=== PATIENT | female | born 1965 | race Caucasian/White ===

== ENCOUNTER → 2018-01-10 | Outpatient (CLI) | payer OTHER, MEDICAID ==
[~2018-01-10] MED LIST: IOPAMIDOL (ISOVUE-300) 100 ML BTL ONE
== END ==
LOC: CIMAGING 13:55
PROVIDERS: ATTEND Surgery
DX: K43.9 Ventral hernia without obstruction or gangrene (principal); N85.2 Hypertrophy of uterus; N20.0 Calculus of kidney; R93.8 Abnormal findings on diagnostic imaging of other specified body structures
CPT/HCPCS: 74177; Q9967; 82565-PO

== ENCOUNTER 2018-01-24 14:30 | Inpatient (IN) | payer OTHER, MEDICAID ==
--- NOTE | 2018-02-06 14:19 | GHP ---
[f rep st] PREOP HISTORY AND PHYSICAL DATE OF ADMISSION: 02/07/2018 HISTORY OF PRESENT ILLNESS: The patient is a 53-year-old female who presents with a recurrent incisi onal hernia. This hernia was repaired in September of 2017, following her 3rd open rectal prolapse re pair surgery, which was 4 years prior to the hernia repair. The incisional hernia recurred just over a week after its repair. She is found to have an intraabdominal abscess and require mesh removal. Her hernia was not repaired at that time. The patient complains of severe pain lateral to her previo us incision and over her hernia. She also complains of occasional nausea with dry heaving. When she first comes to us today she says she is on H. pylori medications. The patient had a CT scan of her abdomen and pelvis to further characterize the hernia and assure florentin arance of infection. This showed multiple fat and bowel containing ventral hernias without evidence of obstruction. Please see report from 01/10/2018, done at [facility] for further deta ils. She is now here for repair. She canceled her originally scheduled surgery, as she was sick wit h a cough. Risks and options have been fully discussed including but not limited to, bleeding, infec tion, nerve injury, bowel injury, damage to surrounding structures, healing problems, recurrent herni a, need for more surgery, and other problems, and she requests to proceed. PAST MEDICAL HISTORY: Includes chronic pain, depression, poorly-controlled type 2 diabetes, anxiety disorder, history of alcohol and narcotic dependence, history of pancreatitis, post-traumatic stress disorder, tobacco use. PAST SURGICAL HISTORY: As outlined above and includes several surgeries for rectal prolapse. Also v aginal prolapse and hernia repairs with subsequent mesh removal. MEDICATIONS: Include Adderall, amoxicillin, Bentyl, clarithromycin, gabapentin, ibuprofen, Lantus in sulin, lisinopril, Lopid, metformin, Howells, omeprazole, MiraLAX, promethazine, Prozac, Robaxin, Tylen ol, Zofran. ALLERGIES: Include contrast dye-induced nephropathy. Also with a reaction of hives. With Haldol be comes dystonic and Wellbutrin hives. FAMILY MEDICAL HISTORY: Involves alcoholism and depression. SOCIAL HISTORY: Patient is . She is a current everyday smoker of about 3 cigarettes a day. REVIEW OF SYSTEMS: Negative aside from that in the HPI. PHYSICAL EXAMINATION: GENERAL: Reveals a 53-year-old female, alert and oriented x3. Nontoxic appea ring. Increased BMI. Some paroxysmal dry heaving during the visit. HEENT: Normocephalic, atraumat ic. No scleral icterus. CHEST: Clear to auscultation bilaterally. CARDIAC: Regular rate and rhyt hm rate and rhythm. ABDOMEN: Soft nontender with old midline suprapubic scar and large reducible re current ventral hernia. Hernia is soft with no overlying skin changes. SKIN: Warm and dry. EXTREM ITIES: No peripheral edema. PSYCHIATRIC: Normal mood and affect. IMPRESSION: This is a 53-year-old female with multiple comorbidities with a recurrent incisional her shirley with a history of mesh infection requiring removal. PLAN: Plan is to proceed with open repair of her recurrent incisional hernia. We will likely use me sh. Again, the risks and options were discussed, and she requests to proceed. CT images personally reviewed by myself and Dr. Chamorro. /[id number]/MODL
[2018-02-07] MEDS ORDERED: ceFAZolin 2 GM/SWFI 2 GM/20 ML SYR IVP ONE (09:34)
[2018-02-07] MEDS ORDERED: LR 1,000 ML IV ONE (09:37)
[2018-02-07] MEDS ORDERED: LIDOCAINE 1% 2 ML INJ ID PRN (09:37)
--- NOTE | 2018-02-07 09:54 | PDHPUP ---
History & Physical Update H&P update statement: This history and physical update is based on an assessment of the patient which was completed after admission or registration (within 24 hours), but prior to the surgery/procedure. H&P update: H&P reviewed & patient examined, no change in patient's condition since H&P completed
[2018-02-07] MEDS ORDERED: BUPIVACAINE 0.5% 30 ML SDV ONE (10:05)
[2018-02-07] MEDS ORDERED: MIDAZOLAM 2 MG/2 ML VIAL IVP ONE (10:09)
--- NOTE | 2018-02-07 10:09 | PDANEPAE ---
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 No problems since then. - Pulmonary History Hx COPD: No Hx Asthma/Reactive Airway Disease: No Hx Recent Upper Respiratory Infection: No Hx Oxygen in Use at Home: No Hx Sleep Apnea: No Sleep Apnea Screening Result - Last Documented: Negative - Neurologic History Hx Cerebrovascular Accident: No Hx Seizures: No Hx Dementia: No Neurologic History Comment: Diabetic neuropathy hands and feet. - Endocrine History Hx Diabetes: Yes Endocrine History Comment: Type 2-insulin and metformin. - Renal History Hx Renal Disorders: Yes Renal History Comment: Septicemia due to ureter stent. Emergently removed in 2011. No further problems. - Liver History Hx Hepatic Disorders: No - Neurological & Psychiatric Hx Hx Neurological and Psychiatric Disorders: Yes Neurological / Psychiatric History Comment: PTSD, ADD-meds. - Cancer History Hx Cancer: No - Congenital Disorder History Hx Congenital Disorders: No - GI History Hx Gastrointestinal Disorders: Yes Gastrointestinal History Comment: 05/30-pancreatitis, treated and resolved. Chronic BM issues-meds.IBS. 4 abd. hernias. - Other Health History Other Health History: Bilateral mild hearing loss. Stress induced skin sores. Multiple missing teeth-meth abuse. - Chronic Pain History Chronic Pain: Yes (abd., colorectal) - Surgical History Prior Surgeries: 1994-colon resection, uterine sling, R oopherectomy.2004, 2009- colon resection & nicked L ureter with stent placement. Stent removed 2011. 2007 -L foot. 2012-oral surg. ANE Review of Systems Review of Systems: - Exercise capacity METS (RN): 4 METS ANE Patient History - Allergies Allergies/Adverse Reactions: bupropion HCl [From Wellbutrin] Allergy (Verified 06/19/13 13:44) haloperidol [From Haldol] Allergy (Verified 06/19/13 13:44) haloperidol lactate [From Haldol] Allergy (Verified 06/19/13 13:44) iopamidol [From Isovue-M] Allergy (Verified 06/27/13 08:27) Vomiting risperidone [From Risperdal] Allergy (Verified 06/19/13 13:44) CT CONTRAST Allergy (Uncoded 06/27/13 08:28) Vomiting - Home Medications Home medications: home medication list seen and reviewed Home Medications: Dextroamphetamine/Amphetamine [Adderall Xr 5 mg Capsule] 5 mg PO DAILY 01/20/18 [Last Taken 02/06/18] FLUoxetine [Prozac 20 MG (*)] 60 mg PO DAILY 01/20/18 [Last Taken 02/07/18] Gemfibrozil [Lopid 600 MG (*)] 600 mg PO BIDAC 01/20/18 [Last Taken 02/07/18] Insulin Glargine [Lantus 100 UNITS/ML (*)] 34 units SC DAILY 01/20/18 [Last Taken 02/06/18] Lisinopril [Zestril 5 mg (*)] 5 mg PO DAILY18 01/20/18 [Last Taken 02/05/18] Omeprazole 20 mg PO DAILY 01/20/18 [Last Taken 02/07/18] - NPO status NPO Status: no food or drink >8 hours NPO Since - Liquids (Date): 02/07/18 NPO Since - Liquids (Time): 07:00 NPO Since - Solids (Date): 02/06/18 NPO Since - Solids (Time): 23:00 - Smoking Hx Smoking Status: Current every day smoker - Family Anes Hx Family Hx Anesthesia Complications: none ANE Labs/Vital Signs - Labs Result Diagrams: 02/07/18 09:50 - Vital Signs Blood Pressure: 157/106 Heart Rate: 75 Respiratory Rate: 16 O2 Sat (%): 97 Height: 5 ft 1 in Weight: 77.111 kg ANE Physical Exam - Airway Neck exam: FROM Mallampati Score: Class 1 Mouth exam: poor dentition, dentures - Pulmonary Pulmonary: no respiratory distress - Cardiovascular Cardiovascular: regular rate and rhythym - ASA Status ASA Status: III ANE Anesthesia Plan Anesthesia Plan: general endotracheal anesthesia
[2018-02-07] MEDS ORDERED: fentaNYL 250 MCG/5 ML INJ ONE (10:13)
[2018-02-07] MEDS ORDERED: PROPOFOL/EMULSION 500 MG/50 ML BOTTLE IV ONE (10:14)
[2018-02-07] MEDS ORDERED: ROCURONIUM 100 MG/10 ML VIAL ONE (10:16)
[2018-02-07] MEDS ORDERED: HYDROmorphONE/DILAUDID 2 MG/ML INJ ONE ×3 (10:59→13:49)
[2018-02-07] MEDS ORDERED: PROPOFOL 200 MG/20 ML VIAL ONE (11:49)
[2018-02-07] MEDS ORDERED: ERTAPENEM 1 GM VIAL IV ONE (12:15)
[2018-02-07] MEDS ORDERED: KETOROLAC 30 MG/1 ML SDV ONE (12:17)
[2018-02-07] MEDS ORDERED: ALBUTEROL 3 ML DEYVIAL IH PRN (12:20)
[2018-02-07] MEDS ORDERED: ONDANSETRON 4 MG/2 ML VIAL IVP PRN ×2 (12:20→12:49)
[2018-02-07] MEDS ORDERED: NALOXONE HCL 0.4 MG/ML INJ IVP PRN ×2 (12:20→15:17)
[2018-02-07] MEDS ORDERED: HYDROmorphone HCL/NS 0.5 MG/ML SYR IVP PRN (12:53)
--- NOTE | 2018-02-07 12:55 | POSTOPPROG ---
Post Op Note Date of Operation: 02/07/18 Surgeon: Raad Chamorro Special Procedures Nurse: Chantal Peñaloza Anesthesiologist: Jasiel Benavidez Anesthesia: GET(General Endotracheal) Pre-op Diagnosis: large recurrent incisional ventral hernia Post-op Diagnosis: same, with 1 cm adjacent satellite ventral hernias x 2 Procedure: open repair of large VH with mesh and lysis of adhesions Findings: many adhesions, large defect Inf/Abcess present in the surg proc area at time of surgery?: No EBL: Minimal Complications: none Drains: David Naik Specimen(s): hernia sac to pathology
[2018-02-07] MEDS ORDERED: fentaNYL 100 MCG/2 ML INJ ONE (13:00)
[2018-02-07] MEDS: fentaNYL 100 MCG/2 ML INJ IVP PRN ×2 (13:01→13:08)
--- NOTE | 2018-02-07 13:02 | POSTANESTH ---
Post Anesthetic Evaluation Cardiovascular Status: Normal, Stable Respiratory Status: Normal, Stable Level of Consciousness/Mental Status: Can Participate in Eval Pain Control: Inadeq, Add Tx Required Nausea/Vomiting Control: Adequate, Prn Tx Ordered Complications Possibly Related to Anesthesia: None Noted
[2018-02-07] MEDS: HYDROmorphONE/DILAUDID 2 MG/ML INJ IVP PRN ×5 (13:17→14:00)
[2018-02-07] MEDS ORDERED: HYDROCODONE/APAP 5/325 TAB ONE (13:30)
[2018-02-07] MEDS ORDERED: OXYCODONE/APAP 5/325 TAB ONE (13:34)
[2018-02-07] MEDS: OXYCODONE/APAP 5/325 TAB PO PRN ×2 (13:35→21:43)
--- NOTE | 2018-02-07 13:54 | PDMN ---
Medical Necessity Medical necessity: est los>2mn s/p open repair of large ventral hernia w/mesh, for recurrent incisional hernia, and lysis of adhesions, r/t multiple comorbid conditions, including chronic pain, poorly controlled IDDM, anxiety, PTSD, hx etoh and narcotic dependence, and extensive surgical history; per order and H&P 02/07/18
[2018-02-07] MEDS ORDERED: DIAZEPAM 5 MG/ML 1 ML SYR ONE (13:59)
[2018-02-07] MEDS ORDERED: DIAZEPAM 5 MG/ML 1 ML SYR IVP ONE (14:30)
--- NOTE | 2018-02-07 15:06 | ASMTCASEMG ---
Living Arrangements What is your living Answers: Alone arrangement? Who do you live with? Type Of Residence What kind of residence do Answers: House you live in? Discharge Plan Comments Coordination Status Comments Notes: Pt is a 53 y/o female admitted for a recurrent incisional hernia. Pt is current w/ [facility]. CM spoke w/ Ej from [facility] and sent updates to them. No therapies ordered at this time. CM to follow. Plan: [facility] BERMUDEZ, RN Date Signed: 02/07/2018 03:05 PM Electronically Signed By:AIDAN Agudelo
--- NOTE | 2018-02-07 16:11 | SOAPPROG ---
SOAP Progress Note Assessment/Plan: Assessment/Plan: 53 Y F s/p repair of open VH c mesh, c extensive adhesiolysis. POD#0. Post op check. Wounds intact. Drain scant serosanguinous. C/o pain. 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 AFVSS. Continue routine post op care. 02/07/18 16:09 Objective: Vital Signs Temp Pulse Resp BP Pulse Ox 36.5 C 80 14 109/79 97 02/07/18 15:51 02/07/18 15:51 02/07/18 15:51 02/07/18 15:51 02/07/18 15:51 Laboratory Results 02/07/18 09:50 02/06/18 02/07/18 02/08/18 05:59 05:59 05:59 Intake Total 2030 Output Total 130 Balance 1900 ICD10 Worksheet Patient Problems: Problems Problem Status Onset Depression Acute
[2018-02-07] MEDS: HYDROmorphONE/DILAUDID 6 MG/30 ML PCA IV PRN (16:33)
[2018-02-07] MEDS: KETOROLAC 15 MG/1 ML SDV IVP SCH ×2 (16:53→23:32)
[2018-02-07] MEDS: GEMFIBROZIL 600 MG TAB PO SCH (18:32)
[2018-02-07] MEDS: LISINOPRIL 5 MG TAB PO SCH (18:32)
[2018-02-07] MEDS: LORazepam 2 MG/ML INJ IVP PRN (18:40)
[2018-02-07] MEDS: DOCUSATE SODIUM 100 MG CAP PO SCH (21:05)
[2018-02-07] MEDS: metFORMIN HCL 500 MG TAB PO SCH (21:05)
[2018-02-08] MEDS: KETOROLAC 15 MG/1 ML SDV IVP SCH ×3 (05:11→18:23)
[2018-02-08] MEDS: LORazepam 2 MG/ML INJ IVP PRN ×3 (05:16→21:06)
[2018-02-08] MEDS: HYDROmorphONE/DILAUDID 6 MG/30 ML PCA IV PRN ×2 (06:52→15:49)
[2018-02-08] MEDS: FLUoxetine 20 MG CAP PO SCH (08:42)
[2018-02-08] MEDS: GEMFIBROZIL 600 MG TAB PO SCH ×2 (08:42→18:22)
[2018-02-08] MEDS: metFORMIN HCL 500 MG TAB PO SCH ×2 (08:42→20:25)
[2018-02-08] MEDS: DOCUSATE SODIUM 100 MG CAP PO SCH ×2 (08:44→20:25)
[2018-02-08] MEDS: ERTAPENEM 1 GM VIAL IV SCH (08:45)
[2018-02-08] MEDS: PANTOPRAZOLE SODIUM 40 MG TAB PO SCH (08:45)
--- NOTE | 2018-02-08 11:25 | SOAPPROG ---
SOAP Progress Note Assessment/Plan: Assessment: 53 Y F s/p repair of open VH c mesh, c extensive adhesiolysis. POD#1 S: Experiencing pain. Denies passing flatus or BM yet. Tolerating clears. O: Alert Afebrile RRR No increased WOB Abdomen: soft, but distended. +BS. KARO drain with serosanguinous drainage. Abdominal binder in place. Plan: Seen with Dr. Chamorro. Pt will likely be here another day or two given postop pain. 02/08/18 11:23 Objective: Vital Signs Temp Pulse Resp BP Pulse Ox 36.4 C 69 16 115/77 85 L 02/08/18 09:50 02/08/18 09:50 02/08/18 09:50 02/08/18 09:50 02/08/18 10:00 Laboratory Results 02/08/18 05:00 02/08/18 05:00 02/07/18 02/08/18 02/09/18 05:59 05:59 05:59 Intake Total 2684 Output Total 405 350 Balance 2279 -350 ICD10 Worksheet Patient Problems: Problems Problem Status Onset Depression Acute
[2018-02-08] MEDS: LISINOPRIL 5 MG TAB PO SCH (18:23)
[2018-02-09] MEDS: KETOROLAC 15 MG/1 ML SDV IVP SCH ×4 (00:32→17:30)
[2018-02-09] MEDS: LORazepam 2 MG/ML INJ IVP PRN ×5 (02:58→22:00)
[2018-02-09] MEDS: HYDROmorphONE/DILAUDID 6 MG/30 ML PCA IV PRN ×2 (08:48→20:25)
--- NOTE | 2018-02-09 09:29 | SOAPPROG ---
SOAP Progress Note Assessment/Plan: Assessment: 53 Y F s/p repair of open VH c mesh, c extensive adhesiolysis. POD#1 S: Experiencing pain. Denies passing flatus or BM yet. Tolerating clears. O: Alert Afebrile RRR No increased WOB Abdomen: soft, but distended. +BS. KARO drain with serosanguinous drainage. Abdominal binder in place. Plan: Seen with Dr. Chamorro. Pt will likely be here another day or two given postop pain. 02/08/18 11:23 02/09/18 09:24 Alert Afebrile Abdomen: distended, hypoactive bowel sounds, tender to palpation. Dressing cdi. Pt upset that this was her 7th surgery for her ventral hernia and concerned that it may not take this time. Passing gas, no BM. Still having significant pain. Offered reassurance. 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 Discussed with RN. Objective: Vital Signs Temp Pulse Resp BP Pulse Ox 36.8 C 77 18 117/71 89 L 02/09/18 07:48 02/09/18 07:48 02/09/18 07:48 02/09/18 07:48 02/09/18 07:48 Laboratory Results 02/08/18 05:00 02/08/18 05:00 02/08/18 02/09/18 02/10/18 05:59 05:59 05:59 Intake Total 2684 480 Output Total 405 1140 60 Balance 2279 -660 -60 ICD10 Worksheet Patient Problems: Problems Problem Status Onset Depression Acute
[2018-02-09] MEDS: PANTOPRAZOLE SODIUM 40 MG TAB PO SCH (09:35)
[2018-02-09] MEDS: FLUoxetine 20 MG CAP PO SCH (09:35)
[2018-02-09] MEDS: ENOXAPARIN 40 MG/0.4 ML SYR SC SCH (09:35)
[2018-02-09] MEDS: metFORMIN HCL 500 MG TAB PO SCH ×2 (09:35→22:04)
[2018-02-09] MEDS: GEMFIBROZIL 600 MG TAB PO SCH ×2 (09:35→17:46)
[2018-02-09] MEDS: DOCUSATE SODIUM 100 MG CAP PO SCH ×2 (09:35→22:03)
[2018-02-09] MEDS: ERTAPENEM 1 GM VIAL IV SCH (09:36)
[2018-02-09] MEDS: LISINOPRIL 5 MG TAB PO SCH (17:46)
[2018-02-09] MEDS: OXYCODONE/APAP 5/325 TAB PO PRN ×2 (17:50→22:08)
[2018-02-10] MEDS: KETOROLAC 15 MG/1 ML SDV IVP SCH ×2 (00:34→05:49)
[2018-02-10] MEDS: OXYCODONE/APAP 5/325 TAB PO PRN (03:47)
[2018-02-10] MEDS: LORazepam 2 MG/ML INJ IVP PRN (03:47)
[2018-02-10 07:27] VITALS: BP 128/95
[2018-02-10] MEDS: ENOXAPARIN 40 MG/0.4 ML SYR SC SCH (09:25)
[2018-02-10] MEDS: ERTAPENEM 1 GM VIAL IV SCH (09:25)
[2018-02-10] MEDS: GEMFIBROZIL 600 MG TAB PO SCH (09:26)
[2018-02-10] MEDS: PANTOPRAZOLE SODIUM 40 MG TAB PO SCH (09:26)
[2018-02-10] MEDS: FLUoxetine 20 MG CAP PO SCH (09:26)
[2018-02-10] MEDS: metFORMIN HCL 500 MG TAB PO SCH (09:26)
[2018-02-10] MEDS: DOCUSATE SODIUM 100 MG CAP PO SCH (09:26)
[2018-02-10] MEDS ORDERED: oxyCODONE IR 5 MG TAB PO PRN (10:28)
[2018-02-10] MEDS ORDERED: LORazepam 0.5 MG TAB PO PRN (10:29)
[2018-02-10] MEDS ORDERED: IBUPROFEN 600 MG TAB PO PRN (10:29)
--- NOTE | 2018-02-10 10:53 | SOAPPROG ---
SOAP Progress Note Assessment/Plan: Assessment/Plan: 53 Y F s/p repair of open VH c mesh, c extensive adhesiolysis. POD#3. wounds intact. eating. isis still high drainage. seen with dr. Chamorro. D/c all IV pain meds. Start PO. D/c today after drain teaching. Discussed pain medicine regimen in detail. Patient has history of drug abuse in the past. S: scared to have pain. O: alert, nad, smiling, crying, laughing no wob rrr abd soft, inc cdi, drain serosagnuinous. 02/10/18 10:51 Objective: Vital Signs Temp Pulse Resp BP Pulse Ox 36.8 C 88 18 128/95 H 92 02/10/18 07:27 02/10/18 07:27 02/10/18 07:27 02/10/18 07:27 02/10/18 07:27 Laboratory Results 02/08/18 05:00 02/08/18 05:00 02/09/18 02/10/18 02/11/18 05:59 05:59 05:59 Intake Total 480 810 Output Total 1140 130 210 Balance -660 680 -210 ICD10 Worksheet Patient Problems: Problems Problem Status Onset Depression Acute
--- NOTE | 2018-02-10 11:21 | PDIAF ---
- Diagnosis Diagnosis: s/p repair of large recurrent incisional hernia Code Status: Full Code - Medication Management Discharge Medications: Medications to Continue on Transfer metFORMIN HCL [Glucophage 500 mg (*)] 500 mg PO BID #20 tab 06/28/14 [Last Taken 02/06/18] Dextroamphetamine/Amphetamine [Adderall Xr 5 mg Capsule] 5 mg PO DAILY 01/20/18 [Last Taken 02/06/18] FLUoxetine [Prozac 20 MG (*)] 60 mg PO DAILY 01/20/18 [Last Taken 02/07/18] Gemfibrozil [Lopid 600 MG (*)] 600 mg PO BIDAC 01/20/18 [Last Taken 02/07/18] Insulin Glargine [Lantus 100 UNITS/ML (*)] 34 units SC DAILY 01/20/18 [Last Taken 02/06/18] Lisinopril [Zestril 5 mg (*)] 5 mg PO DAILY18 01/20/18 [Last Taken 02/05/18] Omeprazole 20 mg PO DAILY 01/20/18 [Last Taken 02/07/18] Docusate Sodium [Colace 100 MG (*)] 100 mg PO BID cap 02/10/18 [Last Taken Unknown] Ibuprofen [Motrin (*)] 600 mg PO Q6HRS PRN #50 tab 02/10/18 [Last Taken Unknown] LORazepam [Ativan (*)] 1 mg PO Q6HRS PRN #14 tab 02/10/18 [Last Taken Unknown] oxyCODONE IR [Oxycodone Ir (*)] 5 - 10 mg PO Q4HRS PRN #40 tab 02/10/18 [Last Taken Unknown] Discharge Medications: Refer to the Discharge Home Medication list for PRN reason. PICC Care - Routine: N/A - Orders Services needed: Home Care, Registered Nurse, Master Retail And Promotions Coordinator Home Care Face to Face: I certify that this patient was under my care and that I had the required [id number] encounter meeting the encounter requirements on the discharge day. My findings support the fact that the patient is homebound as defined in Home Care Face to Face Continued: CMS Chapter 7 Medicare Benefits Manual 30.1.1 , The condition of the patient is such that there exists a normal inability to leave home and consequently, leaving home would require a considerable and taxing effort. Isolation Type: None Diet Recommendation: no restrictions on diet Diet Texture: Regular Texture Diet Wound Care Instructions: routine KARO drain care. strip, drain, record. replace dressing around drain daily or as needed for saturation. if drain site is dry ok to leave open to air. Ok to shower with drain and over incision. No baths/ pools. Sutures/[place] Site: drain and leonardo to be removed in office visit. Activity/Weight Bearing Restrictions: No lifting, pushing, or pulling greater than 15 lbs. No abdominal exercises. Additional Instructions: No lifting, pushing, or pulling greater than 15 lbs. No core abdominal exercises , ie. no sit ups, no plank poses, no golf or tennis. We encourage short walks. Ok to shower. You will need to empty and record the drainage from your drain. You may need to replace a dressing around the drain site after you shower. You may need a laxative like miralax or something else over the counter as the opioid prescription pain medicines are constipating. - Follow Up Care Current Providers and Referrals: Celia Barry MD [Primary Care Provider] - Raad Chamorro MD [Medical Doctor] - follow up in 1 week
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
== END 2018-02-10 13:31 | disposition home health service (06) | DRG 355 ==
LOC: F3E 02-07 09:29 → OBSVTOIN 02-07 12:49 → F3E 02-07 14:44
PROVIDERS: ADMIT Surgery; ATTEND Surgery
PROC: 0WUF0JZ Supplement Abdominal Wall with Synthetic Substitute, Open Approach (ICD-10-PCS; principal; 2018-02-07 10:15)
DX: K43.2 Incisional hernia without obstruction or gangrene (principal); E11.65 Type 2 diabetes mellitus with hyperglycemia; F41.9 Anxiety disorder, unspecified; F43.10 Post-traumatic stress disorder, unspecified; F32.9 Major depressive disorder, single episode, unspecified; F17.200 Nicotine dependence, unspecified, uncomplicated; Z79.4 Long term (current) use of insulin; G89.29 Other chronic pain; I10 Essential (primary) hypertension
CPT/HCPCS: C1781; J0690; J1170; J1335; J1650; J1885; J2060; J2250; J2704; J3010; J3360

== ENCOUNTER 2018-04-03 08:56 | Day surgery (SDC) | payer OTHER, MEDICAID ==
[2018-04-03] MEDS ORDERED: LIDOCAINE 1% 2 ML INJ ID PRN (09:16)
[2018-04-03] MEDS ORDERED: LR 1,000 ML IV ONE (09:16)
[2018-04-03] MEDS ORDERED: ceFAZolin 2 GM/SWFI 2 GM/20 ML SYR IVP ONE (09:16)
[2018-04-03] MEDS ORDERED: BUPIVACAINE 0.25% 30 ML SDV ONE (09:20)
[2018-04-03] MEDS ORDERED: ceFAZolin 2 GM/DEXTROSE 100 ML IV ONE (09:30)
--- NOTE | 2018-04-03 10:23 | PDANEPAE ---
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 No problems since then. - Pulmonary History Hx COPD: No Hx Asthma/Reactive Airway Disease: No Hx Recent Upper Respiratory Infection: No Hx Oxygen in Use at Home: No Hx Sleep Apnea: No - Neurologic History Hx Cerebrovascular Accident: No Hx Seizures: No Hx Dementia: No Neurologic History Comment: Diabetic neuropathy hands and feet. - Endocrine History Hx Diabetes: Yes Endocrine History Comment: Type 2-insulin and metformin. - Renal History Hx Renal Disorders: Yes Renal History Comment: Septicemia due to ureter stent. Emergently removed in 2011. No further problems. - Liver History Hx Hepatic Disorders: No - Neurological & Psychiatric Hx Hx Neurological and Psychiatric Disorders: Yes Neurological / Psychiatric History Comment: PTSD, ADD-meds. - Cancer History Hx Cancer: No - Congenital Disorder History Hx Congenital Disorders: No - GI History Hx Gastrointestinal Disorders: Yes Gastrointestinal History Comment: 05/30-pancreatitis, treated and resolved. Chronic BM issues-meds.IBS. 4 abd. hernias. - Other Health History Other Health History: Bilateral mild hearing loss. Stress induced skin sores. Multiple missing teeth-meth abuse. - Chronic Pain History Chronic Pain: Yes (abd., colorectal) - Surgical History Prior Surgeries: 1994-colon resection, uterine sling, R oopherectomy.2004, 2009- colon resection & nicked L ureter with stent placement. Stent removed 2011. 2007 -L foot. 2011-oral surg. ANE Review of Systems Review of Systems: ANE Patient History - Allergies Allergies/Adverse Reactions: bupropion HCl [From Wellbutrin] Allergy (Verified 06/19/13 13:44) haloperidol [From Haldol] Allergy (Verified 06/19/13 13:44) haloperidol lactate [From Haldol] Allergy (Verified 06/19/13 13:44) iopamidol [From Isovue-M] Allergy (Verified 06/27/13 08:27) Vomiting risperidone [From Risperdal] Allergy (Verified 06/19/13 13:44) CT CONTRAST Allergy (Uncoded 06/27/13 08:28) Vomiting - Home Medications Home Medications: Dextroamphetamine/Amphetamine [Adderall Xr 5 mg Capsule] 5 mg PO DAILY 01/20/18 [Last Taken 04/02/18] FLUoxetine [Prozac 20 MG (*)] 60 mg PO DAILY 01/20/18 [Last Taken 04/02/18] Gemfibrozil [Lopid 600 MG (*)] 600 mg PO BIDAC 01/20/18 [Last Taken 02/07/18] Insulin Glargine [Lantus 100 UNITS/ML (*)] 34 units SC DAILY 01/20/18 [Last Taken 04/02/18] Lisinopril [Zestril 5 mg (*)] 5 mg PO DAILY18 01/20/18 [Last Taken 04/02/18] Omeprazole 20 mg PO DAILY 01/20/18 [Last Taken 04/02/18] - NPO status NPO Since - Liquids (Date): 04/02/18 NPO Since - Liquids (Time): 00:00 NPO Since - Solids (Date): 04/02/18 NPO Since - Solids (Time): 00:00 - Smoking Hx Smoking Status: Current every day smoker - Family Anes Hx Family Hx Anesthesia Complications: none ANE Labs/Vital Signs - Vital Signs Blood Pressure: 134/95 Heart Rate: 82 Respiratory Rate: 14 O2 Sat (%): 93 Height: 154.94 cm Weight: 77.111 kg ANE Physical Exam - Airway Neck exam: decreased ROM Mallampati Score: Class 3 Mouth exam: poor dentition - Pulmonary Pulmonary: no respiratory distress - Cardiovascular Cardiovascular: regular rate and rhythym - ASA Status ASA Status: III (morbid obesity) ANE Anesthesia Plan Anesthesia Plan: GA w LMA
[2018-04-03] MEDS ORDERED: LIDOCAINE 2% 100 MG/5 ML SYR ONE (10:25)
[2018-04-03] MEDS ORDERED: PROPOFOL 200 MG/20 ML VIAL ONE (10:25)
[2018-04-03] MEDS ORDERED: fentaNYL 100 MCG/2 ML INJ ONE ×3 (10:25→11:59)
[2018-04-03 10:29] LABS: PLATELET COUNT 468 10^3/uL (150-400)
[2018-04-03] MEDS ORDERED: ROCURONIUM 50 MG/5 ML VIAL ONE (10:39)
[2018-04-03] MEDS ORDERED: SUGAMMADEX SODIUM 200 MG/2 ML VIAL IVP ONE (11:01)
[2018-04-03] MEDS ORDERED: NALOXONE HCL 0.4 MG/ML INJ IVP PRN (11:25)
[2018-04-03] MEDS ORDERED: ALBUTEROL 3 ML DEYVIAL IH PRN (11:25)
[2018-04-03] MEDS ORDERED: ONDANSETRON 4 MG/2 ML VIAL IVP PRN (11:25)
--- NOTE | 2018-04-03 11:27 | POSTANESTH ---
Post Anesthetic Evaluation Cardiovascular Status: Similar to Pre-Op Cond Respiratory Status: Similar to Pre-op Cond. Level of Consciousness/Mental Status: Mildly Sleepy, Arousable Pain Control: Adequate, Prn Tx Ordered Nausea/Vomiting Control: Adequate, Prn Tx Ordered Complications Possibly Related to Anesthesia: None Noted
[2018-04-03] MEDS: fentaNYL 100 MCG/2 ML INJ IVP PRN ×4 (11:30→12:03)
[2018-04-03] MEDS ORDERED: HYDROCODONE/APAP 5/325 TAB ONE ×2 (11:59→14:31)
[2018-04-03] MEDS: HYDROCODONE/APAP 5/325 TAB PO PRN ×2 (12:09→14:33)
[2018-04-03 12:32] VITALS: BP 91/52
[2018-04-03] MEDS ORDERED: CEPACOL LOZENGE PO ONE (14:34)
--- NOTE | 2018-04-09 04:17 | GOP ---
[f rep st] OPERATIVE REPORT DATE OF OPERATION: 04/03/2018 SURGEON: Raad Chamorro MD PREOPERATIVE DIAGNOSIS: Chronic abdominal wall seroma. POSTOPERATIVE DIAGNOSIS: Chronic abdominal wall seroma. PROCEDURE PERFORMED: Drainage of a giant abdominal wall seroma. FINDINGS: Large volume multilobulated seroma which was blood tinged but no active bleeding DESCRIPTION OF PROCEDURE: Patient was taken to the operating room where she received satisfactory general endotracheal anesthesia. She was placed in supine position, prepped and draped in usual sterile fashion. A transverse incision was made over the palpable mass. Dissection extended down through subcutaneous tissue and the seroma, itself, was encountered and entered. The contents were suctioned free and appeared to be primarily old hematoma type liquid. This was all suctioned free. The seroma extended quite laterally in the right lower quadrant. Any leftover debris was removed from the seroma cavities, and a large 19-Sinhala KARO drain was brought through a separate stab incision and placed in the cavity. It was secured to the skin with a silk suture. The wound was then closed with 3-0 Vicryl for the subcutaneous tissue and 4-0 Monocryl subcuticular stitch for the skin. Compression dressing was applied. She tolerated the procedure well. Blood loss for the procedure was negligible. There were no complications. She was taken to recovery room in good condition. /[id number]/MODL MTDD
== END 2018-04-03 14:54 | disposition home or self-care (01) ==
LOC: FSGY 08:56
PROVIDERS: ATTEND Surgery
PROC: 0H97X0Z Drainage of Abdomen Skin with Drainage Device, External Approach (ICD-10-PCS; principal; 2018-04-03 10:15)
DX: L76.34 Postprocedural seroma of skin and subcutaneous tissue following other procedure (principal); Z87.19 Personal history of other diseases of the digestive system; Z87.42 Personal history of other diseases of the female genital tract; F17.200 Nicotine dependence, unspecified, uncomplicated; E11.9 Type 2 diabetes mellitus without complications; Z79.4 Long term (current) use of insulin
CPT/HCPCS: J0690; J2001; J2704; J3010

== ENCOUNTER 2018-04-21 10:14 | Inpatient (IN) | payer OTHER, MEDICAID ==
[2018-04-21] MEDS ORDERED: ceFAZolin 2 GM/DEXTROSE 100 ML IV ONE (10:47)
[2018-04-21] MEDS ORDERED: LR 1,000 ML IV ONE (10:48)
[2018-04-21] MEDS ORDERED: LORazepam 1 MG TAB PO ONE ×2 (11:30→13:15)
[2018-04-21] MEDS ORDERED: BUPIVACAINE 0.25% 30 ML SDV ONE (12:37)
[2018-04-21] MEDS ORDERED: MIDAZOLAM 2 MG/2 ML VIAL IVP SCH (13:15)
[2018-04-21] MEDS ORDERED: PROPOFOL/EMULSION 500 MG/50 ML BOTTLE IV ONE (14:25)
[2018-04-21] MEDS ORDERED: fentaNYL 100 MCG/2 ML INJ ONE ×2 (14:25→15:54)
[2018-04-21] MEDS ORDERED: LIDOCAINE 2% 5 ML SDV ONE (14:55)
[2018-04-21] MEDS ORDERED: ROCURONIUM 50 MG/5 ML VIAL ONE (14:55)
[2018-04-21] MEDS ORDERED: ONDANSETRON 4 MG/2 ML VIAL ONE ×2 (14:55→15:54)
[2018-04-21] MEDS ORDERED: SUGAMMADEX SODIUM 200 MG/2 ML VIAL IVP ONE (14:55)
[2018-04-21] MEDS ORDERED: KETOROLAC 30 MG/1 ML SDV ONE (14:55)
[2018-04-21] MEDS ORDERED: LR 500 ML IV PRN (15:03)
[2018-04-21] MEDS ORDERED: ALBUTEROL 3 ML DEYVIAL IH PRN (15:03)
[2018-04-21] MEDS ORDERED: NALOXONE HCL 0.4 MG/ML INJ IVP PRN (15:03)
[2018-04-21] MEDS ORDERED: fentaNYL 100 MCG/2 ML INJ IVP PRN (15:03)
--- NOTE | 2018-04-21 15:03 | PDANEPAE ---
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 No problems since then. - Pulmonary History Hx COPD: No Hx Asthma/Reactive Airway Disease: No Hx Recent Upper Respiratory Infection: No Hx Oxygen in Use at Home: No Hx Sleep Apnea: No - Neurologic History Hx Cerebrovascular Accident: No Hx Seizures: No Hx Dementia: No Neurologic History Comment: Diabetic neuropathy hands and feet. - Endocrine History Hx Diabetes: Yes Endocrine History Comment: Type 2-insulin and metformin. - Renal History Hx Renal Disorders: Yes Renal History Comment: Septicemia due to ureter stent. Emergently removed in 2011. No further problems. - Liver History Hx Hepatic Disorders: No - Neurological & Psychiatric Hx Hx Neurological and Psychiatric Disorders: Yes Neurological / Psychiatric History Comment: PTSD, ADD-meds. - Cancer History Hx Cancer: No - Congenital Disorder History Hx Congenital Disorders: No - GI History Hx Gastrointestinal Disorders: Yes Gastrointestinal History Comment: 05/30-pancreatitis, treated and resolved. Chronic BM issues-meds.IBS. 4 abd. hernias. - Other Health History Other Health History: Bilateral mild hearing loss. Stress induced skin sores. Multiple missing teeth-meth abuse. - Chronic Pain History Chronic Pain: Yes (abd., colorectal) - Surgical History Prior Surgeries: 1994-colon resection, uterine sling, R oopherectomy.2004, 2009- colon resection & nicked L ureter with stent placement. Stent removed 2011. 2007 -L foot. 2011-oral surg. ANE Review of Systems Review of Systems: ANE Patient History - Allergies Allergies/Adverse Reactions: bupropion HCl [From Wellbutrin] Allergy (Verified 06/19/13 13:44) haloperidol [From Haldol] Allergy (Verified 06/19/13 13:44) haloperidol lactate [From Haldol] Allergy (Verified 06/19/13 13:44) iopamidol [From Isovue-M] Allergy (Verified 06/27/13 08:27) Vomiting risperidone [From Risperdal] Allergy (Verified 06/19/13 13:44) CT CONTRAST Allergy (Uncoded 06/27/13 08:28) Vomiting - Home Medications Home Medications: Dextroamphetamine/Amphetamine [Adderall Xr 5 mg Capsule] 5 mg PO DAILY 01/20/18 [Last Taken 04/20/18] FLUoxetine [Prozac 20 MG (*)] 60 mg PO DAILY 01/20/18 [Last Taken 04/20/18] Gemfibrozil [Lopid 600 MG (*)] 600 mg PO BIDAC 01/20/18 [Last Taken 04/20/18] Insulin Glargine [Lantus 100 UNITS/ML (*)] 34 units SC DAILY 01/20/18 [Last Taken 04/20/18 23:00] Lisinopril [Zestril 5 mg (*)] 5 mg PO DAILY18 01/20/18 [Last Taken 04/20/18 23: 00] Omeprazole 20 mg PO DAILY 01/20/18 [Last Taken 04/20/18] - NPO status NPO Since - Liquids (Date): 04/21/18 NPO Since - Liquids (Time): 12:30 NPO Since - Solids (Date): 04/20/18 NPO Since - Solids (Time): 23:00 - Smoking Hx Smoking Status: Current every day smoker - Family Anes Hx Family Hx Anesthesia Complications: none ANE Labs/Vital Signs - Vital Signs Blood Pressure: 116/80 Heart Rate: 90 Respiratory Rate: 15 O2 Sat (%): 96 Height: 152.4 cm Weight: 77.111 kg ANE Physical Exam - Airway Neck exam: FROM Mallampati Score: Class 1 Mouth exam: poor dentition - Pulmonary Pulmonary: no respiratory distress, no rales or rhonchi, clear to auscultation - Cardiovascular Cardiovascular: regular rate and rhythym, no murmur, rub, or gallop - ASA Status ASA Status: III ANE Anesthesia Plan Anesthesia Plan: general endotracheal anesthesia
[2018-04-21] MEDS: ONDANSETRON 4 MG/2 ML VIAL IVP PRN ×2 (15:57→16:15)
[2018-04-21] MEDS ORDERED: HYDROmorphONE/DILAUDID 1 MG/ML INJ IVP PRN (16:16)
[2018-04-21] MEDS: ONDANSETRON DISINTEGRATING 4 MG TAB PO PRN ×2 (16:56→21:16)
[2018-04-21] MEDS: OXYCODONE/APAP 5/325 TAB PO PRN ×2 (17:01→21:16)
--- NOTE | 2018-04-21 19:26 | POSTANESTH ---
Post Anesthetic Evaluation Cardiovascular Status: Normal, Stable, Similar to Pre-Op Cond, Tx Over/Under Hydration Respiratory Status: Normal, Stable Level of Consciousness/Mental Status: Mildly Sleepy, Arousable Pain Control: Adequate, Prn Tx Ordered Nausea/Vomiting Control: Adequate, Prn Tx Ordered Complications Possibly Related to Anesthesia: None Noted
[2018-04-21] MEDS ORDERED: ALBUTEROL 60 PUFFS/8 GM MDI IH PRN (20:08)
--- NOTE | 2018-04-21 20:16 | POSTOPPROG ---
Post Op Note Date of Operation: 04/21/18 Surgeon: Raad Chamorro Anesthesiologist: DAVIN Anesthesia: GET(General Endotracheal) Pre-op Diagnosis: INFECTED ABDOMINAL WALL SEROMA Post-op Diagnosis: SAME Indication: SAME Procedure: DRAINAGE OF AND DEBRIDEMENT OF ABDOMINAL WALL SEROMA WITH WOUND VAC PLACEME Findings: CLOUDY SEROMA FLUID WITH FIBRIN DISSECTION TODAY Inf/Abcess present in the surg proc area at time of surgery?: Yes Depth: Superfical (Skin SQ) EBL: Minimal Complications: NONE Drains: Wound Vac Specimen(s): CULTURES
[2018-04-21] MEDS: LORazepam 1 MG TAB PO PRN (21:16)
[2018-04-22] MEDS: KETOROLAC 15 MG/1 ML SDV IVP SCH ×3 (00:04→10:55)
[2018-04-22] MEDS: ONDANSETRON DISINTEGRATING 4 MG TAB PO PRN ×3 (05:16→15:01)
[2018-04-22] MEDS: OXYCODONE/APAP 5/325 TAB PO PRN ×2 (05:16→15:01)
[2018-04-22] MEDS ORDERED: GEMFIBROZIL 600 MG TAB PO SCH (07:30)
[2018-04-22] MEDS ORDERED: metFORMIN HCL 500 MG TAB PO SCH (08:00)
[2018-04-22] MEDS ORDERED: PANTOPRAZOLE SODIUM 40 MG TAB PO SCH (09:00)
[2018-04-22] MEDS ORDERED: Dextroamphetamine/Amphetamine [Adderall Xr 10 Mg Capsule] PO SCH (09:00)
[2018-04-22] MEDS ORDERED: INSULIN GLARGINE 100 UNITS/ML UNIT SC SCH (09:00)
[2018-04-22] MEDS ORDERED: FLUoxetine 20 MG CAP PO SCH (09:00)
--- NOTE | 2018-04-22 09:42 | SOAPPROG ---
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
[2018-04-22] MEDS ORDERED: NICOTINE 7 MG/24 HR PATCH TD SCH (09:45)
--- NOTE | 2018-04-22 09:46 | PDIAF ---
- Diagnosis Diagnosis: abdominal wound Code Status: Full Code - Medication Management Discharge Medications: Medications to Continue on Transfer FLUoxetine [Prozac 20 MG (*)] 60 mg PO DAILY 01/20/18 [Last Taken 04/20/18] Gemfibrozil [Lopid 600 MG (*)] 600 mg PO BIDAC 01/20/18 [Last Taken 04/20/18] Insulin Glargine [Lantus 100 UNITS/ML (*)] 34 units SC DAILY 01/20/18 [Last Taken 04/20/18 23:00] Lisinopril [Zestril 5 mg (*)] 5 mg PO DAILY18 01/20/18 [Last Taken 04/20/18 23: 00] Ibuprofen [Motrin (*)] 600 mg PO Q6HRS PRN #50 tab 02/10/18 [Last Taken 04/20/18 ] LORazepam [Ativan (*)] 1 mg PO Q6HRS PRN #14 tab 02/10/18 [Last Taken 2 Weeks Ago ~04/07/18] Albuterol [Proventil Inhaler HFA (*)] 1 - 2 puffs IH Q4H PRN 04/21/18 [Last Taken Unknown] Cephalexin [Keflex (*)] 500 mg PO QID 04/21/18 [Last Taken 04/20/18] Dextroamphetamine/Amphetamine [Adderall Xr 10 mg Capsule] 10 mg PO DAILY [Last Taken 04/20/18] Herbals/Supplements -Info Only 1 ea PO DAILY 04/21/18 [Last Taken Unknown] Omeprazole 20 mg PO DAILY 04/21/18 [Last Taken 04/20/18] metFORMIN HCL [Glucophage 1000 mg] 1,000 mg PO BIDMEAL 04/21/18 [Last Taken 03/03] Ondansetron Odt [Zofran Odt 4 mg (*)] 4 mg PO Q4HRS PRN #60 tab 04/22/18 [Last Taken Unknown] oxyCODONE/APAP 5/325 [Percocet 5/325 (*)] 1 - 2 tab PO Q4HRS PRN #30 tab [Last Taken Unknown] Usp Antibiotics: continue keflex as prescribed Discharge Medications: Refer to the Discharge Home Medication list for PRN reason. - Orders Services needed: Home Care, Registered Nurse Home Care Face to Face: I certify that this patient was under my care and that I had the required [id number] encounter meeting the encounter requirements on the discharge day. My findings support the fact that the patient is homebound as defined in Home Care Face to Face Continued: CMS Chapter 7 Medicare Benefits Manual 30.1.1 , The condition of the patient is such that there exists a normal inability to leave home and consequently, leaving home would require a considerable and taxing effort. Isolation Type: None Diet Recommendation: no restrictions on diet Wound Care Instructions: change wound vac 3x per week Additional Instructions: wound vac change 3 times per week No heavy lifting pushing or pulling more than 15 lbs for 2 weeks - Follow Up Care Current Providers and Referrals: Celia Barry MD [Primary Care Provider] - Meche Gallardo NP [Certified Nurse Practioner] - follow up in 1 week
[2018-04-22] MEDS: LORazepam 1 MG TAB PO PRN (10:39)
--- NOTE | 2018-04-22 11:07 | PDMN ---
Medical Necessity Medical necessity: Pt meets IP criteria per INVESTMENT SPECIALIST; los >2 mn s/p I&D of infected abdominal wall seroma w/wound vac placement; requiring further monitoring, wound vac management, IV abx & IV Toradol; hx poorly controlled diabetes & multiple surgeries for rectal prolapse, vaginal prolapse & hernia repairs; per order 04/21/18
[2018-04-22 12:10] VITALS: BP 100/65
--- NOTE | 2018-04-22 14:17 | ASMTDCNOTE ---
Case Management Discharge Discharge Order Complete? Answers: Yes Patient to Obtain Answers: Independently Medications Transportation Arranged Answers: Family/Friends Faxed Final Orders Answers: Yes Discharge Comments Notes: Patient discharged to home with [facility] wound vac and [facility] RN. Orders sent to [facility], and wound vac paperwork faxed to [facility] (hard copies in chart). Patient's [facility] will transport her home. Date Signed: 04/22/2018 02:16 PM Electronically Signed By:Cathy Luque RN
[2018-04-22] MEDS ORDERED: LISINOPRIL 5 MG TAB PO SCH (18:00)
--- NOTE | 2018-05-11 14:23 | GOP ---
[f rep st] OPERATIVE REPORT DATE OF OPERATION: 04/21/2018 SURGEON: Raad Chamorro MD MEDICATION NURSE: None. ANESTHESIOLOGIST: Dr. Gunn. PREOPERATIVE DIAGNOSIS: Infected abdominal wall seroma. POSTOPERATIVE DIAGNOSIS: Infected abdominal wall seroma. PROCEDURE PERFORMED: Incision and drainage of an abdominal wall seroma with wound VAC placement and debridement. FINDINGS: Patient was found with very cloudy seroma fluid with fibrinous exudate. ESTIMATED BLOOD LOSS: Less than 25 cc. DESCRIPTION OF PROCEDURE: The patient was taken to the operating room where she received satisfactor y general endotracheal anesthesia by Dr. Gunn, placed in a supine position, prepped and draped in t he usual sterile fashion. A transverse incision was made over the palpable seroma cavity. Dissectio n carried down through subcutaneous tissue, and the seroma was encountered. This was suctioned clear of fluid. The cavity contents were then sharply debrided as well, taking out a large portion of the wall of the seroma. After adequately cleaning the wound, wound VAC was placed and connected to suct ion and appeared to function well. She tolerated procedure well. COMPLICATIONS: None. DISPOSITION: She was taken to the recovery room in good condition. /[id number]/MODL
== END 2018-04-22 15:30 | disposition home health service (06) | DRG 921 ==
LOC: FSGY 10:14 → F3E 16:10
PROVIDERS: ADMIT Nurse Practitioner Family; ATTEND Surgery
PROC: 0H97X0Z Drainage of Abdomen Skin with Drainage Device, External Approach (ICD-10-PCS; principal; 2018-04-21 12:00)
DX: L76.34 Postprocedural seroma of skin and subcutaneous tissue following other procedure (principal); E11.40 Type 2 diabetes mellitus with diabetic neuropathy, unspecified; Z79.84 Long term (current) use of oral hypoglycemic drugs; Z72.0 Tobacco use
CPT/HCPCS: J0690; J1170; J1815; J1885; J2250; J2405; J2704; J3010

== ENCOUNTER 2018-07-21 06:07 | Inpatient (IN) | payer OTHER, MEDICAID ==
[2018-07-21] MEDS ORDERED: ceFAZolin 2 GM/DEXTROSE 100 ML IV ONE (06:13)
[2018-07-21] MEDS ORDERED: LR 1,000 ML IV ONE (06:56)
[2018-07-21] MEDS ORDERED: BUPIVACAINE 0.5% 30 ML SDV ONE ×2 (07:01→07:44)
[2018-07-21] MEDS ORDERED: MIDAZOLAM 2 MG/2 ML VIAL IVP ONE (07:01)
--- NOTE | 2018-07-21 07:09 | PDANEPAE ---
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 No problems since then. - Pulmonary History Hx COPD: No Hx Asthma/Reactive Airway Disease: No Hx Recent Upper Respiratory Infection: No Hx Oxygen in Use at Home: No Hx Sleep Apnea: No Sleep Apnea Screening Result - Last Documented: Negative Pulmonary History Comment: states has inhaler but does not use/need - Neurologic History Hx Cerebrovascular Accident: No Hx Seizures: No Hx Dementia: No Neurologic History Comment: Diabetic neuropathy hands and feet. - Endocrine History Hx Diabetes: Yes Endocrine History Comment: Type 2-insulin and metformin. - Renal History Hx Renal Disorders: Yes Renal History Comment: Septicemia due to ureter stent. Emergently removed in 2011. No further problems. - Liver History Hx Hepatic Disorders: No - Neurological & Psychiatric Hx Hx Neurological and Psychiatric Disorders: Yes Neurological / Psychiatric History Comment: Bipolar. anxiety. PTSD. ADD-meds - Cancer History Hx Cancer: No - Congenital Disorder History Hx Congenital Disorders: No - GI History Hx Gastrointestinal Disorders: Yes Gastrointestinal History Comment: easily nauseated. 05/30-pancreatitis, treated and resolved. Chronic BM issues-meds. IBS. 4 abd. hernias. - Other Health History Other Health History: Bilateral mild hearing loss. Stress induced skin sores. Multiple missing teeth-meth abuse. - Chronic Pain History Chronic Pain: Yes (abd., colorectal) - Surgical History Prior Surgeries: abdominal seroma surgery w/wound vac, 04/2018. 1994-colon resection. uterine sling, R opherectomy, 2004. 2009-colon resection & nicked L ureter with stent placement. Stent removed 2011. 2007-L foot. 2011-oral surg. Cholecystectomy ANE Review of Systems Review of Systems: - Exercise capacity METS (RN): 4 METS ANE Patient History - Allergies Allergies/Adverse Reactions: bupropion HCl [From Wellbutrin] Allergy (Verified 07/20/18 13:00) Hives haloperidol [From Haldol] Allergy (Verified 07/20/18 13:00) dystonic reaction haloperidol lactate [From Haldol] Allergy (Verified 07/20/18 13:00) dystonic reaction iopamidol [From Isovue-M] Allergy (Verified 06/27/13 08:27) Vomiting risperidone [From Risperdal] Allergy (Verified 07/20/18 13:00) Hives CT CONTRAST Allergy (Uncoded 06/27/13 08:28) Vomiting - Home Medications Home Medications: FLUoxetine [Prozac 20 MG (*)] 01/20/18 [Last Taken 07/21/18 05:30] Gemfibrozil [Lopid 600 MG (*)] 01/20/18 [Last Taken 07/20/18] Insulin Glargine [Lantus 100 UNITS/ML (*)] 01/20/18 [Last Taken 07/20/18] Lisinopril [Zestril 5 mg (*)] 01/20/18 [Last Taken 07/21/18 05:30] Albuterol [Proventil Inhaler HFA (*)] PRN 04/21/18 [Last Taken 3 Months Ago ~03/03] Dextroamphetamine/Amphetamine [Adderall Xr 10 mg Capsule] 04/21/18 [Last Taken 07/20/18] Herbals/Supplements -Info Only 04/21/18 [Last Taken Unknown] Omeprazole 04/21/18 [Last Taken 07/21/18 05:30] metFORMIN HCL [Glucophage 1000 mg] 04/21/18 [Last Taken 07/20/18] Abilify 07/20/18 [Last Taken 07/21/18 05:30] Bentyl 10 MG (*) PRN 07/20/18 [Last Taken 07/21/18 05:30] Zofran PRN 07/20/18 [Last Taken 07/21/18 05:30] - NPO status NPO Since - Liquids (Date): 07/20/18 NPO Since - Liquids (Time): 22:30 NPO Since - Solids (Date): 07/20/18 NPO Since - Solids (Time): 22:30 - Anes Hx Anes Hx: no prior problems - Smoking Hx Smoking Status: Current every day smoker - Alcohol Use Alcohol Use: Rarely - Family Anes Hx Family Anes Hx: none Family Hx Anesthesia Complications: none ANE Labs/Vital Signs - Labs Result Diagrams: 07/21/18 06:43 - Vital Signs Blood Pressure: 144/90 Heart Rate: 85 Respiratory Rate: 18 O2 Sat (%): 95 Height: 157.48 cm Weight: 76.204 kg ANE Physical Exam - Airway Neck exam: FROM Mallampati Score: Class 2 Mouth exam: normal dental/mouth exam - Pulmonary Pulmonary: no respiratory distress - Cardiovascular Cardiovascular: regular rate and rhythym - ASA Status ASA Status: III ANE Anesthesia Plan Anesthesia Plan: general endotracheal anesthesia
[2018-07-21] MEDS ORDERED: PROPOFOL/EMULSION 500 MG/50 ML BOTTLE IV ONE (07:27)
[2018-07-21] MEDS ORDERED: fentaNYL 100 MCG/2 ML INJ ONE ×4 (07:27→10:28)
[2018-07-21] MEDS ORDERED: ROCURONIUM 50 MG/5 ML VIAL ONE (07:29)
[2018-07-21] MEDS ORDERED: LIDOCAINE HCL 160 MG/4 ML LTA KIT TP ONE (07:30)
[2018-07-21] MEDS ORDERED: LIDOCAINE 2% 100 MG/5 ML SYR ONE (07:30)
[2018-07-21] MEDS ORDERED: ONDANSETRON 4 MG/2 ML VIAL ONE (07:39)
[2018-07-21] MEDS ORDERED: DEXAMETHASONE 4 MG/ML VIAL ONE ×2 (07:39)
[2018-07-21] MEDS ORDERED: BUPIVACAINE/EPI 0.5% 30 ML SDV ONE (07:42)
[2018-07-21] MEDS ORDERED: PHENYLEPHRINE HCL 100 MCG/ML SYR ONE (07:47)
[2018-07-21] MEDS ORDERED: LR 500 ML IV PRN (08:28)
[2018-07-21] MEDS ORDERED: PHENYLEPHRINE HCL 100 MCG/ML SYR IVP PRN (08:28)
[2018-07-21] MEDS ORDERED: MEPERIDINE 25 MG/0.5 ML AMP IVP PRN (08:28)
[2018-07-21] MEDS ORDERED: HYDROCODONE/APAP 5/325 TAB PO PRN (08:28)
[2018-07-21] MEDS ORDERED: oxyCODONE IR 5 MG TAB PO PRN (08:28)
[2018-07-21] MEDS ORDERED: NALOXONE HCL 0.4 MG/ML INJ IVP PRN (08:28)
[2018-07-21] MEDS ORDERED: ONDANSETRON 4 MG/2 ML VIAL IVP PRN ×2 (08:28→11:47)
[2018-07-21] MEDS ORDERED: ACETAMINOPHEN 500 MG TAB PO PRN (08:28)
[2018-07-21] MEDS ORDERED: DEXAMETHASONE 4 MG/ML VIAL IVP PRN (08:28)
[2018-07-21] MEDS ORDERED: METOCLOPRAMIDE 10 MG/2 ML VIAL IVP PRN (08:28)
[2018-07-21] MEDS ORDERED: LABETALOL HCL 5 MG/ML 20 ML MDV IVP PRN (08:28)
[2018-07-21] MEDS ORDERED: ALBUTEROL 3 ML DEYVIAL IH PRN (08:28)
[2018-07-21] MEDS ORDERED: PROMETHAZINE HCL 25 MG/ML INJ IVP PRN (08:28)
--- NOTE | 2018-07-21 09:04 | POSTOPPROG ---
Post Op Note Date of Operation: 07/21/18 Surgeon: Raad Chamorro Air Quality Technician: Paulina Anesthesiologist: Jose Anesthesia: GET(General Endotracheal) Pre-op Diagnosis: Ventral hernia Post-op Diagnosis: same Indication: same, pain Procedure: Laparoscopic ventral hernia repair, repair of small bowel with one stitch Findings: Small defect Inf/Abcess present in the surg proc area at time of surgery?: No Depth: Organ Space EBL: Minimal
[2018-07-21] MEDS: fentaNYL 100 MCG/2 ML INJ IVP PRN ×4 (09:20→10:46)
[2018-07-21] MEDS ORDERED: oxyCODONE IR 5 MG TAB ONE (10:29)
[2018-07-21] MEDS ORDERED: HYDROmorphONE/DILAUDID 1 MG/ML INJ IVP PRN (10:38)
--- NOTE | 2018-07-21 10:55 | POSTANESTH ---
Post Anesthetic Evaluation Cardiovascular Status: Normal, Stable Respiratory Status: Normal, Stable Level of Consciousness/Mental Status: Can Participate in Eval Pain Control: Adequate, Prn Tx Ordered Nausea/Vomiting Control: Adequate, Prn Tx Ordered Complications Possibly Related to Anesthesia: None Noted
[2018-07-21] MEDS ORDERED: HYDROmorphONE/DILAUDID 2 MG/ML INJ ONE (11:01)
[2018-07-21] MEDS ORDERED: HYDROmorphONE/DILAUDID 2 MG/ML INJ IVP PRN ×2 (11:30→15:16)
[2018-07-21] MEDS: oxyCODONE IR 5 MG TAB PO PRN ×2 (13:44→18:11)
[2018-07-21] MEDS: KETOROLAC 15 MG/1 ML SDV IVP SCH ×2 (13:44→17:29)
[2018-07-21] MEDS ORDERED: ALBUTEROL 60 PUFFS/8 GM MDI IH PRN (15:13)
[2018-07-21] MEDS: DEXTROAMPHETAMINE PO SCH (15:25)
[2018-07-21] MEDS: AMPHETAMINE PO SCH (15:25)
[2018-07-21] MEDS: PANTOPRAZOLE SODIUM 40 MG TAB PO SCH (15:26)
[2018-07-21] MEDS: LISINOPRIL 5 MG TAB PO SCH (15:26)
[2018-07-21] MEDS: GEMFIBROZIL 600 MG TAB PO SCH (15:27)
[2018-07-21] MEDS: HYDROmorphONE/DILAUDID 4 MG TAB PO PRN ×2 (15:47→19:58)
[2018-07-21] MEDS: HYDROmorphONE/DILAUDID 2 MG/ML INJ IVP PRN ×2 (15:47→20:50)
[2018-07-21] MEDS ORDERED: HYDROmorphONE/DILAUDID 1 MG/ML INJ IVP ONE (16:00)
[2018-07-21] MEDS: LORazepam 0.5 MG TAB PO PRN (16:12)
--- NOTE | 2018-07-21 17:31 | GOP ---
DATE OF OPERATION: 07/21/2018 SURGEON: Raad Chamorro MD NIGHT CUSTODIAN: Meche Gallardo NP ANESTHESIOLOGIST: Aurelio Garcia MD PREOPERATIVE DIAGNOSIS: Incisional ventral hernia. POSTOPERATIVE DIAGNOSIS: Incisional ventral hernia. PROCEDURE PERFORMED: Laparoscopic ventral hernia repair with mesh. FINDINGS: Patient was found to have extensive intraabdominal adhesions. She had a small 3 cm hernia defect in the upper abdominal midline, above a previous old incision. ESTIMATED BLOOD LOSS: Negligible. No complications. Taken to recovery room in good condition. DESCRIPTION OF PROCEDURE: Patient taken to the operating room where she received satisfactory genera l endotracheal anesthesia by Dr. Garcia. She was placed in the supine position, prepped and draped in usual sterile fashion. A left upper quadrant incision was made. A Veress needle inserted. Pneumoperitoneum was established. Trocar was introduced. Good visualization was obtained. Laparosc ope was introduced. A second trocar was placed under direct vision. Adhesions were taken down with the Harmonic scalpel. There was 1 loop of bowel fairly closely attached, and this was taken down. A 0 Ethibond suture was placed in the serosa. There was no evidence of any [id number] injury to the bowel, and no evidence of any leakage. The hernia area was completely skeletonized and freed up. A 9 cm dual-sided mesh patch was introduced. It was placed over the hernia defect and stapled in place with the ProTack in 2 layers in 2 circular layers of leonardo, and additional absorbable stap les were also used. Hemostasis was assured. The bowel area was reexamined with no evidence of any l eakage or injury. Trocars were removed under direct vision. Pneumoperitoneum was released. Trocar sites were closed with 0 Vicryl for the fascia, 4-0 Monocryl subcuticular stitch for the skin. All l varghese infiltrated with 0.5% Marcaine. /[id number]/MODL
[2018-07-21] MEDS: DICYCLOMINE 20 MG TAB PO PRN ×2 (18:11→18:12)
[2018-07-21] MEDS: ONDANSETRON DISINTEGRATING 4 MG TAB PO PRN (20:50)
[2018-07-21] MEDS: INSULIN GLARGINE 100 UNITS/ML UNIT SC SCH (20:52)
[2018-07-21] MEDS: metFORMIN HCL 500 MG TAB PO SCH (20:53)
[2018-07-22] MEDS: HYDROmorphONE/DILAUDID 4 MG TAB PO PRN ×5 (00:03→19:34)
[2018-07-22] MEDS: KETOROLAC 15 MG/1 ML SDV IVP SCH ×4 (00:03→17:16)
[2018-07-22] MEDS: HYDROmorphONE/DILAUDID 2 MG/ML INJ IVP PRN ×4 (05:37→21:31)
[2018-07-22] MEDS: GEMFIBROZIL 600 MG TAB PO SCH ×3 (07:36→19:10)
[2018-07-22] MEDS: ARIPiprazole 5 MG TAB PO SCH (08:26)
[2018-07-22] MEDS: LIDOCAINE 4%/MENTHOL 1% PATCH TD SCH (08:26)
[2018-07-22] MEDS: FLUoxetine 20 MG CAP PO SCH (08:26)
[2018-07-22] MEDS: metFORMIN HCL 500 MG TAB PO SCH ×2 (08:28→21:31)
[2018-07-22] MEDS: oxyCODONE IR 5 MG TAB PO PRN ×2 (08:28→14:04)
[2018-07-22] MEDS: PANTOPRAZOLE SODIUM 40 MG TAB PO SCH (08:28)
[2018-07-22] MEDS: ONDANSETRON DISINTEGRATING 4 MG TAB PO PRN ×2 (08:35→12:47)
--- NOTE | 2018-07-22 09:16 | SOAPPROG ---
SOAP Progress Note Assessment/Plan: Assessment/Plan: 53yo F POD#1 s/p laparoscopic ventral hernia repair with mesh Pain - increased frequency of PO dilaudid. Continue Toradol. Lidocaine patch. IV dilaudid breakthrough Check abd xray Regular diet Encouraged ambulation Dispo: cont inpt for pain control. DC home when PO pain meds, hopefully later today or tomorrow am. Seen with Dr. Haji. S: More pain from the surgery than any of her prior surgeries. She is very concerned. Not passing flatus, not hungry. Slept well overnight. O: Lying in bed, resting comfortably when we entered the room. Became more uncomfortable through the visit No increased work of breathing No peripheral edema Few bowel sounds, softly distended. Tender to light palpation epigastrium and right upper quadrant. Incision clean, dry and intact without evidence of infection. No rebound or guarding. Objective: Vital Signs Temp Pulse Resp BP Pulse Ox 37.0 C 91 16 98/61 L 93 07/22/18 07:59 07/22/18 07:59 07/22/18 07:59 07/22/18 07:59 07/22/18 07:59 Laboratory Results 07/21/18 06:43 07/21/18 07/22/18 07/23/18 05:59 05:59 05:59 Intake Total 1620 Output Total 25 Balance 1595 ICD10 Worksheet Patient Problems: Problems Problem Status Onset Depression Acute
[2018-07-22] MEDS: LISINOPRIL 5 MG TAB PO SCH (10:10)
[2018-07-22] MEDS: AMPHETAMINE PO SCH (10:10)
[2018-07-22] MEDS: DEXTROAMPHETAMINE PO SCH (10:10)
[2018-07-22] MEDS: DICYCLOMINE 20 MG TAB PO PRN (10:13)
--- NOTE | 2018-07-22 12:27 | ASMTCMCOM ---
CM Note CM Note Notes: Pt admitted for a scheduled hernia repair, she has a significant hx of depression and PTSD. MD working on pain control. Patient lives at home alone but seems to have a SO. Per RN she is independent exept for the pain making walking difficult. Anticipate she will dc independent when medically stable, CM available for any changes. DC Plan: Independent Date Signed: 07/22/2018 12:27 PM Electronically Signed By:Milagro Carpenter RN
[2018-07-22] MEDS ORDERED: NS 1,000 ML IV ONE (13:00)
[2018-07-22] MEDS ORDERED: ACETAMINOPHEN 325 MG TAB PO PRN (13:16)
[2018-07-22] MEDS ORDERED: MAGNESIUM HYDROXIDE 30 ML UDCUP PO PRN (15:02)
[2018-07-22] MEDS ORDERED: BISACODYL 10 MG SUPP PR PRN (15:02)
[2018-07-22] MEDS ORDERED: POLYETHYLENE GLYCOL 3350 17 GM PKT PO PRN (15:02)
[2018-07-22] MEDS ORDERED: LACTULOSE 20 GM/30 ML UDCUP PO PRN (15:02)
[2018-07-22] MEDS ORDERED: SIMETHICONE 80 MG TAB CHEW PO PRN (15:06)
[2018-07-22] MEDS: LORazepam 0.5 MG TAB PO PRN (15:54)
--- NOTE | 2018-07-22 16:34 | PDMN ---
Medical Necessity Medical necessity: [facility] [id number], non-hiatal and PGPM Pain Management : 53 yo status post hernia ventral repair lap w/ mesh, POD#1 w/ increased frequency of dilaudid, needs IV for breakthrough pain, cont sched IV toradol and lidocaine patch, check abd Xray, IP for pain control. Pt c/o more pain from this surgery than any prior surgery, no flatus, not hugry, few bowel sounds , abd distended and tender, tachy 103, NC needed for sat maintenance>90%. Change to IP status 07/22/18 @1517 per PA order for pain control, ongoing monitoring and treatment.
[2018-07-22] MEDS: INSULIN GLARGINE 100 UNITS/ML UNIT SC SCH (21:31)
[2018-07-22] MEDS: SENNOSIDES/DOCUSATE SODIUM TAB PO SCH (21:31)
[2018-07-22] MEDS: PATCH REMOVAL 1 EA PATCH TD SCH (21:35)
[2018-07-23] MEDS: KETOROLAC 15 MG/1 ML SDV IVP SCH ×2 (00:03→05:43)
[2018-07-23] MEDS: ONDANSETRON DISINTEGRATING 4 MG TAB PO PRN ×3 (00:08→20:42)
[2018-07-23] MEDS: HYDROmorphONE/DILAUDID 4 MG TAB PO PRN ×3 (00:52→07:16)
[2018-07-23] MEDS: GEMFIBROZIL 600 MG TAB PO SCH ×2 (07:16→17:16)
[2018-07-23] MEDS: metFORMIN HCL 500 MG TAB PO SCH ×2 (09:21→20:29)
[2018-07-23] MEDS: LISINOPRIL 5 MG TAB PO SCH (09:21)
[2018-07-23] MEDS: SENNOSIDES/DOCUSATE SODIUM TAB PO SCH ×2 (09:21→20:29)
[2018-07-23] MEDS: FLUoxetine 20 MG CAP PO SCH (09:21)
[2018-07-23] MEDS: ARIPiprazole 5 MG TAB PO SCH (09:22)
[2018-07-23] MEDS: PANTOPRAZOLE SODIUM 40 MG TAB PO SCH (09:22)
[2018-07-23] MEDS: LIDOCAINE 4%/MENTHOL 1% PATCH TD SCH (09:22)
[2018-07-23] MEDS: AMPHETAMINE PO SCH (09:39)
[2018-07-23] MEDS: DEXTROAMPHETAMINE PO SCH (09:39)
[2018-07-23 10:42] LABS: PLATELET COUNT 408 10^3/uL (150-400)
--- NOTE | 2018-07-23 11:57 | SOAPPROG ---
SOAP Progress Note Assessment/Plan: Assessment/Plan: 53yo F POD#2 s/p laparoscopic ventral hernia repair with mesh Pain - transition to PO meds. IV toradol d/c'd dt Cr, PO dilaudid, lidocaine patch, IV dilaudid breakthrough Resp - supplemental O2 CV - hypotension during this stay - responded to fluid bolus, start IVF Abd x-ray yesterday no free air, constipation. Pt still with pain out of proportion - will order abd CT PO contrast (wo IV contrast dt Cr 2) FEN - back off to clear liquids. Start IVF. Hyperkalemia - dc toradol and add ivf, recheck am Heme/ID - no abx. afebrile. no leukocytosis. H/H wnl Encouraged ambulation, PT, IS Ppx - SCDs, ambulation, IS. Lovenox if CT normal Dispo: cont inpt for pain control. S: Pt saying "something is wrong". She reports pain is not controlled, having nausea. Unable to eat due to pain and nausea. Unable to get up and walk due to pain. Not passing flatus. (Report from nurse was no nausea, pain controlled with PO pain meds and pt wanted to be discharged home) O: Lying in bed, speaking in quiet voice with eyes closed. No increased work of breathing, CTAB RRR no peripheral edema Few bowel sounds, soft, distension stable compared to yesterday. Tender to light palpation epigastrium and right upper quadrant with anticipation. Incision clean, dry and intact without evidence of infection. Objective: Vital Signs Temp Pulse Resp BP Pulse Ox 36.9 C 97 16 88/58 L 93 07/23/18 11:14 07/23/18 11:14 07/23/18 11:14 07/23/18 11:14 07/23/18 11:14 Laboratory Results 07/23/18 10:35 07/23/18 10:35 07/22/18 07/23/18 07/24/18 05:59 05:59 05:59 Intake Total 1620 300 Output Total 25 Balance 1595 300 ICD10 Worksheet Patient Problems: Problems Problem Status Onset Depression Acute
--- NOTE | 2018-07-23 12:48 | ASMTCMCOM ---
CM Note CM Note Notes: CM spoke with floor RN, plan was for patient to discharge home independently today but will stay for continued monitoring. Discharge likely tomorrow 07/24, CM to follow. Date Signed: 07/23/2018 12:48 PM Electronically Signed By:Meggan Akbar
[2018-07-23] MEDS: NS 1,000 ML IV SCH (13:25)
[2018-07-23] MEDS: HYDROmorphONE/DILAUDID 2 MG/ML INJ IVP PRN (14:28)
[2018-07-23] MEDS: LORazepam 0.5 MG TAB PO PRN (15:08)
[2018-07-23] MEDS ORDERED: HYDROmorphONE/DILAUDID 2 MG/ML INJ IVP PRN (15:52)
[2018-07-23] MEDS ORDERED: HYDROmorphONE/DILAUDID 6 MG/30 ML PCA IV PRN (15:54)
[2018-07-23] MEDS ORDERED: NALOXONE HCL 0.4 MG/ML INJ IVP PRN (15:54)
--- NOTE | 2018-07-23 15:57 | SOAPPROG ---
SOELOSIE Progress Note Assessment/Plan: Assessment: PM rounds - patient having a lot of pain, a lot of which seems exacerbated by anxiety - BP has been ok, she has been intermittently tachycardic - CT reviewed with radiologist and is overall reassuring - evita start [employer] MARGARINE, maybe having her have more control will help - ativan hs been ordered, unclear whether or not this is helping - discussed with the patient that if the pain persists, she will likely need trip to OR for exploration in absence of any objective findings. Plan: 07/23/18 15:55 Objective: Vital Signs Temp Pulse Resp BP Pulse Ox 36.6 C 136 H 20 123/85 H 94 07/23/18 15:20 07/23/18 15:20 07/23/18 15:20 07/23/18 15:20 07/23/18 15:20 Laboratory Results 07/23/18 10:35 07/23/18 10:35 07/22/18 07/23/18 07/24/18 05:59 05:59 05:59 Intake Total 1620 300 Output Total 25 Balance 1595 300 ICD10 Worksheet Patient Problems: Problems Problem Status Onset Depression Acute
[2018-07-23] MEDS ORDERED: D5W 1/2 NS W/ 20 KCl/L 1,000 ML IV SCH (20:00)
--- NOTE | 2018-07-23 20:04 | SOAPPROG ---
SOAP Progress Note Assessment/Plan: Assessment: CALLED INTO SEE PT COMPLAINING OF UNRELENTING ABD PAIN SINCE SURGERY CT SCAN UNREVEALING BUT NO IV CONTRAST WBC 7K BUT LEFT SHIFT VS STABLE AFEBRILE ABD SOFT WITH DISTENTION AND DECREASED BS BUT NO DEFINITE PERITONEAL SIGNS CHEST CLEAR COR RR HEENT NONICTERIC NO BM OR FLATUS FOR 3 DAYS IMP: DIFFICULT PT WHO ALWAYS CO PAIN BUT SEEMS WORSE/ MAY NEED SURGERY IF NOT IMPROVING TO RO BOWELL INJURY RISKS AND OPTIONS FULLY DISCUSSED WITH PT Plan:CHECK CBC, LACTATE, 2-WAY/ CONSIDER LAPAROSCOPY IF NOT IMPROVED WITH ENEMA 07/23/18 19:58 07/23/18 20:04 Objective: Vital Signs Temp Pulse Resp BP Pulse Ox 36.6 C 133 H 20 134/96 H 90 L 07/23/18 17:40 07/23/18 17:40 07/23/18 17:40 07/23/18 17:40 07/23/18 17:40 Laboratory Results 07/23/18 10:35 07/23/18 10:35 07/22/18 07/23/18 07/24/18 05:59 05:59 05:59 Intake Total 1620 300 724 Output Total 25 Balance 1595 300 724 ICD10 Worksheet Patient Problems: Problems Problem Status Onset Depression Acute
[2018-07-23 21:50] LABS: PLATELET COUNT 607 10^3/uL (150-400)
[2018-07-23] MEDS: INSULIN GLARGINE 100 UNITS/ML UNIT SC SCH (22:10)
[2018-07-23] MEDS ORDERED: SUCCINYLCHOLINE CHLORIDE 200 MG/10 ML SYR IVP ONE (22:35)
[2018-07-23] MEDS ORDERED: fentaNYL 100 MCG/2 ML INJ ONE (22:35)
[2018-07-23] MEDS ORDERED: PROPOFOL 200 MG/20 ML VIAL ONE (22:35)
[2018-07-23] MEDS ORDERED: LIDOCAINE 2% 2 ML INJ ONE ×2 (22:35)
[2018-07-23] MEDS ORDERED: ROCURONIUM 50 MG/5 ML VIAL ONE (22:36)
[2018-07-23] MEDS ORDERED: ONDANSETRON 4 MG/2 ML VIAL ONE (22:36)
[2018-07-23] MEDS ORDERED: MIDAZOLAM 2 MG/2 ML VIAL IVP ONE (23:00)
--- NOTE | 2018-07-23 23:00 | PDANEPAE ---
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 No problems since then. - Pulmonary History Hx COPD: No Hx Asthma/Reactive Airway Disease: No Hx Recent Upper Respiratory Infection: No Hx Oxygen in Use at Home: No Hx Sleep Apnea: No Sleep Apnea Screening Result - Last Documented: Negative Pulmonary History Comment: states has inhaler but does not use/need - Neurologic History Hx Cerebrovascular Accident: No Hx Seizures: No Hx Dementia: No Neurologic History Comment: Diabetic neuropathy hands and feet. - Endocrine History Hx Diabetes: Yes Endocrine History Comment: Type 2-insulin and metformin. - Renal History Hx Renal Disorders: Yes Renal History Comment: Septicemia due to ureter stent. Emergently removed in 2011. No further problems. - Liver History Hx Hepatic Disorders: No - Neurological & Psychiatric Hx Hx Neurological and Psychiatric Disorders: Yes Neurological / Psychiatric History Comment: Bipolar. anxiety. PTSD. ADD-meds - Cancer History Hx Cancer: No - Congenital Disorder History Hx Congenital Disorders: No - GI History Hx Gastrointestinal Disorders: Yes Gastrointestinal History Comment: easily nauseated. 05/30-pancreatitis, treated and resolved. Chronic BM issues-meds. IBS. 4 abd. hernias. - Other Health History Other Health History: Bilateral mild hearing loss. Stress induced skin sores. Multiple missing teeth-meth abuse. - Chronic Pain History Chronic Pain: Yes (abd., colorectal) - Surgical History Prior Surgeries: abdominal seroma surgery w/wound vac, 04/2018. 1994-colon resection. uterine sling, R opherectomy, 2004. 2009-colon resection & nicked L ureter with stent placement. Stent removed 2011. 2007-L foot. 2011-oral surg. Cholecystectomy ANE Review of Systems Review of Systems: - Exercise capacity METS (RN): 4 METS ANE Patient History - Allergies Allergies/Adverse Reactions: bupropion HCl [From Wellbutrin] Allergy (Verified 07/20/18 13:00) Hives haloperidol [From Haldol] Allergy (Verified 07/20/18 13:00) dystonic reaction haloperidol lactate [From Haldol] Allergy (Verified 07/20/18 13:00) dystonic reaction iopamidol [From Isovue-M] Allergy (Verified 06/27/13 08:27) Vomiting risperidone [From Risperdal] Allergy (Verified 07/20/18 13:00) Hives CT CONTRAST Allergy (Uncoded 06/27/13 08:28) Vomiting - Home Medications Home Medications: FLUoxetine [Prozac 20 MG (*)] 60 mg PO DAILY 01/20/18 [Last Taken 07/21/18 05:30 ] Gemfibrozil [Lopid 600 MG (*)] 600 mg PO BIDAC 01/20/18 [Last Taken 07/20/18] Insulin Glargine [Lantus 100 UNITS/ML (*)] 34 units SC HS 01/20/18 [Last Taken 07/20/18] Lisinopril [Zestril 5 mg (*)] 5 mg PO DAILY 01/20/18 [Last Taken 07/21/18 05:30] Albuterol [Proventil Inhaler HFA (*)] 1 puffs IH DAILY PRN 04/21/18 [Last Taken 3 Months Ago ~04/20/18] Dextroamphetamine/Amphetamine [Adderall Xr 10 mg Capsule] 10 mg PO DAILY [Last Taken 07/20/18] Herbals/Supplements -Info Only 1 each PO DAILY 04/21/18 [Last Taken Unknown] Omeprazole 20 mg PO DAILY 04/21/18 [Last Taken 07/21/18 05:30] metFORMIN HCL [Glucophage 1000 mg] 1,000 mg PO BID 04/21/18 [Last Taken 07/20/18 ] ARIPiprazole [Abilify 10 mg (*)] 5 mg PO DAILY #0 07/20/18 [Last Taken 07/21/18 05:30] Dicyclomine [Bentyl 20 MG (*)] 20 mg PO QID PRN #0 07/20/18 [Last Taken 05:30] Ondansetron Odt [Zofran Odt 4 mg (*)] 8 mg PO TID PRN #0 07/20/18 [Last Taken 05:30] - NPO status NPO Since - Liquids (Date): 07/23/18 NPO Since - Liquids (Time): 14:00 NPO Since - Solids (Date): 07/23/18 NPO Since - Solids (Time): 14:00 - Smoking Hx Smoking Status: Current every day smoker - Alcohol Use Alcohol Use: Rarely - Family Anes Hx Family Hx Anesthesia Complications: none ANE Labs/Vital Signs - Labs Result Diagrams: 07/23/18 21:08 07/23/18 20:00 - Vital Signs Blood Pressure: 98/58 Heart Rate: 140 Respiratory Rate: 20 O2 Sat (%): 93 Height: 157.48 cm Weight: 76.204 kg ANE Physical Exam - Airway Mallampati Score: Class 2 Mouth exam: poor dentition - Pulmonary Pulmonary: no respiratory distress - Cardiovascular Cardiovascular: regular rate and rhythym - ASA Status ASA Status: III, E ANE Anesthesia Plan Anesthesia Plan: general endotracheal anesthesia
[2018-07-23] MEDS ORDERED: LR 1,000 ML IV ONE (23:03)
[2018-07-23] MEDS ORDERED: BUPIVACAINE 0.5% 30 ML SDV ONE (23:06)
[2018-07-23] MEDS: PATCH REMOVAL 1 EA PATCH TD SCH (23:09)
[2018-07-23] MEDS ORDERED: ERTAPENEM 1 GM in NS 100 ML IV ONE (23:30)
[2018-07-23] MEDS ORDERED: PHENYLEPHRINE 10 MG/ML SDV ONE ×2 (23:39)
[2018-07-24] MEDS ORDERED: ALBUMIN 5% 250 ML BOTTLE IV ONE ×2 (00:50)
[2018-07-24] MEDS ORDERED: PHENYLEPHRINE 10 MG/ML SDV ONE (01:37)
--- NOTE | 2018-07-24 01:57 | SOAPPROG ---
KRYSTYNA Progress Note Assessment/Plan: Assessment: CALLED INTO SEE PT COMPLAINING OF UNRELENTING ABD PAIN SINCE SURGERY CT SCAN UNREVEALING BUT NO IV CONTRAST WBC 7K BUT LEFT SHIFT VS STABLE AFEBRILE ABD SOFT WITH DISTENTION AND DECREASED BS BUT NO DEFINITE PERITONEAL SIGNS CHEST CLEAR COR RR HEENT NONICTERIC NO BM OR FLATUS FOR 3 DAYS IMP: DIFFICULT PT WHO ALWAYS CO PAIN BUT SEEMS WORSE/ MAY NEED SURGERY IF NOT IMPROVING TO RO BOWELL INJURY RISKS AND OPTIONS FULLY DISCUSSED WITH PT Plan:CHECK CBC, LACTATE, 2-WAY/ CONSIDER LAPAROSCOPY IF NOT IMPROVED WITH ENEMA 07/23/18 19:58 07/23/18 20:04 07/24/18 01:55 lactate elevated/ wbc 2.1k/ still in pain/ 2-way constipation will proceed with laparoscopy, probable laparotomy risks and options fully discussed Objective: Vital Signs Temp Pulse Resp BP Pulse Ox 36.0 C 140 H 20 98/58 L 93 07/23/18 22:58 07/23/18 23:00 07/23/18 23:00 07/23/18 23:00 07/23/18 23:00 Laboratory Results 07/23/18 21:08 07/23/18 20:00 07/22/18 07/23/18 07/24/18 05:59 05:59 05:59 Intake Total 1620 300 724 Output Total 25 Balance 1595 300 724 ICD10 Worksheet Patient Problems: Problems Problem Status Onset Depression Acute
--- NOTE | 2018-07-24 02:00 | POSTOPPROG ---
Post Op Note Date of Operation: 07/24/18 Surgeon: Raad Chamorro Anesthesiologist: kristan Anesthesia: GET(General Endotracheal) Pre-op Diagnosis: peritonitis Post-op Diagnosis: small bowell perforation Indication: peritonitis Procedure: laparoscopy, laparotomy with adhesiolysis and repair sb perforation, remova Findings: small bowell perfor with localized peritonitis Inf/Abcess present in the surg proc area at time of surgery?: Yes Depth: Organ Space EBL: Minimal Complications: 0 Drains: Wound Vac Specimen(s): small bowell wedge
[2018-07-24] MEDS ORDERED: ONDANSETRON 4 MG/2 ML VIAL IVP PRN (02:02)
[2018-07-24] MEDS ORDERED: D5W 1/2 NS W/ 20 KCl/L 1,000 ML IV SCH (02:15)
[2018-07-24] MEDS: PROPOFOL/EMULSION 100 ML IV SCH ×3 (02:30→19:41)
[2018-07-24] MEDS: NOREPINEPHRINE BITARTRATE 4 MG in NS 500 ML IV SCH ×2 (02:30→05:27)
[2018-07-24] MEDS ORDERED: NALOXONE HCL 0.4 MG/ML INJ IVP PRN (02:37)
--- NOTE | 2018-07-24 02:38 | POSTANESTH ---
Post Anesthetic Evaluation Cardiovascular Status: Tx Hyper/Hypo-tension Respiratory Status: Other, See Comment (stable on vent) Level of Consciousness/Mental Status: Unconscious Pain Control: Adequate, Prn Tx Ordered Nausea/Vomiting Control: Adequate, Prn Tx Ordered Complications Possibly Related to Anesthesia: None Noted
[2018-07-24] MEDS ORDERED: PROPOFOL/EMULSION 1,000 MG/100 ML BOTTLE IV ONE (02:42)
[2018-07-24] MEDS ORDERED: ALBUMIN 5% 500 ML BOTTLE IV ONE (02:42)
[2018-07-24] MEDS ORDERED: FUROSEMIDE 20 MG/2 ML VIAL IVP ONE (02:45)
[2018-07-24] MEDS ORDERED: ALBUMIN 5% 500 ML IV ONE (03:00)
[2018-07-24 03:02] LABS: PLATELET COUNT 549 10^3/uL (150-400)
[2018-07-24 03:04] LABS: INR 1.84 (0.83-1.16); PROTIME(PATIENT) 21.3 SEC (12.0-15.0)
[2018-07-24] MEDS: fentaNYL/NACL 100 ML IV SCH ×3 (03:12→18:22)
[2018-07-24] MEDS ORDERED: D50W 25 GM/50 ML SYR IVP PRN (03:42)
[2018-07-24] MEDS: NS 1,000 ML IV SCH (03:42)
[2018-07-24] MEDS ORDERED: SODIUM BICARBONATE 50 MEQ/50 ML SYR IVP ONE ×2 (04:08→04:09)
[2018-07-24] MEDS: INSULIN REGULAR HUMAN 100 UNIT/ML UNIT SC SCH ×5 (04:10→19:54)
[2018-07-24] MEDS ORDERED: NA BICARBONATE 50 MEQ/50 ML VIAL ONE (04:12)
[2018-07-24] MEDS: PHENYLEPHRINE HCL 50 MG in NS 250 ML IV SCH ×4 (04:14→22:04)
[2018-07-24] MEDS: SODIUM BICARBONATE 150 MEQ in D5W 1,000 ML IV SCH ×2 (04:29→04:31)
[2018-07-24] MEDS ORDERED: NOREPINEPHRINE BITARTRATE 4 MG in NS 500 ML IV SCH (04:30)
[2018-07-24] MEDS ORDERED: DOBUTamine/DEXTROSE 250 ML IV SCH (04:30)
[2018-07-24] MEDS: HYDROCORTISONE 100 MG/2 ML VIAL IVP SCH ×2 (04:48→16:00)
[2018-07-24 06:20] LABS: PLATELET COUNT 515 10^3/uL (150-400)
[2018-07-24 06:28] LABS: INR 1.82 (0.83-1.16); PROTIME(PATIENT) 21.2 SEC (12.0-15.0)
[2018-07-24] MEDS ORDERED: SODIUM BICARBONATE 50 MEQ/50 ML SYR ONE (06:46)
[2018-07-24] MEDS ORDERED: FUROSEMIDE 100 MG/10 ML VIAL ONE (06:46)
[2018-07-24] MEDS ORDERED: NA BICARBONATE 50 MEQ/50 ML VIAL IV ONE (07:00)
[2018-07-24] MEDS ORDERED: VASOPRESSIN/DEXTROSE 250 ML IV SCH (07:00)
[2018-07-24] MEDS: VASOPRESSIN 25 UNIT in NS 250 ML IV SCH ×2 (07:09→16:15)
[2018-07-24] MEDS: FUROSEMIDE 100 MG/10 ML VIAL IVP ONE ×2 (07:31→08:19)
[2018-07-24] MEDS: NOREPINEPHRINE BITARTRATE 16 MG in NS 250 ML IV SCH ×2 (07:32→15:46)
[2018-07-24] MEDS: LIDOCAINE 4%/MENTHOL 1% PATCH TD SCH ×2 (08:43→11:50)
--- NOTE | 2018-07-24 08:44 | SOAPPROG ---
SOAP Progress Note Assessment/Plan: Assessment: 53 y/o F s/p lap ventral hernia repair last Tuesday Taken back to OR last night for increased abdominal pain. Now s/p ex lap and small bowel repair. Localized peritonitis found. Cultures pending. S: Sedated and intubated, but opens eyes when propofol is turned down. Responds to painful stimuli O: Sedated on fentanyl and propofol Hypotensive all night. BP up to 100/60 this am. On four pressors. Tachycardiac in the 130s Afebrile WBC 2.9 Cr 3.1 ABG pH 7.26 RRR Abdomen: firm, distended, absent bowel sounds, wound vac over wound to suction, abdominal pressure 19-20. : very low uop overnight. 25ml out in last hour. Plan: Critical situation. Pt seen with Dr. Chamorro. Decrease propofol and fentanyl to increase BP and hopefully get off pressors. Pt will need an arterial line. Possibility we will take pt to OR later today to open abdomen and place abthera wound vac if she does not improve. 07/24/18 08:34 Objective: Vital Signs Temp Pulse Resp BP Pulse Ox 36.4 C 128 H 20 103/71 92 07/24/18 04:00 07/24/18 07:58 07/24/18 07:58 07/24/18 07:58 07/24/18 07:58 Laboratory Results 07/24/18 06:00 07/24/18 06:00 07/23/18 07/24/18 07/25/18 05:59 05:59 05:59 Intake Total 300 2371 366 Output Total 70 55 Balance 300 2301 311 PT 21.2 SEC (12.0-15.0) H 07/24/18 06:00 INR 1.82 (0.83-1.16) H 07/24/18 06:00 ICD10 Worksheet Patient Problems: Problems Problem Status Onset Depression Acute
--- NOTE | 2018-07-24 08:45 | CPEKG ---
Test Reason : OPEN Blood Pressure : / mmHG Vent. Rate : 126 BPM Atrial Rate : 126 BPM P-R Int : 131 ms QRS Dur : 077 ms QT Int : 294 ms P-R-T Axes : 060 063 040 degrees QTc Int : 426 ms Sinus tachycardia Confirmed by Chris Verma ([id number]) on 07/24/2018 8:44:49 AM Referred By: Confirmed By:Chris Verma
[2018-07-24] MEDS: ALBUTEROL 60 PUFFS/8 GM MDI IH PRN ×2 (08:46→16:30)
--- NOTE | 2018-07-24 08:49 | SOAPPROG ---
SOAP Progress Note Assessment/Plan: Assessment: Renal consult-- see dictation# [id number] I was not able to reach mother by phone but did speak to her significant other Zoltan and consented him for CRRT and updated her on critical condition. I discussed recs with ICU team and pharmacy Tejal Longoria MD [facility] pager [phone] 07/24/18 09:32 Objective: Vital Signs Temp Pulse Resp BP Pulse Ox 36.4 C 128 H 20 103/71 92 07/24/18 04:00 07/24/18 07:58 07/24/18 07:58 07/24/18 07:58 07/24/18 07:58 Laboratory Results 07/24/18 06:00 07/24/18 06:00 07/23/18 07/24/18 07/25/18 05:59 05:59 05:59 Intake Total 300 2371 366 Output Total 70 55 Balance 300 2301 311 PT 21.2 SEC (12.0-15.0) H 07/24/18 06:00 INR 1.82 (0.83-1.16) H 07/24/18 06:00 ICD10 Worksheet Patient Problems: Problems Problem Status Onset Depression Acute
[2018-07-24] MEDS ORDERED: ERTAPENEM 1 GM in NS 100 ML IV SCH (09:00)
[2018-07-24] MEDS ORDERED: ERTAPENEM 0.5 GM in NS 100 ML IV SCH (09:00)
[2018-07-24] MEDS ORDERED: ENOXAPARIN 40 MG/0.4 ML SYR SC SCH (09:00)
[2018-07-24] MEDS: FLUCONAZOLE/NaCl 100 MG in BAG 0 ML IV SCH (09:16)
[2018-07-24] MEDS: SENNOSIDES/DOCUSATE SODIUM TAB PO SCH (09:34)
--- NOTE | 2018-07-24 09:45 | GCON ---
PULMONARY/CRITICAL CARE CONSULTATION DATE OF CONSULTATION: 07/24/2018 REASON FOR CONSULTATION: Postoperative septic shock. HISTORY OF PRESENT ILLNESS: The patient is a 53-year-old with multiple medical problems. She underwent a ventral hernia repair on 07/21. This was done with laparoscopic techniques. A mesh was placed. Extensive intraabdominal adhesions were lysed. She had increasing abdominal pain today and tonight, was taken back to the operating room. Laparotomy was performed. A small bowel perforation was found. There was associated peritonitis. The small bowel perforation was repaired. A wound VAC was applied to her large ventral wound. She was hypotensive during the procedure and required phenylephrine. A central line was placed with CVPs of 14. A liter of Plasmanate was given along with intravenous fluids. She has been started on antibiotics including ertapenem and Diflucan. She was not extubated postoperatively, and was returned to the intensive care unit on the ventilator. She remains hypotensive and now, is on Levophed. CVP remains at 14. FiO2 is currently at 80%. She has made little urine today and during surgery. BUN and creatinine were normal on admission on 07/21. BUN is currently 58 with a creatinine of 3.1. PAST MEDICAL HISTORY: Remarkable for recent ventral hernia repair on 2017. She had problems with an infected seroma requiring incision and drainage , an open wound, and wound VAC. She has had chronic abdominal pain associated with this. There is a history of type 2 diabetes, anxiety and depression, chronic narcotic use secondary to chronic pain, rectal prolapse in the past repaired surgically, a history of alcohol abuse, possible drug abuse, and pancreatitis. There is also a history of PTSD. HOME MEDICATIONS: On admission included: Bentyl, Adderall, albuterol, Abilify , p.r.n. Zofran, Lopid, Prozac, metformin, omeprazole, lisinopril, and Lantus insulin. SOCIAL HISTORY: , smokes a quarter-pack of cigarettes per day. Current alcohol use unknown. FAMILY HISTORY: Unobtainable. REVIEW OF SYSTEMS: Unobtainable. PHYSICAL EXAMINATION: GENERAL: Reveals an acutely ill woman on the ventilator , who is sedated postoperatively. She is getting normal saline and Plasmanate, is on fentanyl, propofol, and Levophed drips. Blood pressure is variable, currently 80/25. Pulse is 125 with sinus tachycardia on the monitor. Respiratory rate is 14, set on the ventilator. Saturations are 95% on 70% FiO2. HEENT: Remarkable for equal small pupils. An oral endotracheal tube and NG tube to suction are in place. NECK: There is no lymphadenopathy or thyromegaly, no obvious jugular venous distention. RESPIRATORY: Breath sounds are distant, but equal bilaterally. No rales or rhonchi can be appreciated. CARDIOVASCULAR: Heart tones are distant. The rhythm is regular, tachycardic. Gallops and murmurs are difficult to hear. ABDOMEN: Quiet postoperatively and distended. A wound VAC is in place. A Mathur catheter is in place with little urine output. EXTREMITIES: Unremarkable for edema, cords, or tenderness. NEUROLOGIC: Examination is difficult to assess secondary to her sedation. She is starting to wake up, opens eyes, and moves extremities weakly. DATA REVIEWED: Chest x-ray postoperatively shows the endotracheal tube to be deep and directed somewhat into the right mainstem. This was pulled back. There are hypoventilatory changes bilaterally with patchy infiltrates on the right greater than the left. Cardiac silhouette is large. Laboratory: Arterial blood gas shows a pH of 7.18, pCO2 39, PO2 91 on 80% FiO2 , tidal volume of 550, and a respiratory rate of 14. PEEP is 5. Bicarbonate is 15 with a base excess of -13. White blood cell count is 2700, hematocrit 30.9, down from 38 preoperatively. Platelets are 549,000. PT is 21, PTT 45 postoperatively. Sodium is 138, potassium 4.1, CO2 18, anion gap 19, BUN 58, with a creatinine of 3.1. Glucose is 97, calcium 8.4. Liver function tests are normal. Albumin is 3.7. Lactate is 6. ASSESSMENT: 1. Septic shock. She is hypotensive despite requiring 3 pressors, has a lactate of 6, and has been adequately fluid resuscitated. the sepsis protocol for septic shock will be initiated. 2. Acute respiratory failure. She is on the ventilator postoperatively. Appropriate ventilatory support will be maintained. Sedation will be maintained per protocols with propofol and fentanyl. 3. Small bowel perforation, status post repair. This comes in the setting of a recent ventral hernia repair and chronic abdominal issues as outlined in the HPI. She is on appropriate antibiotics. 4. Acute renal failure. BUN and creatinine have progressively elevated over the last few days, now 58 and 3.1 respectively. BUN and creatinine were normal on admission at 18 and 0.8. She has no history of renal failure. She has not received contrast. She has not been on non-steroidals during this hospitalization. She has been on lisinopril. This will be stopped. Renal consultation will be obtained. CVVHD will likely be needed. 5. Type 2 diabetes. Glucose is currently normal. She will be placed on sliding scale. Metformin and Lantus will be stopped. An insulin drip can be started if needed secondary to persistently elevated glucoses, not well controlled by sliding scale. 5. Leukopenia: Secondary to sepsis. 6. Acute blood-loss anemia. Hematocrit will be followed. 7. History of other medical problems as outlined in the history of present illness. Oral medications, including medications for depression will be kept on hold for now as she is NPO, and has an ileus. PLANS AND RECOMMENDATIONS Patient will be supported in the intensive care unit. The sepsis protocol for septic shock will be activated. Antibiotics will be continued. Bicarbonate will be given IV push and a bicarb drip will be started. CVP will be maintained in the 12-14 range. Levophed and phenylephrine will be continued. Dobutamine may be added. Steroids will be given per the sepsis protocol. A cardiac echo will be obtained. Renal consultation will be requested. Appropriate ventilatory adjustments will be made. Sedation with propofol and fentanyl will be continued. Repeat ABG and laboratory, troponin and EKG will be done in about 1 hr. See multiple orders. Prognosis is somewhat guarded at this point secondary to the severity of her sepsis and hypotension, and associated multi organ failure. She is full cor and aggressive supportive care will be maintained. Further plans and recommendations will be made based on her progress over the next 6-12 hours. /[id number]/MODL and [id number]/[facility]
--- NOTE | 2018-07-24 10:10 | GCON ---
NEPHROLOGY CONSULTATION. DATE OF CONSULTATION: 07/24/2018 REFERRING PHYSICIAN: Saul Solares MD REASON FOR CONSULTATION: Acute kidney injury. HPI: The patient is a 53-year-old woman with a history of multiple abdominal surgeries, including a recent laparoscopic ventral hernia repair, who now is in septic shock requiring multiple pressors. I have been asked to see her for worsening renal function. Reviewing labs in the [place] system, it appears that her creatinine on admit on July 21 was normal at 0.8, and it has increased up to a most recent value of 3.1, and she has become oliguric. She is also becoming progressively more acidotic with most recent bicarbonate of 15 and a potassium of 3.9. She underwent a laparoscopic ventral hernia repair with mesh on July 21 and had significant postoperative pain. She was taken to the operating room emergently last night by Dr. Chamorro and found to have a small bowel perforation. She now has a wound VAC in place and is on 4 pressors and is intubated. She had localized peritonitis found. Cultures are pending, and she is on broad-spectrum antibiotics. She is currently agitated, and nursing is going up on her pain medication to help management. She was tachycardic in the 130s when I saw her. I did try to reach family by phone and was unable to reach her mother. I did speak to her significant other and updated him on her serious condition. Discussed the need for CRRT, and he agrees. She has a total of 70 cc of urine recorded overnight. She is on a sodium bicarbonate drip. REVIEW OF SYSTEMS: Unable to obtain as the patient is currently intubated and sedated. She was complaining of significant abdominal pain, and she has had hypotension requiring pressors over the past 24 hours. Decreased UOP. PAST MEDICAL HISTORY: Includes: 1. Type 2 diabetes. 2. Chronic abdominal pain with multiple prior surgeries. 3. Depression. 4. Alcohol abuse. 5. Prior suicide attempt. 6. Hyperlipidemia. 7. Prior vaginal prolapse repair using mesh graft. 8. Prior rectal prolapse repair. SOCIAL HISTORY: She lives with her significant other. She does have a history of significant substance abuse in the past, both tobacco and is a current smoker , as well as chronic narcotics. FAMILY HISTORY: Unable to obtain as patient is currently intubated and sedated. OUTPATIENT MEDICATIONS: Included Adderall, ibuprofen, Lantus, lisinopril, metformin, omeprazole, Zofran, probiotics, dicyclomine, fluoxetine, and Lopid. ALLERGIES: Include IV contrast dye which causes hives, Haldol, and Wellbutrin. CURRENT MEDICATIONS: Include Tylenol p.r.n., albuterol p.r.n., Abilify 5 mg p.o. daily, dicyclomine 20 mg p.o. q.i.d., dobutamine drip, fentanyl drip, fluoxetine 60 mg p.o. daily, gemfibrozil 600 mg p.o. b.i.d., hydrocortisone, hydromorphone drip, insulin, glargine 34 units subcutaneously q.h.s., insulin regular sliding scale, lactulose 20 mg p.o. t.i.d. p.r.n. lisinopril 5 mg p.o. daily, Lorazepam 1 mg p.o. q.h.s., metformin 1000 mg p.o. b.i.d., norepinephrine drip, Zofran p.r.n., phenylephrine drip, MiraLAX 17 g p.o. daily p.r.n., propofol drip, senna p.r.n., sodium bicarbonate drip at 100 cc an hour, ertapenem, and fluconazole. PHYSICAL EXAM: VITAL SIGNS: Her temperature is 36.0, blood pressure 84/68, her pulse is 131. She is satting 100% on 50% FiO2. GENERAL: She is anxious and tachycardic, on multiple pressors, on fentanyl gtt and propofol. HEENT: No scleral icterus. Mucous membranes are moist. ET is in place. LUNGS: Clear to auscultation bilaterally but poor effort. CARDIAC: Tachycardic but regular rate. No rub. ABDOMEN: Has a wound VAC in place. Diffusely tender. : Has Mathur with minimal yellow urine in the bag. EXTREMITIES: No edema, warm. NEUROLOGIC: Anxious and awake. LABS: As stated from 6 o'clock this morning: Sodium 140, potassium 3.9, chloride 102, bicarbonate 15, BUN 58, creatinine 3.1, glucose 107, calcium 8.0. Total bilirubin 1.0, conjugated bilirubin 0.9. AST 58, ALT 26, alkaline phosphatase 56. Troponin 0.041, BNP 3440. Total protein 5.6, albumin 3.6, amylase 202. White blood cell count 2.9, hemoglobin 9.0, hematocrit 29.4, platelets 515. INR 1.8. PTT 48.2. Blood gas showed a pH of 7.26. PCO2 of 31 , PO2 of 101. Urinalysis showed 1+ protein, negative blood, negative nitrates, negative leukocyte esterase. ASSESSMENT/PLAN: The patient is a 53-year-old woman with a history of diabetes and multiple abdominal surgeries who now presents with small bowel perforation and peritonitis and subsequent multiorgan failure. 1. Acute kidney injury. Her creatinine on presentation was 0.8. It significantly increased up to 3.1, and she is now oliguric and acidotic. I suspect this is likely acute tubular necrosis in the setting of septic shock. She is requiring 4 pressors currently and is making minimal urine. We are also checking an abdominal pressure given her recent surgery. At this point, I think we will need to proceed with CRRT. I did try to reach family. I was able to reach her significant other and consented him on the phone. We will ask Surgery to place a dialysis catheter and begin dialysis afterwards. I will discontinue her lisinopril and metformin. 2. Metabolic acidosis. We will continue her on her bicarbonate drip for now until we initiate CRRT. At that point, we will likely discontinue it but will follow labs closely. We are following lactates as these are elevated in the setting of multiorgan shock requiring pressor support. 3. Sepsis cultures are pending as well as peritoneal fluid from the surgery. I will defer to Critical Care for antibiotics. I have discussed with Pharmacy the need to dose for CRRT dosing. 4. Diabetes. She is on insulin management. We will stop her lisinopril and metformin. 5. Chronic pain. We are having some difficulty managing this and anticipate the need for a high dose, which will likely affect her blood pressure further. I Discussed my recommendations with the ICU team. I called and spoke to her signficant other by phone. We will continue to follow closely with you. Please do not hesitate to call with any questions. /[id number]/MODL MTDD
[2018-07-24] MEDS: ASCORBIC ACID 1,500 MG in D5W 100 ML IV SCH ×3 (10:20→21:47)
[2018-07-24] MEDS: THIAMINE HCL 200 MG in NS 100 ML IV SCH ×2 (10:20→21:03)
--- NOTE | 2018-07-24 13:04 | ECHO ---
[email or web address] [address] [address] Main: [phone] Fax: Transthoracic Echocardiogram Name: TRELL AGUILERA MR#: [id number] Study Date: 07/24/2018 Study Time: 07:51 AM Date of : 1965 Age: 53 year(s) Height: 157.5 cm (62 in.) Weight: 76.2 kg (168 lb.) BSA: 1.77 m2 Gender: Female Examination: Echo Indication: hypotension, sepsis, ? lv function Image Quality: Adequate Contrast: Requested by: Saul Solares BP: 91 mmHg/53 mmHg Heart Rate: Rhythm: Indication: hypotension, sepsis, ? lv function Procedure Staff Viticulturist: Sujatha Garrido RDCS Reading Physician: Santana Ely MD Requesting Provider: Conclusions: Normal size left ventricle. Mild concentric LV hypertrophy. Moderately reduced systolic LV function. EF is 40 %. No regional wall motion abnormality. Grade 1 diastolic dysfunction (abnormal relaxation). Left Atrium: The left atrium is normal in size. The right atrium is normal in size. No pericardial effusion. Measurements: Chambers Valvular Assessment AV/MV Valvular Assessment TV/PV Normal Normal Normal Name Value Range Name Value Range Name Value Range Ao Mago (2D): 2.3 cm (1.4 cm-2.6 AV Vmax: 1.53 m/s (1 m/s-1.7 PV Vmax: 0.80 m/s (0.6 m/s-0.9 cm) m/s) m/s) IVSd (2D): 1.1 cm (0.6 cm-1.1 AV maxP mmHg ( - ) PV PGmax: 3 mmHg ( - ) cm) AV meanP mmHg ( - ) LVDd (2D): 4.2 cm (3.9 cm-5.3 NAN (VTI): 2.3 cm ( - ) cm) MV E Vmax: 0.78 m/s ( - ) LVDs (2D): 3.3 cm (2.1 cm-4 MV A Vmax: 1.00 m/s ( - ) cm) MV E/A: 0.78 ( - ) LVPWd (2D): 1.1 cm ( - ) MV PHT: 0.040 s ( - ) LVOTd 2.0 cm 2.0 cm mm MVA (PHT): 5.5 s ( - ) LVEF (MOD4): 40 % (>=55 %) RVDd(2D): 2.8 cm (1.9 cm-3.8 cmmm) Continued Measurements: Patient: TRELL AGUILERA Study Date: 07/24/2018 Page 1 of 2 07:51 AM Chambers Valvular Assessment AV/MV Name Value Name Value LADs: 2.9 cm MV DecTime: 134 m/s LADs Lon.8 cm MV E' Septal: 0.07 m/s LA Area: 16.1 cm2 MV E/E' Septal: 10.60 LA Volume: 36 ml MV E/E' Lateral: 9.10 LA Volume Index: 20.3 ml/m2 RA Area: 13.4 cm2 Additional Vessels Name Value Ao Ascendin.3 cm Inferior Vena Cava: 2.0 cm Findings: Left Ventricle: Normal size left ventricle. Mild concentric LV hypertrophy. Moderately reduced systolic LV function. EF is 40 %. No regional wall motion abnormality. Grade 1 diastolic dysfunction (abnormal relaxation). Right Ventricle: Normal size right ventricle. Normal RV function. Left Atrium: The left atrium is normal in size. Right Atrium: The right atrium is normal in size. Mitral Valve: The mitral valve is normal in appearance and function. Mild mitral valve regurgitation is present. No mitral stenosis is present. Aortic Valve: The aortic valve is tri-leaflet. There is no significant aortic valve regurgitation. No aortic valve stenosis is present. Tricuspid Valve: The tricuspid valve is normal in appearance and function. Trivial tricuspid valve regurgitation. Pulmonic Valve: The pulmonic valve is normal in appearance and function. Trivial pulmonic valve regurgitation. Aorta: The aorta is normal. Normal size aortic root measuring 2.3 cm. Normal size ascending aorta measuring 2.3 cm. IVC: The IVC is normal sized. Pericardium: No pericardial effusion. No pleural effusion. Exam Comments: Tachycardia, supine, vent. (No Signature Object) Patient: TRELL AGUILERA Study Date: 07/24/2018 Page 2 of 2 07:51 AM [id number]
[2018-07-24] MEDS ORDERED: HEPARIN MISC ONE (14:00)
[2018-07-24] MEDS ORDERED: [UNRECOGNIZED DRUG - OTHER] MISC ONE (14:00)
[2018-07-24] MEDS ORDERED: NS 1,000 ML MISC SCH (14:00)
[2018-07-24] MEDS ORDERED: SODIUM PHOS 20 MM in D5W 250 ML IV PRN (14:00)
[2018-07-24] MEDS ORDERED: POTASSIUM Cl (KCl) 50 ML IV PRN (14:00)
[2018-07-24] MEDS ORDERED: PRE-DILUTION FILTER SET 100 MISC PRN (14:00)
[2018-07-24] MEDS ORDERED: ACCESSORY DRAIN 1 EA BAG MISC PRN (14:00)
[2018-07-24] MEDS ORDERED: [UNRECOGNIZED DRUG - OTHER] DIAL SCH (14:00)
[2018-07-24] MEDS ORDERED: BGK 4/2.5 PRISMASATE 5,000 ML DIAL SCH (14:00)
[2018-07-24] MEDS ORDERED: MAGNESIUM SULF 2 GM/WATER 50 ML IV PRN (14:00)
--- NOTE | 2018-07-24 15:37 | PDINTPN ---
Curriculum Counselor Progress Note Assessment/Plan: Assessment: Sepsis: Due to peritonitis. On Ertapenem. Blood Cx negative. Hypotension: On 4 pressors, including high-dose NE. EF globally reduced, likely due to sepsis. Propofol/Fentanyl likely contribute as well. Acute respiratory Failure: On Vent. Oxygenation OK, CO2 low. ESHA: Oliguric, acidotic. Likely due to ATN from hypotension/pressors. Cardiomyopathy: Likely due to sepsis Anemia: Trending down. No signs of active blood loss. Likely due to acute illness, dilution. Plan: Dialysis catheter, start CVVHD. Try to wean down pressors. May try to reduce propofol, ? change to Ketamine to reduce negative inotropy. ? return to OR for wash-out. Continue mechanical vent at current settings. Start Vitamin C. 55 minutes CC time managing hypotension, respiratoyr failure. 07/24/18 15:48 Subjective: Intubated, sedated Objective: Vital Signs Temp Pulse Resp BP Pulse Ox 37 C 121 H 24 H 108/64 90 L 07/24/18 12:00 07/24/18 15:00 07/24/18 15:00 07/24/18 15:00 07/24/18 15:00 Laboratory Results 07/24/18 06:00 07/24/18 06:00 07/23/18 07/24/18 07/25/18 05:59 05:59 05:59 Intake Total 300 2371 366 Output Total 70 1495 Balance 300 2301 -1129 PT 21.2 SEC (12.0-15.0) H 07/24/18 06:00 INR 1.82 (0.83-1.16) H 07/24/18 06:00 Echo: EF 40%. CXR: Stable basilar infiltrates/atelectasis. ETT OK. Images reviewed by me. Laboratory Tests 07/24/18 10:15 pCO2 29 L pO2 99 H Total CO2 17 L ABG pH 7.38 ABG HCO3 17 L O2 Concentration % 50 Actual Respiration Rate 24 SIMV YES Tidal Volume 500 End Tidal CO2 26 PEEP 7 Physical Exam - Physical Exam General Appearance: no apparent distress, No alert EENT: normal ENT inspection Neck: normal inspection Respiratory: lungs clear Cardiac/Chest: regular rate, rhythm, No edema Abdomen: No normal bowel sounds Skin: normal color, warm/dry Extremities: normal inspection Neuro/Psych: No alert, No normal mood/affect, No oriented x 3 ICD10 Worksheet Patient Problems: Problems Problem Status Onset Depression Acute
[2018-07-24] MEDS ORDERED: CALCIUM GLUCONATE 1 GM in D5W 50 ML IV ONE (18:30)
[2018-07-24] MEDS: PATCH REMOVAL 1 EA PATCH TD SCH (20:01)
[2018-07-24] MEDS: FAMOTIDINE 20 MG/NACL 50 ML IV SCH (20:03)
[2018-07-24] MEDS: ACETAMINOPHEN 650 MG/20.3 ML UDCUP TUBE PRN (20:27)
[2018-07-25] MEDS: INSULIN REGULAR HUMAN 100 UNIT/ML UNIT SC SCH ×6 (00:10→19:34)
[2018-07-25] MEDS: fentaNYL/NACL 100 ML IV SCH ×3 (00:13→15:28)
[2018-07-25] MEDS: NOREPINEPHRINE BITARTRATE 16 MG in NS 250 ML IV SCH ×2 (00:33→12:25)
[2018-07-25] MEDS: NS 1,000 ML IV SCH ×2 (02:11→15:28)
[2018-07-25] MEDS: PROPOFOL/EMULSION 100 ML IV SCH ×3 (02:13→21:21)
[2018-07-25] MEDS: ACETAMINOPHEN 650 MG/20.3 ML UDCUP TUBE PRN ×2 (02:18→19:27)
[2018-07-25] MEDS: VASOPRESSIN 25 UNIT in NS 250 ML IV SCH ×2 (03:12→13:59)
[2018-07-25] MEDS: ASCORBIC ACID 1,500 MG in D5W 100 ML IV SCH ×4 (04:09→21:59)
[2018-07-25] MEDS: HYDROCORTISONE 100 MG/2 ML VIAL IVP SCH ×2 (04:09→16:16)
[2018-07-25 04:44] LABS: PLATELET COUNT 382 10^3/uL (150-400)
[2018-07-25] MEDS: ALBUTEROL 60 PUFFS/8 GM MDI IH PRN ×3 (08:29→15:43)
[2018-07-25] MEDS: ERTAPENEM 0.5 GM in NS 100 ML IV SCH (08:38)
[2018-07-25] MEDS ORDERED: ERTAPENEM 1 GM in NS 100 ML IV SCH (09:00)
[2018-07-25] MEDS: FLUCONAZOLE/NaCl 100 MG in BAG 0 ML IV SCH (09:27)
[2018-07-25] MEDS: THIAMINE HCL 200 MG in NS 100 ML IV SCH ×2 (09:27→21:24)
--- NOTE | 2018-07-25 11:03 | PDINTPN ---
Packerhead Machine Operator Progress Note Assessment/Plan: Assessment: Sepsis: Due to peritonitis. On Ertapenem. Blood Cx negative. Hypotension: Now own to 2 pressors, including high-dose NE. EF globally reduced , likely due to sepsis. Propofol/Fentanyl likely contribute as well. Acute respiratory Failure: On Vent. Oxygenation and CXR worsening. ESHA: Urine output has returned, Cr falling, acidosis resolved. Didn't get dialysis Cardiomyopathy: Likely due to sepsis Anemia: Trending down. No signs of active blood loss. Likely due to acute illness, dilution. Plan: Try to wean down pressors. May try to reduce propofol, ? change to Ketamine to reduce negative inotropy. Continue Vitamin C. Adjust vent to improve oxygenation, reduce airway pressures. Consider proning if oxygenation doesn't improve and OK with Dr. Chamorro. Follow CXR, ABG. 35 minutes CC time managing hypotension, respiratory failure. 07/25/18 11:11 07/25/18 11:16 Subjective: Intubated, sedated. Objective: Vital Signs Temp Pulse Resp BP Pulse Ox 39.5 C H 103 H 24 H 116/65 92 07/25/18 08:00 07/25/18 10:00 07/25/18 10:00 07/25/18 10:00 07/25/18 10:00 Laboratory Results 07/25/18 04:03 07/25/18 04:03 07/24/18 07/25/18 07/26/18 05:59 05:59 05:59 Intake Total 2371 6094 Output Total 70 4645 525 Balance 2301 1449 -525 PT 21.2 SEC (12.0-15.0) H 07/24/18 06:00 INR 1.82 (0.83-1.16) H 07/24/18 06:00 CXR: Poor inspiration. Increased markings with basilar bronchograms. Images reviewed by me. Physical Exam - Physical Exam General Appearance: No alert (sedated) EENT: normal ENT inspection Neck: normal inspection Respiratory: lungs clear, normal breath sounds Cardiac/Chest: regular rate, rhythm, No edema Abdomen: non-tender, soft, other (midlinw wound-vac), No normal bowel sounds ( diminished) Skin: normal color, warm/dry Extremities: normal inspection Neuro/Psych: No alert ICD10 Worksheet Patient Problems: Problems Problem Status Onset Depression Acute
[2018-07-25] MEDS: LIDOCAINE 4%/MENTHOL 1% PATCH TD SCH (12:21)
--- NOTE | 2018-07-25 13:30 | SOAPPROG ---
SOAP Progress Note Assessment/Plan: Assessment: ESHA due to shock, creat stable about 2.7, not oliguric, no urgent HD or CRRT indications Shock, septic: Ertapenem, Flucon, pressors and sedation bowel perforation Sepsis resp failure on the vent Plan: continue supportive care continue antibiotics follow lytes vol and renal function no need for CIRCULAR SAW OPERATOR access at this point 07/25/18 13:26 Objective: Vital Signs Temp Pulse Resp BP Pulse Ox 39.5 C H 96 24 H 117/71 97 07/25/18 11:00 07/25/18 12:58 07/25/18 12:58 07/25/18 12:58 07/25/18 12:58 Laboratory Results 07/25/18 04:03 07/25/18 04:03 07/24/18 07/25/18 07/26/18 05:59 05:59 05:59 Intake Total 2371 6094 Output Total 70 4645 525 Balance 2301 1449 -525 PT 21.2 SEC (12.0-15.0) H 07/24/18 06:00 INR 1.82 (0.83-1.16) H 07/24/18 06:00 Physical Exam - Physical Exam General Appearance: other (sedated on the vent) Respiratory: other (coarse bs bilaterally, + rhonchi) Cardiac/Chest: regular rate, rhythm, No edema, No friction rub Abdomen: other (quiet, nd) Skin: warm/dry (sedated on vent) Extremities: No pedal edema, No swelling ICD10 Worksheet Patient Problems: Problems Problem Status Onset Depression Acute
--- NOTE | 2018-07-25 14:10 | SOAPPROG ---
SOAP Progress Note Assessment/Plan: Assessment/Plan: 53 Y F s/p repair of recurrent ventral hernia, s/p repair of enterotomy. Peritonitis, sepsis, acute respiratory failure, acute renal injury. Seen and examined with Dr. Chamorro this am. Down from 4 to 2 pressors--still on very high dose levophed. O2 needs improved but remains on vent. Blood gas adequate on PEEP. Per renal, no need for CRRT as of now--Cr improved, making urine. +febrile. Viewed CXR images. Minimal wound vac drainage. Abdomen is soft--intraabdominal pressures down to 15 last night. Continue care. 07/25/18 14:06 Objective: Vital Signs Temp Pulse Resp BP Pulse Ox 39.0 C H 99 24 H 114/69 97 07/25/18 13:54 07/25/18 13:54 07/25/18 13:54 07/25/18 13:54 07/25/18 13:54 Laboratory Results 07/25/18 04:03 07/25/18 04:03 07/24/18 07/25/18 07/26/18 05:59 05:59 05:59 Intake Total 2371 6094 Output Total 70 4645 725 Balance 2301 1449 -725 PT 21.2 SEC (12.0-15.0) H 07/24/18 06:00 INR 1.82 (0.83-1.16) H 07/24/18 06:00 ICD10 Worksheet Patient Problems: Problems Problem Status Onset Depression Acute
[2018-07-25] MEDS ORDERED: PROTOCOL CALCIUM 1 DOSE IV PRN (17:15)
[2018-07-25] MEDS ORDERED: PROTOCOL POTASSIUM 1 DOSE MISC PRN (17:15)
[2018-07-25] MEDS ORDERED: PROTOCOL MAGNESIUM 1 DOSE IV PRN (17:15)
[2018-07-25] MEDS ORDERED: PROTOCOL K PHOSPHATE 1 DOSE IV PRN (17:15)
[2018-07-25] MEDS: POTASSIUM Cl (KCl) 50 ML IV SCH ×3 (18:26→19:54)
[2018-07-25] MEDS: PATCH REMOVAL 1 EA PATCH TD SCH (20:22)
[2018-07-25] MEDS: FAMOTIDINE 20 MG/NACL 50 ML IV SCH (21:13)
[2018-07-26] MEDS ORDERED: POTASSIUM Cl (KCl) 50 ML IV ONE ×2 (01:02→15:16)
[2018-07-26] MEDS: ASCORBIC ACID 1,500 MG in D5W 100 ML IV SCH ×4 (04:15→22:57)
[2018-07-26] MEDS: INSULIN REGULAR HUMAN 100 UNIT/ML UNIT SC SCH ×6 (04:19→21:33)
[2018-07-26] MEDS: HYDROCORTISONE 100 MG/2 ML VIAL IVP SCH ×2 (04:19→16:15)
[2018-07-26] MEDS ORDERED: CALCIUM GLUCONATE 2 GM in NS 50 ML IV ONE (04:23)
[2018-07-26] MEDS: ACETAMINOPHEN 650 MG/20.3 ML UDCUP TUBE PRN ×2 (04:30→15:08)
[2018-07-26] MEDS: VASOPRESSIN 25 UNIT in NS 250 ML IV SCH ×2 (04:50→16:17)
[2018-07-26] MEDS: NS 1,000 ML IV SCH (06:14)
--- NOTE | 2018-07-26 08:02 | SOAPPROG ---
SOAP Progress Note Assessment/Plan: Assessment: ESHA due to shock, creat improved today to 2.2 from 2.7 yesterday, not oliguric, no urgent HD or CRRT indications Shock, septic: Ertapenem, Flucon, pressors and sedation bowel perforation Sepsis resp failure sedated on the vent Plan: continue supportive care, appears to beginning of renal recovery, cautiously optimistic continue antibiotics follow lytes vol and renal function no need for LIGHT TECHNICIAN access at this point 07/25/18 13:26 07/26/18 07:59 Subjective: sedated on vent not communicative Objective: Vital Signs Temp Pulse Resp BP Pulse Ox 37.9 C 89 24 H 108/69 97 07/26/18 04:00 07/26/18 06:00 07/26/18 06:00 07/26/18 06:00 07/26/18 06:00 Laboratory Results 07/25/18 04:03 07/26/18 04:02 07/25/18 07/26/18 07/27/18 05:59 05:59 05:59 Intake Total 6013 3864 Output Total 4645 2650 Balance 1449 1214 PT 21.2 SEC (12.0-15.0) H 07/24/18 06:00 INR 1.82 (0.83-1.16) H 07/24/18 06:00 Physical Exam - Physical Exam General Appearance: other (sedated) Neck: other (intuated) Respiratory: other (coarse bs bilaterally) Cardiac/Chest: regular rate, rhythm, No friction rub Abdomen: other (quiet, distended) Skin: warm/dry Neuro/Psych: other (sedated) ICD10 Worksheet Patient Problems: Problems Problem Status Onset Depression Acute
[2018-07-26] MEDS: FLUCONAZOLE/NaCl 100 MG in BAG 0 ML IV SCH (08:06)
[2018-07-26] MEDS: ERTAPENEM 0.5 GM in NS 100 ML IV SCH (09:09)
[2018-07-26] MEDS: LIDOCAINE 4%/MENTHOL 1% PATCH TD SCH (09:11)
[2018-07-26] MEDS: THIAMINE HCL 200 MG in NS 100 ML IV SCH ×2 (09:12→22:57)
[2018-07-26] MEDS: PROPOFOL/EMULSION 100 ML IV SCH ×2 (11:02→19:44)
[2018-07-26] MEDS ORDERED: FUROSEMIDE 40 MG/4 ML VIAL IVP ONE (11:28)
--- NOTE | 2018-07-26 11:33 | PDINTPN ---
[employer] Progress Note Assessment/Plan: Assessment: Sepsis: Due to peritonitis. On Ertapenem, fluconazole. Blood Cx negative. Hypotension: Now down to 2 pressors, NE titrated down to 10. EF globally reduced, likely due to sepsis. Propofol/Fentanyl likely contribute as well. Acute respiratory Failure: On Vent. Oxygenation OK on 50% FiO2. pH OK. ESHA: Urine output has returned, Cr falling, acidosis resolved. Didn't get dialysis Cardiomyopathy: Likely due to sepsis Anemia: Trending down. No signs of active blood loss. Likely due to acute illness, dilution. Plan: Continue to try to wean down pressors. May try to reduce propofol. Continue Vitamin C, antibiotics. Consult ID. Continue mechanical vent. Trial of Lasix. Follow CXR, ABG. 40 minutes CC time managing hypotension, respiratory failure. 07/26/18 11:35 Subjective: Intubated, sedated Objective: Vital Signs Temp Pulse Resp BP Pulse Ox 37.5 C 93 24 H 93/59 L 95 07/26/18 10:00 07/26/18 11:15 07/26/18 11:15 07/26/18 10:00 07/26/18 11:15 Laboratory Results 07/25/18 04:03 07/26/18 04:02 07/25/18 07/26/18 07/27/18 05:59 05:59 05:59 Intake Total 6094 3864 Output Total 4645 2650 225 Balance 1449 1214 -225 PT 21.2 SEC (12.0-15.0) H 07/24/18 06:00 INR 1.82 (0.83-1.16) H 07/24/18 06:00 CXR: Persistent hypoventilation and basilraaaa-predominant infiltrates. Images reviewed by me. Physical Exam - Physical Exam General Appearance: alert, no apparent distress EENT: normal ENT inspection Neck: normal inspection Respiratory: lungs clear Cardiac/Chest: edema (1+), tachycardia Abdomen: soft, No normal bowel sounds (absent) Skin: normal color, warm/dry Extremities: normal inspection Neuro/Psych: No alert ICD10 Worksheet Patient Problems: Problems Problem Status Onset Depression Acute
[2018-07-26] MEDS: fentaNYL/NACL 100 ML IV SCH ×2 (13:12→19:44)
--- NOTE | 2018-07-26 13:21 | WOCRNPDOC ---
WOCRN Advanced Assessment Note - Skin Integrity Problem, Advanced Assess Medial Abdomen Surgical Wound/Incision Dressing Type: Black Vac Foam (x1), Wound Vac Dressing Description: Clean/Dry, Intact Closure Description: Sutures (fascial) Exudate Amount: Moderate Exudate Color: Reddish/Yellow Exudate Characteristic(s): Serosanguinous Integumentary Issue Intervention: Dressing Changed Jocelyn Wound Swelling: Moderate (abdominal) Wound Bed Constitution: Granulation Tissue (30%), Subcutaneous Fat (60%), Loose Slough (10%) Site Measurement - Head-to-Toe Length X Width X Depth (cm): 21x5.6x4.8 Skin Integrity Problem Comment: Meche Gallardo SUPERVISOR CUSTOMER COMPLAINT SERVICE asked halal meat packer to change vac. Flushed wound with ns and patted dry with gauze. Fascia intact. Placed one piece of medium simplace foam into wound bed and a second small piece to fill the top of the wound. Vac restarted at -125 mm Hg continuous without leaks. Jack ROWLEY assisted with care. Patient's significant other in room and all questions answered. Vac changes MWF.
[2018-07-26 14:06] LABS: PLATELET COUNT 255 10^3/uL (150-400)
--- NOTE | 2018-07-26 14:14 | ASMTCMCOM ---
CM Note CM Note Notes: Slitter Cut Off Operator has made contact with patient's numerous friends and family to determine Med Proxy. Hattie Main, patient's mother, ; Deann Merrill, friend, ; and Zoltan Stevenson, patient's boy friend, all agree that Deann knows the patient the best and would be the easiest for the hospital to contact. Patient's mother, Hattie would like to attend "Family Meetings" when they are arranged. Patient is still on the vent. Date Signed: 07/26/2018 02:13 PM Electronically Signed By:Jovita Hall LCSW
[2018-07-26] MEDS ORDERED: FLUCONAZOLE/NaCl 100 MG in BAG 0 ML IV ONE (14:15)
--- NOTE | 2018-07-26 14:19 | SOAPPROG ---
[facility] Progress Note Assessment/Plan: Assessment: 53 y/o F s/p lap ventral hernia repair last Tuesday Taken back to OR for increased abdominal pain. Now s/p ex lap and small bowel repair. Localized peritonitis found. ID following. On iv abx. Sepsis: down to 2 pressors, aubrie down to 8 per RN. Continue to try to wean off propofol and fentanyl Acute respiratory Failure: still intubated. Acute renal failure: improving. Cr down to 2.2. uop increasing. Cardiomyopathy: EF reduced S: Sedated and intubated, but opens eyes when propofol is turned down. Responds to painful stimuli. SO at bedside asking to be included in all decision making. O: Sedated on fentanyl and propofol BP improved and stable Afebrile WBC WNL Cr 2.2 Abdomen: much softer, moderately distended, absent bowel sounds, wound vac to suction. Changed today by wound care. : uop much improved. Mathur in place. 07/26/18 14:07 Objective: Vital Signs Temp Pulse Resp BP Pulse Ox 38.0 C 96 24 H 89/54 L 93 07/26/18 12:00 07/26/18 13:14 07/26/18 13:14 07/26/18 13:14 07/26/18 13:14 Laboratory Results 07/26/18 11:43 07/26/18 04:02 07/25/18 07/26/18 07/27/18 05:59 05:59 05:59 Intake Total 6094 3864 Output Total 4645 2650 435 Balance 1449 1214 -435 PT 21.2 SEC (12.0-15.0) H 07/24/18 06:00 INR 1.82 (0.83-1.16) H 07/24/18 06:00 ICD10 Worksheet Patient Problems: Problems Problem Status Onset Depression Acute
[2018-07-26] MEDS: NOREPINEPHRINE BITARTRATE 16 MG in NS 250 ML IV SCH (14:51)
--- NOTE | 2018-07-26 16:10 | GCON ---
INFECTIOUS DISEASES CONSULTATION DATE OF CONSULTATION: 07/26/2018 REFERRING PHYSICIAN: Hamilton Soto MD REASON FOR CONSULTATION: Peritonitis with septic shock. HISTORY OF PRESENT ILLNESS: The patient is a 53-year-old female who underwent ventral hernia repair on 04/21/2018, which was complicated by infected seroma, and who developed a new ventral hernia super ior to prior incision, for which she was admitted on 07/21/2018 for repair. This was repaired with m esh via a laparoscopic approach on 07/21/2018. Extensive intraabdominal adhesions were noted. The p atient developed significant abdominal pain postoperatively and returned to the operating room on 05/2018 for concerns about peritonitis. She underwent laparotomy with adhesiolysis and repair of a s mall-bowel perforation with drainage of a localized area of peritonitis. Subsequently, a wound VAC w as placed. The patient had hypotension intraoperatively, requiring pressor support. Empiric ertapen em and fluconazole were given. Postoperatively, she developed oliguria and fever, with findings comp atible with septic shock. She experienced significant lactic acidosis and progressive acute renal fa ilure. This subsequently improved, and her creatinine has decreased from a peak of 3.1 to 2.2 today. She had significant elevation in temperatures, peaking at 39.4 on 07/25/2018. Over the last 12 bharathi rs, her temperatures have been improved. She remains intubated and sedated. Blood cultures obtained on 07/24/2018 have shown no growth. Intraoperative cultures at the time of small bowel perforation were not obtained. Cultures from her prior seroma showed no growth. She has continued to receive em piric ertapenem and fluconazole. Given the above findings, I am now asked to assist in her ongoing m anagement. PAST MEDICAL HISTORY: Type 2 diabetes, anxiety, depression, chronic pain, rectal prolapse, PTSD. PAST SURGICAL HISTORY: Ventral hernia repairs, as above; rectal prolapse repair. CURRENT MEDICATIONS: Ertapenem 500 mg IV daily, fluconazole 100 mg IV daily, Abilify 5 mg p.o. daily , vitamin C 1500 mg IV q.6 hours, Prozac 60 mg p.o. daily, Lopid 600 mg p.o. b.i.d., hydrocortisone q .12 hours, Lantus 34 units subcu q.h.s., regular insulin sliding scale, propofol drip, thiamine 200 m g IV q.12 hours. ALLERGIES: Wellbutrin associated with hives, Haldol associated with dystonic reaction, risperidone a ssociated with hives, Isovue associated with vomiting. SOCIAL HISTORY: Patient was smoking until time of admission. Significant other notes 1 alcoholic be verage infrequently. No noted drug use history. FAMILY HISTORY: Cannot be obtained. REVIEW OF SYSTEMS: Outside that noted in the HPI, remainder of 10-system review could not be obtaine d. PHYSICAL EXAMINATION: VITAL SIGNS: Temperature 37.5, blood pressure 93/59, heart rate 92, respirato ry rate 24, oxygen saturation 96% on 50% FiO2. GENERAL: The patient is an obese female who is intub ated and sedated. HEENT: There is no scleral icterus, conjunctival injection, or conjunctival petec hiae. Endotracheal tube is in the oropharynx. NECK: Supple, without lymphadenopathy or thyromegaly . CHEST: Clear to auscultation bilaterally, without adventitious sounds. The patient is mechanical ly ventilated. CARDIOVASCULAR: Regular rate and rhythm, without murmurs, gallops, or rubs. ABDOMEN : Soft, distended, wound VAC in place in the midline, without surrounding erythema; bowel sounds are absent. MUSCULOSKELETAL: No cyanosis, clubbing, or edema. SKIN: No rashes noted. No stigmata of endocarditis. Skin is warm and dry to touch. NEUROLOGIC: Patient is intubated and sedated. LYMPH ATICS: No cervical or supraclavicular nodes. LABORATORY DATA: White blood cell count 8.6, hematocrit 24.4, platelets 255, neutrophils 81%. Serum creatinine is 2.2. ABG shows pH 7.3, pCO2 48, PO2 84. Blood cultures x2 sets from 07/24/2018 are n o growth. Chest x-ray shows patchy bilateral basilar infiltrates. IMPRESSION: Septic shock associated with peritonitis due to small bowel perforation, status post inc ision and drainage with small bowel repair. Most likely, pathogens will be typical enteric harriet, in cluding potential for anaerobes. Michell also of consideration given small bowel involvement. Given clinical improvement, will continue both ertapenem and fluconazole, but will increase fluconazole do se to 200 mg IV daily. If patient shows ongoing fevers, then would need to consider repeat imaging v ersus operative assessment to ensure peritonitis fully resolved. RECOMMENDATIONS: 1. Agree with ertapenem 500 mg IV daily. 2. Agree with fluconazole with increase in dose to 200 mg IV daily. 3. Follow up blood cultures as available. 4. Follow clinical response to above measures over time. Thank you for this consultation. We will continue to follow the patient with you. /[id number]/MODL
[2018-07-26] MEDS ORDERED: D10W 1,000 ML IV PRN (17:17)
[2018-07-26] MEDS: PATCH REMOVAL 1 EA PATCH TD SCH (21:50)
[2018-07-26] MEDS: TPN W/ FAMOTIDINE 1 EA BAG IV SCH (21:52)
[2018-07-27] MEDS: INSULIN REGULAR HUMAN 100 UNIT/ML UNIT SC SCH ×7 (00:59→23:57)
[2018-07-27] MEDS: VASOPRESSIN 25 UNIT in NS 250 ML IV SCH (02:54)
[2018-07-27] MEDS: fentaNYL/NACL 100 ML IV SCH ×3 (02:56→19:19)
[2018-07-27] MEDS: HYDROCORTISONE 100 MG/2 ML VIAL IVP SCH ×2 (04:33→16:50)
[2018-07-27] MEDS: PROPOFOL/EMULSION 100 ML IV SCH (04:49)
[2018-07-27 04:52] LABS: INR 1.58 (0.83-1.16)
[2018-07-27 04:57] LABS: PLATELET COUNT 257 10^3/uL (150-400)
[2018-07-27] MEDS: ASCORBIC ACID 1,500 MG in D5W 100 ML IV SCH ×4 (05:05→22:33)
[2018-07-27] MEDS: ACETAMINOPHEN 650 MG/20.3 ML UDCUP TUBE PRN (08:09)
[2018-07-27] MEDS: ERTAPENEM 0.5 GM in NS 100 ML IV SCH (08:09)
[2018-07-27] MEDS: FLUCONAZOLE/NaCl 100 ML IV SCH (08:10)
[2018-07-27] MEDS: LIDOCAINE 4%/MENTHOL 1% PATCH TD SCH (08:10)
--- NOTE | 2018-07-27 08:47 | SOAPPROG ---
SOELOISE Progress Note Assessment/Plan: Assessment: 53 y/o F s/p lap ventral hernia repair last Tuesday Taken back to OR for increased abdominal pain. Now s/p ex lap and small bowel repair. Localized peritonitis found. ID following. On iv abx. Sepsis: down to 2 pressors, aubrie down to 10 per RN. Continue to try to wean off propofol and fentanyl Acute respiratory Failure: still intubated. Acute renal failure: improved yesterday, but Cr back up today. uop increasing. Cardiomyopathy: EF reduced S: Sedated and intubated, but opens eyes when propofol is turned down. Responds to painful stimuli. SO at bedside asking to be included in all decision making. O: Sedated on fentanyl and propofol BP improved and stable Febrile at 38 WBC high today Abdomen: much softer, moderately distended, absent bowel sounds, wound vac to suction. : uop much improved. Mathur in place 07/27/18 08:46 Objective: Vital Signs Temp Pulse Resp BP Pulse Ox 38.0 C 97 24 H 106/60 92 07/26/18 18:00 07/27/18 07:00 07/27/18 07:00 07/27/18 07:00 07/27/18 07:00 Laboratory Results 07/27/18 04:00 07/27/18 04:00 07/26/18 07/27/18 07/28/18 05:59 05:59 05:59 Intake Total 3864 3246 Output Total 2650 2410 150 Balance 1214 836 -150 PT 19.0 SEC (12.0-15.0) H 07/27/18 04:00 INR 1.58 (0.83-1.16) H 07/27/18 04:00 ICD10 Worksheet Patient Problems: Problems Problem Status Onset Depression Acute
--- NOTE | 2018-07-27 09:02 | PCMIDPN ---
Assessment/Plan: #Sepsis secondary to SB perf and localized peritonitis s/p repair 07/24/18. Remains febrile, WBC slightly elevated. Plan to continue to cover for typical GI harriet with broad-spectrum coverage. #ARF: CrCl mid-30s #Elevated LFTs : Suspect due to underlying sepsis, could consider fluconazole. Will better delineate on CT scan today Recommendation 1) broaden antibiotics, DC ertapenem. Start renal dosing Zosyn 2.25 g IV Q 6. Patient's creatinine clearance is on the borderline elected to dose for creatinine clearance in the 20 2) case discussed with Dr. Chamorro, will obtain a non contrasted CT scan to evaluate for ongoing intra-abdominal process, patient may still need exploratory laparotomy 3) repeat blood cultures meds Ertapenem 500mg IV daily , # 3 Fluconazole 200mg IV daily, # 2 Microbiology 07/24 blood cultures (2) NGTD Subjective: Patient's O2 requirements are stable, stable amount of pressors overnight. Patient remains febrile. No other events Objective: Vital Signs Temp Pulse Resp BP Pulse Ox 39.6 C H 99 24 H 103/56 L 91 L 07/27/18 08:00 07/27/18 08:23 07/27/18 08:23 07/27/18 08:00 07/27/18 08:23 Laboratory Results 07/27/18 04:00 07/27/18 04:00 07/26/18 07/27/18 07/28/18 05:59 05:59 05:59 Intake Total 3864 3246 Output Total 2650 2410 150 Balance 1214 836 -150 - Physical Exam General Appearance: other (Sedated) EENT: ET Tube, NG Tube Respiratory: other (Ventilated with coarse breath sounds) Cardiac/Chest: regular rate, rhythm, No systolic murmur Extremities: pedal edema, other (Anasarca) Abdomen: soft, other (Midline wound VAC, absent bowel sounds) Pelvic Exam: gutierrez Skin: pallor, No rash Neuro/Psych: other (Sedated) - Line/s other Lines: other (Right IJ triple-lumen catheter, right A-line in radial position), No drainage, No erythema - Time Spent With Patient Time Spent with Patient: greater than 35 minutes (Care coordinated with Dr. Chamorro and Dr. Soto, reviewed lab results with patient's medical power welfare investigator (who is a friend, researcher at [facility]) at bedside.) Time Spent with Patient: Greater than 35 minutes spent on this patients care, greater than 50% of time spent counseling, educating, and coordinating care regarding the above mentioned plan. 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
[2018-07-27] MEDS: THIAMINE HCL 200 MG in NS 100 ML IV SCH ×2 (09:33→22:33)
--- NOTE | 2018-07-27 09:36 | PDINTPN ---
Brokerage Coordinator Progress Note Assessment/Plan: Assessment: Sepsis: Due to peritonitis. Fever has returned. On Ertapenem, fluconazole. Blood Cx negative. Hypotension: Now down to 2 pressors, NE titrated down to 10. EF globally reduced, likely due to sepsis. Propofol/Fentanyl likely contribute as well. Got quite agitated with sedation vacation today. Acute respiratory Failure: On Vent. Oxygenation OK on 50% FiO2. pH OK. ESHA: Urine output has returned, Cr up today. Didn't get dialysis. Cardiomyopathy: Likely due to sepsis Anemia: Trending down. No signs of active blood loss. Likely due to acute illness, dilution. Acute Hepatitis: LFTs elevated, concerning for worsening abdominal process. Plan: CT Abdomen, likely return to OR for laparotomy. Continue to try to wean down pressors. Continue propofol at loser rate. Continue Vitamin C, antibiotics. Consult ID. Continue mechanical vent. Follow CXR, Recheck ABG. 45 minutes CC time managing hypotension, respiratory failure. 07/27/18 09:36 Subjective: Intubated, sedated Objective: Vital Signs Temp Pulse Resp BP Pulse Ox 39.6 C H 99 24 H 103/56 L 91 L 07/27/18 08:00 07/27/18 08:23 07/27/18 08:23 07/27/18 08:00 07/27/18 08:23 Laboratory Results 07/27/18 04:00 07/27/18 04:00 07/26/18 07/27/18 07/28/18 05:59 05:59 05:59 Intake Total 3864 3246 Output Total 2650 2410 150 Balance 1214 836 -150 PT 19.0 SEC (12.0-15.0) H 07/27/18 04:00 INR 1.58 (0.83-1.16) H 07/27/18 04:00 Laboratory Tests 07/25/18 07/26/18 07/26/18 14:20 04:02 04:02 pCO2 48 H pO2 84 H ABG pH 7.34 L ABG HCO3 25 ABG Lactic Acid 2.0 H POC Glucose Phosphorus Magnesium 2.2 Total Bilirubin Conjugated Bilirubin AST ALT Alkaline Phosphatase 07/26/18 07/27/18 08:12 04:00 pCO2 pO2 ABG pH ABG HCO3 ABG Lactic Acid POC Glucose 149 H Phosphorus 6.7 H Magnesium Total Bilirubin 1.6 H Conjugated Bilirubin 1.3 H AST 1390 H ALT 313 H Alkaline Phosphatase 168 H Physical Exam - Physical Exam General Appearance: alert, no apparent distress EENT: normal ENT inspection Neck: normal inspection Respiratory: lungs clear, No normal breath sounds Cardiac/Chest: tachycardia Abdomen: soft, No normal bowel sounds Skin: normal color, warm/dry Extremities: normal inspection Neuro/Psych: alert, normal mood/affect, oriented x 3 ICD10 Worksheet Patient Problems: Problems Problem Status Onset Depression Acute
--- NOTE | 2018-07-27 10:23 | SOAPPROG ---
SOAP Progress Note Assessment/Plan: Assessment/Plan: ESHA: likely ATN in setting of shock, initially oliguric but now good UOP and lytes ok. Cr down from 3.1 to 2.2 yesterday but today is 2.5 in setting of again having fever and also getting Lasix yesterday. - No emergent need for HD. - Will give some 1/2NS today. - Will continue to monitor daily for renal recovery and HD needs. - Will recheck renal function this afternoon. - Avoid hypotension and nephrotoxins. Hypernatremia: will give some 1/2NS today and continue to monitor. Shock: pt on pressors. Hyperphosphatemia: will continue to monitor for now. Subjective: Pt again febrile this am, remains on vent and pressors. Has good UOP with Lasix given yesterday. Objective: Vital Signs Temp Pulse Resp BP Pulse Ox 40.5 C H 102 H 24 H 124/63 H 90 L 07/27/18 09:45 07/27/18 09:45 07/27/18 09:45 07/27/18 09:45 07/27/18 09:45 Laboratory Results 07/27/18 04:00 07/27/18 04:00 07/26/18 07/27/18 07/28/18 05:59 05:59 05:59 Intake Total 3864 3246 Output Total 2650 2410 150 Balance 1214 836 -150 PT 19.0 SEC (12.0-15.0) H 07/27/18 04:00 INR 1.58 (0.83-1.16) H 07/27/18 04:00 General: sedated, no acute distress OP: intubated CV: RRR Resp: intubated and on vent Abd: Soft, NT Ext: trace edema all extremities ICD10 Worksheet Patient Problems: Problems Problem Status Onset Depression Acute
[2018-07-27] MEDS ORDERED: 1/2 NS 1,000 ML IV SCH (10:30)
[2018-07-27] MEDS: ACETAMINOPHEN 650 MG SUPP PR PRN (10:46)
[2018-07-27] MEDS: PIPERACILLIN/TAZO 2.25 GM/DEX 50 ML IV SCH ×2 (12:31→18:07)
[2018-07-27] MEDS ORDERED: CALCIUM GLUCONATE 2 GM in NS 50 ML IV ONE (12:51)
[2018-07-27] MEDS: NOREPINEPHRINE BITARTRATE 16 MG in NS 250 ML IV SCH (15:04)
[2018-07-27] MEDS ORDERED: POTASSIUM Cl (KCl) 50 ML IV SCH ×3 (15:15→15:30)
[2018-07-27] MEDS: TPN W/ FAMOTIDINE 1 EA BAG IV SCH (21:10)
[2018-07-27] MEDS: POTASSIUM Cl (KCl) 50 ML IV SCH (22:32)
[2018-07-27] MEDS: PATCH REMOVAL 1 EA PATCH TD SCH (22:44)
--- NOTE | 2018-07-27 23:38 | SOAPPROG ---
SOAP Progress Note Assessment/Plan: Assessment: CALLED INTO SEE PT COMPLAINING OF UNRELENTING ABD PAIN SINCE SURGERY CT SCAN UNREVEALING BUT NO IV CONTRAST WBC 7K BUT LEFT SHIFT VS STABLE AFEBRILE ABD SOFT WITH DISTENTION AND DECREASED BS BUT NO DEFINITE PERITONEAL SIGNS CHEST CLEAR COR RR HEENT NONICTERIC NO BM OR FLATUS FOR 3 DAYS IMP: DIFFICULT PT WHO ALWAYS CO PAIN BUT SEEMS WORSE/ MAY NEED SURGERY IF NOT IMPROVING TO RO BOWELL INJURY RISKS AND OPTIONS FULLY DISCUSSED WITH PT Plan:CHECK CBC, LACTATE, 2-WAY/ CONSIDER LAPAROSCOPY IF NOT IMPROVED WITH ENEMA 07/23/18 19:58 07/23/18 20:04 07/24/18 01:55 lactate elevated/ wbc 2.1k/ still in pain/ 2-way constipation will proceed with laparoscopy, probable laparotomy risks and options fully discussed 07/27/18 23:35 Patient remains febrile up to 103 steadily/CT scan today revealed no intra- abdominal problems with some atelectasis and/or pneumonia in the lower lobe/ She remains sedated on the ventilator Urine output improving, creatinine 2.5 WBC 9000 but persistent 3 TMs Abdomen soft but silent/abdominal pressure is less than 15 Does move all extremities and follows some commands with sedation vacation Wound VAC change in wound appears to be clean with no CP each but no real granulation tissue yet/fascial edges probed but no evidence of purulence Because of persistent temp have chosen to do exploratory lap to rule out any missed abdominal abscess Objective: Vital Signs Temp Pulse Resp BP Pulse Ox 39.8 C H 94 30 H 102/54 L 93 07/27/18 22:00 07/27/18 22:00 07/27/18 22:00 07/27/18 22:00 07/27/18 22:00 Laboratory Results 07/27/18 04:00 07/27/18 20:10 07/26/18 07/27/18 07/28/18 05:59 05:59 05:59 Intake Total 3864 3246 1825.2 Output Total 2650 2410 1125 Balance 1214 836 700.2 PT 19.0 SEC (12.0-15.0) H 07/27/18 04:00 INR 1.58 (0.83-1.16) H 07/27/18 04:00 ICD10 Worksheet Patient Problems: Problems Problem Status Onset Depression Acute
--- NOTE | 2018-07-27 23:40 | PDANEPAE ---
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 No problems since then. - Pulmonary History Hx COPD: No Hx Asthma/Reactive Airway Disease: No Hx Recent Upper Respiratory Infection: No Hx Oxygen in Use at Home: No Hx Sleep Apnea: No Sleep Apnea Screening Result - Last Documented: Negative Pulmonary History Comment: states has inhaler but does not use/need - Neurologic History Hx Cerebrovascular Accident: No Hx Seizures: No Hx Dementia: No Neurologic History Comment: Diabetic neuropathy hands and feet. - Endocrine History Hx Diabetes: Yes Endocrine History Comment: Type 2-insulin and metformin. - Renal History Hx Renal Disorders: Yes Renal History Comment: Septicemia due to ureter stent. Emergently removed in 2011. No further problems. - Liver History Hx Hepatic Disorders: No - Neurological & Psychiatric Hx Hx Neurological and Psychiatric Disorders: Yes Neurological / Psychiatric History Comment: Bipolar. anxiety. PTSD. ADD-meds - Cancer History Hx Cancer: No - Congenital Disorder History Hx Congenital Disorders: No - GI History Hx Gastrointestinal Disorders: Yes Gastrointestinal History Comment: easily nauseated. 05/30-pancreatitis, treated and resolved. Chronic BM issues-meds. IBS. 4 abd. hernias. - Other Health History Other Health History: Bilateral mild hearing loss. Stress induced skin sores. Multiple missing teeth-meth abuse. - Chronic Pain History Chronic Pain: Yes (abd., colorectal) - Surgical History Prior Surgeries: abdominal seroma surgery w/wound vac, 04/2018. 1994-colon resection. uterine sling, R opherectomy, 2004. 2009-colon resection & nicked L ureter with stent placement. Stent removed 2011. 2007-L foot. 2011-oral surg. Cholecystectomy ANE Review of Systems Review of Systems: - Exercise capacity METS (RN): 4 METS ANE Patient History - Allergies Allergies/Adverse Reactions: bupropion HCl [From Wellbutrin] Allergy (Verified 07/20/18 13:00) Hives haloperidol [From Haldol] Allergy (Verified 07/20/18 13:00) dystonic reaction haloperidol lactate [From Haldol] Allergy (Verified 07/20/18 13:00) dystonic reaction iopamidol [From Isovue-M] Allergy (Verified 06/27/13 08:27) Vomiting risperidone [From Risperdal] Allergy (Verified 07/20/18 13:00) Hives CT CONTRAST Allergy (Uncoded 06/27/13 08:28) Vomiting - Home Medications Home Medications: FLUoxetine [Prozac 20 MG (*)] 60 mg PO DAILY 01/20/18 [Last Taken 07/21/18 05:30 ] Gemfibrozil [Lopid 600 MG (*)] 600 mg PO BIDAC 01/20/18 [Last Taken 07/20/18] Insulin Glargine [Lantus 100 UNITS/ML (*)] 34 units SC HS 01/20/18 [Last Taken 07/20/18] Lisinopril [Zestril 5 mg (*)] 5 mg PO DAILY 01/20/18 [Last Taken 07/21/18 05:30] Albuterol [Proventil Inhaler HFA (*)] 1 puffs IH DAILY PRN 04/21/18 [Last Taken 3 Months Ago ~04/20/18] Dextroamphetamine/Amphetamine [Adderall Xr 10 mg Capsule] 10 mg PO DAILY [Last Taken 07/20/18] Herbals/Supplements -Info Only 1 each PO DAILY 04/21/18 [Last Taken Unknown] Omeprazole 20 mg PO DAILY 04/21/18 [Last Taken 07/21/18 05:30] metFORMIN HCL [Glucophage 1000 mg] 1,000 mg PO BID 04/21/18 [Last Taken 07/20/18 ] ARIPiprazole [Abilify 10 mg (*)] 5 mg PO DAILY #0 07/20/18 [Last Taken 07/21/18 05:30] Dicyclomine [Bentyl 20 MG (*)] 20 mg PO QID PRN #0 07/20/18 [Last Taken 05:30] Ondansetron Odt [Zofran Odt 4 mg (*)] 8 mg PO TID PRN #0 07/20/18 [Last Taken 05:30] - NPO status NPO Since - Liquids (Date): 07/27/18 NPO Since - Liquids (Time): 12:00 NPO Since - Solids (Date): 07/27/18 NPO Since - Solids (Time): 12:00 - Smoking Hx Smoking Status: Current every day smoker - Alcohol Use Alcohol Use: Rarely - Family Anes Hx Family Hx Anesthesia Complications: none ANE Labs/Vital Signs - Labs Result Diagrams: 07/27/18 04:00 07/27/18 20:10 - Vital Signs Blood Pressure: 102/54 Heart Rate: 94 Respiratory Rate: 30 O2 Sat (%): 93 Height: 157.48 cm Weight: 86.6 kg ANE Physical Exam - Airway Mouth exam: ETT in situ - Pulmonary Pulmonary: clear to auscultation - Cardiovascular Cardiovascular: regular rate and rhythym - ASA Status ASA Status: IV ANE Anesthesia Plan Anesthesia Plan: general endotracheal anesthesia
[2018-07-28] MEDS ORDERED: ROCURONIUM 100 MG/10 ML VIAL ONE (00:01)
--- NOTE | 2018-07-28 00:59 | POSTANESTH ---
Post Anesthetic Evaluation Cardiovascular Status: Normal, Stable, Similar to Pre-Op Cond Respiratory Status: Tx Decrease in SpO2, Requires Airway Assist, Other, See Comment (intubated, stable) Level of Consciousness/Mental Status: Unconscious Pain Control: Adequate, Prn Tx Ordered Nausea/Vomiting Control: Adequate, Prn Tx Ordered Complications Possibly Related to Anesthesia: None Noted
--- NOTE | 2018-07-28 01:17 | POSTOPPROG ---
Post Op Note Date of Operation: 07/28/18 Surgeon: Raad Chamorro Anesthesiologist: KELLY Anesthesia: GET(General Endotracheal) Pre-op Diagnosis: FUO Post-op Diagnosis: SAME Indication: FUO Procedure: LAPAROTOMY, PERITONEAL LAVAGE AND ABTHERA PLACEMENT Findings: CLOUDY PERITONEAL FLUID, NO ABSCESS, SUCCUS OR BOWELL LEAK Inf/Abcess present in the surg proc area at time of surgery?: Yes Depth: Organ Space EBL: Minimal Complications: NONE Drains: Wound Vac Specimen(s): CULTURES
[2018-07-28] MEDS: POTASSIUM Cl (KCl) 50 ML IV SCH ×4 (01:33→08:34)
[2018-07-28] MEDS: PIPERACILLIN/TAZO 2.25 GM/DEX 50 ML IV SCH ×5 (02:04→23:34)
[2018-07-28 04:54] LABS: INR 1.61 (0.83-1.16); PROTIME(PATIENT) 19.3 SEC (12.0-15.0)
[2018-07-28 04:55] LABS: PLATELET COUNT 152 10^3/uL (150-400)
[2018-07-28] MEDS: INSULIN REGULAR HUMAN 100 UNIT/ML UNIT SC SCH ×6 (05:01→23:37)
[2018-07-28] MEDS: ASCORBIC ACID 1,500 MG in D5W 100 ML IV SCH (05:08)
[2018-07-28] MEDS: HYDROCORTISONE 100 MG/2 ML VIAL IVP SCH (05:08)
--- NOTE | 2018-07-28 07:18 | SOAPPROG ---
SOAP Progress Note Assessment/Plan: Assessment: CALLED INTO SEE PT COMPLAINING OF UNRELENTING ABD PAIN SINCE SURGERY CT SCAN UNREVEALING BUT NO IV CONTRAST WBC 7K BUT LEFT SHIFT VS STABLE AFEBRILE ABD SOFT WITH DISTENTION AND DECREASED BS BUT NO DEFINITE PERITONEAL SIGNS CHEST CLEAR COR RR HEENT NONICTERIC NO BM OR FLATUS FOR 3 DAYS IMP: DIFFICULT PT WHO ALWAYS CO PAIN BUT SEEMS WORSE/ MAY NEED SURGERY IF NOT IMPROVING TO RO BOWELL INJURY RISKS AND OPTIONS FULLY DISCUSSED WITH PT Plan:CHECK CBC, LACTATE, 2-WAY/ CONSIDER LAPAROSCOPY IF NOT IMPROVED WITH ENEMA 07/23/18 19:58 07/23/18 20:04 07/24/18 01:55 lactate elevated/ wbc 2.1k/ still in pain/ 2-way constipation will proceed with laparoscopy, probable laparotomy risks and options fully discussed 07/27/18 23:35 Patient remains febrile up to 103 steadily/CT scan today revealed no intra- abdominal problems with some atelectasis and/or pneumonia in the lower lobe/ She remains sedated on the ventilator Urine output improving, creatinine 2.5 WBC 9000 but persistent 3 TMs Abdomen soft but silent/abdominal pressure is less than 15 Does move all extremities and follows some commands with sedation vacation Wound VAC change in wound appears to be clean with no CP each but no real granulation tissue yet/fascial edges probed but no evidence of purulence Because of persistent temp have chosen to do exploratory lap to rule out any missed abdominal abscess 07/28/18 07:17 Seems more comfortable/temperature coming down/minimal wound VAC drainage/urine output good/WBC 9 K/tolerating ventilator better with lower pressure Seems improved after abdominal washout and open ABThera ABThera change on Tuesday Objective: Vital Signs Temp Pulse Resp BP Pulse Ox 38.8 C H 85 28 H 118/62 95 07/28/18 06:00 07/28/18 07:00 07/28/18 07:00 07/28/18 07:00 07/28/18 07:00 Laboratory Results 07/28/18 04:25 07/28/18 04:25 07/27/18 07/28/18 07/29/18 05:59 05:59 05:59 Intake Total 3246 3013.2 Output Total 2410 1800 Balance 836 1213.2 PT 19.3 SEC (12.0-15.0) H 07/28/18 04:25 INR 1.61 (0.83-1.16) H 07/28/18 04:25 ICD10 Worksheet Patient Problems: Problems Problem Status Onset Depression Acute
[2018-07-28] MEDS ORDERED: CALCIUM GLUCONATE 50 ML IV ONE (07:35)
[2018-07-28] MEDS: GEMFIBROZIL 600 MG TAB PO SCH ×2 (07:47→17:48)
[2018-07-28] MEDS: FLUoxetine 20 MG CAP PO SCH (08:05)
[2018-07-28] MEDS: ARIPiprazole 5 MG TAB PO SCH (08:05)
[2018-07-28] MEDS: FLUCONAZOLE/NaCl 100 ML IV SCH (08:09)
[2018-07-28] MEDS ORDERED: POTASSIUM Cl (KCl) 50 ML IV ONE ×3 (08:30→15:45)
[2018-07-28] MEDS ORDERED: CALCIUM GLUCONATE 1 GM in D5W 50 ML IV ONE (08:30)
[2018-07-28] MEDS: LIDOCAINE 4%/MENTHOL 1% PATCH TD SCH (08:34)
[2018-07-28] MEDS ORDERED: PROTOCOL CALCIUM 1 DOSE IV PRN (08:58)
--- NOTE | 2018-07-28 09:42 | PDINTPN ---
Community Relations Coordinator Progress Note Assessment/Plan: Assessment: Sepsis: Due to peritonitis. Fever persists despite wash-out last night. On Ertapenem, fluconazole. Blood Cx negative. 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 EF globally reduced, likely due to sepsis. Propofol/Fentanyl likely contributed as well, now off. Acute respiratory Failure: On Vent. Oxygenation OK on 50% FiO2. pH OK. ESHA: Urine output good, Cr trending down. Didn't get dialysis. Cardiomyopathy: Likely due to sepsis Anemia: Low but stable. No signs of active blood loss. Likely due to acute illness. Acute Hepatitis: LFTs continue to climb, synthetic function reduced a bit but INR stable. Sedation: Off this morning. Patient not yet waking up, likely due to delayed metabolism due to hepatic and renal insufficiency. Plan: Continue to try to wean off pressors. Continue propofol at lower rate. Continue antibiotics. Continue mechanical vent. Follow CXR, Recheck ABG. Sedation vacation. 35 minutes CC time managing hypotension, respiratory failure, hepatitis, sedation. 07/28/18 09:49 Subjective: Intubated, sedated Objective: Vital Signs Temp Pulse Resp BP Pulse Ox 39.3 C H 84 28 H 118/66 95 07/28/18 09:00 07/28/18 09:00 07/28/18 09:00 07/28/18 09:00 07/28/18 09:00 Laboratory Results 07/28/18 04:25 07/28/18 04:25 07/27/18 07/28/18 07/29/18 05:59 05:59 05:59 Intake Total 3246 3013.2 Output Total 2410 1800 Balance 836 1213.2 PT 19.3 SEC (12.0-15.0) H 07/28/18 04:25 INR 1.61 (0.83-1.16) H 07/28/18 04:25 Laboratory Tests 07/28/18 07/28/18 07/28/18 04:24 04:25 04:25 INR 1.61 H pCO2 34 pO2 119 H ABG pH 7.44 ABG HCO3 23 O2 Concentration % 100 Set Respiration Rate 30 AST 5298 H ALT 1238 H Physical Exam - Physical Exam General Appearance: alert, no apparent distress EENT: normal ENT inspection Neck: normal inspection Respiratory: normal breath sounds Cardiac/Chest: regular rate, rhythm, edema Abdomen: soft, other (open with wound-vac.), No normal bowel sounds Skin: normal color, warm/dry Extremities: normal inspection Neuro/Psych: No alert ICD10 Worksheet Patient Problems: Problems Problem Status Onset Depression Acute
--- NOTE | 2018-07-28 09:46 | SOAPPROG ---
SOAP Progress Note Assessment/Plan: Assessment/Plan: ESHA: likely ATN in setting of shock, initially oliguric but now good UOP and lytes ok. Cr down from 3.1 to 2.1 today. - No emergent need for HD. - Will change IVFs to D5W. - Will continue to monitor daily for renal recovery. - Avoid hypotension and nephrotoxins. Hypernatremia: will change IVFs to D5W and continue to monitor. Shock: pt on pressors. Hyperphosphatemia: will continue to monitor for now. Hypokalemia: being monitored and replaced. Subjective: Pt taken to OR last night for washout, no abscess found, now with wound vac in place over abdomen. She is still febrile this am. She is on less pressors today. Objective: Vital Signs Temp Pulse Resp BP Pulse Ox 39.3 C H 84 28 H 118/66 95 07/28/18 09:00 07/28/18 09:00 07/28/18 09:00 07/28/18 09:00 07/28/18 09:00 Laboratory Results 07/28/18 04:25 07/28/18 04:25 07/27/18 07/28/18 07/29/18 05:59 05:59 05:59 Intake Total 3246 3013.2 Output Total 2410 1800 Balance 836 1213.2 PT 19.3 SEC (12.0-15.0) H 07/28/18 04:25 INR 1.61 (0.83-1.16) H 07/28/18 04:25 General: sedated, no acute distress OP: intubated CV: RRR Resp: intubated an don vent Abd: wound vac in place Ext: trace edema BLE ICD10 Worksheet Patient Problems: Problems Problem Status Onset Depression Acute
[2018-07-28] MEDS: D5W 1,000 ML IV SCH (10:36)
[2018-07-28] MEDS: PANTOPRAZOLE SODIUM 40 MG VIAL IVP SCH (10:58)
--- NOTE | 2018-07-28 12:28 | ASMTCMCOM ---
CM Note CM Note Notes: Spoke with Deann, patient's friend and Deann Hernandez's mother regarding a family meeting. They do not feel they need one today but possibly on Tuesday. CM to check in with them to see if a meeting needs to be scheduled on Tuesday. Patient's mother Hattie would like to be included if one is scheduled.Therapies are to monitor over the weekend and work with the patient if she is able. Patient remains vented. CM will follow. Date Signed: 07/28/2018 12:27 PM Electronically Signed By:Cara Robles LCSW
--- NOTE | 2018-07-28 12:31 | WOCRNPDOC ---
WOCRN Advanced Assessment Note - Skin Integrity Problem, Advanced Assess Right Ischial Tuberosity Pressure Injury Dressing Type: Allevyn Life Dressing Description: Clean/Dry, Intact Exudate Amount: None Integumentary Issue Intervention: Visualized Under Dressing Wound Bed Constitution: Draining Serous Blister Site Measurement - Head-to-Toe Length X Width X Depth (cm): 1.5x2x0.1 Pressure Injury Stage: Stage 2 Pressure Injury Present on Admit: No Skin Integrity Problem Comment: Wound is a stage 2 hospital acquired pressure injury that is a blister with the roof still attached, but no longer fluid filled. No drainage noted on the dressing. Gage RN and Xochilt RN in room to assist with care. Wound care will round again next week. Left Lateral Coccyx Pressure Injury Dressing Type: Allevyn Life Dressing Description: Clean/Dry, Intact Exudate Amount: None Integumentary Issue Intervention: Visualized Under Dressing Wound Bed Constitution: Draining Serous Blister Site Measurement - Head-to-Toe Length X Width X Depth (cm): 1.5x1.5x0.1 Pressure Injury Stage: Stage 2 Pressure Injury Present on Admit: No Skin Integrity Problem Comment: Wound is a stage 2 hospital acquired pressure injury that is a blister with the roof still attached, but no longer fluid filled. No drainage noted on the dressing. Gage RN and Xochilt RN in room to assist with care. Wound care will round again next week.
--- NOTE | 2018-07-28 12:56 | SOAPPROG ---
SOAP Progress Note Assessment/Plan: Assessment: PM rounds - sedation has been held and from respiratory standpoint she is holding her own - cont sedation as tolerated, anticipate prolonged clearance with liver/renal failure - LFT spike today, likely shock liver, con to trend - abdomen is otherwise soft, VAC changed and min output - is making urine, Cr down to 2.1 today - weaning pressors but still has small requirement. Wean as tolerates. Plan: 07/23/18 15:55 07/28/18 12:54 07/28/18 12:55 Subjective: sedation held, still not following commands Objective: Vital Signs Temp Pulse Resp BP Pulse Ox 39.4 C H 88 28 H 105/55 L 93 07/28/18 11:00 07/28/18 11:15 07/28/18 11:15 07/28/18 11:00 07/28/18 11:15 Laboratory Results 07/28/18 04:25 07/28/18 04:25 07/27/18 07/28/18 07/29/18 05:59 05:59 05:59 Intake Total 3246 3013.2 Output Total 2410 1800 Balance 836 1213.2 PT 19.3 SEC (12.0-15.0) H 07/28/18 04:25 INR 1.61 (0.83-1.16) H 07/28/18 04:25 ICD10 Worksheet Patient Problems: Problems Problem Status Onset Depression Acute
[2018-07-28] MEDS ORDERED: POTASSIUM Cl (KCl) 50 ML IV SCH (15:30)
--- NOTE | 2018-07-28 18:23 | PCMIDPN ---
Assessment/Plan: Assessment/Plan: * Septic shock due to peritonitis associated with small bowel perforation status post repeat washout 07/27/2018: Weaned off pressors today. Operative findings noted including cloudy peritoneal fluid without evidence of bowel leak or abscess. Continue Zosyn and fluconazole empirically. * Elevated LFTs: Consistent with shock liver from hypotension. 07/28/18 18:20 07/28/18 18:21 07/28/18 18:23 Objective: Vital Signs Temp Pulse Resp BP Pulse Ox 38.4 C H 94 24 H 105/53 L 95 07/28/18 18:00 07/28/18 18:00 07/28/18 18:00 07/28/18 18:00 07/28/18 18:00 Laboratory Results 07/28/18 04:25 07/27/18 07/28/18 07/29/18 05:59 05:59 05:59 Intake Total 3246 3013.2 2760 Output Total 2410 1800 1150 Balance 836 1213.2 1610 Zosyn # 2 Fluconazole # 3 Blood cultures 07/24/2018 no growth Blood cultures x1 07/27/2018 pending T-max 39.4 degrees Laboratory Tests 07/28/18 04:25 Total Bilirubin 1.6 H AST 5298 H ALT 1238 H Alkaline Phosphatase 168 H Albumin 2.7 L - Physical Exam General Appearance: non-toxic, other (Intubated, sedated) EENT: ET Tube, No scleral icterus, No conjunctival petechiae Respiratory: lungs clear, other (Mechanically ventilated) Cardiac/Chest: regular rate, rhythm Abdomen: distended, other (Wound VAC in place without surrounding erythema) ICD10 Worksheet Patient Problems: Problems Problem Status Onset Depression Acute
[2018-07-28] MEDS: TPN W/ FAMOTIDINE 1 EA BAG IV SCH (21:11)
[2018-07-28] MEDS: PATCH REMOVAL 1 EA PATCH TD SCH (21:12)
[2018-07-28] MEDS: ACETAMINOPHEN 650 MG SUPP PR PRN (21:13)
[2018-07-29] MEDS ORDERED: POTASSIUM Cl (KCl) 50 ML IV ONE ×4 (01:28→14:15)
[2018-07-29] MEDS: INSULIN REGULAR HUMAN 100 UNIT/ML UNIT SC SCH ×5 (05:26→21:03)
[2018-07-29] MEDS: PIPERACILLIN/TAZO 2.25 GM/DEX 50 ML IV SCH ×3 (05:26→18:34)
[2018-07-29 05:48] LABS: PLATELET COUNT 157 10^3/uL (150-400)
[2018-07-29 06:10] LABS: INR 1.53 (0.83-1.16); PROTIME(PATIENT) 18.5 SEC (12.0-15.0)
[2018-07-29] MEDS: LIDOCAINE 4%/MENTHOL 1% PATCH TD SCH (07:44)
[2018-07-29] MEDS: FLUoxetine 20 MG CAP PO SCH (07:44)
[2018-07-29] MEDS: ARIPiprazole 5 MG TAB PO SCH (07:44)
[2018-07-29] MEDS: GEMFIBROZIL 600 MG TAB PO SCH ×3 (07:45→18:34)
[2018-07-29] MEDS: ALBUTEROL 60 PUFFS/8 GM MDI IH PRN ×2 (08:07→15:32)
[2018-07-29] MEDS: PANTOPRAZOLE SODIUM 40 MG VIAL IVP SCH (08:50)
[2018-07-29] MEDS ORDERED: CALCIUM GLUCONATE 50 ML IV ONE (09:01)
[2018-07-29] MEDS: FLUCONAZOLE/NaCl 100 ML IV SCH (09:25)
[2018-07-29] MEDS ORDERED: CALCIUM GLUCONATE 1 GM in D5W 50 ML IV ONE (09:30)
--- NOTE | 2018-07-29 09:50 | PDINTPN ---
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 Fever persists despite repeat wash-out 07/27. On Zosyn, fluconazole. Blood Cx negative. Hypotension: Now off pressors. EF globally reduced, likely due to sepsis. Propofol/Fentanyl likely contributed as well, now offx24 hours. Acute respiratory Failure: On Vent. Oxygenation OK on 40% FiO2. Able to reduce set rate. ESHA: Urine output good, Cr trending down. Didn't get dialysis. Cardiomyopathy: Likely due to sepsis Anemia: Low but stable. No signs of active blood loss. Likely due to acute illness. Acute Hepatitis: LFTs peaked 07/28, now falling, synthetic function reduced a bit but INR stable. Sedation: Off x24 hours. Patient not yet waking up, likely due to delayed metabolism due to hepatic and renal insufficiency. Plan: Continue antibiotics. Continue mechanical vent, wean as tolerated. Follow CXR, Recheck ABG. 35 minutes CC time managing hypotension, respiratory failure, hepatitis, sedation. 07/29/18 09:51 07/29/18 11:13 Subjective: Intubated, sedated. Objective: Vital Signs Temp Pulse Resp BP Pulse Ox 39.4 C H 104 H 35 H 118/59 L 94 07/29/18 07:00 07/29/18 08:00 07/29/18 08:00 07/29/18 08:00 07/29/18 08:00 Microbiology 07/24/18 02:50 Blood Culture - Final Blood 07/24/18 02:40 Blood Culture - Final Blood Laboratory Results 07/29/18 05:30 07/29/18 05:30 07/28/18 07/29/18 07/30/18 05:59 05:59 05:59 Intake Total 3013.2 4229 Output Total 1800 2150 Balance 1213.2 2079 PT 18.5 SEC (12.0-15.0) H 07/29/18 05:30 INR 1.53 (0.83-1.16) H 07/29/18 05:30 CXR: Persistent bilateral infiltrates/edema. Images reviewed by me. Laboratory Tests 07/28/18 07/29/18 07/29/18 04:25 05:30 10:50 INR 1.61 H pCO2 42 H pO2 77 H ABG pH 7.35 O2 Concentration % 0.4 Set Respiration Rate 24 SIMV YES Tidal Volume 400 AST 1801 H ALT 998 H Alkaline Phosphatase 144 H Physical Exam - Physical Exam General Appearance: unresponsive EENT: normal ENT inspection Neck: normal inspection Respiratory: lungs clear, normal breath sounds Cardiac/Chest: regular rate, rhythm, No edema Abdomen: soft, No normal bowel sounds (hypoactive) Skin: normal color, warm/dry Extremities: normal inspection Neuro/Psych: No alert ICD10 Worksheet Patient Problems: Problems Problem Status Onset Depression Acute
[2018-07-29] MEDS ORDERED: FUROSEMIDE 40 MG/4 ML VIAL IVP ONE (10:29)
--- NOTE | 2018-07-29 12:58 | SOAPPROG ---
SOAP Progress Note Assessment/Plan: Assessment: 53 year old with recurrent ventral hernia most recently with iatrogenic bowel perforation Overall better but temp still up Continue ABX Plan to return to OR on Tuesday. Spent time S: Lying in bed O: Intubated and sedated Abthera to suction Plan: 07/29/18 12:51 Objective: Vital Signs Temp Pulse Resp BP Pulse Ox 39.4 C H 97 32 H 98/46 L 92 07/29/18 07:00 07/29/18 10:00 07/29/18 10:00 07/29/18 10:00 07/29/18 10:00 Microbiology 07/24/18 02:50 Blood Culture - Final Blood 07/24/18 02:40 Blood Culture - Final Blood Laboratory Results 07/29/18 05:30 07/29/18 05:30 07/28/18 07/29/18 07/30/18 05:59 05:59 05:59 Intake Total 3013.2 4229 Output Total 1800 2150 350 Balance 1213.2 2079 -350 PT 18.5 SEC (12.0-15.0) H 07/29/18 05:30 INR 1.53 (0.83-1.16) H 07/29/18 05:30 ICD10 Worksheet Patient Problems: Problems Problem Status Onset Depression Acute
--- NOTE | 2018-07-29 13:31 | SOAPPROG ---
SOAP Progress Note Assessment/Plan: Assessment: ESHA due to shock, creat improved today to 1.7 from 2.2 from 2.7, not oliguric, no urgent HD or CRRT indications Shock, septic: Ertapenem, Flucon, pressors and sedation bowel perforation Sepsis resp failure sedated on the vent Plan: continue supportive care, appears to slowly trend toward renal recovery, cautiously optimistic continue antibiotics/support follow lytes vol and renal function no need for CALENDAR CONTROL CLERK BLOOD BANK access at this point 07/25/18 13:26 07/26/18 07:59 07/29/18 13:28 Subjective: family at bedside all questions answered to their satisfaction remains sedated on the vent Objective: Vital Signs Temp Pulse Resp BP Pulse Ox 39.4 C H 97 32 H 115/63 93 07/29/18 07:00 07/29/18 12:00 07/29/18 12:00 07/29/18 12:00 07/29/18 12:00 Microbiology 07/24/18 02:50 Blood Culture - Final Blood 07/24/18 02:40 Blood Culture - Final Blood Laboratory Results 07/29/18 05:30 07/28/18 07/29/18 07/30/18 05:59 05:59 05:59 Intake Total 3013.2 4229 Output Total 1800 2150 350 Balance 1213.2 2079 -350 PT 18.5 SEC (12.0-15.0) H 07/29/18 05:30 INR 1.53 (0.83-1.16) H 07/29/18 05:30 Physical Exam - Physical Exam General Appearance: other (sedated) Respiratory: other (coarse bs bilat with rh) Cardiac/Chest: regular rate, rhythm, No edema Abdomen: other (quiet, mod distension) Skin: warm/dry Extremities: No swelling Neuro/Psych: other (sedated, not communicative) ICD10 Worksheet Patient Problems: Problems Problem Status Onset Depression Acute
[2018-07-29] MEDS ORDERED: POTASSIUM Cl (KCl) 50 ML IV SCH (14:00)
[2018-07-29] MEDS: ACETAMINOPHEN 650 MG SUPP PR PRN (14:07)
--- NOTE | 2018-07-29 14:13 | PCMIDPN ---
Assessment/Plan: Assessment/Plan: * Septic shock due to peritonitis associated with small bowel perforation status post repeat washout 07/27/2018: Remains off pressors with repeat blood culture being negative. Continues to have persistent high-grade fever. Continue Zosyn and fluconazole empirically. If has repeat washout/wound VAC change, cultures would be of utility to further guide antibiotic management. * Elevated LFTs: Consistent with shock liver from hypotension with significant decrease today. * Fever: Most likely due to ongoing infection associated with peritonitis. Also is on Abilify which can be associated with NMS - no muscular rigidity noted on exam as is typical for this condition however. 07/29/18 14:10 Subjective: Intubated, sedated. Remains off pressors. Objective: Vital Signs Temp Pulse Resp BP Pulse Ox 39.4 C H 101 H 32 H 115/63 93 07/29/18 07:00 07/29/18 12:00 07/29/18 12:00 07/29/18 12:00 07/29/18 12:00 Microbiology 07/24/18 02:50 Blood Culture - Final Blood 07/24/18 02:40 Blood Culture - Final Blood Laboratory Results 07/29/18 05:30 07/29/18 13:00 07/28/18 07/29/18 07/30/18 05:59 05:59 05:59 Intake Total 3013.2 4229 Output Total 1800 2150 350 Balance 1213.2 2079 -350 Zosyn # 3 Fluconazole # 4 T-max 39.4 degrees - Physical Exam General Appearance: non-toxic, other (Intubated, sedated) EENT: ET Tube, No scleral icterus Respiratory: lungs clear, No respiratory distress Cardiac/Chest: tachycardia Extremities: No inflammation Abdomen: distended, other (Wound VAC in place without surrounding erythema) Skin: No rash - Line/s other Lines: other (Right IJ triple-lumen catheter), No drainage, No erythema ICD10 Worksheet Patient Problems: Problems Problem Status Onset Depression Acute
[2018-07-29] MEDS: INSULIN GLARGINE 100 UNITS/ML UNIT SC SCH (14:42)
[2018-07-29] MEDS: D5W 1,000 ML IV SCH ×2 (14:46→16:32)
[2018-07-29] MEDS: PATCH REMOVAL 1 EA PATCH TD SCH (21:03)
[2018-07-29] MEDS: TPN W/ FAMOTIDINE 1 EA BAG IV SCH (21:04)
[2018-07-30] MEDS: INSULIN REGULAR HUMAN 100 UNIT/ML UNIT SC SCH ×6 (00:23→21:54)
[2018-07-30] MEDS: PIPERACILLIN/TAZO 2.25 GM/DEX 50 ML IV SCH ×4 (00:23→18:30)
[2018-07-30] MEDS: D5W 1,000 ML IV SCH ×3 (00:24→22:03)
[2018-07-30] MEDS ORDERED: POTASSIUM Cl (KCl) 50 ML IV ONE ×4 (02:44→13:30)
[2018-07-30 05:51] LABS: PLATELET COUNT 212 10^3/uL (150-400)
[2018-07-30] MEDS ORDERED: CALCIUM GLUCONATE 50 ML IV ONE (07:36)
[2018-07-30] MEDS ORDERED: CALCIUM GLUCONATE 1 GM in D5W 50 ML IV ONE (08:00)
[2018-07-30] MEDS: GEMFIBROZIL 600 MG TAB PO SCH ×2 (08:29→17:11)
[2018-07-30] MEDS: PANTOPRAZOLE SODIUM 40 MG VIAL IVP SCH (08:29)
[2018-07-30] MEDS: LIDOCAINE 4%/MENTHOL 1% PATCH TD SCH (08:56)
[2018-07-30] MEDS: FLUoxetine 20 MG CAP PO SCH (08:56)
[2018-07-30] MEDS: POTASSIUM Cl (KCl) 50 ML IV SCH ×2 (08:57→21:53)
[2018-07-30] MEDS: FLUCONAZOLE/NaCl 100 ML IV SCH (09:01)
[2018-07-30] MEDS: INSULIN GLARGINE 100 UNITS/ML UNIT SC SCH (09:01)
[2018-07-30] MEDS: ARIPiprazole 5 MG TAB PO SCH (09:08)
--- NOTE | 2018-07-30 10:44 | SOAPPROG ---
SOAP Progress Note Assessment/Plan: Assessment: 53 year old with recurrent ventral hernia most recently with iatrogenic bowel perforation Overall better Still spiking temp, on broad spectrum abx and only cloudy fluid found at surgery Hypernatriemia improved Continue ABX Plan to return to OR on Tuesday. S: Lying in bed O: Intubated eyes open appears comfortable Abdomen soft Abthera to suction Plan: 07/29/18 12:51 07/30/18 10:43 07/30/18 10:45 Objective: Vital Signs Temp Pulse Resp BP Pulse Ox 39.4 C H 94 38 H 110/57 L 97 07/30/18 08:00 07/30/18 10:00 07/30/18 10:00 07/30/18 10:00 07/30/18 10:00 Microbiology 07/24/18 02:50 Blood Culture - Final Blood 07/24/18 02:40 Blood Culture - Final Blood Laboratory Results 07/30/18 05:20 07/30/18 05:20 07/29/18 07/30/18 07/31/18 05:59 05:59 05:59 Intake Total 4229 4010 Output Total 2150 4400 Balance 2079 -390 PT 18.5 SEC (12.0-15.0) H 07/29/18 05:30 INR 1.53 (0.83-1.16) H 07/29/18 05:30 ICD10 Worksheet Patient Problems: Problems Problem Status Onset Depression Acute
[2018-07-30] MEDS ORDERED: FUROSEMIDE 40 MG/4 ML VIAL IVP ONE (10:45)
--- NOTE | 2018-07-30 10:45 | PDINTPN ---
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 Fever persists despite repeat wash-out 07/27. On Zosyn, fluconazole. Blood Cx negative. Hypotension: Now off pressors. EF globally reduced, likely due to sepsis. Propofol/Fentanyl likely contributed as well, now off Acute respiratory Failure: On Vent. Oxygenation OK on 40% FiO2. Still with high RR and minute ventilation. Could be due to pulmonary edema. ESHA: Urine output good, Cr trending down. Didn't get dialysis. Hypernatremia: Improving, not resolved with D5. Diabetes: BSs 200s despite Insulin in TPN, Lantus, and SSI. D5 likely contributes. Cardiomyopathy: Likely due to sepsis Anemia: Lower today. No signs of active blood loss. Likely due to acute illness , dilution, surgical losses. Acute Hepatitis: LFTs peaked 07/28, now falling, synthetic function reduced a bit but INR stable. Sedation: Off x 2 days hours. Patient just starting to wake up. Plan: Continue antibiotics. Continue mechanical vent, wean as tolerated. Follow CXR, Recheck ABG. 40 minutes CC time managing respiratory failure, anemia, sedation, hyperglycemia. 07/30/18 10:50 Subjective: Eyes open, not following commands. Objective: Vital Signs Temp Pulse Resp BP Pulse Ox 39.4 C H 94 38 H 110/57 L 97 07/30/18 08:00 07/30/18 10:00 07/30/18 10:00 07/30/18 10:00 07/30/18 10:00 Microbiology 07/24/18 02:50 Blood Culture - Final Blood 07/24/18 02:40 Blood Culture - Final Blood Laboratory Results 07/30/18 05:20 07/30/18 05:20 07/29/18 07/30/18 07/31/18 05:59 05:59 05:59 Intake Total 4229 4010 Output Total 2150 4400 Balance 2079 -390 PT 18.5 SEC (12.0-15.0) H 07/29/18 05:30 INR 1.53 (0.83-1.16) H 07/29/18 05:30 Physical Exam - Physical Exam General Appearance: obese, other EENT: normal ENT inspection Neck: normal inspection Respiratory: rhonchi Cardiac/Chest: regular rate, rhythm, edema (1+) Abdomen: normal bowel sounds, non-tender Skin: normal color, warm/dry Extremities: normal inspection Neuro/Psych: No alert ICD10 Worksheet Patient Problems: Problems Problem Status Onset Depression Acute
--- NOTE | 2018-07-30 11:15 | PCMIDPN ---
Assessment/Plan: Assessment: Peritonitis following a small bowel leak. Currently on empiric Zosyn and fluconazole. We do not have any cultures guiding at present. Patient continues to have persistent elevated temperatures. This may be due to the primary process or alternatively may be due to medication interactions. Patient was on Abilify and Prozac. These have been held as of yesterday. She is getting a transfusion of packed red blood cells currently. We will continue to follow the fever curve an attempt to interpret based on the preceding information. Liver enzymes were increased significantly 2 days ago. They fell yesterday. No liver enzymes drawn today. Will recheck tomorrow. Plan: 1. Continue both Zosyn and fluconazole at present dosing. 2. Recheck liver enzymes tomorrow. 3. Follow fever curve. 07/30/18 11:10 07/30/18 11:11 Subjective: Patient is resting in her bed in the ICU. She is intubated and sedated. Family is present. Blood pressure is stable. Oxygenating well. Objective: Zosyn # 4 Fluconazole # 5 Vital Signs Temp Pulse Resp BP Pulse Ox 39.4 C H 94 38 H 110/57 L 97 07/30/18 08:00 07/30/18 10:00 07/30/18 10:00 07/30/18 10:00 07/30/18 10:00 Microbiology 07/24/18 02:50 Blood Culture - Final Blood 07/24/18 02:40 Blood Culture - Final Blood Laboratory Results 07/30/18 05:20 07/30/18 05:20 07/29/18 07/30/18 07/31/18 05:59 05:59 05:59 Intake Total 4229 4010 Output Total 2150 4400 550 Balance 2079 -390 -550 - Physical Exam General Appearance: WD/WN, no apparent distress, No alert Respiratory: lungs clear, normal breath sounds, No respiratory distress Cardiac/Chest: regular rate, rhythm, No tachycardia Extremities: non-tender, normal inspection Abdomen: soft, distended, No non-tender Skin: normal color, warm/dry, No rash ICD10 Worksheet Patient Problems: Problems Problem Status Onset Depression Acute
[2018-07-30] MEDS: HYDROmorphONE/DILAUDID 1 MG/ML INJ IVP PRN ×4 (12:08→21:52)
--- NOTE | 2018-07-30 14:09 | GOP ---
DATE OF OPERATION: 07/28/2018 SURGEON: Raad Chamorro MD PREOPERATIVE DIAGNOSIS: Fever of unknown origin and a history of peritonitis. POSTOPERATIVE DIAGNOSIS: Fever of unknown origin and a history of peritonitis. PROCEDURE PERFORMED: Laparotomy with peritoneal lavage and ABThera placement. FINDINGS: The patient was found to have cloudy peritoneal fluid but no loculated abscess. No bowel leak or drainage. DESCRIPTION OF PROCEDURE: The patient was taken to the operating room where she received a satisfact ory general endotracheal anesthesia by Dr. Zaldivar. She was placed in the supine position, prepped and draped in the usual sterile fashion. A midline incision was then opened. The previous sutures were cut. The abdomen was then carefully explored. Pockets of discolored fluid were irrigated clear and suctioned out, but there was no true loculated abscess or bowel abnormalities or perforations. It w as elected to leave the abdomen open with an ABThera which was placed subfascially and covered with a wound VAC. The wound was dressed. She tolerated the procedure well. There were no complications. Blood loss was negligible. Taken to recovery room in good condition. /[id number]/MODL
[2018-07-30] MEDS ORDERED: FUROSEMIDE 20 MG/2 ML VIAL IVP ONE (15:33)
--- NOTE | 2018-07-30 16:00 | SOAPPROG ---
SOAP Progress Note Assessment/Plan: Assessment: ESHA due to shock, creat improved today to 1.5 from 1.7 from 2.2 from 2.7, not oliguric, no urgent HD or CRRT indications Shock, septic: Ertapenem, Flucon, pressors and sedation bowel perforation, back to OR tomorrow Sepsis resp failure sedated on the vent Anemia, receiving 2 units prbc prior to OR tomorrow Plan: continue supportive care, appears to slowly trend toward renal recovery, cautiously optimistic continue antibiotics/support follow lytes vol and renal function no need for SOFTWARE INSTALLER access at this point To OR tomorrow 07/25/18 13:26 07/26/18 07:59 07/29/18 13:28 07/30/18 15:57 Subjective: sedated on vent will open her eyes to her name today not communicative Objective: Vital Signs Temp Pulse Resp BP Pulse Ox 38.9 C H 95 28 H 108/51 L 95 07/30/18 12:00 07/30/18 14:00 07/30/18 14:00 07/30/18 14:00 07/30/18 14:00 Laboratory Results 07/30/18 15:10 07/30/18 12:15 07/29/18 07/30/18 07/31/18 05:59 05:59 05:59 Intake Total 4229 4010 Output Total 2150 4400 2400 Balance 2079 -390 -2400 PT 18.5 SEC (12.0-15.0) H 07/29/18 05:30 INR 1.53 (0.83-1.16) H 07/29/18 05:30 Physical Exam - Physical Exam General Appearance: other (sedated on vent) Respiratory: other (coarse bs bilaterally) Cardiac/Chest: regular rate, rhythm, No edema, No friction rub Abdomen: other (quiet, distended) Skin: warm/dry Extremities: No swelling Neuro/Psych: other (sedated, opens her eyes today) ICD10 Worksheet Patient Problems: Problems Problem Status Onset Depression Acute
[2018-07-30] MEDS ORDERED: ALBUMIN 25% 100 ML IV ONE (16:26)
[2018-07-30] MEDS: TPN 1 EA BAG IV SCH (21:53)
[2018-07-30] MEDS: PATCH REMOVAL 1 EA PATCH TD SCH (21:53)
[2018-07-31] MEDS: INSULIN REGULAR HUMAN 100 UNIT/ML UNIT SC SCH ×6 (00:05→21:23)
[2018-07-31] MEDS: PIPERACILLIN/TAZO 2.25 GM/DEX 50 ML IV SCH ×4 (00:05→17:36)
[2018-07-31] MEDS ORDERED: POTASSIUM Cl (KCl) 50 ML IV ONE ×2 (02:30→07:31)
[2018-07-31] MEDS: HYDROmorphONE/DILAUDID 2 MG/ML INJ IVP PRN (02:40)
[2018-07-31 04:51] LABS: PLATELET COUNT 228 10^3/uL (150-400)
[2018-07-31 05:48] LABS: INR 1.34 (0.83-1.16); PROTIME(PATIENT) 16.8 SEC (12.0-15.0)
[2018-07-31] MEDS: GEMFIBROZIL 600 MG TAB PO SCH ×2 (07:29→17:36)
[2018-07-31] MEDS ORDERED: CALCIUM GLUCONATE 50 ML IV ONE (07:31)
[2018-07-31] MEDS ORDERED: CALCIUM GLUCONATE 1 GM in D5W 50 ML IV ONE (08:00)
[2018-07-31] MEDS ORDERED: MAGNESIUM SULF 2 GM/WATER 50 ML IV ONE (08:30)
--- NOTE | 2018-07-31 10:13 | PDANEPAE ---
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 No problems since then. - Pulmonary History Hx COPD: No Hx Asthma/Reactive Airway Disease: No Hx Recent Upper Respiratory Infection: No Hx Oxygen in Use at Home: No Hx Sleep Apnea: No Sleep Apnea Screening Result - Last Documented: Negative Pulmonary History Comment: states has inhaler but does not use/need - Neurologic History Hx Cerebrovascular Accident: No Hx Seizures: No Hx Dementia: No Neurologic History Comment: Diabetic neuropathy hands and feet. - Endocrine History Hx Diabetes: Yes Endocrine History Comment: Type 2-insulin and metformin. - Renal History Hx Renal Disorders: Yes Renal History Comment: Septicemia due to ureter stent. Emergently removed in 2011. No further problems. - Liver History Hx Hepatic Disorders: No - Neurological & Psychiatric Hx Hx Neurological and Psychiatric Disorders: Yes Neurological / Psychiatric History Comment: Bipolar. anxiety. PTSD. ADD-meds - Cancer History Hx Cancer: No - Congenital Disorder History Hx Congenital Disorders: No - GI History Hx Gastrointestinal Disorders: Yes Gastrointestinal History Comment: easily nauseated. 05/30-pancreatitis, treated and resolved. Chronic BM issues-meds. IBS. 4 abd. hernias. - Other Health History Other Health History: Bilateral mild hearing loss. Stress induced skin sores. Multiple missing teeth-meth abuse. - Chronic Pain History Chronic Pain: Yes (abd., colorectal) - Surgical History Prior Surgeries: abdominal seroma surgery w/wound vac, 04/2018. 1994-colon resection. uterine sling, R opherectomy, 2004. 2009-colon resection & nicked L ureter with stent placement. Stent removed 2011. 2007-L foot. 2011-oral surg. Cholecystectomy ANE Review of Systems Review of Systems: - Exercise capacity Exercise capacity: unable to assess METS (RN): 4 METS ANE Patient History - Allergies Allergies/Adverse Reactions: bupropion HCl [From Wellbutrin] Allergy (Verified 07/20/18 13:00) Hives haloperidol [From Haldol] Allergy (Verified 07/20/18 13:00) dystonic reaction haloperidol lactate [From Haldol] Allergy (Verified 07/20/18 13:00) dystonic reaction iopamidol [From Isovue-M] Allergy (Verified 06/27/13 08:27) Vomiting risperidone [From Risperdal] Allergy (Verified 07/20/18 13:00) Hives CT CONTRAST Allergy (Uncoded 06/27/13 08:28) Vomiting - Home Medications Home medications: home medication list seen and reviewed Home Medications: FLUoxetine [Prozac 20 MG (*)] 60 mg PO DAILY 01/20/18 [Last Taken 07/21/18 05:30 ] Gemfibrozil [Lopid 600 MG (*)] 600 mg PO BIDAC 01/20/18 [Last Taken 07/20/18] Insulin Glargine [Lantus 100 UNITS/ML (*)] 34 units SC HS 01/20/18 [Last Taken 07/20/18] Lisinopril [Zestril 5 mg (*)] 5 mg PO DAILY 01/20/18 [Last Taken 07/21/18 05:30] Albuterol [Proventil Inhaler HFA (*)] 1 puffs IH DAILY PRN 04/21/18 [Last Taken 3 Months Ago ~04/20/18] Dextroamphetamine/Amphetamine [Adderall Xr 10 mg Capsule] 10 mg PO DAILY [Last Taken 07/20/18] Herbals/Supplements -Info Only 1 each PO DAILY 04/21/18 [Last Taken Unknown] Omeprazole 20 mg PO DAILY 04/21/18 [Last Taken 07/21/18 05:30] metFORMIN HCL [Glucophage 1000 mg] 1,000 mg PO BID 04/21/18 [Last Taken 07/20/18 ] ARIPiprazole [Abilify 10 mg (*)] 5 mg PO DAILY #0 07/20/18 [Last Taken 07/21/18 05:30] Dicyclomine [Bentyl 20 MG (*)] 20 mg PO QID PRN #0 07/20/18 [Last Taken 05:30] Ondansetron Odt [Zofran Odt 4 mg (*)] 8 mg PO TID PRN #0 07/20/18 [Last Taken 05:30] - NPO status NPO Status: no food or drink >8 hours NPO Since - Liquids (Date): 07/24/18 NPO Since - Liquids (Time): 00:00 NPO Since - Solids (Date): 07/24/18 NPO Since - Solids (Time): 00:00 - Smoking Hx Smoking Status: Current every day smoker - Alcohol Use Alcohol Use: Rarely - Family Anes Hx Family Hx Anesthesia Complications: none ANE Labs/Vital Signs - Labs Result Diagrams: 07/31/18 04:30 07/31/18 04:30 - Vital Signs Vital Signs: reviewed preoperatively; see RN documention for details Blood Pressure: 109/56 Heart Rate: 87 Respiratory Rate: 37 O2 Sat (%): 96 Height: 157.48 cm Weight: 82.7 kg ANE Physical Exam - Airway Neck exam: short neck Mallampati Score: Unable to assesss Mouth exam: poor dentition - Pulmonary Pulmonary: reduced air movement - Cardiovascular Cardiovascular: regular rate and rhythym - ASA Status ASA Status: IV ANE Anesthesia Plan Anesthesia Plan: general endotracheal anesthesia (transfer from ICU on full monitors, return intubated, sedated)
[2018-07-31] MEDS ORDERED: MIDAZOLAM 2 MG/2 ML VIAL ONE ×2 (10:14→11:37)
[2018-07-31] MEDS ORDERED: BUPIVACAINE 0.5% 30 ML SDV ONE (10:15)
[2018-07-31] MEDS ORDERED: ROCURONIUM 100 MG/10 ML VIAL ONE (10:51)
--- NOTE | 2018-07-31 10:54 | SOAPPROG ---
SOAP Progress Note Assessment/Plan: Assessment/Plan: ESHA: likely ATN in setting of shock, initially oliguric but now good UOP and lytes ok. Cr down from 3.1 to 1.3 today. - No emergent need for HD. - Will change IVFs to 1/2NS. - Will continue to monitor daily. - Avoid hypotension and nephrotoxins. Hypernatremia: resolved, Na down to 139, will change IVFs to 1/2NS and continue to monitor. Hypokalemia: improved, being monitored and replaced as needed. Anemia: hgb 8.3 s/p transfusion yesterday, will continue to monitor. Subjective: No acute events overnight. Pt remains off pressors, opens eyes but still not following commands. Objective: Vital Signs Temp Pulse Resp BP Pulse Ox 38.5 C H 87 37 H 109/56 L 96 07/31/18 07:00 07/31/18 10:44 07/31/18 10:44 07/31/18 10:44 07/31/18 10:44 Laboratory Results 07/31/18 04:30 07/31/18 04:30 07/30/18 07/31/18 08/01/18 05:59 05:59 05:59 Intake Total 4010 4186 Output Total 4400 5440 250 Balance -390 -1254 -250 PT 16.8 SEC (12.0-15.0) H 07/31/18 04:30 INR 1.34 (0.83-1.16) H 07/31/18 04:30 General: no acute distress Eyes: EOMI, PERRL OP: intubated CV: RRR Resp: intubated and on vent Abd: wound vac in place Ext: no edema BLE Neuro: opens eyes to verbal stimulus ICD10 Worksheet Patient Problems: Problems Problem Status Onset Depression Acute
[2018-07-31] MEDS ORDERED: 1/2 NS 1,000 ML IV SCH (11:00)
--- NOTE | 2018-07-31 11:21 | PDINTPN ---
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 She has been vented since and had septic shock requiring pressors and multiple antibiotics and antifungals. ESHA was also a problem, but she never required HD and has good UOP. Significant transaminitis developed around the same time as shock, but has improved without specific intervention. She has also had persistent idiopathic fever despite wide spectrum antibiotics. * Peritonitis- related to recurrent ventral hernia and bowel perforation. Washout on 07/28 revealed cloudy fluid but no abscess formation, but abdomen left open for the weekend. Currently off pressors and stable. Planning to return to OR today for closure. WBC normal on Flucon 100/d, Zosyn, * Acute respiratory failure with hypoxia- more related to recurrent procedures than intrinsic lung disease or ARDS. CXR 07/29 shows elevated right diaphragm but minimal to no infiltrates. Once out of the OR, will attempt weaning and monitor progress. Extubated initially but returned to OR 07/24 and has remained on vent since, so vent day #8. Trach indicated for failure to wean with little prospect for extubation at about day 10-14. * ESHA- Creatinine improved and excellent UOP with diuresis * Transaminitis- assumed from shock liver, with substantial improvement. Continue to follow; no hep serologies sent or needed at the moment * Cardiomyopathy- EF 40% on 07/24 presumably from sepsis. Should normalize * Anemia- Hgb bottomed at 7.2 on 07/30 and was transfused a total of 3 units RBC since failed to rise appropriately (though no clear signs of bleeding and coag studies unremarkable). Now at 8.3. * Persistent fever- defer to ID, but would consider repeat cultures looking for fungus given TPN. Is dose of flucon adequate for fungemia coverage if present? * * Critical care time 45 minutes Subjective: awake, cooperative Objective: Vital Signs Temp Pulse Resp BP Pulse Ox 38.5 C H 87 37 H 109/56 L 96 07/31/18 07:00 07/31/18 10:13 07/31/18 10:13 07/31/18 10:13 07/31/18 10:13 Laboratory Results 07/31/18 04:30 07/31/18 04:30 07/30/18 07/31/18 08/01/18 05:59 05:59 05:59 Intake Total 4010 4186 Output Total 4407 1144 250 Balance -390 -1254 -250 PT 16.8 SEC (12.0-15.0) H 07/31/18 04:30 INR 1.34 (0.83-1.16) H 07/31/18 04:30 Physical Exam - Physical Exam General Appearance: alert, no apparent distress, obese EENT: PERRL/EOMI, ET tube Neck: supple Respiratory: lungs clear, normal breath sounds, decreased breath sounds, No respiratory distress, No accessory muscle use Cardiac/Chest: regular rate, rhythm, No edema Abdomen: soft, No distended, No rebound Skin: normal color, warm/dry, No cyanosis Lymphatic: no adenopathy Extremities: No pedal edema Neuro/Psych: alert, normal mood/affect ICD10 Worksheet Patient Problems: Problems Problem Status Onset Depression Acute
--- NOTE | 2018-07-31 12:16 | PCMIDPN ---
Assessment/Plan: Assessment: Peritonitis following a small bowel leak. Currently on empiric Zosyn and fluconazole. Back to OR today. Cultures taken. Patient continues to have persistent elevated temperatures but starting to get an intermittent pattern. The fevers may be multifactorial due to the primary process or alternatively may be due to medication interactions. Patient was on Abilify and Prozac. These have been held. Creatinine improving at 1.3. Liver enzymes were increased significantly 3 days ago. They continue to decline appropriately. Plan: 1. Continue both Zosyn and fluconazole at present dosing. 2. Follow fever curve. Subjective: Patient remains intubated and sedated. She just returned from another washout in the operating room. Cultures were taken during this visit. She continues to have fevers although interspersed with periods of normality. Objective: Zosyn # 5 Fluconazole # 6 Vital Signs Temp Pulse Resp BP Pulse Ox 38.9 C H 99 35 H 102/68 94 07/31/18 11:53 07/31/18 11:53 07/31/18 11:53 07/31/18 11:53 07/31/18 11:53 Laboratory Results 07/31/18 04:30 07/31/18 04:30 07/30/18 07/31/18 08/01/18 05:59 05:59 05:59 Intake Total 4010 4186 Output Total 4400 5440 250 Balance -390 -7198 -250 - Physical Exam General Appearance: WD/WN, no apparent distress, other (Intubated and sedated), No alert EENT: normal ENT inspection, ET Tube Respiratory: coarse breath sounds, No normal breath sounds, No crackles, No stridor Cardiac/Chest: regular rate, rhythm, No bradycardia, No tachycardia, No irregularly irregular Extremities: normal inspection Abdomen: distended, No mass Skin: normal color, warm/dry, No rash ICD10 Worksheet Patient Problems: Problems Problem Status Onset Depression Acute
[2018-07-31] MEDS: INSULIN GLARGINE 100 UNITS/ML UNIT SC SCH (12:18)
[2018-07-31] MEDS: FLUCONAZOLE/NaCl 100 ML IV SCH (12:22)
[2018-07-31] MEDS: PANTOPRAZOLE SODIUM 40 MG VIAL IVP SCH (12:44)
[2018-07-31] MEDS: LIDOCAINE 4%/MENTHOL 1% PATCH TD SCH (12:44)
--- NOTE | 2018-07-31 12:49 | POSTOPPROG ---
Post Op Note Date of Operation: 07/31/18 Surgeon: Raad Chamorro Anaesthetic Technician: Chantal Peñaloza Anesthesia: GET(General Endotracheal) Pre-op Diagnosis: open abdomen, peritonitis Post-op Diagnosis: same c gross purulence Procedure: laparotomy, peritoneal lavage, abthera wound vac replacement Findings: several pockets of gross purulence, >R abd but widely present Inf/Abcess present in the surg proc area at time of surgery?: Yes Depth: Organ Space EBL: Minimal Complications: none Specimen(s): culture sent
[2018-07-31] MEDS: TPN 1 EA BAG IV SCH (21:22)
[2018-07-31] MEDS: PATCH REMOVAL 1 EA PATCH TD SCH (21:24)
[2018-08-01] MEDS: PIPERACILLIN/TAZO 2.25 GM/DEX 50 ML IV SCH ×2 (02:03→07:14)
[2018-08-01] MEDS: INSULIN REGULAR HUMAN 100 UNIT/ML UNIT SC SCH ×6 (02:04→22:07)
[2018-08-01] MEDS: D50W 25 GM/50 ML SYR IVP PRN ×3 (07:18→16:35)
--- NOTE | 2018-08-01 07:44 | PCMIDPN ---
Assessment/Plan: #Sepsis secondary to SB perf and peritonitis s/p repair 07/24/18. s/p washout and 07/31. Remains constantly febrile. Likely due to primary infectious process (peritonitis) but cannot completely r/o drug fever but no rash, LFTs improving, no eosinophilia. chest x-ray with diffuse infiltrates but O2 requirements are improving, making VAP less likely, no diarrhea. #ARF: CrCl mid-60s by calculation but suspect lower than that #Elevated LFTs : Due to underlying sepsis, slowly improving Recommendation 1) Renal function has improved, increased dose of Zosyn to 4.5gm IV q6h and increase dose of fluconazole 400mg IV daily. Cx showing GNR NLF (giving concern for PsA) and Michell. 2) Repeat blood cultures 3) consider dc R IJ and place PICC line in light of fever meds zosyn 2.25gm IV q6h#6 Fluconazole 200mg IV daily, # 7 Microbiology 07/24 blood cultures (2) Neg 07/27 blood cx (1) NGTD 07/31 peritoneal swab: +PMNs no org; cx NLF GNR, michell albicans Subjective: Patient is off pressors, remains febrile O2 requirements on vent are less Objective: Vital Signs Temp Pulse Resp BP Pulse Ox 39.1 C H 88 30 H 170/83 H 98 08/01/18 06:00 08/01/18 06:00 08/01/18 06:00 08/01/18 06:00 08/01/18 06:00 Microbiology 07/31/18 11:25 Gram Stain - Final Peritoneal Fluid - Eswab Laboratory Results 07/31/18 04:30 08/01/18 04:10 07/31/18 08/01/18 08/02/18 05:59 05:59 05:59 Intake Total 4186 2954 Output Total 5440 2575 Balance -1254 379 - Physical Exam General Appearance: alert, other (ill appearing on vent) EENT: pale conjunctiva, ET Tube, NG Tube Respiratory: coarse breath sounds Neck: supple Cardiac/Chest: regular rate, rhythm Extremities: pedal edema Abdomen: other (firm, wound vac midline, no bowel sounds) Pelvic Exam: gutierrez Skin: diaphoresis, No rash, No embolic lesions - Line/s other Lines: other (R IJ c/d/i), No drainage, No erythema - Time Spent With Patient Time Spent with Patient: greater than 35 minutes Time Spent with Patient: Greater than 35 minutes spent on this patients care, greater than 50% of time spent counseling, educating, and coordinating care regarding the above mentioned plan. 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
[2018-08-01] MEDS ORDERED: CALCIUM GLUCONATE 50 ML IV ONE (07:50)
[2018-08-01] MEDS ORDERED: CALCIUM GLUCONATE 1 GM in D5W 50 ML IV ONE (08:00)
[2018-08-01] MEDS: LIDOCAINE 4%/MENTHOL 1% PATCH TD SCH (08:12)
[2018-08-01] MEDS: PANTOPRAZOLE SODIUM 40 MG VIAL IVP SCH (08:12)
[2018-08-01] MEDS: GEMFIBROZIL 600 MG TAB PO SCH ×2 (08:12→16:35)
[2018-08-01] MEDS: FLUCONAZOLE/NaCl 100 ML IV SCH (08:37)
[2018-08-01] MEDS: PIPERACILLIN/TAZO 4.5 GM/DEX 100 ML IV SCH ×2 (11:20→17:56)
[2018-08-01] MEDS ORDERED: D5W 1/2 NS 1,000 ML IV SCH (12:00)
[2018-08-01] MEDS ORDERED: PIPERACILLIN/TAZO 3.375 GM/DEX 50 ML IV SCH (12:00)
--- NOTE | 2018-08-01 13:25 | PDINTPN ---
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 She has been vented since and had septic shock requiring pressors and multiple antibiotics and antifungals. ESHA was also a problem, but she never required HD and has good UOP. Significant transaminitis developed around the same time as shock, but has improved without specific intervention. She has also had persistent idiopathic fever despite wide spectrum antibiotics. * Peritonitis- related to recurrent ventral hernia and bowel perforation. Washout on 07/28 revealed cloudy fluid but no abscess formation, but abdomen left open for the weekend. Repeat washout 07/31 revealed additional cloudy fluid so washed and left open. Repeat planned for tomorrow * Acute respiratory failure with hypoxia- more related to recurrent procedures than intrinsic lung disease or ARDS. CXR 07/29 shows elevated right diaphragm but minimal to no infiltrates. Extubated initially but returned to OR 07/24 and has remained on vent since, so vent day #9. Failed weaning trial today, so will get trach tomorrow- discussed with Dr. Chamorro. * ESHA- Creatinine improved and excellent UOP with diuresis * Transaminitis- assumed from shock liver, with substantial improvement. Continue to follow; no hep serologies sent or needed at the moment * Cardiomyopathy- EF 40% on 07/24 presumably from sepsis. Should normalize * Anemia- Hgb bottomed at 7.2 on 07/30 and was transfused a total of 3 units RBC since failed to rise appropriately (though no clear signs of bleeding and coag studies unremarkable). recheck in am * Persistent fever- defer to ID, but would consider repeat cultures looking for fungus given TPN. Flucon dose adjusted; tucker seen in peritoneal fluid. * Critical care time 35 minutes 08/01/18 13:21 Subjective: non-verbal Objective: Vital Signs Temp Pulse Resp BP Pulse Ox 38.5 C H 108 H 39 H 145/81 H 97 08/01/18 08:00 08/01/18 12:00 08/01/18 12:00 08/01/18 12:00 08/01/18 12:00 Microbiology 07/27/18 10:00 Blood Culture - Final Blood 07/31/18 11:25 Gram Stain - Final Peritoneal Fluid - Eswab Laboratory Results 08/01/18 11:15 08/01/18 04:10 07/31/18 08/01/18 08/02/18 05:59 05:59 05:59 Intake Total 4188 2954 Output Total 5478 4515 Balance -1254 379 PT 16.8 SEC (12.0-15.0) H 07/31/18 04:30 INR 1.34 (0.83-1.16) H 07/31/18 04:30 Physical Exam - Physical Exam General Appearance: alert, no apparent distress, obese EENT: PERRL/EOMI, ET tube Neck: supple Respiratory: lungs clear, normal breath sounds, decreased breath sounds, No respiratory distress, No accessory muscle use Cardiac/Chest: regular rate, rhythm, No edema Abdomen: distended, guarding, other (wound vac) Skin: normal color, warm/dry, No cyanosis Lymphatic: no adenopathy Extremities: No pedal edema Neuro/Psych: cognition abnormalities, 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
[2018-08-01] MEDS: HYDROmorphONE/DILAUDID 2 MG/ML INJ IVP PRN ×2 (13:32→20:22)
--- NOTE | 2018-08-01 14:23 | SOAPPROG ---
SOAP Progress Note Assessment/Plan: Assessment/Plan: 53 y/o F s/p ventral hernia repair complicated by peritonitis and ESHA now improving. ESHA: - likely ATN, Cr peak at 2.7 - Cr now stable at 1.3 with good UO - No emergent need for HD - Avoid hypotension and nephrotoxins Hypernatremia: Na back up to 149 while NPO. Will start d5 at 50cc/hr. FWD 3.1L Hypokalemia: improved, being monitored and replaced as needed. Anemia: Hb now 9.4. S/p transfusion on 07/30. Will sign off, please contact if further ?'s. 08/01/18 14:22 Subjective: Making good UO. Afebrile. Objective: Vital Signs Temp Pulse Resp BP Pulse Ox 38.5 C H 108 H 39 H 145/81 H 97 08/01/18 08:00 08/01/18 12:00 08/01/18 12:00 08/01/18 12:00 08/01/18 12:00 Microbiology 07/31/18 11:25 Gram Stain - Final Peritoneal Fluid - Eswab 07/27/18 10:00 Blood Culture - Final Blood Laboratory Results 08/01/18 11:15 08/01/18 04:10 07/31/18 08/01/18 08/02/18 05:59 05:59 05:59 Intake Total 4186 2954 Output Total 5440 2575 Balance -1254 379 PT 16.8 SEC (12.0-15.0) H 07/31/18 04:30 INR 1.34 (0.83-1.16) H 07/31/18 04:30 Physical Exam - Physical Exam General Appearance: WD/WN, no apparent distress EENT: PERRL/EOMI, pharynx normal Neck: non-tender, supple Respiratory: chest non-tender, lungs clear Cardiac/Chest: normal peripheral pulses, regular rate, rhythm Abdomen: soft, distended Skin: normal color, warm/dry Extremities: normal range of motion, non-tender Neuro/Psych: other (resting) ICD10 Worksheet Patient Problems: Problems Problem Status Onset Depression Acute
[2018-08-01] MEDS ORDERED: D5W 1,000 ML IV SCH (14:30)
--- NOTE | 2018-08-01 15:37 | SOAPPROG ---
SOAP Progress Note Assessment/Plan: Assessment/Plan: 53 Y F s/p repair of recurrent ventral hernia, s/p repair of enterotomy. Peritonitis, sepsis, acute respiratory failure, acute renal injury. s/p ex-laparotomy c washout. +febrile. Gross purulence found at surgery on Tuesday. Currently has an open abdomen with abthera vac. Plan for OR tomorrow, 08/02, for washout, possible fascial closure with superficial vac versus continued abthera based on findings. Also, plan for tracheostomy tomorrow. Risks and options discussed with POA. Questions answered. Seen with RN and discussed with Dr. Chamorro and outcomes manager. Off pressors. S: just received sedation but eyes open, somewhat interactive. Per family friend she was alert earlier but had some agitation. O: on vent abthera intact 08/01/18 15:33 Objective: Vital Signs Temp Pulse Resp BP Pulse Ox 38.5 C H 97 31 H 155/78 H 96 08/01/18 08:00 08/01/18 14:00 08/01/18 14:00 08/01/18 14:00 08/01/18 14:00 Microbiology 07/31/18 11:25 Gram Stain - Final Peritoneal Fluid - Eswab 07/27/18 10:00 Blood Culture - Final Blood Laboratory Results 08/01/18 11:15 08/01/18 04:10 07/31/18 08/01/18 08/02/18 05:59 05:59 05:59 Intake Total 4186 2954 Output Total 5440 7995 950 Balance -1254 379 -950 PT 16.8 SEC (12.0-15.0) H 07/31/18 04:30 INR 1.34 (0.83-1.16) H 07/31/18 04:30 ICD10 Worksheet Patient Problems: Problems Problem Status Onset Depression Acute
--- NOTE | 2018-08-01 16:27 | ASMTCMCOM ---
CM Note CM Note Notes: Had a "Family Meeting" with mother, Hattie and sister, Jo; See "Notes" for Family Meeting. They report that the patient has a hx of numerous surgeries, hernia repairs. She continues on the vent and is scheduled for another wash out Tuesday and trach placement. Date Signed: 08/01/2018 04:27 PM Electronically Signed By:Jovita Hall LCSW
[2018-08-01] MEDS: TPN 1 EA BAG IV SCH (20:26)
[2018-08-02] MEDS: INSULIN REGULAR HUMAN 100 UNIT/ML UNIT SC SCH ×6 (00:16→21:35)
[2018-08-02] MEDS: PATCH REMOVAL 1 EA PATCH TD SCH ×2 (00:17→22:32)
[2018-08-02] MEDS: PIPERACILLIN/TAZO 4.5 GM/DEX 100 ML IV SCH ×4 (00:19→17:50)
[2018-08-02] MEDS: HYDROmorphONE/DILAUDID 2 MG/ML INJ IVP PRN ×3 (02:14→19:15)
[2018-08-02] MEDS ORDERED: CALCIUM GLUCONATE 50 ML IV ONE (07:27)
[2018-08-02] MEDS ORDERED: CALCIUM GLUCONATE 1 GM in D5W 50 ML IV ONE (07:30)
[2018-08-02] MEDS: FLUCONAZOLE/NaCl 200 ML IV SCH (08:50)
[2018-08-02] MEDS: GEMFIBROZIL 600 MG TAB PO SCH ×2 (08:50→17:45)
[2018-08-02] MEDS: LIDOCAINE 4%/MENTHOL 1% PATCH TD SCH (08:51)
[2018-08-02] MEDS: PANTOPRAZOLE SODIUM 40 MG VIAL IVP SCH (08:51)
--- NOTE | 2018-08-02 09:48 | SOAPPROG ---
SOAP Progress Note Assessment/Plan: Assessment: CALLED INTO SEE PT COMPLAINING OF UNRELENTING ABD PAIN SINCE SURGERY CT SCAN UNREVEALING BUT NO IV CONTRAST WBC 7K BUT LEFT SHIFT VS STABLE AFEBRILE ABD SOFT WITH DISTENTION AND DECREASED BS BUT NO DEFINITE PERITONEAL SIGNS CHEST CLEAR COR RR HEENT NONICTERIC NO BM OR FLATUS FOR 3 DAYS IMP: DIFFICULT PT WHO ALWAYS CO PAIN BUT SEEMS WORSE/ MAY NEED SURGERY IF NOT IMPROVING TO RO BOWELL INJURY RISKS AND OPTIONS FULLY DISCUSSED WITH PT Plan:CHECK CBC, LACTATE, 2-WAY/ CONSIDER LAPAROSCOPY IF NOT IMPROVED WITH ENEMA 07/23/18 19:58 07/23/18 20:04 07/24/18 01:55 lactate elevated/ wbc 2.1k/ still in pain/ 2-way constipation will proceed with laparoscopy, probable laparotomy risks and options fully discussed 07/27/18 23:35 Patient remains febrile up to 103 steadily/CT scan today revealed no intra- abdominal problems with some atelectasis and/or pneumonia in the lower lobe/ She remains sedated on the ventilator Urine output improving, creatinine 2.5 WBC 9000 but persistent 3 TMs Abdomen soft but silent/abdominal pressure is less than 15 Does move all extremities and follows some commands with sedation vacation Wound VAC change in wound appears to be clean with no CP each but no real granulation tissue yet/fascial edges probed but no evidence of purulence Because of persistent temp have chosen to do exploratory lap to rule out any missed abdominal abscess 07/28/18 07:17 Seems more comfortable/temperature coming down/minimal wound VAC drainage/urine output good/WBC 9 K/tolerating ventilator better with lower pressure Seems improved after abdominal washout and open ABThera ABThera change on Tuesday08/02/18 09:46 will proceed with trach and abd washout today/ risks and options discussed with poa yesterday vs stable/ low grade temp/ wound ok/ mental status off but some response to verbal stimuli chest clear/ cxr pending/ cor rr/ abd soft Objective: Vital Signs Temp Pulse Resp BP Pulse Ox 39.3 C H 81 24 H 114/63 98 08/02/18 08:00 08/02/18 08:22 08/02/18 08:22 08/02/18 08:00 08/02/18 08:22 Microbiology 07/31/18 11:25 Gram Stain - Final Peritoneal Fluid - Eswab 07/27/18 10:00 Blood Culture - Final Blood Laboratory Results 08/01/18 11:15 08/02/18 04:15 08/01/18 08/02/18 08/03/18 05:59 05:59 05:59 Intake Total 2957 3561 Output Total 1485 5540 Balance 379 -909 PT 16.8 SEC (12.0-15.0) H 07/31/18 04:30 INR 1.34 (0.83-1.16) H 07/31/18 04:30 ICD10 Worksheet Patient Problems: Problems Problem Status Onset Depression Acute
[2018-08-02] MEDS ORDERED: BUPIVACAINE 0.5% 30 ML SDV ONE (09:56)
[2018-08-02] MEDS ORDERED: LIDOCAINE 1% 300 MG/30 ML SDV ONE (09:57)
[2018-08-02] MEDS ORDERED: LIDOCAINE 2% JELLY 20 ML (UROJECT) ONE (09:57)
[2018-08-02] MEDS ORDERED: BUPIVACAINE/EPI 0.5% 30 ML SDV ONE (09:58)
[2018-08-02] MEDS ORDERED: REMIFENTANIL HCL 1 MG VIAL ONE (10:28)
[2018-08-02] MEDS ORDERED: PROPOFOL/EMULSION 500 MG/50 ML BOTTLE IV ONE (10:28)
[2018-08-02] MEDS ORDERED: ROCURONIUM 100 MG/10 ML VIAL ONE (10:29)
[2018-08-02] MEDS ORDERED: PHENYLEPHRINE HCL 100 MCG/ML SYR ONE ×2 (10:30→11:55)
[2018-08-02] MEDS ORDERED: ePHEDrine SULFATE 25 MG/5 ML SYR ONE (10:30)
[2018-08-02] MEDS ORDERED: MIDAZOLAM 2 MG/2 ML VIAL ONE (10:32)
--- NOTE | 2018-08-02 10:41 | PCMIDPN ---
Assessment/Plan: #Sepsis secondary to SB perf and peritonitis s/p repair 07/24/18. s/p washout and 07/31. Continues to be febrile. Likely due to primary infectious process (peritonitis) but cannot completely r/o drug fever but no rash, LFTs improving, no eosinophilia. chest x-ray with diffuse infiltrates but O2 requirements are improving, making VAP less likely, no diarrhea. --going back to washout today --continue high dose zosyn and fluconazole. If minimal findings in OR today may consider drug reaction more strongly --TLC removed yesterday, PICC place, repeated blood cx 08/01 --check immunoglobulin, severity of infection a bit greater than expected #ARF: CrCl mid-60s by calculation but suspect lower than that; Cr stable today #Elevated LFTs : Due to underlying sepsis, slowly improving --follow up on LFTs today meds zosyn 4.5 gm IV q6h#7, higher dose, #1 Fluconazole 400mg IV daily, # 8, higher dose # 2 Microbiology 07/24 blood cultures (2) Neg 07/27 blood cx (1) NGTD 07/31 peritoneal swab: +PMNs no org; cx Serratia susceptible to Zosyn, carbapenems, fluoroquinolones; tucker albicans 08/01 blood cx (2) : pending Subjective: patient remains on vent, awake not following commands Right IJ was removed yesterday Objective: Vital Signs Temp Pulse Resp BP Pulse Ox 39.3 C H 83 36 H 127/65 H 98 08/02/18 08:00 08/02/18 10:00 08/02/18 10:00 08/02/18 10:00 08/02/18 10:00 Microbiology 07/31/18 11:25 Gram Stain - Final Peritoneal Fluid - Eswab 07/27/18 10:00 Blood Culture - Final Blood Laboratory Results 08/01/18 11:15 08/02/18 04:15 08/01/18 08/02/18 08/03/18 05:59 05:59 05:59 Intake Total 2954 2491 Output Total 0979 2400 Balance 379 -909 - Physical Exam General Appearance: alert EENT: ET Tube, NG Tube Respiratory: coarse breath sounds (B) Neck: supple Cardiac/Chest: regular rate, rhythm Extremities: pedal edema (mild) Abdomen: distended, other (midline wound vac; absent bowel sounds) Skin: diaphoresis, pallor, No rash Neuro/Psych: alert - Line/s RUE PICC Lines: No drainage, No erythema - Time Spent With Patient Time Spent with Patient: greater than 35 minutes Time Spent with Patient: Greater than 35 minutes spent on this patients care, greater than 50% of time spent counseling, educating, and coordinating care regarding the above mentioned plan. 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
--- NOTE | 2018-08-02 11:05 | PDANEPAE ---
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 No problems since then. - Pulmonary History Hx COPD: No Hx Asthma/Reactive Airway Disease: No Hx Recent Upper Respiratory Infection: No Hx Oxygen in Use at Home: No Hx Sleep Apnea: No Sleep Apnea Screening Result - Last Documented: Negative Pulmonary History Comment: states has inhaler but does not use/need - Neurologic History Hx Cerebrovascular Accident: No Hx Seizures: No Hx Dementia: No Neurologic History Comment: Diabetic neuropathy hands and feet. - Endocrine History Hx Diabetes: Yes Endocrine History Comment: Type 2-insulin and metformin. - Renal History Hx Renal Disorders: Yes Renal History Comment: Septicemia due to ureter stent. Emergently removed in 2011. No further problems. - Liver History Hx Hepatic Disorders: No - Neurological & Psychiatric Hx Hx Neurological and Psychiatric Disorders: Yes Neurological / Psychiatric History Comment: Bipolar. anxiety. PTSD. ADD-meds - Cancer History Hx Cancer: No - Congenital Disorder History Hx Congenital Disorders: No - GI History Hx Gastrointestinal Disorders: Yes Gastrointestinal History Comment: easily nauseated. 05/30-pancreatitis, treated and resolved. Chronic BM issues-meds. IBS. 4 abd. hernias. - Other Health History Other Health History: Bilateral mild hearing loss. Stress induced skin sores. Multiple missing teeth-meth abuse. - Chronic Pain History Chronic Pain: Yes (abd., colorectal) - Surgical History Prior Surgeries: abdominal seroma surgery w/wound vac, 04/2018. 1994-colon resection. uterine sling, R opherectomy, 2004. 2009-colon resection & nicked L ureter with stent placement. Stent removed 2011. 2007-L foot. 2011-oral surg. Cholecystectomy ANE Review of Systems Review of Systems: - Exercise capacity METS (RN): 1 METS (4 mets prior to admission) ANE Patient History - Allergies Allergies/Adverse Reactions: bupropion HCl [From Wellbutrin] Allergy (Verified 07/20/18 13:00) Hives haloperidol [From Haldol] Allergy (Verified 07/20/18 13:00) dystonic reaction haloperidol lactate [From Haldol] Allergy (Verified 07/20/18 13:00) dystonic reaction iopamidol [From Isovue-M] Allergy (Verified 06/27/13 08:27) Vomiting risperidone [From Risperdal] Allergy (Verified 07/20/18 13:00) Hives CT CONTRAST Allergy (Uncoded 06/27/13 08:28) Vomiting - Home Medications Home medications: home medication list seen and reviewed Home Medications: FLUoxetine [Prozac 20 MG (*)] 60 mg PO DAILY 01/20/18 [Last Taken 07/21/18 05:30 ] Gemfibrozil [Lopid 600 MG (*)] 600 mg PO BIDAC 01/20/18 [Last Taken 07/20/18] Insulin Glargine [Lantus 100 UNITS/ML (*)] 34 units SC HS 01/20/18 [Last Taken 07/20/18] Lisinopril [Zestril 5 mg (*)] 5 mg PO DAILY 01/20/18 [Last Taken 07/21/18 05:30] Albuterol [Proventil Inhaler HFA (*)] 1 puffs IH DAILY PRN 04/21/18 [Last Taken 3 Months Ago ~04/20/18] Dextroamphetamine/Amphetamine [Adderall Xr 10 mg Capsule] 10 mg PO DAILY [Last Taken 07/20/18] Herbals/Supplements -Info Only 1 each PO DAILY 04/21/18 [Last Taken Unknown] Omeprazole 20 mg PO DAILY 04/21/18 [Last Taken 07/21/18 05:30] metFORMIN HCL [Glucophage 1000 mg] 1,000 mg PO BID 04/21/18 [Last Taken 07/20/18 ] ARIPiprazole [Abilify 10 mg (*)] 5 mg PO DAILY #0 07/20/18 [Last Taken 07/21/18 05:30] Dicyclomine [Bentyl 20 MG (*)] 20 mg PO QID PRN #0 07/20/18 [Last Taken 05:30] Ondansetron Odt [Zofran Odt 4 mg (*)] 8 mg PO TID PRN #0 07/20/18 [Last Taken 05:30] - NPO status NPO Status: no food or drink >8 hours NPO Since - Liquids (Date): 07/24/18 NPO Since - Liquids (Time): 00:00 NPO Since - Solids (Date): 07/24/18 NPO Since - Solids (Time): 00:00 - Anes Hx Anes Hx: no prior problems - Smoking Hx Smoking Status: Current every day smoker (prior to admission) - Alcohol Use Alcohol Use: Rarely - Family Anes Hx Family Hx Anesthesia Complications: none ANE Labs/Vital Signs - Labs Result Diagrams: 08/01/18 11:15 08/02/18 04:15 - Vital Signs Blood Pressure: 127/65 Heart Rate: 83 Respiratory Rate: 36 O2 Sat (%): 98 Height: 157.48 cm Weight: 80.7 kg ANE Physical Exam - Airway Neck exam: short neck Mallampati Score: Unable to assesss Mouth exam: ETT in situ - Pulmonary Pulmonary: expiratory wheeze, inspiratory crackles (resp failure) - Cardiovascular Cardiovascular: regular rate and rhythym - ASA Status ASA Status: III ANE Anesthesia Plan Anesthesia Plan: general endotracheal anesthesia Urgent/Emergent Case: Malu powers completed preop but documented later for safe timely pt care
--- NOTE | 2018-08-02 11:10 | PDINTPN ---
Nail Puller Progress Note Assessment/Plan: 53 F admitted 07/22/18 for recurrent ventral hernia repair complicated by perforation and requiring return to the OR on 07/24/18. She has been vented since and had septic shock requiring pressors and multiple antibiotics and antifungals. ESHA was also a problem, but she never required HD and has good UOP. Significant transaminitis developed around the same time as shock, but has improved without specific intervention. She has also had persistent idiopathic fever despite wide spectrum antibiotics. * Peritonitis- related to recurrent ventral hernia and bowel perforation. Persistent fever concerning, but returns to OR today (5th procedure this admission). Could also be drug fever as discussed with ID. Continuing Zosyn/ flucon at adjusted doses for now. Peritoneal fluid growing GNR and Michell. * Acute respiratory failure with hypoxia- more related to recurrent procedures than intrinsic lung disease or ARDS. CXR 07/29 shows elevated right diaphragm but minimal to no infiltrates. Extubated initially but returned to OR 07/24 and has remained on vent since, so vent day #10. Trach planned in OR for today; will resume weaning trials on return. CXR 08/01 however looks like ongoing pulmonary edema. Will start scheduled lasix * ESHA- Creatinine improved and excellent UOP * Transaminitis- assumed from shock liver, with substantial improvement. recheck in AM * Cardiomyopathy- EF 40% on 07/24 presumably from sepsis. Should normalize * Anemia- Hgb bottomed at 7.2 on 07/30 and was transfused a total of 3 units RBC since failed to rise appropriately (though no clear signs of bleeding and coag studies unremarkable). Hct 29 today * Persistent fever- defer to ID, see above * Critical care time 40 minutes 08/01/18 13:21 08/02/18 11:06 08/02/18 11:11 Subjective: following commands for me today Objective: Vital Signs Temp Pulse Resp BP Pulse Ox 39.3 C H 83 36 H 127/65 H 98 08/02/18 08:00 08/02/18 11:05 08/02/18 11:05 08/02/18 11:05 08/02/18 11:05 Microbiology 07/31/18 11:25 Gram Stain - Final Peritoneal Fluid - Eswab 07/27/18 10:00 Blood Culture - Final Blood Laboratory Results 08/01/18 11:15 08/02/18 04:15 08/01/18 08/02/18 08/03/18 05:59 05:59 05:59 Intake Total 2950 4021 Output Total 3402 5660 Balance 379 -909 PT 16.8 SEC (12.0-15.0) H 07/31/18 04:30 INR 1.34 (0.83-1.16) H 07/31/18 04:30 Physical Exam - Physical Exam General Appearance: alert, no apparent distress, obese EENT: PERRL/EOMI, ET tube Neck: supple Respiratory: rhonchi (bilateral), No respiratory distress, No accessory muscle use, No wheezing Cardiac/Chest: regular rate, rhythm, No edema Abdomen: soft, other (wound vac), No distended Skin: normal color, warm/dry, No cyanosis Lymphatic: no adenopathy Extremities: No pedal edema Neuro/Psych: alert, cognition abnormalities, No abnormal county auditor II-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
[2018-08-02] MEDS ORDERED: LIDOCAINE 2% JELLY 5 ML TUBE ONE (11:59)
--- NOTE | 2018-08-02 12:19 | POSTOPPROG ---
Post Op Note Date of Operation: 08/02/18 Surgeon: Raad Chamorro Insurance Follow Up Representative: Chantal Peñaloza Anesthesiologist: Aurelio Garcia Anesthesia: GET(General Endotracheal) Pre-op Diagnosis: open abdomen, peritonitis Post-op Diagnosis: same Procedure: ex-laparotomy, peritoneal lavage, incisional debridement Findings: see below Inf/Abcess present in the surg proc area at time of surgery?: Yes Depth: Organ Space EBL: Minimal Complications: none Drains: Other (abthera wound vac)
--- NOTE | 2018-08-02 12:22 | POSTOPPROG ---
Post Op Note Date of Operation: 08/02/18 Surgeon: Raad Chamorro Clock Mechanic: Chantal Peñaloza Anesthesiologist: Aurelio Garcia Anesthesia: GET(General Endotracheal) Pre-op Diagnosis: respiratory failure Post-op Diagnosis: same Procedure: trachestomy Findings: good position and ventilation Inf/Abcess present in the surg proc area at time of surgery?: No EBL: Minimal Complications: none
[2018-08-02] MEDS: FUROSEMIDE 20 MG/2 ML VIAL IVP SCH ×2 (13:24→17:50)
--- NOTE | 2018-08-02 15:42 | POSTANESTH ---
Post Anesthetic Evaluation Cardiovascular Status: Similar to Pre-Op Cond Respiratory Status: Similar to Pre-op Cond. Level of Consciousness/Mental Status: Other, See Comment (awake but not responsive to commands similar to pre-op) Pain Control: Adequate, Prn Tx Ordered Nausea/Vomiting Control: Adequate, Prn Tx Ordered Complications Possibly Related to Anesthesia: None Noted
--- NOTE | 2018-08-02 21:02 | SOAPPROG ---
SOAP Progress Note Assessment/Plan: Assessment: CALLED INTO SEE PT COMPLAINING OF UNRELENTING ABD PAIN SINCE SURGERY CT SCAN UNREVEALING BUT NO IV CONTRAST WBC 7K BUT LEFT SHIFT VS STABLE AFEBRILE ABD SOFT WITH DISTENTION AND DECREASED BS BUT NO DEFINITE PERITONEAL SIGNS CHEST CLEAR COR RR HEENT NONICTERIC NO BM OR FLATUS FOR 3 DAYS IMP: DIFFICULT PT WHO ALWAYS CO PAIN BUT SEEMS WORSE/ MAY NEED SURGERY IF NOT IMPROVING TO RO BOWELL INJURY RISKS AND OPTIONS FULLY DISCUSSED WITH PT Plan:CHECK CBC, LACTATE, 2-WAY/ CONSIDER LAPAROSCOPY IF NOT IMPROVED WITH ENEMA 07/23/18 19:58 07/23/18 20:04 07/24/18 01:55 lactate elevated/ wbc 2.1k/ still in pain/ 2-way constipation will proceed with laparoscopy, probable laparotomy risks and options fully discussed 07/27/18 23:35 Patient remains febrile up to 103 steadily/CT scan today revealed no intra- abdominal problems with some atelectasis and/or pneumonia in the lower lobe/ She remains sedated on the ventilator Urine output improving, creatinine 2.5 WBC 9000 but persistent 3 TMs Abdomen soft but silent/abdominal pressure is less than 15 Does move all extremities and follows some commands with sedation vacation Wound VAC change in wound appears to be clean with no CP each but no real granulation tissue yet/fascial edges probed but no evidence of purulence Because of persistent temp have chosen to do exploratory lap to rule out any missed abdominal abscess 07/28/18 07:17 Seems more comfortable/temperature coming down/minimal wound VAC drainage/urine output good/WBC 9 K/tolerating ventilator better with lower pressure Seems improved after abdominal washout and open ABThera ABThera change on Tuesday08/02/18 09:46 will proceed with trach and abd washout today/ risks and options discussed with poa yesterday vs stable/ low grade temp/ wound ok/ mental status off but some response to verbal stimuli chest clear/ cxr pending/ cor rr/ abd soft 08/02/18 20:59 POSTOP STABLE/ WOUND VAC MINIMAL DRAINAGE/ TRACH SITE OK/ AFEBRILE Objective: Vital Signs Temp Pulse Resp BP Pulse Ox 36.9 C 95 26 H 110/68 99 08/02/18 16:00 08/02/18 19:59 08/02/18 19:59 08/02/18 18:00 08/02/18 19:59 Microbiology 07/31/18 11:25 Gram Stain - Final Peritoneal Fluid - Eswab Laboratory Results 08/01/18 11:15 08/02/18 17:40 08/01/18 08/02/18 08/03/18 05:59 05:59 05:59 Intake Total 2954 2491 769 Output Total 8716 3400 2310 Balance 379 -289 -5541 PT 16.8 SEC (12.0-15.0) H 07/31/18 04:30 INR 1.34 (0.83-1.16) H 07/31/18 04:30 ICD10 Worksheet Patient Problems: Problems Problem Status Onset Depression Acute
[2018-08-02] MEDS: TPN 1 EA BAG IV SCH (21:42)
[2018-08-03] MEDS: INSULIN REGULAR HUMAN 100 UNIT/ML UNIT SC SCH ×7 (00:54→23:39)
[2018-08-03] MEDS: PIPERACILLIN/TAZO 4.5 GM/DEX 100 ML IV SCH ×3 (00:55→12:14)
[2018-08-03] MEDS: FUROSEMIDE 20 MG/2 ML VIAL IVP SCH ×3 (00:58→12:13)
[2018-08-03] MEDS: HYDROmorphONE/DILAUDID 2 MG/ML INJ IVP PRN ×2 (01:37→19:44)
[2018-08-03] MEDS ORDERED: POTASSIUM Cl (KCl) 50 ML IV ONE (07:12)
[2018-08-03] MEDS ORDERED: CALCIUM GLUCONATE 50 ML IV ONE (07:12)
[2018-08-03] MEDS ORDERED: CALCIUM GLUCONATE 1 GM in D5W 50 ML IV ONE (07:30)
[2018-08-03] MEDS: GEMFIBROZIL 600 MG TAB PO SCH ×2 (08:03→18:19)
[2018-08-03] MEDS: PANTOPRAZOLE SODIUM 40 MG VIAL IVP SCH (08:03)
[2018-08-03 09:28] LABS: PLATELET COUNT 385 10^3/uL (150-400)
[2018-08-03] MEDS: LIDOCAINE 4%/MENTHOL 1% PATCH TD SCH (09:30)
[2018-08-03] MEDS: FLUCONAZOLE/NaCl 200 ML IV SCH (10:02)
[2018-08-03] MEDS: ENOXAPARIN 40 MG/0.4 ML SYR SC SCH (12:13)
[2018-08-03] MEDS: POTASSIUM Cl (KCl) 50 ML IV SCH ×6 (13:23→23:02)
--- NOTE | 2018-08-03 13:23 | PCMIDPN ---
Assessment/Plan: #Sepsis secondary to SB perf and peritonitis s/p repair 07/24/18. s/p washout and 07/31. Continues to be febrile constantly. Less purulence intra- abdominal yesterday but still present. Still some concern for drug fever due to constant nature of fever --ordered Michell sensi --adjust to different class to antibiotics and follow fever curve: Levofloxacin + metronidazole and micafungin --dc zosyn, fluconazole --patient to undergo bronch today, but doubt VAP, minimal vent settings #ARF: CrCl mid-60s by calculation but suspect lower than that; Cr slightly up today #Elevated LFTs : Due to underlying sepsis, slowly improving meds zosyn 4.5 gm IV q6h#8, higher dose, #2 Fluconazole 400mg IV daily, #9, higher dose # 3 Microbiology 07/24 blood cultures (2) Neg 07/27 blood cx (1) NGTD 07/31 peritoneal swab: +PMNs no org; cx Serratia susceptible to Zosyn, carbapenems, fluoroquinolones; michell albicans 08/01 blood cx (2) : NGTD Subjective: persistent fever patient to undergo bronchoscopy Objective: Vital Signs Temp Pulse Resp BP Pulse Ox 39.5 C H 95 37 H 148/73 H 98 08/03/18 12:00 08/03/18 12:00 08/03/18 12:00 08/03/18 12:00 08/03/18 12:00 Microbiology 07/31/18 11:25 Gram Stain - Final Peritoneal Fluid - Eswab Laboratory Results 08/03/18 09:05 08/03/18 12:40 08/02/18 08/03/18 08/04/18 05:59 05:59 05:59 Intake Total 2491 2061 Output Total 3405 2654 1065 [facility] [place] [phone] - Physical Exam General Appearance: alert EENT: pale conjunctiva, NG Tube, No scleral icterus Respiratory: coarse breath sounds (improved compared to yesterda) Neck: other (trach in place) Cardiac/Chest: regular rate, rhythm Extremities: No pedal edema Abdomen: tender, other (midline wound vac c/d/i; abscent bowel sounds) Pelvic Exam: gutierrez Skin: pallor, No rash Neuro/Psych: alert - Line/s RUE PICC Lines: No drainage, No erythema - Time Spent With Patient Time Spent with Patient: greater than 35 minutes Time Spent with Patient: Greater than 35 minutes spent on this patients care, greater than 50% of time spent counseling, educating, and coordinating care regarding the above mentioned plan. 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
[2018-08-03] MEDS ORDERED: MIDAZOLAM 2 MG/2 ML VIAL IVP ONE ×2 (13:30→14:15)
[2018-08-03] MEDS ORDERED: fentaNYL 100 MCG/2 ML INJ IVP ONE ×2 (13:30→14:15)
--- NOTE | 2018-08-03 13:36 | SOAPPROG ---
SOAP Progress Note Assessment/Plan: Assessment: 53 y/o F s/p lap ventral hernia repair Taken back to OR for increased abdominal pain. Now s/p ex lap and small bowel repair. Localized peritonitis found. ID following. On iv abx. Acute respiratory failure: Now extubated. S/p trach placement yesterday. Persistent fever. Likely due to VAP. Dr. Chamorro recommends bronchoscopy. Peritonitis: Additional gross purulence found yesterday at time of ex lap, but no leak or source found. Plan to take pt back to OR tomorrow for additional washout and possible fascial closure. ESHA: Cr stable. Good uop S: Awake, following commands. Appears frustrated she cannot talk. O: Awake, alert BP improved and stable, off pressors Febrile at 103.5, slightly improved from this morning. Abdomen: soft, ttp, abthera vac to suction : uop much improved. Mathur in place 08/03/18 13:31 Objective: Vital Signs Temp Pulse Resp BP Pulse Ox 39.5 C H 95 37 H 148/73 H 98 08/03/18 12:00 08/03/18 12:00 08/03/18 12:00 08/03/18 12:00 08/03/18 12:00 Microbiology 07/31/18 11:25 Gram Stain - Final Peritoneal Fluid - Eswab Laboratory Results 08/03/18 09:05 08/03/18 12:40 08/02/18 08/03/18 08/04/18 05:59 05:59 05:59 Intake Total 2491 2061 Output Total 8912 5209 5675 [phone] PT 16.8 SEC (12.0-15.0) H 07/31/18 04:30 INR 1.34 (0.83-1.16) H 07/31/18 04:30 ICD10 Worksheet Patient Problems: Problems Problem Status Onset Depression Acute
[2018-08-03] MEDS ORDERED: LIDOCAINE 1% 300 MG/30 ML SDV ONE (14:13)
[2018-08-03] MEDS ORDERED: LIDOCAINE 2% JELLY 5 ML TUBE TP ONE (14:14)
[2018-08-03] MEDS: MICAFUNGIN NA 100 MG in NS 100 ML IV SCH (14:21)
--- NOTE | 2018-08-03 14:32 | PDINTPN ---
Assembler Product Progress Note Assessment/Plan: 53 F admitted 07/22/18 for recurrent ventral hernia repair complicated by perforation and requiring return to the OR on 07/24/18. She has been vented since and had septic shock requiring pressors and multiple antibiotics and antifungals. ESHA was also a problem, but she never required HD and has good UOP. Significant transaminitis developed around the same time as shock, but has improved without specific intervention. She has also had persistent idiopathic fever despite wide spectrum antibiotics. * Peritonitis- related to recurrent ventral hernia and bowel perforation. She has returned tpo the OR multiple times, each time finding discolored fluid but no obvious leak or injury. Remains with open abdomen and wound vac in place. Cultures from peritoneal fluid growing Serratia and Michell. Abx changed from Zosyn/Flucon to Flagyl/Micafungin today per ID. * Acute respiratory failure with hypoxia- Extubated initially but returned to OR 07/24 and has remained on vent since, so vent day #11. CXR 08/01 however looks like ongoing pulmonary edema and cardiomegaly, so started lasix 20 tid. CXR 08/02 with some improvement and persistent LLL small infiltrate. Doubt VAP, but bronchoscopy not unreasonable. Echo 07/24 showed EF 40% and diastolic dysfunction but no PHTN. Of note, she weaned on PS 10 today for a brief period * ESHA- Creatinine improved and excellent UOP, but slight increase in creatinine today as well as sodium so will reduce lasix dose * Transaminitis- assumed from shock liver, with substantial improvement. Recheck rejected for unknown reason * Cardiomyopathy- EF 40% on 07/24 presumably from sepsis. Should normalize * Anemia- Hgb bottomed at 7.2 on 07/30 and was transfused a total of 3 units RBC since failed to rise appropriately (though no clear signs of bleeding and coag studies unremarkable). Hct down to 25 from 29 yesterday and net i/o negative 2800. No obvious blood loss. Coags normal 07/31 and normotensive. Observe * Persistent fever- defer to ID, see above * * Critical care time 40 minutes Subjective: remains primarily non-communicative, but wide awake s/p trach and washout 08/02 Objective: Vital Signs Temp Pulse Resp BP Pulse Ox 39.4 C H 96 35 H 130/77 H 97 08/03/18 13:31 08/03/18 14:00 08/03/18 14:00 08/03/18 14:00 08/03/18 14:00 Microbiology 07/31/18 11:25 Gram Stain - Final Peritoneal Fluid - Eswab Laboratory Results 08/03/18 09:05 08/03/18 12:40 08/02/18 08/03/18 08/04/18 05:59 05:59 05:59 Intake Total 2491 2061 Output Total 7580 6855 5888 [facility] [phone] PT 16.8 SEC (12.0-15.0) H 07/31/18 04:30 INR 1.34 (0.83-1.16) H 07/31/18 04:30 Physical Exam - Physical Exam General Appearance: alert, no apparent distress, obese EENT: PERRL/EOMI Neck: supple, other (limited view of trach site today), No lymphadenopathy (R), No lymphadenopathy (L) Respiratory: lungs clear, normal breath sounds, decreased breath sounds, No respiratory distress, No accessory muscle use Cardiac/Chest: regular rate, rhythm, No edema Abdomen: soft, distended, guarding, rebound, No non-tender Skin: normal color, warm/dry, No cyanosis Lymphatic: no adenopathy Extremities: No pedal edema Neuro/Psych: alert, cognition abnormalities, No normal mood/affect, No abnormal kier hand II-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
--- NOTE | 2018-08-03 15:38 | GPN ---
DATE OF PROCEDURE: 08/02/2018 PROCEDURE: Bronchoscopy, bronchial washings. INDICATION: Respiratory failure. CONSENT: Consent was obtained from the patient's [id number] prior to the administration of an esthesia. The risks and benefits were explained in detail and everybody agreed to proceed. SEDATION: Conscious sedationwas achieved using a total of 100 mcg of fentanyl, 2 mg of IV Versed. T he patient tolerated these well without complications. DESCRIPTION OF PROCEDURE: The bronchoscope was passed through the existing tracheostomy tube into no rmal-appearing trachea with no significant secretions or mucosal abnormalities. The eunice was sharp . Attention was drawn to the left lower lobe where there were minimal thin secretions that were easily removed. Bronchial washings were taken from this region without difficulty. There were no mucus plu gs. No extrinsic collapse and no significant mucosal abnormalities. A survey of the left upper divi kurt, as well as the right upper lobe, right middle lobe, and right lower lobes was also performed. These also appeared to be quite benign. There was no obvious source of fever in this area, but speci mens were sent for culture. COMPLICATIONS: None. ESTIMATED BLOOD LOSS: Zero. Overall, patient tolerated the procedure well. /[id number]/MODL
[2018-08-03] MEDS ORDERED: fentaNYL 100 MCG/2 ML INJ IV ONE (15:45)
[2018-08-03] MEDS: PATCH REMOVAL 1 EA PATCH TD SCH (19:52)
[2018-08-03] MEDS: TPN 1 EA BAG IV SCH (20:50)
[2018-08-04] MEDS: HYDROmorphONE/DILAUDID 2 MG/ML INJ IVP PRN ×4 (02:28→23:20)
[2018-08-04] MEDS: INSULIN REGULAR HUMAN 100 UNIT/ML UNIT SC SCH ×6 (04:08→23:23)
[2018-08-04] MEDS ORDERED: CALCIUM GLUCONATE 50 ML IV ONE (04:49)
[2018-08-04] MEDS ORDERED: CALCIUM GLUCONATE 1 GM in D5W 50 ML IV ONE (05:00)
[2018-08-04] MEDS: GEMFIBROZIL 600 MG TAB PO SCH ×2 (07:48→16:50)
[2018-08-04] MEDS: MICAFUNGIN NA 100 MG in NS 100 ML IV SCH (08:40)
[2018-08-04] MEDS ORDERED: FUROSEMIDE 20 MG/2 ML VIAL IVP SCH (09:00)
--- NOTE | 2018-08-04 09:57 | WOCRNPDOC ---
WOCRN Advanced Assessment Note - Skin Integrity Problem, Advanced Assess Right Ischial Tuberosity Pressure Injury Dressing Type: Allevyn Life Dressing Description: Clean/Dry, Intact Exudate Amount: None Integumentary Issue Intervention: Dressing Changed, Hydrogel Applied Wound Bed Color: [place] Wound Bed Constitution: Red/[place] - Non Granular Tissue (100%) Site Measurement - Head-to-Toe Length X Width X Depth (cm): 3x1.5x0.2 Pressure Injury Stage: Stage 2 Pressure Injury Present on Admit: No Skin Integrity Problem Comment: Wound cleansed with NS and gauze. This was a blister that was seen last week, the roof is now missing showing partial thickness tissue loss. Wound gel applied to wound base and new dressing applied. Wound care will round again next week. Left Ischial Tuberosity Pressure Injury Dressing Type: Allevyn Life Dressing Description: Clean/Dry, Intact Exudate Amount: None Integumentary Issue Intervention: Dressing Changed, Hydrogel Applied Wound Bed Color: [place] Wound Bed Constitution: Red/[place] - Non Granular Tissue (100%) Site Measurement - Head-to-Toe Length X Width X Depth (cm): 2x0.5x0.2 Pressure Injury Stage: Stage 2 Pressure Injury Present on Admit: No Skin Integrity Problem Comment: This wound was initially documented as left lateral coccyx, however due to positioning of the patient, the wound appears to be more on the left ishium. Wound was cleansed with NS and gauze. The blister is now a partial thickness tissue loss with no roof remaining. Wound gel applied to wound bed and covered with an Allevyn dressing. Wound care will round again next week. Right Nose Pressure Injury Dressing Type: Open to Air Exudate Amount: None Wound Bed Color: [place], Red Site Measurement - Head-to-Toe Length X Width X Depth (cm): Unable to determine exact size given location and NG tube still in place. 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 It is a stage 2 mucosal pressure injury. Given the location and the NG tube still in place, unable to determine exact size of the injury. Recommend moving the NG tube to the left nare to relieve the source of pressure. If the NG tube is moved, frequent repositioning of the tube will help to reduce the risk of a device related pressure injury on the left side. Since this is a mucosal injury, it should heal fairly quickly once the source of pressure is removed.
[2018-08-04] MEDS: PANTOPRAZOLE SODIUM 40 MG VIAL IVP SCH (10:10)
[2018-08-04] MEDS: LIDOCAINE 4%/MENTHOL 1% PATCH TD SCH (10:12)
--- NOTE | 2018-08-04 10:51 | SOAPPROG ---
SOAP Progress Note Assessment/Plan: Assessment: 53 y/o F s/p lap ventral hernia repair Taken back to OR for increased abdominal pain. Now s/p ex lap and small bowel repair. Localized peritonitis found. ID following. On iv abx. Acute respiratory failure: Now extubated. S/p trach placement yesterday. Persistent fever. Likely due to VAP. Dr. Chamorro recommends bronchoscopy. Peritonitis: Additional gross purulence found yesterday at time of ex lap, but no leak or source found. Plan to take pt back to OR tomorrow for additional washout and possible fascial closure. ESHA: Cr stable. Good uop S: Awake, following commands. Appears frustrated she cannot talk. O: Awake, alert BP improved and stable, off pressors Febrile at 103.5, slightly improved from this morning. Abdomen: soft, ttp, abthera vac to suction : uop much improved. Mathur in place 08/03/18 13:31 08/04/18 10:49 S/p bronch yesterday with no source found for persistent fever. Fever is slightly improved today. Plan to go to OR today again for additional washout, possible fascial closure. Objective: Vital Signs Temp Pulse Resp BP Pulse Ox 38.7 C H 93 34 H 125/75 H 98 08/04/18 08:00 08/04/18 10:00 08/04/18 10:00 08/04/18 10:00 08/04/18 08:30 Microbiology 07/31/18 11:25 Gram Stain - Final Peritoneal Fluid - Eswab 08/03/18 15:15 Gram Stain - Final Bronchial Washing - Bilateral Lobes Laboratory Results 08/04/18 10:00 08/04/18 10:00 08/03/18 08/04/18 08/05/18 05:59 05:59 05:59 Intake Total 2061 0732 Output Total 9070 8136 400 Balance -2809 -5870 -400 PT 16.8 SEC (12.0-15.0) H 07/31/18 04:30 INR 1.34 (0.83-1.16) H 07/31/18 04:30 ICD10 Worksheet Patient Problems: Problems Problem Status Onset Depression Acute
--- NOTE | 2018-08-04 10:56 | PCMIDPN ---
Assessment/Plan: #Sepsis secondary to SB perf and peritonitis s/p repair 07/24/18. s/p washout and 07/31. Continues to be febrile constantly. Abx changed yesterday for concern of drug fever. immunoglobulin levels normal. VAP seems unlikely as BAL unremarkable --Michell sensi pending --antibiotics adjusted yesterday for possible drug fever, probably too early to expect change in fever curve, continue: Levofloxacin + metronidazole and micafungin --back to repeat washout today #ARF: CrCl mid-60s ; Cr better today #Elevated LFTs : not rechecked today meds, Abx #9, Antifungal #10 levoflox 750mg IV daily #2 Metronidazole 500mg q8h #1 Micafungin 100mg IV daily #2 Microbiology 07/24 blood cultures (2) Neg 07/27 blood cx (1) NGTD 07/31 peritoneal swab: +PMNs no org; cx Serratia susceptible to Zosyn, carbapenems, fluoroquinolones; michell albicans 08/01 blood cx (2) : NGTD 08/03 BAL gram stain neg for organisms Subjective: no specific events overnight currently tolerating CPAP trials fairly well Objective: Vital Signs Temp Pulse Resp BP Pulse Ox 38.7 C H 93 34 H 125/75 H 98 08/04/18 08:00 08/04/18 10:00 08/04/18 10:00 08/04/18 10:00 08/04/18 08:30 Microbiology 07/31/18 11:25 Gram Stain - Final Peritoneal Fluid - Eswab 08/03/18 15:15 Gram Stain - Final Bronchial Washing - Bilateral Lobes Laboratory Results 08/04/18 10:00 08/04/18 10:00 08/03/18 08/04/18 08/05/18 05:59 05:59 05:59 Intake Total 2061 2245 Output Total 8400 3933 039 Balance -2336 -9297 -400 - Physical Exam General Appearance: alert, no apparent distress EENT: other (MMM, no teeth) Neck: supple, other (Trach site c/d/i) Cardiac/Chest: regular rate, rhythm, No systolic murmur Extremities: No pedal edema Abdomen: soft, other (possible occasional bowel sound, discomfort to palpation; wound vac midline) Pelvic Exam: gutierrez Skin: pallor, other (Ecchymosis left arm), No rash Neuro/Psych: alert, other (follow commands) - Line/s RUE PICC Lines: No drainage, No erythema - Time Spent With Patient Time Spent with Patient: greater than 35 minutes (reviewed findings with friends at bedside) Time Spent with Patient: Greater than 35 minutes spent on this patients care, greater than 50% of time spent counseling, educating, and coordinating care regarding the above mentioned plan. 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
--- NOTE | 2018-08-04 11:21 | ASMTCMCOM ---
CM Note CM Note Notes: Patient will go for another washout today. Her fevers remain persistant and ID remains involved. ABX changed from Zosyn/Flucon to Flagyl/Micafungin on the . Patient remains primarily non-communicative. CM will follow. Date Signed: 08/04/2018 11:21 AM Electronically Signed By:Cara Robles LCSW
[2018-08-04] MEDS ORDERED: MIDAZOLAM 2 MG/2 ML VIAL ONE (12:31)
[2018-08-04] MEDS ORDERED: BUPIVACAINE 0.5% 30 ML SDV ONE (12:56)
[2018-08-04] MEDS ORDERED: fentaNYL 100 MCG/2 ML INJ ONE ×2 (13:27→13:53)
--- NOTE | 2018-08-04 13:32 | PDANEPAE ---
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 No problems since then. - Pulmonary History Hx COPD: No Hx Asthma/Reactive Airway Disease: No Hx Recent Upper Respiratory Infection: No Hx Oxygen in Use at Home: No Hx Sleep Apnea: No Sleep Apnea Screening Result - Last Documented: Negative Pulmonary History Comment: states has inhaler but does not use/need - Neurologic History Hx Cerebrovascular Accident: No Hx Seizures: No Hx Dementia: No Neurologic History Comment: Diabetic neuropathy hands and feet. - Endocrine History Hx Diabetes: Yes Endocrine History Comment: Type 2-insulin and metformin. - Renal History Hx Renal Disorders: Yes Renal History Comment: Septicemia due to ureter stent. Emergently removed in 2011. No further problems. - Liver History Hx Hepatic Disorders: No - Neurological & Psychiatric Hx Hx Neurological and Psychiatric Disorders: Yes Neurological / Psychiatric History Comment: Bipolar. anxiety. PTSD. ADD-meds - Cancer History Hx Cancer: No - Congenital Disorder History Hx Congenital Disorders: No - GI History Hx Gastrointestinal Disorders: Yes Gastrointestinal History Comment: easily nauseated. 05/30-pancreatitis, treated and resolved. Chronic BM issues-meds. IBS. 4 abd. hernias. - Other Health History Other Health History: Bilateral mild hearing loss. Stress induced skin sores. Multiple missing teeth-meth abuse. - Chronic Pain History Chronic Pain: Yes (abd., colorectal) - Surgical History Prior Surgeries: abdominal seroma surgery w/wound vac, 04/2018. 1994-colon resection. uterine sling, R opherectomy, 2004. 2009-colon resection & nicked L ureter with stent placement. Stent removed 2011. 2007-L foot. 2011-oral surg. Cholecystectomy ANE Review of Systems Review of Systems: - Exercise capacity METS (RN): 1 METS (4 mets prior to admission) ANE Patient History - Allergies Allergies/Adverse Reactions: bupropion HCl [From Wellbutrin] Allergy (Verified 07/20/18 13:00) Hives haloperidol [From Haldol] Allergy (Verified 07/20/18 13:00) dystonic reaction haloperidol lactate [From Haldol] Allergy (Verified 07/20/18 13:00) dystonic reaction iopamidol [From Isovue-M] Allergy (Verified 06/27/13 08:27) Vomiting risperidone [From Risperdal] Allergy (Verified 07/20/18 13:00) Hives CT CONTRAST Allergy (Uncoded 06/27/13 08:28) Vomiting - Home Medications Home medications: home medication list seen and reviewed Home Medications: FLUoxetine [Prozac 20 MG (*)] 60 mg PO DAILY 01/20/18 [Last Taken 07/21/18 05:30 ] Gemfibrozil [Lopid 600 MG (*)] 600 mg PO BIDAC 01/20/18 [Last Taken 07/20/18] Insulin Glargine [Lantus 100 UNITS/ML (*)] 34 units SC HS 01/20/18 [Last Taken 07/20/18] Lisinopril [Zestril 5 mg (*)] 5 mg PO DAILY 01/20/18 [Last Taken 07/21/18 05:30] Albuterol [Proventil Inhaler HFA (*)] 1 puffs IH DAILY PRN 04/21/18 [Last Taken 3 Months Ago ~04/20/18] Dextroamphetamine/Amphetamine [Adderall Xr 10 mg Capsule] 10 mg PO DAILY [Last Taken 07/20/18] Herbals/Supplements -Info Only 1 each PO DAILY 04/21/18 [Last Taken Unknown] Omeprazole 20 mg PO DAILY 04/21/18 [Last Taken 07/21/18 05:30] metFORMIN HCL [Glucophage 1000 mg] 1,000 mg PO BID 04/21/18 [Last Taken 07/20/18 ] ARIPiprazole [Abilify 10 mg (*)] 5 mg PO DAILY #0 07/20/18 [Last Taken 07/21/18 05:30] Dicyclomine [Bentyl 20 MG (*)] 20 mg PO QID PRN #0 07/20/18 [Last Taken 05:30] Ondansetron Odt [Zofran Odt 4 mg (*)] 8 mg PO TID PRN #0 07/20/18 [Last Taken 05:30] - NPO status NPO Since - Liquids (Date): 07/24/18 NPO Since - Liquids (Time): 00:00 NPO Since - Solids (Date): 07/24/18 NPO Since - Solids (Time): 00:00 - Smoking Hx Smoking Status: Current every day smoker (prior to admission) - Alcohol Use Alcohol Use: Rarely - Family Anes Hx Family Hx Anesthesia Complications: none ANE Labs/Vital Signs - Labs Result Diagrams: 08/04/18 10:00 08/04/18 10:00 - Vital Signs Blood Pressure: 146/81 Heart Rate: 95 Respiratory Rate: 35 O2 Sat (%): 99 Height: 157.48 cm Weight: 73.1 kg ANE Physical Exam - Airway Mouth exam: ETT in situ (trached) - Pulmonary Pulmonary: no respiratory distress - Cardiovascular Cardiovascular: regular rate and rhythym - ASA Status ASA Status: III ANE Anesthesia Plan Anesthesia Plan: general endotracheal anesthesia
--- NOTE | 2018-08-04 13:41 | PDINTPN ---
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 She has been vented since and had septic shock requiring pressors and multiple antibiotics and antifungals. ESHA was also a problem, but she never required HD and has good UOP. Significant transaminitis developed around the same time as shock, but has improved without specific intervention. She has also had persistent idiopathic fever despite wide spectrum antibiotics. * Peritonitis- related to recurrent ventral hernia and bowel perforation. She has returned to the OR multiple times, each time finding discolored fluid but no obvious leak or injury. Remains with open abdomen and wound vac in place. Cultures from peritoneal fluid growing Serratia and Michell. Abx changed from Zosyn/Flucon to Flagyl/Micafungin 08/03 per ID. Fever persists of unknown origin. May take more time to establish "drug fever" * Acute respiratory failure with hypoxia- Extubated initially but returned to OR 07/24 and has remained on vent since, so vent day #12. CXR 08/01 however looked like ongoing pulmonary edema and cardiomegaly, so started lasix 20 tid; dc'd 08/03 with slight bump in creatinine. Echo 07/24 showed EF 40% and diastolic dysfunction but no PHTN. Unremarkable BAL, so no VAP. * ESHA- Creatinine stable with adequate UOP. * Transaminitis- assumed from shock liver, with substantial improvement. Recheck in AM (some confusion about daily lab orders- will resume for short period) * Cardiomyopathy- EF 40% on 07/24 presumably from sepsis. Should normalize * Anemia- Hgb bottomed at 7.2 on 07/30 and was transfused a total of 3 units RBC since failed to rise appropriately (though no clear signs of bleeding and coag studies unremarkable). Hct down to 25 from 29 and net i/o negative 2800. No obvious blood loss. Coags normal 07/31 and normotensive. Increased without transfusion, likely related to diuresis * Persistent fever- defer to ID, see above * * Critical care time 40 minutes 08/04/18 13:35 Subjective: no events. Weaned some on minimal settings Objective: Vital Signs Temp Pulse Resp BP Pulse Ox 39.1 C H 95 35 H 146/81 H 99 08/04/18 12:00 08/04/18 13:32 08/04/18 13:32 08/04/18 13:32 08/04/18 13:32 Microbiology 07/31/18 11:25 Gram Stain - Final Peritoneal Fluid - Eswab 08/03/18 15:15 Gram Stain - Final Bronchial Washing - Bilateral Lobes Laboratory Results 08/04/18 10:00 08/04/18 10:00 08/03/18 08/04/18 08/05/18 05:59 05:59 05:59 Intake Total 6899 2246 Output Total 4870 8115 550 Balance -2809 -5870 -550 PT 16.8 SEC (12.0-15.0) H 07/31/18 04:30 INR 1.34 (0.83-1.16) H 07/31/18 04:30 Physical Exam - Physical Exam General Appearance: alert, no apparent distress, obese EENT: PERRL/EOMI Neck: supple, other (large trach wound) Respiratory: lungs clear, normal breath sounds, decreased breath sounds, No respiratory distress, No accessory muscle use Cardiac/Chest: regular rate, rhythm, No edema Abdomen: guarding, other (wound vac), No distended, No rebound Skin: normal color, warm/dry, No cyanosis Lymphatic: no adenopathy Extremities: No pedal edema Neuro/Psych: alert, cognition abnormalities, No abnormal 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
--- NOTE | 2018-08-04 14:53 | POSTOPPROG ---
Post Op Note Date of Operation: 08/04/18 Surgeon: Raad Chamorro Supervisor [employer]: Paulina Anesthesiologist: Femi Anesthesia: GET(General Endotracheal) Pre-op Diagnosis: Peritonitis, persistent fever Post-op Diagnosis: Same Indication: same Procedure: Exploratory laparotomy, abdominal washout, incisional debridement Findings: See below Inf/Abcess present in the surg proc area at time of surgery?: Yes Depth: Organ Space EBL: Minimal Drains: David Naik (Findings: persistent purulence on R side of abdomen, but abdomen appears hat cleaner than last ex lap, no apparent leak, bowel repair appears intact, but there is remaining necrotic omentum overlying it. Continued green discoloration of omental fat pad at bowel repair site)
[2018-08-04] MEDS ORDERED: IOPAMIDOL (ISOVUE 370) 100 ML BTL IV ONE (19:04)
[2018-08-04] MEDS: PATCH REMOVAL 1 EA PATCH TD SCH (20:32)
[2018-08-04] MEDS: TPN 1 EA BAG IV SCH (20:36)
[2018-08-05] MEDS: ACETAMINOPHEN 650 MG SUPP PR PRN (04:17)
[2018-08-05 04:27] LABS: PLATELET COUNT 526 10^3/uL (150-400)
[2018-08-05] MEDS ORDERED: CALCIUM GLUCONATE 50 ML IV ONE (04:32)
[2018-08-05] MEDS ORDERED: CALCIUM GLUCONATE 1 GM in D5W 50 ML IV ONE (05:00)
[2018-08-05] MEDS: INSULIN REGULAR HUMAN 100 UNIT/ML UNIT SC SCH ×5 (05:16→20:06)
[2018-08-05] MEDS: GEMFIBROZIL 600 MG TAB PO SCH ×2 (09:10→17:54)
[2018-08-05] MEDS: PANTOPRAZOLE SODIUM 40 MG VIAL IVP SCH (09:10)
[2018-08-05] MEDS: LIDOCAINE 4%/MENTHOL 1% PATCH TD SCH (09:15)
--- NOTE | 2018-08-05 09:22 | PCMIDPN ---
Assessment/Plan: #Sepsis secondary to SB perf and peritonitis s/p repair 07/24/18. s/p washout again last night. Ongoing fever. WBC a bit up today, but patient HD stable, awake, following commands. Drug fever seems less likely. BAL negative so VAP less likely. Suspect origin of fever intraabdominal process (reviewed findings from OR: persistent purulence on R side of abdomen, but abdomen appears room cleaner than last ex lap, no apparent leak, bowel repair appears intact, but there is remaining necrotic omentum overlying it. Continued green discoloration of omental fat pad at bowel repair site) --Michell sensi pending --continue: Levofloxacin + metronidazole and micafungin --4 days since last blood cx; will repeat today. #ARF: CrCl 48, decrease levoflox to q48h #Elevated LFTs : improving, likely related to infection meds, Abx #10, Antifungal #11 levoflox 750mg IV daily #3 Metronidazole 500mg q8h #2 Micafungin 100mg IV daily #3 Microbiology 07/24 blood cultures (2) Neg 07/27 blood cx (1) NGTD 07/31 peritoneal swab: +PMNs no org; cx Serratia susceptible to Zosyn, carbapenems, fluoroquinolones; michell albicans (sensi pending) 08/01 blood cx (2) : NGTD 08/03 BAL gram stain neg for organisms; Cx NGTD Subjective: no sleeping overnight washout yesterday w less purulence Objective: Vital Signs Temp Pulse Resp BP Pulse Ox 38 C 100 24 H 107/82 H 98 08/05/18 06:00 08/05/18 07:53 08/05/18 07:53 08/05/18 07:53 08/05/18 07:53 Microbiology 07/31/18 11:25 Gram Stain - Final Peritoneal Fluid - Eswab 08/03/18 15:15 Gram Stain - Final Bronchial Washing - Bilateral Lobes Laboratory Results 08/05/18 04:10 08/05/18 04:10 08/04/18 08/05/18 08/06/18 05:59 05:59 05:59 Intake Total 2245 2117 Output Total 8115 1850 Balance -5870 267 - Physical Exam General Appearance: alert, no apparent distress EENT: other (trach c/d/i) Neck: supple Cardiac/Chest: regular rate, rhythm Extremities: other (bruising LUE), No pedal edema Abdomen: soft, other (a little pain to deep palpation but seems better; midline wound vac; R KARO drain; no bowel sounds) Skin: No rash Neuro/Psych: alert, other (following commands) ICD10 Worksheet Patient Problems: Problems Problem Status Onset Depression Acute
[2018-08-05] MEDS: 1/2 NS 1,000 ML IV SCH (09:49)
[2018-08-05] MEDS: MICAFUNGIN NA 100 MG in NS 100 ML IV SCH (10:32)
--- NOTE | 2018-08-05 11:20 | PDINTPN ---
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 She has been vented since and had septic shock requiring pressors and multiple antibiotics and antifungals. ESHA was also a problem, but she never required HD and has good UOP. Significant transaminitis developed around the same time as shock, but has improved without specific intervention. She has also had persistent idiopathic fever despite wide spectrum antibiotics. * Peritonitis- related to recurrent ventral hernia and bowel perforation. She has returned to the OR multiple times, each time finding discolored fluid including 08/04 where purulent fluid noted as well as omental necrosis. Remains with open abdomen and wound vac in place. Cultures from peritoneal fluid growing Serratia and Michell. Abx changed from Zosyn/Flucon to Flagyl/ Micafungin 08/03 per ID. Fever persists of unknown origin. * Acute respiratory failure with hypoxia- Extubated initially but returned to OR 07/24 and has remained on vent since, so vent day #13. Trach performed in OR on 08/02. CXR 08/01 however looked like ongoing pulmonary edema and cardiomegaly , so started lasix 20 tid; dc'd 08/03 with slight bump in creatinine. Echo 07/24 showed EF 40% and diastolic dysfunction but no PHTN. Unremarkable BAL, so no VAP. Brief tachycardia and desat postop 08/04, so checked CTA- no PE. Continue with weans today- trach collar trials. * ESHA- Creatinine stable with adequate UOP. Slight increase to 1.6 after CTA. Restarted gentle IVF 08/05 * Hypernatremia- rising to 154 08/05 so started 1/2 NS at 75/hr. * Transaminitis- assumed from shock liver, with substantial improvement. Continues to fall. No need for daily monitoring * Cardiomyopathy- EF 40% on 07/24 presumably from sepsis. Should normalize * Anemia- Hgb bottomed at 7.2 on 07/30 and was transfused a total of 3 units RBC since failed to rise appropriately (though no clear signs of bleeding and coag studies unremarkable). Hct down to 25 from 29 and net i/o negative 2800. No obvious blood loss. Coags normal 07/31 and normotensive. Increased without transfusion, likely related to diuresis * Persistent fever- defer to ID, see above * * Critical care time 45 minutes Subjective: some successful weans overnight. More interactive today Objective: Vital Signs Temp Pulse Resp BP Pulse Ox 39.1 C H 104 H 21 H 131/69 H 92 08/05/18 10:00 08/05/18 10:00 08/05/18 10:00 08/05/18 10:00 08/05/18 10:00 Microbiology 07/31/18 11:25 Gram Stain - Final Peritoneal Fluid - Eswab 08/03/18 15:15 Gram Stain - Final Bronchial Washing - Bilateral Lobes Laboratory Results 08/05/18 04:10 08/05/18 04:10 08/04/18 08/05/18 08/06/18 05:59 05:59 05:59 Intake Total 2245 2117 Output Total 8115 1850 350 Balance -5870 267 -350 PT 16.8 SEC (12.0-15.0) H 07/31/18 04:30 INR 1.34 (0.83-1.16) H 07/31/18 04:30 Physical Exam - Physical Exam General Appearance: alert, no apparent distress, obese EENT: PERRL/EOMI Neck: supple, other (large open trach incision) Respiratory: lungs clear, normal breath sounds, decreased breath sounds, No respiratory distress, No accessory muscle use Cardiac/Chest: regular rate, rhythm, No edema Abdomen: soft, guarding, rebound, other (wound vac), No non-tender, No distended Skin: normal color, warm/dry, No cyanosis Lymphatic: no adenopathy Extremities: No pedal edema Neuro/Psych: alert, normal mood/affect, cognition abnormalities ICD10 Worksheet Patient Problems: Problems Problem Status Onset Depression Acute
--- NOTE | 2018-08-05 16:59 | SOAPPROG ---
SOAP Progress Note Assessment/Plan: Assessment: CALLED INTO SEE PT COMPLAINING OF UNRELENTING ABD PAIN SINCE SURGERY CT SCAN UNREVEALING BUT NO IV CONTRAST WBC 7K BUT LEFT SHIFT VS STABLE AFEBRILE ABD SOFT WITH DISTENTION AND DECREASED BS BUT NO DEFINITE PERITONEAL SIGNS CHEST CLEAR COR RR HEENT NONICTERIC NO BM OR FLATUS FOR 3 DAYS IMP: DIFFICULT PT WHO ALWAYS CO PAIN BUT SEEMS WORSE/ MAY NEED SURGERY IF NOT IMPROVING TO RO BOWELL INJURY RISKS AND OPTIONS FULLY DISCUSSED WITH PT Plan:CHECK CBC, LACTATE, 2-WAY/ CONSIDER LAPAROSCOPY IF NOT IMPROVED WITH ENEMA 07/23/18 19:58 07/23/18 20:04 07/24/18 01:55 lactate elevated/ wbc 2.1k/ still in pain/ 2-way constipation will proceed with laparoscopy, probable laparotomy risks and options fully discussed 07/27/18 23:35 Patient remains febrile up to 103 steadily/CT scan today revealed no intra- abdominal problems with some atelectasis and/or pneumonia in the lower lobe/ She remains sedated on the ventilator Urine output improving, creatinine 2.5 WBC 9000 but persistent 3 TMs Abdomen soft but silent/abdominal pressure is less than 15 Does move all extremities and follows some commands with sedation vacation Wound VAC change in wound appears to be clean with no CP each but no real granulation tissue yet/fascial edges probed but no evidence of purulence Because of persistent temp have chosen to do exploratory lap to rule out any missed abdominal abscess 07/28/18 07:17 Seems more comfortable/temperature coming down/minimal wound VAC drainage/urine output good/WBC 9 K/tolerating ventilator better with lower pressure Seems improved after abdominal washout and open ABThera ABThera change on Tuesday08/02/18 09:46 will proceed with trach and abd washout today/ risks and options discussed with poa yesterday vs stable/ low grade temp/ wound ok/ mental status off but some response to verbal stimuli chest clear/ cxr pending/ cor rr/ abd soft 08/02/18 20:59 POSTOP STABLE/ WOUND VAC MINIMAL DRAINAGE/ TRACH SITE OK/ AFEBRILE 08/05/18 16:56 CONTINUES TO STEADILY SLOWLY IMPROVED/STILL WITH SIGNIFICANT FEVERS/LAB STABLE EXCEPT FOR SODIUM 154/URINE OUTPUT IS GOOD KARO DRAINAGE MINIMAL WOUND VAC DRAINAGE MINIMAL BUT GREEN TINGED TRACH SITE OKAY/RESPIRATORY STATUS IMPROVING/MENTAL STATUS MARKEDLY IMPROVED WITH GOOD COOPERATION/COMPLAIN OF BEING HUNGRY CHEST CLEAR/ABDOMEN SOFTER WITH PROPOSAL DIRECTOR/VITAL SIGNS STABLE WILL CONTINUE WOUND VAC PROBABLE ABTHERA CHANGE ON TUESDAY/CONTINUE ANTIBIOTICS/ START SMALL AMOUNT OF TRICKLE FEEDS Objective: Vital Signs Temp Pulse Resp BP Pulse Ox 39.1 C H 104 H 44 H 137/80 H 97 08/05/18 10:00 08/05/18 16:00 08/05/18 16:00 08/05/18 16:00 08/05/18 16:00 Microbiology 08/03/18 15:15 Gram Stain - Final Bronchial Washing - Bilateral Lobes 07/31/18 11:25 Gram Stain - Final Peritoneal Fluid - Eswab Laboratory Results 08/05/18 04:10 08/05/18 14:15 08/04/18 08/05/18 08/06/18 05:59 05:59 05:59 Intake Total 2245 2117 Output Total 8115 1850 650 Balance -5870 267 -650 PT 16.8 SEC (12.0-15.0) H 07/31/18 04:30 INR 1.34 (0.83-1.16) H 07/31/18 04:30 ICD10 Worksheet Patient Problems: Problems Problem Status Onset Depression Acute
[2018-08-05] MEDS: HYDROmorphONE/DILAUDID 2 MG/ML INJ IVP PRN ×2 (17:01→19:58)
[2018-08-05] MEDS: TPN 1 EA BAG IV SCH (19:53)
[2018-08-05] MEDS: ALBUTEROL 60 PUFFS/8 GM MDI IH PRN (19:55)
[2018-08-05] MEDS: MELATONIN 3 MG TAB PO SCH (20:01)
[2018-08-05] MEDS: PATCH REMOVAL 1 EA PATCH TD SCH (20:06)
[2018-08-06] MEDS: HYDROmorphONE/DILAUDID 2 MG/ML INJ IVP PRN ×3 (00:08→22:03)
[2018-08-06] MEDS: INSULIN REGULAR HUMAN 100 UNIT/ML UNIT SC SCH ×6 (00:10→20:29)
[2018-08-06] MEDS: ALBUTEROL 60 PUFFS/8 GM MDI IH PRN (00:10)
[2018-08-06] MEDS: 1/2 NS 1,000 ML IV SCH ×2 (02:06→05:58)
[2018-08-06] MEDS: ALTEPLASE 2 MG VIAL IVP PRN (04:23)
[2018-08-06 05:56] LABS: PLATELET COUNT 497 10^3/uL (150-400)
--- NOTE | 2018-08-06 08:36 | PCMIDPN ---
Assessment/Plan: #Sepsis secondary to SB perf and peritonitis s/p repair 07/24/18. s/p washout again last night. Ongoing fever. WBC a bit up today, but patient HD stable, awake, following commands. Suspect origin of fever intraabdominal process, seems to be trending down. Patient changed to current abx combination when there was concern for drug fever. Back to OR tomorrow --Michell sensi pending --continue: Levofloxacin + metronidazole and micafungin --if purulence persists intra-op tomorrow, please repeat cx # Fever, seems to be trending down. Look for other processes include: CT PE negative, VANDANA infiltrate, vent settings minimal. BAL cx showing C albican c/w colonization - but under Rx for yeast in peritoneal fluid. Blood cx repeated yesterday #ARF: CrCl 48, decrease levoflox to q48h #Elevated LFTs : improving, likely related to infection meds, Abx #11, Antifungal #12 levoflox 750mg IV daily #4 Metronidazole 500mg q8h #3 Micafungin 100mg IV daily #4 Microbiology 07/24 blood cultures (2) Neg 07/27 blood cx (1) NGTD 07/31 peritoneal swab: +PMNs no org; cx Serratia susceptible to Zosyn, carbapenems, fluoroquinolones; michell albicans (sensi pending) 08/01 blood cx (2) : NGTD 08/03 BAL gram stain neg for organisms; Cx NGTD 08/05 blood cx (2) pending Subjective: No specific if it events overnight Patient is about to start trach collar Endorsing bilateral foot pain and left arm pain Objective: Vital Signs Temp Pulse Resp BP Pulse Ox 37.9 C 92 29 H 96/53 L 100 08/06/18 04:00 08/06/18 06:00 08/06/18 06:00 08/06/18 06:00 08/06/18 06:00 Microbiology 08/03/18 15:15 Gram Stain - Final Bronchial Washing - Bilateral Lobes Laboratory Results 08/06/18 05:45 08/06/18 05:45 08/05/18 08/06/18 08/07/18 05:59 05:59 05:59 Intake Total 7919 3056 Output Total 2340 6930 Balance 267 766 General Appearance: alert, no apparent distress EENT: trach c/d/i Neck: supple Cardiac/Chest: regular rate, rhythm Extremities: bruising LUE - stable, No pedal edema, no abn of feet, circulation good Abdomen: soft, minimal pain to deep palpation but seems better; midline wound vac; R KARO drain; ?occasional bowel sounds Skin: No rash Neuro/Psych: alert, following commands RUE PICC c/d/i - Time Spent With Patient Time Spent with Patient: greater than 35 minutes Time Spent with Patient: Greater than 35 minutes spent on this patients care, greater than 50% of time spent counseling, educating, and coordinating care regarding the above mentioned plan. 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
[2018-08-06] MEDS: MICAFUNGIN NA 100 MG in NS 100 ML IV SCH (09:24)
[2018-08-06] MEDS: LIDOCAINE 4%/MENTHOL 1% PATCH TD SCH (09:24)
[2018-08-06] MEDS: ENOXAPARIN 40 MG/0.4 ML SYR SC SCH (09:25)
[2018-08-06] MEDS: GEMFIBROZIL 600 MG TAB PO SCH ×2 (09:25→16:57)
[2018-08-06] MEDS: PANTOPRAZOLE SODIUM 40 MG VIAL IVP SCH (09:25)
--- NOTE | 2018-08-06 09:41 | SOAPPROG ---
SOAP Progress Note Assessment/Plan: Assessment: CALLED INTO SEE PT COMPLAINING OF UNRELENTING ABD PAIN SINCE SURGERY CT SCAN UNREVEALING BUT NO IV CONTRAST WBC 7K BUT LEFT SHIFT VS STABLE AFEBRILE ABD SOFT WITH DISTENTION AND DECREASED BS BUT NO DEFINITE PERITONEAL SIGNS CHEST CLEAR COR RR HEENT NONICTERIC NO BM OR FLATUS FOR 3 DAYS IMP: DIFFICULT PT WHO ALWAYS CO PAIN BUT SEEMS WORSE/ MAY NEED SURGERY IF NOT IMPROVING TO RO BOWELL INJURY RISKS AND OPTIONS FULLY DISCUSSED WITH PT Plan:CHECK CBC, LACTATE, 2-WAY/ CONSIDER LAPAROSCOPY IF NOT IMPROVED WITH ENEMA 07/23/18 19:58 07/23/18 20:04 07/24/18 01:55 lactate elevated/ wbc 2.1k/ still in pain/ 2-way constipation will proceed with laparoscopy, probable laparotomy risks and options fully discussed 07/27/18 23:35 Patient remains febrile up to 103 steadily/CT scan today revealed no intra- abdominal problems with some atelectasis and/or pneumonia in the lower lobe/ She remains sedated on the ventilator Urine output improving, creatinine 2.5 WBC 9000 but persistent 3 TMs Abdomen soft but silent/abdominal pressure is less than 15 Does move all extremities and follows some commands with sedation vacation Wound VAC change in wound appears to be clean with no CP each but no real granulation tissue yet/fascial edges probed but no evidence of purulence Because of persistent temp have chosen to do exploratory lap to rule out any missed abdominal abscess 07/28/18 07:17 Seems more comfortable/temperature coming down/minimal wound VAC drainage/urine output good/WBC 9 K/tolerating ventilator better with lower pressure Seems improved after abdominal washout and open ABThera ABThera change on Tuesday08/02/18 09:46 will proceed with trach and abd washout today/ risks and options discussed with poa yesterday vs stable/ low grade temp/ wound ok/ mental status off but some response to verbal stimuli chest clear/ cxr pending/ cor rr/ abd soft 08/02/18 20:59 POSTOP STABLE/ WOUND VAC MINIMAL DRAINAGE/ TRACH SITE OK/ AFEBRILE 08/05/18 16:56 CONTINUES TO STEADILY SLOWLY IMPROVED/STILL WITH SIGNIFICANT FEVERS/LAB STABLE EXCEPT FOR SODIUM 154/URINE OUTPUT IS GOOD KARO DRAINAGE MINIMAL WOUND VAC DRAINAGE MINIMAL BUT GREEN TINGED TRACH SITE OKAY/RESPIRATORY STATUS IMPROVING/MENTAL STATUS MARKEDLY IMPROVED WITH GOOD COOPERATION/COMPLAIN OF BEING HUNGRY CHEST CLEAR/ABDOMEN SOFTER WITH BLOCKING MACHINE OPERATOR SECOND/VITAL SIGNS STABLE WILL CONTINUE WOUND VAC PROBABLE ABTHERA CHANGE ON TUESDAY/CONTINUE ANTIBIOTICS/ START SMALL AMOUNT OF TRICKLE FEEDS 08/06/18 09:38 CONTINUES TO DAILY IMPROVEMENT/MORE ALERT AND RESPONSIVE TO QUESTIONS/STILL ON THE VENTILATOR AND TRACH SITE OKAY ABDOMEN SOFT WITH POSITIVE BOWEL SOUNDS/ TOLERATING SMALL TRICKLE FEEDS MODERATE WOUND VAC OUTPUT WHICH IS GREEN TINGED/MINIMAL KARO OUTPUT MOST IMPORTANTLY HER TEMPERATURE HAS BEEN SIGNIFICANTLY LOWER OVER THE LAST 48 HR AND IS CURRENTLY 37.9/VITAL SIGNS STABLE WILL NEED A FURTHER WASHOUT POSSIBLY TUESDAY AND POSSIBLE COMPLETION OF HER WOUND CLOSURE Objective: Vital Signs Temp Pulse Resp BP Pulse Ox 37.9 C 92 29 H 96/53 L 100 08/06/18 04:00 08/06/18 06:00 08/06/18 06:00 08/06/18 06:00 08/06/18 06:00 Microbiology 08/01/18 08:05 Blood Culture - Final Blood 08/01/18 08:20 Blood Culture - Final Blood 08/03/18 15:15 Gram Stain - Final Bronchial Washing - Bilateral Lobes Laboratory Results 08/06/18 05:45 08/06/18 05:45 08/05/18 08/06/18 08/07/18 05:59 05:59 05:59 Intake Total 2116 2826 Output Total 1849 2059 Balance 267 766 PT 16.8 SEC (12.0-15.0) H 07/31/18 04:30 INR 1.34 (0.83-1.16) H 07/31/18 04:30 ICD10 Worksheet Patient Problems: Problems Problem Status Onset Depression Acute
[2018-08-06] MEDS ORDERED: D5W 1,000 ML IV SCH (15:30)
--- NOTE | 2018-08-06 15:59 | PDINTPN ---
Safety Equipment Testing Specialist Progress Note Assessment/Plan: 53 F admitted 07/22/18 for recurrent ventral hernia repair complicated by perforation and requiring return to the OR on 07/24/18. She has been vented since and had septic shock requiring pressors and multiple antibiotics and antifungals. ESHA was also a problem, but she never required HD and has good UOP. Significant transaminitis developed around the same time as shock, but has improved without specific intervention. She has also had persistent idiopathic fever despite wide spectrum antibiotics. * Peritonitis- related to recurrent ventral hernia and bowel perforation. She has returned to the OR multiple times, each time finding discolored fluid including 08/04 where purulent fluid noted as well as omental necrosis. Remains with open abdomen and wound vac in place. Cultures from peritoneal fluid growing Serratia and Michell. Abx changed from Zosyn/Flucon to Flagyl/ Micafungin 08/03 per ID. Fever has been nearly constant throught hospital stay until last 24 hours * Acute respiratory failure with hypoxia- Extubated initially but returned to OR 07/24 and has remained on vent since, so vent day #14. Trach performed in OR on 08/02. CXR 08/01 however looked like ongoing pulmonary edema and cardiomegaly , so started lasix 20 tid; dc'd 08/03 with slight bump in creatinine. Echo 07/24 showed EF 40% and diastolic dysfunction but no PHTN. Unremarkable BAL, so no VAP. Brief tachycardia and desat postop 08/04, so checked CTA- no PE. Tolerated TC trials 08/05 and 08/06. Plan trial of capping today. Will still need eventual swallow study. * ESHA- Creatinine stable with adequate UOP. Slight increase to 1.6 after CTA. Restarted gentle IVF 08/05 with no change in sodium or creatiine. Pharmacy will adjust TPN and increase rate. Keep IVF until new TPN ready. * Hypernatremia- rising to 154 08/05 so started 1/2 NS at 75/hr. As above for plan * Transaminitis- assumed from shock liver, with substantial improvement. Continues to fall. No need for daily monitoring * Cardiomyopathy- EF 40% on 07/24 presumably from sepsis. Should normalize * Anemia- Hgb bottomed at 7.2 on 07/30 and was transfused a total of 3 units RBC since failed to rise appropriately (though no clear signs of bleeding and coag studies unremarkable). Hct down to 25 from 29 and net i/o negative 2800. No obvious blood loss. Coags normal 07/31 and normotensive. Increased without transfusion, likely related to diuresis * Persistent fever- defer to ID, see above * * Critical care time 35 minutes 08/06/18 15:56 Subjective: weaned well 08/05. No events Objective: Vital Signs Temp Pulse Resp BP Pulse Ox 37.3 C 92 32 H 120/78 95 08/06/18 12:00 08/06/18 14:00 08/06/18 14:00 08/06/18 14:00 08/06/18 14:00 Microbiology 08/03/18 15:15 Gram Stain - Final Bronchial Washing - Bilateral Lobes 08/01/18 08:05 Blood Culture - Final Blood 08/01/18 08:20 Blood Culture - Final Blood Laboratory Results 08/06/18 05:45 08/06/18 05:45 08/05/18 08/06/18 08/07/18 05:59 05:59 05:59 Intake Total 2117 2826 Output Total 1850 2060 Balance 267 766 PT 16.8 SEC (12.0-15.0) H 07/31/18 04:30 INR 1.34 (0.83-1.16) H 07/31/18 04:30 Physical Exam - Physical Exam General Appearance: alert, no apparent distress, obese EENT: other (trach) Neck: other (large superficial trach incision but so far without evidence of infection. 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
[2018-08-06] MEDS: MELATONIN 3 MG TAB PO SCH (19:22)
[2018-08-06] MEDS: TPN 1 EA BAG IV SCH (19:43)
[2018-08-06] MEDS: PATCH REMOVAL 1 EA PATCH TD SCH (22:36)
[2018-08-07] MEDS: INSULIN REGULAR HUMAN 100 UNIT/ML UNIT SC SCH ×6 (00:48→22:27)
[2018-08-07] MEDS: ALTEPLASE 2 MG VIAL IVP PRN ×3 (04:32→17:11)
[2018-08-07 07:48] LABS: PLATELET COUNT 504 10^3/uL (150-400)
[2018-08-07 08:11] LABS: INR 1.36 (0.83-1.16); PROTIME(PATIENT) 16.9 SEC (12.0-15.0)
[2018-08-07] MEDS: PANTOPRAZOLE SODIUM 40 MG VIAL IVP SCH (08:28)
[2018-08-07] MEDS: MICAFUNGIN NA 100 MG in NS 100 ML IV SCH (08:29)
[2018-08-07] MEDS: LIDOCAINE 4%/MENTHOL 1% PATCH TD SCH (08:34)
[2018-08-07] MEDS: GEMFIBROZIL 600 MG TAB PO SCH ×2 (08:59→17:16)
--- NOTE | 2018-08-07 09:14 | PDINTPN ---
Automatic Serging Machine Operator Progress Note Assessment/Plan: Assessment/Plan: * Peritonitis- related to recurrent ventral hernia and bowel perforation. She has returned to the OR multiple times, each time finding discolored fluid including 08/04 where purulent fluid noted as well as omental necrosis. Remains with open abdomen and wound vac in place. Cultures from peritoneal fluid growing Serratia and Michell. Abx changed from Zosyn/Flucon to Flagyl/ Micafungin 08/03 per ID. Fever has been nearly constant throught hospital stay until last 24 hours -to OR today for washout * Acute respiratory failure with hypoxia- Extubated initially but returned to OR 07/24 and has remained on vent since, so vent day #14. Trach performed in OR on 08/02. CXR 08/01 however looked like ongoing pulmonary edema and cardiomegaly , so started lasix 20 tid; dc'd 08/03 with slight bump in creatinine. Echo 07/24 showed EF 40% and diastolic dysfunction but no PHTN. Unremarkable BAL, so no VAP. Brief tachycardia and desat postop 08/04, so checked CTA- no PE. Tolerated TC trials 08/05 and 08/06. Plan trial of capping today. -Will still need eventual swallow study. * ESHA- Creatinine stable with adequate UOP. Slight increase to 1.6 after CTA. Restarted gentle IVF 08/05 with no change in sodium or creatiine. Pharmacy will adjust TPN and increase rate. Keep IVF until new TPN ready. * Hypernatremia- rising to 154 08/05 so started 1/2 NS at 75/hr. As above for plan * Transaminitis- assumed from shock liver, with substantial improvement. Continues to fall. No need for daily monitoring * Cardiomyopathy- EF 40% on 07/24 presumably from sepsis. Should normalize * Anemia- Hgb bottomed at 7.2 on 07/30 and was transfused a total of 3 units RBC since failed to rise appropriately (though no clear signs of bleeding and coag studies unremarkable). Hct down to 25 from 29 and net i/o negative 2800. No obvious blood loss. Coags normal 07/31 and normotensive. Increased without transfusion, likely related to diuresis * Persistent fever- defer to ID, see above * Nutrition-he is on TPN * VT prophylaxis * Stress ulcer prophylaxis * PT/OT 08/07/18 09:15 Subjective: Awake and alert. Comfortable on trach collar. Objective: Vital Signs Temp Pulse Resp BP Pulse Ox 38.2 C 110 H 30 H 116/62 100 08/07/18 08:00 08/07/18 08:00 08/07/18 08:00 08/07/18 08:00 08/07/18 08:00 Microbiology 08/03/18 15:15 Gram Stain - Final Bronchial Washing - Bilateral Lobes Bronchial Culture - Final Michell Albicans Presumptive 08/01/18 08:05 Blood Culture - Final Blood 08/01/18 08:20 Blood Culture - Final Blood Laboratory Results 08/07/18 07:28 08/07/18 06:00 08/06/18 08/07/18 08/08/18 05:59 05:59 05:59 Intake Total 2826 3104 Output Total 2060 2985 250 Balance 766 119 -250 PT 16.9 SEC (12.0-15.0) H 08/07/18 07:28 INR 1.36 (0.83-1.16) H 08/07/18 07:28 - Time Spent With Patient Time Spent With Patient: 35 min of time spent with patient, over 1/2 involved with coordination of care counseling. Case discussed with Nursing and Respiratory therapy Physical Exam - Physical Exam General Appearance: alert, no apparent distress EENT: PERRL/EOMI Neck: other (Trach site clean and dry) Respiratory: crackles (Few), No respiratory distress, No wheezing Cardiac/Chest: normal peripheral pulses, regular rate, rhythm Peripheral Pulses: 2+: carotid (R), carotid (L), femoral (R), femoral (L), dorsalis-pedis (R), dorsalis-pedis (L) Abdomen: soft, No non-tender Pelvic Exam: deferred Rectal: deferred Skin: normal color Extremities: non-tender Neuro/Psych: alert ICD10 Worksheet Patient Problems: Problems Problem Status Onset Depression Acute
--- NOTE | 2018-08-07 12:02 | SOAPPROG ---
SOAP Progress Note Assessment/Plan: Assessment: 53 y/o F s/p lap ventral hernia repair Taken back to OR for increased abdominal pain. Now s/p ex lap and small bowel repair. Localized peritonitis found. ID following. On iv abx. Acute respiratory failure: Now extubated. S/p trach placement yesterday. Persistent fever. Likely due to VAP. Dr. Chamorro recommends bronchoscopy. Peritonitis: Additional gross purulence found yesterday at time of ex lap, but no leak or source found. Plan to take pt back to OR tomorrow for additional washout and possible fascial closure. ESHA: Cr stable. Good uop S: Awake, following commands. Appears frustrated she cannot talk. O: Awake, alert BP improved and stable, off pressors Febrile at 103.5, slightly improved from this morning. Abdomen: soft, ttp, abthera vac to suction : uop much improved. Mathur in place 08/03/18 13:31 08/04/18 10:49 S/p bronch yesterday with no source found for persistent fever. Fever is slightly improved today. Plan to go to OR today again for additional washout, possible fascial closure. 08/07/18 11:[address] Haji today. Overall, pt is slowly improving. Fevers slowly coming down, although wound vac drainage appears bilious in nature. Plan for return to OR today for additional washout, possible closure. Objective: Vital Signs Temp Pulse Resp BP Pulse Ox 38.2 C 112 H 28 H 135/78 H 100 08/07/18 08:00 08/07/18 10:00 08/07/18 10:00 08/07/18 10:00 08/07/18 10:00 Microbiology 08/03/18 15:15 Gram Stain - Final Bronchial Washing - Bilateral Lobes Bronchial Culture - Final Michell Albicans Presumptive 08/01/18 08:05 Blood Culture - Final Blood 08/01/18 08:20 Blood Culture - Final Blood Laboratory Results 08/07/18 07:28 08/07/18 06:00 08/06/18 08/07/18 08/08/18 05:59 05:59 05:59 Intake Total 2826 3104 Output Total 2060 2985 250 Balance 766 119 -250 PT 16.9 SEC (12.0-15.0) H 08/07/18 07:28 INR 1.36 (0.83-1.16) H 08/07/18 07:28 ICD10 Worksheet Patient Problems: Problems Problem Status Onset Depression Acute
--- NOTE | 2018-08-07 12:25 | PCMIDPN ---
Assessment/Plan: Assessment: Peritonitis following a small bowel leak. Currently on empiric Levaquin, Flagyl and micafungin. Back to OR later today. Would appreciate repeat cultures. Temp curve generally improved. Creatinine improved to 1.1 Plan: 1. Continue Levaquin, metronidazole and micafungin at present dosing. 2. Follow fever curve. 3. Follow up on results from return to the operating room and cultures that result. 08/07/18 12:23 Subjective: Patient is awake and alert. She is on a trach mask. She acknowledges that her abdominal region is still uncomfortable. No other clear complaints. Appears to be somewhat tachypneic and tachycardic. Objective: Levaquin # 5 Metronidazole # 4 Micafungin # 5 Vital Signs Temp Pulse Resp BP Pulse Ox 38.2 C 112 H 28 H 135/78 H 100 08/07/18 08:00 08/07/18 10:00 08/07/18 10:00 08/07/18 10:00 08/07/18 10:00 Microbiology 08/03/18 15:15 Gram Stain - Final Bronchial Washing - Bilateral Lobes Bronchial Culture - Final Michell Albicans Presumptive 08/01/18 08:05 Blood Culture - Final Blood 08/01/18 08:20 Blood Culture - Final Blood Laboratory Results 08/07/18 07:28 08/07/18 06:00 08/06/18 08/07/18 08/08/18 05:59 05:59 05:59 Intake Total 2826 3104 Output Total 2060 2985 250 Balance 766 119 -250 - Physical Exam General Appearance: WD/WN, alert, apparent distress (Mild secondary to abdominal discomfort.), toxic (Mildly toxic) Respiratory: lungs clear, normal breath sounds, No respiratory distress Cardiac/Chest: regular rate, rhythm, tachycardia Abdomen: soft, distended, No non-tender Skin: normal color, warm/dry, No rash Neuro/Psych: alert ICD10 Worksheet Patient Problems: Problems Problem Status Onset Depression Acute
[2018-08-07] MEDS ORDERED: BUPIVACAINE 0.5% 30 ML SDV ONE (12:31)
[2018-08-07] MEDS ORDERED: BACITRACIN 50,000 UNITS/10 ML SYR IRR ONE (12:40)
--- NOTE | 2018-08-07 12:56 | PDANEPAE ---
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 No problems since then. - Pulmonary History Hx COPD: No Hx Asthma/Reactive Airway Disease: No Hx Recent Upper Respiratory Infection: No Hx Oxygen in Use at Home: No Hx Sleep Apnea: No Sleep Apnea Screening Result - Last Documented: Negative Pulmonary History Comment: states has inhaler but does not use/need. Pt currently has trach in place. - Neurologic History Hx Cerebrovascular Accident: No Hx Seizures: No Hx Dementia: No Neurologic History Comment: Diabetic neuropathy hands and feet. - Endocrine History Hx Diabetes: Yes Endocrine History Comment: Type 2-insulin and metformin. - Renal History Hx Renal Disorders: Yes Renal History Comment: Septicemia due to ureter stent. Emergently removed in 2011. No further problems. - Liver History Hx Hepatic Disorders: No - Neurological & Psychiatric Hx Hx Neurological and Psychiatric Disorders: Yes Neurological / Psychiatric History Comment: Bipolar. anxiety. PTSD. ADD-meds - Cancer History Hx Cancer: No - Congenital Disorder History Hx Congenital Disorders: No - GI History Hx Gastrointestinal Disorders: Yes Gastrointestinal History Comment: easily nauseated. 05/30-pancreatitis, treated and resolved. Chronic BM issues-meds. IBS. 4 abd. hernias. - Other Health History Other Health History: Bilateral mild hearing loss. Stress induced skin sores. Multiple missing teeth-meth abuse. - Chronic Pain History Chronic Pain: Yes (abd., colorectal) - Surgical History Prior Surgeries: abdominal seroma surgery w/wound vac, 04/2018. 1994-colon resection. uterine sling, R opherectomy, 2004. 2009-colon resection & nicked L ureter with stent placement. Stent removed 2011. 2007-L foot. 2011-oral surg. Cholecystectomy ANE Review of Systems Review of Systems: - Exercise capacity METS (RN): 1 METS (4 mets prior to admission) ANE Patient History - Allergies Allergies/Adverse Reactions: bupropion HCl [From Wellbutrin] Allergy (Verified 07/20/18 13:00) Hives haloperidol [From Haldol] Allergy (Verified 07/20/18 13:00) dystonic reaction haloperidol lactate [From Haldol] Allergy (Verified 07/20/18 13:00) dystonic reaction iopamidol [From Isovue-M] Allergy (Verified 06/27/13 08:27) Vomiting risperidone [From Risperdal] Allergy (Verified 07/20/18 13:00) Hives CT CONTRAST Allergy (Uncoded 06/27/13 08:28) Vomiting - Home Medications Home Medications: FLUoxetine [Prozac 20 MG (*)] 60 mg PO DAILY 01/20/18 [Last Taken 07/21/18 05:30 ] Gemfibrozil [Lopid 600 MG (*)] 600 mg PO BIDAC 01/20/18 [Last Taken 07/20/18] Insulin Glargine [Lantus 100 UNITS/ML (*)] 34 units SC HS 01/20/18 [Last Taken 07/20/18] Lisinopril [Zestril 5 mg (*)] 5 mg PO DAILY 01/20/18 [Last Taken 07/21/18 05:30] Albuterol [Proventil Inhaler HFA (*)] 1 puffs IH DAILY PRN 04/21/18 [Last Taken 3 Months Ago ~04/20/18] Dextroamphetamine/Amphetamine [Adderall Xr 10 mg Capsule] 10 mg PO DAILY [Last Taken 07/20/18] Herbals/Supplements -Info Only 1 each PO DAILY 04/21/18 [Last Taken Unknown] Omeprazole 20 mg PO DAILY 04/21/18 [Last Taken 07/21/18 05:30] metFORMIN HCL [Glucophage 1000 mg] 1,000 mg PO BID 04/21/18 [Last Taken 07/20/18 ] ARIPiprazole [Abilify 10 mg (*)] 5 mg PO DAILY #0 07/20/18 [Last Taken 07/21/18 05:30] Dicyclomine [Bentyl 20 MG (*)] 20 mg PO QID PRN #0 07/20/18 [Last Taken 05:30] Ondansetron Odt [Zofran Odt 4 mg (*)] 8 mg PO TID PRN #0 07/20/18 [Last Taken 05:30] - NPO status NPO Since - Liquids (Date): 07/24/18 NPO Since - Liquids (Time): 00:00 NPO Since - Solids (Date): 07/24/18 NPO Since - Solids (Time): 00:00 - Smoking Hx Smoking Status: Current every day smoker (prior to admission) - Alcohol Use Alcohol Use: Rarely - Family Anes Hx Family Hx Anesthesia Complications: none ANE Labs/Vital Signs - Labs Result Diagrams: 08/07/18 07:28 08/07/18 06:00 - Vital Signs Blood Pressure: 135/78 Heart Rate: 112 Respiratory Rate: 28 O2 Sat (%): 100 Height: 157.48 cm Weight: 74.1 kg ANE Physical Exam - ASA Status ASA Status: III ANE Anesthesia Plan Anesthesia Plan: general endotracheal anesthesia
[2018-08-07] MEDS ORDERED: MIDAZOLAM 2 MG/2 ML VIAL ONE (13:02)
[2018-08-07] MEDS ORDERED: fentaNYL 100 MCG/2 ML INJ ONE (13:11)
[2018-08-07] MEDS ORDERED: ROCURONIUM 50 MG/5 ML VIAL ONE (13:22)
[2018-08-07] MEDS ORDERED: ONDANSETRON 4 MG/2 ML VIAL ONE (13:22)
[2018-08-07] MEDS ORDERED: NEOSTIGMINE METHYLSULFATE 5 MG/5 ML SYR ONE (14:26)
[2018-08-07] MEDS ORDERED: GLYCOPYRROLATE 0.2 MG/1 ML VIAL ONE ×2 (14:26)
--- NOTE | 2018-08-07 14:28 | POSTOPPROG ---
Post Op Note Date of Operation: 08/07/18 Surgeon: Dawson Haji Information Officer: Chantal Peñaloza Anesthesiologist: Simon Hanson Anesthesia: GET(General Endotracheal) Pre-op Diagnosis: peritonitis, open abdomen Post-op Diagnosis: same Procedure: laparotomy, washout, exploration, abthera wound vac placement Findings: see below Inf/Abcess present in the surg proc area at time of surgery?: Yes Depth: Organ Space EBL: Minimal Complications: none Specimen(s): Findings: green staining of necrotic fat in pelvis. original bowel repair intact. no source or leak identified.
[2018-08-07] MEDS ORDERED: NALOXONE HCL 0.4 MG/ML INJ IVP PRN (14:59)
[2018-08-07] MEDS ORDERED: NS 500 ML IV PRN (14:59)
[2018-08-07] MEDS ORDERED: fentaNYL 100 MCG/2 ML INJ IVP PRN (14:59)
--- NOTE | 2018-08-07 15:00 | ASMTCMCOM ---
CM Note CM Note Notes: Patient is awake, alert and has a trach. She wants to speak/her friends. Her sister is here from [place] and Tuesday was concerned that patient was depressed. Met with Deann, Med Proxy, and Zoltan, patient's boyfriend, in a "Family Meeting". They questioned sister's thoughts that patient "Doesn't want to live." Deann and Zoltan both state that patient has a zest for life and were confused over sister's statement. Deann asked that the surgical team contact her about next medical steps, what to expect, future needs. We also talked about LTAC's in the future and gave them a list of area LTAC's tp visit. Date Signed: 08/07/2018 02:59 PM Electronically Signed By:Jovita Hall LCSW
--- NOTE | 2018-08-07 15:01 | POSTANESTH ---
Post Anesthetic Evaluation Cardiovascular Status: Similar to Pre-Op Cond Respiratory Status: Similar to Pre-op Cond. Level of Consciousness/Mental Status: Can Participate in Eval, Mildly Sleepy, Arousable Pain Control: Adequate, Prn Tx Ordered Nausea/Vomiting Control: Adequate, Prn Tx Ordered Complications Possibly Related to Anesthesia: None Noted
--- NOTE | 2018-08-07 18:22 | GOP ---
DATE OF OPERATION: 08/07/2018 SURGEON: Dawson Haji MD FINANCE ADVISOR: Chantal Peñaloza, ZAHEER ANESTHESIA: General endotracheal. ANESTHESIOLOGIST: Dr. Hanson. PREOPERATIVE DIAGNOSIS: Perforated viscus and open abdomen. POSTOPERATIVE DIAGNOSIS: Perforated viscus and open abdomen. PROCEDURE PERFORMED: Open abdominal washout with placement of ABThera open abdomen wound vacuum-assi sted closure. FINDINGS: Upon entering the cavity, I did identify inferiorly what appeared to be some bilious stain ed fluid, query necrotic fat. I interrogated all the bowel in the area. The abdomen is essentially frozen. I was unable to identify any leak source. The previous repair done superior to this appeare d to be intact. The abdomen was subsequently washed out and the ABThera device replaced. SPECIMENS: None. ESTIMATED BLOOD LOSS: 5 cc. DESCRIPTION OF PROCEDURE: The patient was transferred from the intensive care unit to the operative suite. After performing a [employer] time-out, her trachea was successfully cannulate d, and the patient was sedated. Her abdomen was then prepped and draped in the typical sterile fashi on. I commenced the procedure by moving the previous drape. Once entering the abdominal cavity, I identi fied bilious stained, thick fluid in the inferior abdomen. I evacuated this. Once evacuated, I atte mpted to interrogate all of the surrounding bowel to identify a probable leak source from either smal l bowel or colon and was unsuccessful. I saw no other bilious or stool leakage from any source. Thi s was both by probing and by filling the belly up with water and looking for air bubbles, both of whi ch were unremarkable. After spending a sufficient amount of time looking for this, I interrogated mahad th gutters. The previously placed KARO drain in the right gutter was clogged and nonfunctioning and it was removed. I then irrigated the abdomen with 3 L sterile saline, noting clear effluent in the suction canister. I then replaced the ABThera open abdomen drape and VAC and connected it to suction, which was well t olerated. The patient was then taken back with a tracheostomy to the intensive care unit in stable c ondition. DRAINS: None. COUNTS: All counts were reported as correct x2. /[id number]/MODL
[2018-08-07] MEDS: TPN 1 EA BAG IV SCH (21:11)
[2018-08-07] MEDS: PATCH REMOVAL 1 EA PATCH TD SCH (22:13)
[2018-08-07] MEDS: MELATONIN 3 MG TAB PO SCH (22:14)
[2018-08-08] MEDS: INSULIN REGULAR HUMAN 100 UNIT/ML UNIT SC SCH ×6 (01:01→21:23)
[2018-08-08 04:33] LABS: PLATELET COUNT 434 10^3/uL (150-400)
[2018-08-08] MEDS: GEMFIBROZIL 600 MG TAB PO SCH ×2 (08:07→18:58)
[2018-08-08] MEDS: MICAFUNGIN NA 100 MG in NS 100 ML IV SCH (08:52)
[2018-08-08] MEDS: LIDOCAINE 4%/MENTHOL 1% PATCH TD SCH (08:52)
[2018-08-08] MEDS: PANTOPRAZOLE SODIUM 40 MG VIAL IVP SCH (08:52)
--- NOTE | 2018-08-08 09:30 | PDINTPN ---
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 She has returned to the OR multiple times, each time finding discolored fluid including 08/04 where purulent fluid noted as well as omental necrosis. Remains with open abdomen and wound vac in place. Cultures from peritoneal fluid growing Serratia and Michell. Abx changed from Zosyn/Flucon to Flagyl/ Micafungin 08/03 per ID. Fever has been nearly constant throught hospital stay until last 24 hours -an OR for washout yesterday * Acute respiratory failure with hypoxia- stable on trach collar. Extubated easily last night after surgery -Will still need eventual swallow study. * ESHA- Creatinine stable with adequate UOP. Slight increase to 1.6 after CTA. * Hypernatremia- rising to 154 08/05 so started 1/2 NS at 75/hr. As above for plan * Transaminitis- assumed from shock liver, with substantial improvement. Continues to fall. No need for daily monitoring * Cardiomyopathy- EF 40% on 07/24 presumably from sepsis. Should normalize * Anemia- Hgb bottomed at 7.2 on 07/30 and was transfused a total of 3 units RBC since failed to rise appropriately (though no clear signs of bleeding and coag studies unremarkable). Hct down to 25 from 29 and net i/o negative 2800. No obvious blood loss. Coags normal 07/31 and normotensive. Increased without transfusion, likely related to diuresis * Persistent fever- defer to ID, see above * Nutrition-she is on TPN * [place] prophylaxis * Stress ulcer prophylaxis * PT/OT Subjective: Resting comfortably. No current complaints. Objective: Vital Signs Temp Pulse Resp BP Pulse Ox 37.7 C 91 37 H 111/63 100 08/08/18 08:00 08/08/18 08:00 08/08/18 08:00 08/08/18 08:00 08/08/18 08:00 Microbiology 07/31/18 11:25 Gram Stain - Final Peritoneal Fluid - Eswab Laboratory Results 08/08/18 04:15 08/08/18 04:15 08/07/18 08/08/18 08/09/18 05:59 05:59 05:59 Intake Total 3104 3292 Output Total 2985 2500 225 Balance 119 792 -225 PT 16.9 SEC (12.0-15.0) H 08/07/18 07:28 INR 1.36 (0.83-1.16) H 08/07/18 07:28 Laboratory Results 08/08/18 04:15 08/08/18 04:15 08/08/18 08/07/18 08/07/18 04:15 07:28 06:00 PT 16.9 SEC H SEC (12.0 - 15.0) INR 1.36 H (0.83 - 1.16) APTT 28.1 SEC SEC (23.0 - 38.0) Calcium 7.5 mg/dL L mg/dL 8.0 mg/dL L mg/dL (8.5 - 10.4) (8.5 - 10.4) Phosphorus 3.5 mg/dL mg/dL (2.5 - 4.5) Magnesium 2.4 mg/dL H mg/dL (1.6 - 2.3) Total Bilirubin 0.8 mg/dL mg/dL 1.1 mg/dL mg/dL (0.1 - 1.4) (0.1 - 1.4) AST 63 IU/L H IU/L 99 IU/L H IU/L (14 - 46) (14 - 46) ALT 141 IU/L H IU/L 187 IU/L H IU/L (9 - 52) (9 - 52) Alkaline Phosphatase 63 IU/L IU/L 82 IU/L IU/L (38 - 126) (38 - 126) Total Protein 4.8 g/dL L g/dL 5.3 g/dL L g/dL (6.3 - 8.2) (6.3 - 8.2) Albumin 2.2 g/dL L g/dL (3.5 - 5.0) Triglycerides 311 mg/dL H mg/dL (35 - 135) 08/03/18 15:15 Gram Stain - Final Bronchial Washing - Bilateral Lobes Bronchial Culture - Final Michell Albicans Presumptive 07/31/18 11:25 Gram Stain - Final Peritoneal Fluid - Eswab Anaerobic Culture - Preliminary Serratia Marcescens Michell Albicans 07/31/18 11:25 Fungal Culture - Preliminary Peritoneal Fluid - Eswab Michell Albicans - Time Spent With Patient Time Spent With Patient: 35 min of time spent with patient, over 1/2 involved with coordination of care or counseling. Case discussed with respiratory therapy and nursing Physical Exam - Physical Exam General Appearance: alert EENT: PERRL/EOMI Neck: non-tender Respiratory: rhonchi (Scattered), No respiratory distress, No wheezing Cardiac/Chest: normal peripheral pulses, regular rate, rhythm, systolic murmur Abdomen: normal bowel sounds, non-tender, soft Pelvic Exam: deferred Rectal: deferred Skin: warm/dry Extremities: non-tender Neuro/Psych: alert ICD10 Worksheet Patient Problems: Problems Problem Status Onset Depression Acute
--- NOTE | 2018-08-08 10:10 | PCMIDPN ---
Assessment/Plan: 1. Sepsis secondary to small bowel perforation status post repair July 24 with multiple subsequent washouts, including last night: She seems to be improving, with decreased fever curve. To have repeat washout tomorrow. Continue same antibiotics, but change levofloxacin to daily given improvement in renal function. 2. Left upper extremity hematoma: This is also improving over time. Subjective: Status post repeat washout last night. Intra-abdominal KARO drain was found to be clogged, and was removed. Wound VAC placed. To have another washout tomorrow. Nurse reports no significant overnight events. Left upper extremity hematoma is markedly better by report. Objective: Levofloxacin 750 mg Q 48 day 6 (antibiotics day 13) Metronidazole 500 mg IV q.8 hours day 5 Micafungin 100 mg IV daily day 6 (anti fungal day 14) T-max 38.2 degrees Vital Signs Temp Pulse Resp BP Pulse Ox 37.7 C 91 37 H 111/63 100 08/08/18 08:00 08/08/18 08:00 08/08/18 08:00 08/08/18 08:00 08/08/18 08:00 Microbiology 07/31/18 11:25 Gram Stain - Final Peritoneal Fluid - Eswab Laboratory Results 08/08/18 04:15 08/08/18 04:15 08/07/18 08/08/18 08/09/18 05:59 05:59 05:59 Intake Total 3104 3292 Output Total 2985 2500 225 Balance 119 792 -225 No new microbiology. No intraoperative specimens were sent for culture. Blood cultures August 05 no growth - Physical Exam General Appearance: obese, other (Tracheostomy looks fine. Mucous membranes are moist with no obvious thrush.) EENT: No scleral icterus Respiratory: coarse breath sounds, other Cardiac/Chest: tachycardia Extremities: other (PICC line right upper extremity looks okay with no swelling or tenderness or erythema. Left upper extremity with large hematoma with demarcated margins. The area is a dusky erythematous color, that is nonblanching. There is some pooling of blood inferiorly in the forearm . swelling has improved) Abdomen: other (Large wound VAC in place. No surrounding kat-incisional erythema. Mildly tender diffusely.) Skin: No rash ICD10 Worksheet Patient Problems: Problems Problem Status Onset Depression Acute
--- NOTE | 2018-08-08 12:43 | SOAPPROG ---
SOAP Progress Note Assessment/Plan: Assessment/Plan: 53 Y F s/p repair of recurrent ventral hernia, s/p repair of enterotomy. Peritonitis, sepsis, acute respiratory failure, acute renal injury. s/p ex-laparotomy c washout and abthera vac placement 07/31, 08/02, 08/04, . s/p tracheostomy. Fever curve improving. WBCs normal today. Gross purulence of abdomen resolving. Still with concerning green staining of necrotic omental fat but enterotomy repair intact and no leak found despite exhaustive efforts. Start trickle tube feeds today. Plan for OR tomorrow with Dr. Rodriguez for exploration and washout. Consent in chart. Seen with Dr. Haji this am. S: working with PT--sitting up bedside with two therapists. requiring much support, but awake, alert, and cooperative. O: alert no jaundice no wob, trach site clean abd with abthera vac to suction 08/08/18 12:43 Objective: Vital Signs Temp Pulse Resp BP Pulse Ox 37.1 C 104 H 40 H 128/68 H 100 08/08/18 12:00 08/08/18 12:00 08/08/18 12:00 08/08/18 12:00 08/08/18 12:00 Microbiology 07/31/18 11:25 Gram Stain - Final Peritoneal Fluid - Eswab Laboratory Results 08/08/18 04:15 08/08/18 04:15 08/07/18 08/08/18 08/09/18 05:59 05:59 05:59 Intake Total 3104 3292 Output Total 2985 2500 445 Balance 119 792 -445 PT 16.9 SEC (12.0-15.0) H 08/07/18 07:28 INR 1.36 (0.83-1.16) H 08/07/18 07:28 ICD10 Worksheet Patient Problems: Problems Problem Status Onset Depression Acute
[2018-08-08] MEDS: ENOXAPARIN 40 MG/0.4 ML SYR SC SCH (18:57)
[2018-08-08] MEDS: MELATONIN 3 MG TAB PO SCH (21:24)
[2018-08-08] MEDS: TPN 1 EA BAG IV SCH (21:24)
[2018-08-08] MEDS: PATCH REMOVAL 1 EA PATCH TD SCH (21:32)
[2018-08-09] MEDS: INSULIN REGULAR HUMAN 100 UNIT/ML UNIT SC SCH ×8 (00:45→23:23)
[2018-08-09 05:05] LABS: PLATELET COUNT 405 10^3/uL (150-400)
--- NOTE | 2018-08-09 08:15 | PCMIDPN ---
Assessment/Plan: #Sepsis secondary to SB perf and peritonitis s/p repair 07/24/18. s/p multiple washouts. Fever seems to be trending down, other measures of improvement are increased time on TC, normal wbc, improving thrombocytosis. Going back to OR today. --dc micafungin based on michell sensi --start fluconazole 400mg via NGT --continue daily levoflox and metronidazole. Tentatively plan antibiotics 7-10 day after fascial closure #ARF: improving, Cr 1.0 #Elevated LFTs : continued gradual improvement meds, Abx #14, Antifungal #15 levoflox 750mg IV daily #6 Metronidazole 500mg q8h #7 Micafungin 100mg IV daily #7 Microbiology 07/24 blood cultures (2) Neg 07/27 blood cx (1) NGTD 07/31 peritoneal swab: +PMNs no org; cx Serratia susceptible to Zosyn, carbapenems, fluoroquinolones; michell albicans (sensi pending) 08/01 blood cx (2) : NGTD 08/03 BAL gram stain neg for organisms; Cx NGTD 08/05 blood cx (2) : NGTD Subjective: no events overnight no BMs yet Objective: Vital Signs Temp Pulse Resp BP Pulse Ox 37.6 C 90 30 H 144/73 H 100 08/09/18 04:00 08/09/18 06:00 08/09/18 06:00 08/09/18 06:00 08/09/18 06:00 Microbiology 07/31/18 11:25 Gram Stain - Final Peritoneal Fluid - Eswab Anaerobic Culture - Final Serratia Marcescens Michell Albicans Laboratory Results 08/09/18 04:55 08/09/18 04:55 08/08/18 08/09/18 08/10/18 05:59 05:59 05:59 Intake Total 3292 3443 Output Total 2500 2255 Balance 792 1188 - Physical Exam General Appearance: alert, no apparent distress EENT: pale conjunctiva, NG Tube, No scleral icterus, No thrush Respiratory: coarse breath sounds, No respiratory distress Neck: supple, other (trach: on TC during my exam!) Cardiac/Chest: regular rate, rhythm Extremities: other (L arm bruising continuing to improe), No pedal edema Abdomen: soft, other (wound vac in place midline; quiet bowel sounds), No distended Pelvic Exam: gutierrez Skin: pallor, No diaphoresis, No rash Neuro/Psych: alert, other (follwing commands) - Line/s RUE PICC Lines: No drainage, No erythema - Time Spent With Patient Time Spent with Patient: greater than 35 minutes Time Spent with Patient: Greater than 35 minutes spent on this patients care, greater than 50% of time spent counseling, educating, and coordinating care regarding the above mentioned plan. 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
--- NOTE | 2018-08-09 08:44 | PDINTPN ---
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 She has returned to the OR multiple times, each time finding discolored fluid including 08/04 where purulent fluid noted as well as omental necrosis. Remains with open abdomen and wound vac in place. Cultures from peritoneal fluid growing Serratia and Michell. Abx changed from Zosyn/Flucon to Flagyl/ Micafungin 08/03 per ID. Fever has been nearly constant throught hospital stay until last 24 hours -back to OR today * Acute respiratory failure with hypoxia- stable on trach collar. Extubated easily last night after surgery -Will still need eventual swallow study. * ESHA- Creatinine stable with adequate UOP. Slight increase to 1.6 after CTA. * Hypernatremia- rising to 154 08/05 so started 1/2 NS at 75/hr. As above for plan * Transaminitis- assumed from shock liver, with substantial improvement. Continues to fall. No need for daily monitoring * Cardiomyopathy- EF 40% on 07/24 presumably from sepsis. Should normalize * Anemia- Hgb bottomed at 7.2 on 07/30 and was transfused a total of 3 units RBC since failed to rise appropriately (though no clear signs of bleeding and coag studies unremarkable). Hct down to 25 from 29 and net i/o negative 2800. No obvious blood loss. Coags normal 07/31 and normotensive. Increased without transfusion, likely related to diuresis * Persistent fever- defer to ID, see above * Nutrition-she is on TPN * [place] prophylaxis * Stress ulcer prophylaxis * PT/OT Subjective: Resting comfortably. No current complaints. Objective: Vital Signs Temp Pulse Resp BP Pulse Ox 37.6 C 90 30 H 144/73 H 100 08/09/18 04:00 08/09/18 06:00 08/09/18 06:00 08/09/18 06:00 08/09/18 06:00 Microbiology 07/31/18 11:25 Gram Stain - Final Peritoneal Fluid - Eswab Anaerobic Culture - Final Serratia Marcescens Michell Albicans Laboratory Results 08/09/18 04:55 08/09/18 04:55 08/08/18 08/09/18 08/10/18 05:59 05:59 05:59 Intake Total 3292 3443 Output Total 2500 2255 Balance 792 1188 PT 16.9 SEC (12.0-15.0) H 08/07/18 07:28 INR 1.36 (0.83-1.16) H 08/07/18 07:28 Laboratory Results 08/09/18 04:55 08/09/18 04:55 08/09/18 04:55 Calcium 7.6 mg/dL L mg/dL (8.5 - 10.4) Magnesium 1.9 mg/dL mg/dL (1.6 - 2.3) Total Bilirubin 0.7 mg/dL mg/dL (0.1 - 1.4) AST 54 IU/L H IU/L (14 - 46) ALT 118 IU/L H IU/L (9 - 52) Alkaline Phosphatase 71 IU/L IU/L (38 - 126) Total Protein 4.7 g/dL L g/dL (6.3 - 8.2) Albumin 1.9 g/dL L g/dL (3.5 - 5.0) 07/31/18 11:25 Gram Stain - Final Peritoneal Fluid - Eswab Anaerobic Culture - Final Serratia Marcescens Michell Albicans Chest x-ray reviewed by myself. Tracheostomy tube in place. PICC line in place. Some evidence of pulmonary edema. Less basilar infiltrate present. - Time Spent With Patient Time Spent With Patient: 35 min of time spent with patient, over 1/2 involved with coordination of care or counseling. Case discussed with nursing Physical Exam - Physical Exam General Appearance: alert, no apparent distress EENT: PERRL/EOMI Neck: other (Trach site clean and dry) Respiratory: crackles (Increased on the left), No respiratory distress, No wheezing Cardiac/Chest: normal peripheral pulses, regular rate, rhythm Abdomen: soft Pelvic Exam: deferred Rectal: deferred Skin: normal color, warm/dry Extremities: non-tender Neuro/Psych: alert ICD10 Worksheet Patient Problems: Problems Problem Status Onset Depression Acute
[2018-08-09] MEDS: GEMFIBROZIL 600 MG TAB PO SCH (09:16)
[2018-08-09] MEDS: FLUCONAZOLE 40 MG/ML UDSYR TUBE SCH ×2 (09:16→09:48)
[2018-08-09] MEDS: LIDOCAINE 4%/MENTHOL 1% PATCH TD SCH (09:33)
[2018-08-09] MEDS: PANTOPRAZOLE SODIUM 40 MG VIAL IVP SCH (09:36)
--- NOTE | 2018-08-09 14:36 | PDANEPAE ---
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 No problems since then. - Pulmonary History Hx COPD: No Hx Asthma/Reactive Airway Disease: No Hx Recent Upper Respiratory Infection: No Hx Oxygen in Use at Home: No Hx Sleep Apnea: No Sleep Apnea Screening Result - Last Documented: Negative Pulmonary History Comment: states has inhaler but does not use/need. Pt currently has trach in place. - Neurologic History Hx Cerebrovascular Accident: No Hx Seizures: No Hx Dementia: No Neurologic History Comment: Diabetic neuropathy hands and feet. - Endocrine History Hx Diabetes: Yes Endocrine History Comment: Type 2-insulin and metformin. - Renal History Hx Renal Disorders: Yes Renal History Comment: Septicemia due to ureter stent. Emergently removed in 2011. No further problems. - Liver History Hx Hepatic Disorders: No - Neurological & Psychiatric Hx Hx Neurological and Psychiatric Disorders: Yes Neurological / Psychiatric History Comment: Bipolar. anxiety. PTSD. ADD-meds - Cancer History Hx Cancer: No - Congenital Disorder History Hx Congenital Disorders: No - GI History Hx Gastrointestinal Disorders: Yes Gastrointestinal History Comment: easily nauseated. 05/30-pancreatitis, treated and resolved. Chronic BM issues-meds. IBS. 4 abd. hernias. - Other Health History Other Health History: Bilateral mild hearing loss. Stress induced skin sores. Multiple missing teeth-meth abuse. - Chronic Pain History Chronic Pain: Yes (abd., colorectal) - Surgical History Prior Surgeries: abdominal seroma surgery w/wound vac, 04/2018. 1994-colon resection. uterine sling, R opherectomy, 2004. 2009-colon resection & nicked L ureter with stent placement. Stent removed 2011. 2007-L foot. 2011-oral surg. Cholecystectomy ANE Review of Systems Review of Systems: - Exercise capacity METS (RN): 1 METS (4 mets prior to admission) ANE Patient History - Allergies Allergies/Adverse Reactions: bupropion HCl [From Wellbutrin] Allergy (Verified 07/20/18 13:00) Hives haloperidol [From Haldol] Allergy (Verified 07/20/18 13:00) dystonic reaction haloperidol lactate [From Haldol] Allergy (Verified 07/20/18 13:00) dystonic reaction iopamidol [From Isovue-M] Allergy (Verified 06/27/13 08:27) Vomiting risperidone [From Risperdal] Allergy (Verified 07/20/18 13:00) Hives CT CONTRAST Allergy (Uncoded 06/27/13 08:28) Vomiting - Home Medications Home medications: home medication list seen and reviewed Home Medications: FLUoxetine [Prozac 20 MG (*)] 60 mg PO DAILY 01/20/18 [Last Taken 07/21/18 05:30 ] Gemfibrozil [Lopid 600 MG (*)] 600 mg PO BIDAC 01/20/18 [Last Taken 07/20/18] Insulin Glargine [Lantus 100 UNITS/ML] 34 units SC HS 01/20/18 [Last Taken 07/20] Lisinopril [Zestril 5 mg (*)] 5 mg PO DAILY 01/20/18 [Last Taken 07/21/18 05:30] Albuterol [Proventil Inhaler HFA (*)] 1 puffs IH DAILY PRN 04/21/18 [Last Taken 3 Months Ago ~04/20/18] Dextroamphetamine/Amphetamine [Adderall Xr 10 mg Capsule] 10 mg PO DAILY [Last Taken 07/20/18] Herbals/Supplements -Info Only 1 each PO DAILY 04/21/18 [Last Taken Unknown] Omeprazole 20 mg PO DAILY 04/21/18 [Last Taken 07/21/18 05:30] metFORMIN HCL [Glucophage 1000 mg] 1,000 mg PO BID 04/21/18 [Last Taken 07/20/18 ] ARIPiprazole [Abilify 10 mg (*)] 5 mg PO DAILY #0 07/20/18 [Last Taken 07/21/18 05:30] Dicyclomine [Bentyl 20 MG (*)] 20 mg PO QID PRN #0 07/20/18 [Last Taken 05:30] Ondansetron Odt [Zofran Odt 4 mg (*)] 8 mg PO TID PRN #0 07/20/18 [Last Taken 05:30] - NPO status NPO Status: no food or drink >8 hours NPO Since - Liquids (Date): 08/09/18 NPO Since - Liquids (Time): 00:00 NPO Since - Solids (Date): 08/09/18 NPO Since - Solids (Time): 00:00 - Anes Hx Anes Hx: no prior problems - Smoking Hx Smoking Status: Current every day smoker (prior to admission) - Alcohol Use Alcohol Use: Rarely - Family Anes Hx Family Anes Hx: none Family Hx Anesthesia Complications: none ANE Labs/Vital Signs - Labs Result Diagrams: 08/09/18 04:55 08/09/18 04:55 - Vital Signs Blood Pressure: 148/69 Heart Rate: 97 Respiratory Rate: 25 O2 Sat (%): 100 Height: 157.48 cm Weight: 74.5 kg ANE Physical Exam - Airway Mouth exam: ETT in situ (tracheostomy) - Pulmonary Pulmonary: expiratory wheeze, inspiratory crackles - Cardiovascular Cardiovascular: regular rate and rhythym - ASA Status ASA Status: III ANE Anesthesia Plan Anesthesia Plan: general endotracheal anesthesia (using trach)
[2018-08-09] MEDS ORDERED: BUPIVACAINE 0.5% 30 ML SDV ONE (14:45)
[2018-08-09] MEDS ORDERED: MIDAZOLAM 2 MG/2 ML VIAL ONE (14:52)
[2018-08-09] MEDS ORDERED: fentaNYL 100 MCG/2 ML INJ ONE (14:52)
[2018-08-09] MEDS ORDERED: ROCURONIUM 50 MG/5 ML VIAL ONE (15:19)
--- NOTE | 2018-08-09 15:19 | ASMTCMCOM ---
CM Note CM Note Notes: Patient returns to the OR today for another washout. Patient was up and sitting in the chair this AM. CM will follow. Date Signed: 08/09/2018 03:18 PM Electronically Signed By:Cara Robles LCSW
[2018-08-09] MEDS ORDERED: PHENYLEPHRINE HCL 100 MCG/ML SYR ONE ×2 (15:40→16:02)
[2018-08-09] MEDS ORDERED: SUGAMMADEX SODIUM 200 MG/2 ML VIAL IVP ONE (16:14)
--- NOTE | 2018-08-09 16:24 | POSTOPPROG ---
Post Op Note Date of Operation: 08/09/18 Surgeon: Celia Rodriguez Porter Sample Case: shannen Anesthesiologist: ronak Anesthesia: GET(General Endotracheal) Pre-op Diagnosis: open abdomen Post-op Diagnosis: open abdomen with small leak Indication: 53 yo s/p ventral hernia with enterotomy Procedure: wash out, repair enterotomy Findings: small leak central bowel Inf/Abcess present in the surg proc area at time of surgery?: Yes Depth: Organ Space EBL: Minimal Drains: Wound Vac Specimen(s): none
--- NOTE | 2018-08-09 16:50 | POSTANESTH ---
Post Anesthetic Evaluation Cardiovascular Status: Normal, Stable Respiratory Status: Similar to Pre-op Cond., Tx Decrease in SpO2 Level of Consciousness/Mental Status: Mildly Sleepy, Arousable, Other, See Comment (not oriented) Pain Control: Adequate, Prn Tx Ordered Nausea/Vomiting Control: Adequate, Prn Tx Ordered Complications Possibly Related to Anesthesia: None Noted
[2018-08-09] MEDS: MELATONIN 3 MG TAB TUBE SCH (20:57)
[2018-08-09] MEDS: TPN 1 EA BAG IV SCH (21:00)
[2018-08-09] MEDS: PATCH REMOVAL 1 EA PATCH TD SCH (22:17)
[2018-08-10] MEDS: INSULIN REGULAR HUMAN 100 UNIT/ML UNIT SC SCH ×5 (04:55→21:00)
[2018-08-10 05:30] LABS: PLATELET COUNT 389 10^3/uL (150-400)
[2018-08-10] MEDS: FLUCONAZOLE 40 MG/ML UDSYR TUBE SCH (08:49)
[2018-08-10] MEDS: PANTOPRAZOLE SODIUM 40 MG VIAL IVP SCH (08:49)
[2018-08-10] MEDS: ENOXAPARIN 40 MG/0.4 ML SYR SC SCH (08:49)
[2018-08-10] MEDS: LIDOCAINE 4%/MENTHOL 1% PATCH TD SCH (09:01)
--- NOTE | 2018-08-10 09:24 | PDINTPN ---
Drum Sander Progress Note Assessment/Plan: Assessment/Plan: * Peritonitis- status post multiple washouts - * Acute respiratory failure with hypoxia- stable on trach collar. Extubated easily last night after surgery -Will still need eventual swallow study. * ESHA- mostly resolved. Creatinine normal but BUN still elevated * Hypernatremia- markedly improved. -continue 1/2 NS at 75/hr. * Transaminitis- resolved * Cardiomyopathy- EF 40% on 07/24 presumably from sepsis. Should normalize * Anemia- stable -follow closely * Persistent fever- defer to ID, see above * Nutrition-she is on TPN * VT prophylaxis * Stress ulcer prophylaxis * PT/OT Subjective: Resting comfortably on trach collar. Complains of hunger. Objective: Vital Signs Temp Pulse Resp BP Pulse Ox 37.7 C 101 H 35 H 134/74 H 100 08/10/18 04:00 08/10/18 08:00 08/10/18 08:00 08/10/18 08:00 08/10/18 08:00 Laboratory Results 08/10/18 04:50 08/10/18 04:50 08/09/18 08/10/18 08/11/18 05:59 05:59 05:59 Intake Total 3443 2488 Output Total 2255 2425 Balance 1188 63 PT 16.9 SEC (12.0-15.0) H 08/07/18 07:28 INR 1.36 (0.83-1.16) H 08/07/18 07:28 - Time Spent With Patient Time Spent With Patient: 35 min of time spent with patient, over 1/2 involved with coordination of care counseling. Case discussed with nursing Physical Exam - Physical Exam General Appearance: alert, no apparent distress EENT: PERRL/EOMI Neck: non-tender, other (Tracheostomy site clean and dry) Respiratory: rhonchi (Few), No respiratory distress, No wheezing Cardiac/Chest: normal peripheral pulses, regular rate, rhythm Peripheral Pulses: 2+: carotid (R), carotid (L), femoral (R), femoral (L), dorsalis-pedis (R), dorsalis-pedis (L) Abdomen: soft Pelvic Exam: deferred Rectal: deferred Skin: normal color, warm/dry Extremities: normal range of motion, non-tender, normal inspection, normal capillary refill Neuro/Psych: alert ICD10 Worksheet Patient Problems: Problems Problem Status Onset Depression Acute
--- NOTE | 2018-08-10 11:01 | SOAPPROG ---
SOAP Progress Note Assessment/Plan: Assessment: 53 y/o F s/p lap ventral hernia repair Taken back to OR for increased abdominal pain. Now s/p ex lap and small bowel repair. Localized peritonitis found. ID following. On iv abx. Acute respiratory failure: Now extubated. S/p trach placement yesterday. Persistent fever. Likely due to VAP. Dr. Chamorro recommends bronchoscopy. Peritonitis: Additional gross purulence found yesterday at time of ex lap, but no leak or source found. Plan to take pt back to OR tomorrow for additional washout and possible fascial closure. ESHA: Cr stable. Good uop S: Awake, following commands. Appears frustrated she cannot talk. O: Awake, alert BP improved and stable, off pressors Febrile at 103.5, slightly improved from this morning. Abdomen: soft, ttp, abthera vac to suction : uop much improved. Mathur in place 08/03/18 13:31 08/04/18 10:49 S/p bronch yesterday with no source found for persistent fever. Fever is slightly improved today. Plan to go to OR today again for additional washout, possible fascial closure. 08/07/18 11:[address] Haji today. Overall, pt is slowly improving. Fevers slowly coming down, although wound vac drainage appears bilious in nature. Plan for return to OR today for additional washout, possible closure. 08/10/18 10:59 Pt continues to improve. S/p washout yesterday, small leak found and oversewn. Afebrile. WBC normal. Nods her head and smiles when asked if she is having a good day. Plan for return to OR tomorrow for washout and possible closure. Objective: Vital Signs Temp Pulse Resp BP Pulse Ox 36.6 C 96 29 H 149/78 H 100 08/10/18 10:00 08/10/18 10:00 08/10/18 10:00 08/10/18 10:00 08/10/18 10:00 Laboratory Results 08/10/18 04:50 08/10/18 04:50 08/09/18 08/10/18 08/11/18 05:59 05:59 05:59 Intake Total 3443 2488 Output Total 2255 2425 Balance 1188 63 PT 16.9 SEC (12.0-15.0) H 08/07/18 07:28 INR 1.36 (0.83-1.16) H 08/07/18 07:28 ICD10 Worksheet Patient Problems: Problems Problem Status Onset Depression Acute
--- NOTE | 2018-08-10 11:08 | PCMIDPN ---
Assessment/Plan: 1. Sepsis secondary to small bowel perforation with multiple washouts status post 2nd enterotomy repair yesterday: Stable. Continue same antibiotics. Micafungin changed to high-dose fluconazole yesterday given susceptibilities of Michell. Follow liver function tests on fluconazole moving forward. No concerning drug interactions. 2. Left upper extremity hematoma: Much better today. Blood pooling dependently to volar aspect of her arm. Subjective: Went back to the OR yesterday. Small bowel leak noted, which was repaired. Wound VAC put back on. Patient is doing well today and is visiting with her friend. Objective: Levofloxacin 750 mg daily day 8 (antibiotics day 15) Metronidazole 500 mg IV q.8 hours day 9 Fluconazole 4 mg IV daily (anti fungal day 16) T-max 37.9 degrees Vital Signs Temp Pulse Resp BP Pulse Ox 36.6 C 96 29 H 149/78 H 100 08/10/18 10:00 08/10/18 10:00 08/10/18 10:00 08/10/18 10:00 08/10/18 10:00 Laboratory Results 08/10/18 04:50 08/10/18 04:50 08/09/18 08/10/18 08/11/18 05:59 05:59 05:59 Intake Total 3443 2488 Output Total 2255 2425 Balance 1188 63 No new microbiology - Physical Exam General Appearance: no apparent distress, obese, other (NG tube) EENT: other (Trach site looks fine) Cardiac/Chest: regular rate, rhythm Extremities: other (Hematoma left forearm much better. Some dependent pooling of blood) Abdomen: other (Large wound VAC in place mid abdomen. No surrounding cellulitis.) Skin: No rash ICD10 Worksheet Patient Problems: Problems Problem Status Onset Depression Acute
[2018-08-10] MEDS: ALBUTEROL 60 PUFFS/8 GM MDI IH PRN (13:58)
[2018-08-10] MEDS: TPN 1 EA BAG IV SCH (20:30)
[2018-08-10] MEDS: PATCH REMOVAL 1 EA PATCH TD SCH (21:00)
[2018-08-10] MEDS: MELATONIN 3 MG TAB TUBE SCH (21:44)
[2018-08-11] MEDS: INSULIN REGULAR HUMAN 100 UNIT/ML UNIT SC SCH ×6 (00:53→17:44)
[2018-08-11 05:30] LABS: PLATELET COUNT 381 10^3/uL (150-400)
[2018-08-11] MEDS: LIDOCAINE 4%/MENTHOL 1% PATCH TD SCH (08:37)
[2018-08-11] MEDS: FLUCONAZOLE 40 MG/ML UDSYR TUBE SCH (08:37)
[2018-08-11] MEDS: PANTOPRAZOLE SODIUM 40 MG VIAL IVP SCH (08:37)
--- NOTE | 2018-08-11 09:21 | PDINTPN ---
Gis Geographer Progress Note Assessment/Plan: Assessment/Plan: * Peritonitis- status post multiple washouts - * Acute respiratory failure with hypoxia- stable on trach collar. Extubated easily last night after surgery -Will still need eventual swallow study. * ESHA- mostly resolved. Creatinine normal but BUN still elevated * Hypernatremia- markedly improved. -continue 1/2 NS at 75/hr. * Transaminitis- resolved * Cardiomyopathy- EF 40% on 07/24 presumably from sepsis. Should normalize * Anemia- stable -follow closely * Persistent fever- defer to ID, see above * Nutrition-she is on TPN * VT prophylaxis * Stress ulcer prophylaxis * PT/OT Subjective: Resting comfortably on trach collar. Overall no complaints. Objective: Vital Signs Temp Pulse Resp BP Pulse Ox 37.6 C 95 32 H 160/90 H 100 08/11/18 08:00 08/11/18 08:00 08/11/18 08:00 08/11/18 08:00 08/11/18 08:00 Microbiology 08/05/18 16:40 Blood Culture - Final Blood 08/05/18 14:15 Blood Culture - Final Blood Laboratory Results 08/11/18 05:15 08/11/18 05:15 08/10/18 08/11/18 08/12/18 05:59 05:59 05:59 Intake Total 2488 2250 Output Total 2425 2950 Balance 63 -700 PT 16.9 SEC (12.0-15.0) H 08/07/18 07:28 INR 1.36 (0.83-1.16) H 08/07/18 07:28 Laboratory Results 08/11/18 05:15 08/11/18 05:15 08/11/18 08/11/18 08/11/18 08:20 08:16 05:15 POC Glucose 182 mg/dL H mg/dL > 600 mg/dL H* mg/dL (70 - 100) (70 - 100) Calcium 7.6 mg/dL L mg/dL (8.5 - 10.4) Phosphorus 2.3 mg/dL L mg/dL (2.5 - 4.5) Magnesium 1.9 mg/dL mg/dL (1.6 - 2.3) Total Bilirubin 0.6 mg/dL mg/dL (0.1 - 1.4) AST 30 IU/L IU/L (14 - 46) ALT 82 IU/L H IU/L (9 - 52) Alkaline Phosphatase 76 IU/L IU/L (38 - 126) Total Protein 4.9 g/dL L g/dL (6.3 - 8.2) Albumin 2.0 g/dL L g/dL (3.5 - 5.0) 08/10/18 04:50 POC Glucose Calcium 7.4 mg/dL L mg/dL (8.5 - 10.4) Phosphorus Magnesium Total Bilirubin 0.7 mg/dL mg/dL (0.1 - 1.4) AST 40 IU/L IU/L (14 - 46) ALT 98 IU/L H IU/L (9 - 52) Alkaline Phosphatase 76 IU/L IU/L (38 - 126) Total Protein 4.9 g/dL L g/dL (6.3 - 8.2) Albumin 1.9 g/dL L g/dL (3.5 - 5.0) Chest x-ray reviewed by myself. Tracheostomy tube in good position. Cardiomegaly is again present. There is evidence of pulmonary edema. PICC line in good position - Time Spent With Patient Time Spent With Patient: 35 min of time spent with patient, over 1/2 involved with coordination of care or counseling. Case discussed with nursing Physical Exam - Physical Exam General Appearance: alert, no apparent distress EENT: PERRL/EOMI Neck: other (Tracheostomy tube site clean and dry) Respiratory: chest non-tender, lungs clear, rhonchi (Few) Cardiac/Chest: normal peripheral pulses, regular rate, rhythm Peripheral Pulses: 2+: carotid (R), carotid (L), femoral (R), femoral (L), dorsalis-pedis (R), dorsalis-pedis (L) Abdomen: soft, No normal bowel sounds (Diminished) Pelvic Exam: deferred Rectal: deferred Skin: normal color, warm/dry Extremities: normal range of motion, non-tender, normal inspection, normal capillary refill Neuro/Psych: alert, normal mood/affect ICD10 Worksheet Patient Problems: Problems Problem Status Onset Depression Acute
[2018-08-11] MEDS: ALBUTEROL 60 PUFFS/8 GM MDI IH PRN (09:57)
--- NOTE | 2018-08-11 10:14 | PCMIDPN ---
Assessment/Plan: 1. Sepsis secondary to small bowel perforation with multiple washouts status post 2nd enterotomy repair yesterday: Going back to the operating room today for possible closure of abdominal wound. Patient in good spirits. Continue same antibiotics, duration to be determined. Check EKG for baseline QTC in the setting of concomitant levofloxacin and fluconazole (thank you to pharmacy for this reminder!) Liver function tests improving. 2. Left upper extremity hematoma: Much better. Blood pooling dependently to underside of her arm. Subjective: In good spirits. Visiting with family. No complaints. Going back to the operating room today for closure of her abdominal wound. Objective: Levofloxacin 750 mg IV daily day 9 (antibiotics day 16) Metronidazole 500 mg IV q.8 hours day 10 Fluconazole 4 mg IV daily (anti fungal day 17) T-max 37.6 degrees Vital Signs Temp Pulse Resp BP Pulse Ox 36.9 C 98 25 H 170/95 H 100 08/11/18 10:00 08/11/18 10:00 08/11/18 10:00 08/11/18 10:00 08/11/18 10:00 Microbiology 08/05/18 16:40 Blood Culture - Final Blood 08/05/18 14:15 Blood Culture - Final Blood Laboratory Results 08/11/18 05:15 08/11/18 05:15 08/10/18 08/11/18 08/12/18 05:59 05:59 05:59 Intake Total 2488 2250 Output Total 2425 2950 Balance 63 -700 No new microbiology Microbiology 07/31/18 11:25 Peritoneal Fluid - Eswab Gram Stain - Final 07/31/18 11:25 Peritoneal Fluid - Eswab Anaerobic Culture - Preliminary Serratia Marcescens Michell Albicans Laboratory Tests 08/08/18 08/11/18 04:15 05:15 Creatinine 1.1 H AST 30 ALT 82 H - Physical Exam General Appearance: alert, no apparent distress EENT: NG Tube (Right nostril), other, No scleral icterus, No thrush Respiratory: coarse breath sounds Cardiac/Chest: regular rate, rhythm Abdomen: other (Wound VAC in place. No surrounding erythema. No significant tenderness.) Skin: No rash, No embolic lesions ICD10 Worksheet Patient Problems: Problems Problem Status Onset Depression Acute
[2018-08-11] MEDS: ENOXAPARIN 40 MG/0.4 ML SYR SC SCH (10:15)
--- NOTE | 2018-08-11 10:46 | SOAPPROG ---
SOAP Progress Note Assessment/Plan: Assessment: 53 y/o F s/p lap ventral hernia repair Taken back to OR for increased abdominal pain. Now s/p ex lap and small bowel repair. Localized peritonitis found. ID following. On iv abx. Acute respiratory failure: Now extubated. S/p trach placement yesterday. Persistent fever. Likely due to VAP. Dr. Chamorro recommends bronchoscopy. Peritonitis: Additional gross purulence found yesterday at time of ex lap, but no leak or source found. Plan to take pt back to OR tomorrow for additional washout and possible fascial closure. ESHA: Cr stable. Good uop S: Awake, following commands. Appears frustrated she cannot talk. O: Awake, alert BP improved and stable, off pressors Febrile at 103.5, slightly improved from this morning. Abdomen: soft, ttp, abthera vac to suction : uop much improved. Mathur in place 08/03/18 13:31 08/04/18 10:49 S/p bronch yesterday with no source found for persistent fever. Fever is slightly improved today. Plan to go to OR today again for additional washout, possible fascial closure. 08/07/18 11:[address] Haji today. Overall, pt is slowly improving. Fevers slowly coming down, although wound vac drainage appears bilious in nature. Plan for return to OR today for additional washout, possible closure. 08/10/18 10:59 Pt continues to improve. S/p washout yesterday, small leak found and oversewn. Afebrile. WBC normal. Nods her head and smiles when asked if she is having a good day. Plan for return to OR tomorrow for washout and possible closure. 08/11/18 10:45 Back to OR today for washout and poss. closure. Hct 21. Will give 2uprbc. Objective: Vital Signs Temp Pulse Resp BP Pulse Ox 36.9 C 98 25 H 170/95 H 100 08/11/18 10:00 08/11/18 10:00 08/11/18 10:00 08/11/18 10:00 08/11/18 10:00 Microbiology 08/05/18 16:40 Blood Culture - Final Blood 08/05/18 14:15 Blood Culture - Final Blood Laboratory Results 08/11/18 05:15 08/11/18 05:15 08/10/18 08/11/18 08/12/18 05:59 05:59 05:59 Intake Total 2489 2250 Output Total 2429 2950 Balance 63 -700 PT 16.9 SEC (12.0-15.0) H 08/07/18 07:28 INR 1.36 (0.83-1.16) H 08/07/18 07:28 ICD10 Worksheet Patient Problems: Problems Problem Status Onset Depression Acute
[2018-08-11] MEDS ORDERED: LORazepam 1 MG TAB PO PRN (10:53)
--- NOTE | 2018-08-11 13:07 | ASMTCMCOM ---
CM Note CM Note Notes: Spoke with patient and her boyfriend Zoltan. Zoltan and Deann, (patient's MDPOA) are looking into LTAC facilities. However, they are hoping for SNF rehab as they would like to keep the patient in [place] where they can support her. Zoltan and Deann will be the team to pick facilities for the patient. They have not chosen an LTAC yet as they are still reviewing. Encouraged them to choose soon so we can get the referrals sent.CM will follow. Date Signed: 08/11/2018 01:06 PM Electronically Signed By:Cara Robles LCSW
[2018-08-11] MEDS ORDERED: BUPIVACAINE 0.5% 30 ML SDV ONE (14:54)
[2018-08-11] MEDS ORDERED: MIDAZOLAM 2 MG/2 ML VIAL IVP ONE (15:04)
--- NOTE | 2018-08-11 15:04 | PDANEPAE ---
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 No problems since then. - Pulmonary History Hx COPD: No Hx Asthma/Reactive Airway Disease: No Hx Recent Upper Respiratory Infection: No Hx Oxygen in Use at Home: No Hx Sleep Apnea: No Sleep Apnea Screening Result - Last Documented: Negative Pulmonary History Comment: states has inhaler but does not use/need. Pt currently has trach in place. - Neurologic History Hx Cerebrovascular Accident: No Hx Seizures: No Hx Dementia: No Neurologic History Comment: Diabetic neuropathy hands and feet. - Endocrine History Hx Diabetes: Yes Endocrine History Comment: Type 2-insulin and metformin. - Renal History Hx Renal Disorders: Yes Renal History Comment: Septicemia due to ureter stent. Emergently removed in 2011. No further problems. - Liver History Hx Hepatic Disorders: No - Neurological & Psychiatric Hx Hx Neurological and Psychiatric Disorders: Yes Neurological / Psychiatric History Comment: Bipolar. anxiety. PTSD. ADD-meds - Cancer History Hx Cancer: No - Congenital Disorder History Hx Congenital Disorders: No - GI History Hx Gastrointestinal Disorders: Yes Gastrointestinal History Comment: easily nauseated. 05/30-pancreatitis, treated and resolved. Chronic BM issues-meds. IBS. 4 abd. hernias. - Other Health History Other Health History: Bilateral mild hearing loss. Stress induced skin sores. Multiple missing teeth-meth abuse. - Chronic Pain History Chronic Pain: Yes (abd., colorectal) - Surgical History Prior Surgeries: abdominal seroma surgery w/wound vac, 04/2018. 1994-colon resection. uterine sling, R opherectomy, 2004. 2009-colon resection & nicked L ureter with stent placement. Stent removed 2011. 2007-L foot. 2011-oral surg. Cholecystectomy ANE Review of Systems Review of Systems: - Exercise capacity METS (RN): 1 METS (4 mets prior to admission) ANE Patient History - Allergies Allergies/Adverse Reactions: bupropion HCl [From Wellbutrin] Allergy (Verified 07/20/18 13:00) Hives haloperidol [From Haldol] Allergy (Verified 07/20/18 13:00) dystonic reaction haloperidol lactate [From Haldol] Allergy (Verified 07/20/18 13:00) dystonic reaction iopamidol [From Isovue-M] Allergy (Verified 06/27/13 08:27) Vomiting risperidone [From Risperdal] Allergy (Verified 07/20/18 13:00) Hives CT CONTRAST Allergy (Uncoded 06/27/13 08:28) Vomiting - Home Medications Home Medications: FLUoxetine [Prozac 20 MG (*)] 60 mg PO DAILY 01/20/18 [Last Taken 07/21/18 05:30 ] Gemfibrozil [Lopid 600 MG (*)] 600 mg PO BIDAC 01/20/18 [Last Taken 07/20/18] Insulin Glargine [Lantus 100 UNITS/ML] 34 units SC HS 01/20/18 [Last Taken 07/20] Lisinopril [Zestril 5 mg (*)] 5 mg PO DAILY 01/20/18 [Last Taken 07/21/18 05:30] Albuterol [Proventil Inhaler HFA (*)] 1 puffs IH DAILY PRN 04/21/18 [Last Taken 3 Months Ago ~04/20/18] Dextroamphetamine/Amphetamine [Adderall Xr 10 mg Capsule] 10 mg PO DAILY [Last Taken 07/20/18] Herbals/Supplements -Info Only 1 each PO DAILY 04/21/18 [Last Taken Unknown] Omeprazole 20 mg PO DAILY 04/21/18 [Last Taken 07/21/18 05:30] metFORMIN HCL [Glucophage 1000 mg] 1,000 mg PO BID 04/21/18 [Last Taken 07/20/18 ] ARIPiprazole [Abilify 10 mg (*)] 5 mg PO DAILY #0 07/20/18 [Last Taken 07/21/18 05:30] Dicyclomine [Bentyl 20 MG (*)] 20 mg PO QID PRN #0 07/20/18 [Last Taken 05:30] Ondansetron Odt [Zofran Odt 4 mg (*)] 8 mg PO TID PRN #0 07/20/18 [Last Taken 05:30] - NPO status NPO Status: no food or drink >8 hours NPO Since - Liquids (Date): 08/11/18 NPO Since - Liquids (Time): 08:00 NPO Since - Solids (Date): 08/08/18 NPO Since - Solids (Time): 08:00 - Smoking Hx Smoking Status: Current every day smoker (prior to admission) - Alcohol Use Alcohol Use: Rarely - Family Anes Hx Family Hx Anesthesia Complications: none ANE Labs/Vital Signs - Labs Result Diagrams: 08/11/18 14:12 08/11/18 05:15 - Vital Signs Vital Signs: reviewed preoperatively; see RN documention for details Blood Pressure: 155/84 Heart Rate: 93 Respiratory Rate: 30 O2 Sat (%): 100 Height: 157.48 cm Weight: 76.3 kg ANE Physical Exam - Airway Neck exam: decreased ROM (Trach in place on t Piece) Mouth exam: dentures - Pulmonary Pulmonary: other - Cardiovascular Cardiovascular: regular rate and rhythym, no murmur, rub, or gallop (T piece 40% ) - ASA Status ASA Status: III ANE Anesthesia Plan Anesthesia Plan: general endotracheal anesthesia
[2018-08-11] MEDS ORDERED: PHENYLEPHRINE HCL 100 MCG/ML SYR ONE (15:47)
[2018-08-11] MEDS ORDERED: fentaNYL 100 MCG/2 ML INJ ONE ×2 (15:48→15:52)
[2018-08-11] MEDS ORDERED: HYDROmorphONE/DILAUDID 1 MG/ML INJ IVP PRN (16:17)
[2018-08-11] MEDS ORDERED: SUGAMMADEX SODIUM 200 MG/2 ML VIAL IVP ONE (16:34)
[2018-08-11] MEDS: fentaNYL 100 MCG/2 ML INJ IVP PRN ×2 (16:59→17:05)
[2018-08-11] MEDS: HYDROmorphONE/DILAUDID 2 MG/ML INJ IVP PRN ×2 (17:20→20:52)
--- NOTE | 2018-08-11 17:35 | POSTOPPROG ---
Post Op Note Date of Operation: 08/11/18 Surgeon: Raad Chamorro Anesthesiologist: VITALIY Anesthesia: GET(General Endotracheal) Pre-op Diagnosis: PERITONITIS Post-op Diagnosis: SAME Indication: WOUND CLOSURE Procedure: LAPAROTOMY WITH PERITONEAL LAVAGE, SUTURE A SMALL ENTEROTOMY, FASCIAL C Findings: CLEAN ABDOMEN, QUESTIONABLE 1 SMALL SMALL-BOWEL DRAINAGE AREA VERSES NECROT Inf/Abcess present in the surg proc area at time of surgery?: Yes Depth: Organ Space EBL: Minimal Complications: NONE Drains: David Naik, Wound Vac
[2018-08-11] MEDS: PATCH REMOVAL 1 EA PATCH TD SCH (20:23)
[2018-08-11] MEDS: MELATONIN 3 MG TAB TUBE SCH (20:23)
[2018-08-11] MEDS: TPN 1 EA BAG IV SCH (20:24)
[2018-08-12] MEDS: INSULIN REGULAR HUMAN 100 UNIT/ML UNIT SC SCH ×4 (00:14→18:21)
[2018-08-12] MEDS: HYDROmorphONE/DILAUDID 2 MG/ML INJ IVP PRN ×4 (04:05→21:20)
[2018-08-12 05:56] LABS: PLATELET COUNT 334 10^3/uL (150-400)
[2018-08-12] MEDS: PANTOPRAZOLE SODIUM 40 MG VIAL IVP SCH (08:10)
[2018-08-12] MEDS: FLUCONAZOLE 40 MG/ML UDSYR TUBE SCH (08:10)
[2018-08-12] MEDS: LIDOCAINE 4%/MENTHOL 1% PATCH TD SCH (08:10)
[2018-08-12] MEDS: ENOXAPARIN 40 MG/0.4 ML SYR SC SCH (08:11)
--- NOTE | 2018-08-12 08:38 | SOAPPROG ---
SOAP Progress Note Assessment/Plan: Assessment: 53yo F s/p Lap ventral hernia repair c bowle injury s/p open abdomen and multiple washouts, now closed - VSS, HDS. Has been afebrile - abdomen is soft, was closed in the OR yesterday. KARO placed and is SS. Abdomen is otherwise reassuring. VAC on fascia with minimal drainage. TFs trickling, will advance as tolerates - resp failure s/p trach. Trach collar overnight, Passy during the day. Doing well. lungs are coarse today but better than previous - Dispo: keep ICU today 2/2 pulm status, anticipate she will be ready for Tx in the next day or so Plan: 07/23/18 15:55 07/28/18 12:54 07/28/18 12:55 08/12/18 08:36 Subjective: is a little disoriented this AM but denies pain Objective: Vital Signs Temp Pulse Resp BP Pulse Ox 37.0 C 104 H 24 H 135/80 H 100 08/12/18 08:00 08/12/18 08:00 08/12/18 08:00 08/12/18 08:00 08/12/18 08:00 Microbiology 08/05/18 16:40 Blood Culture - Final Blood 08/05/18 14:15 Blood Culture - Final Blood Laboratory Results 08/12/18 05:35 08/12/18 05:35 08/11/18 08/12/18 08/13/18 05:59 05:59 05:59 Intake Total 2250 2537 Output Total 2950 2190 Balance -700 347 PT 16.9 SEC (12.0-15.0) H 08/07/18 07:28 INR 1.36 (0.83-1.16) H 08/07/18 07:28 ICD10 Worksheet Patient Problems: Problems Problem Status Onset Depression Acute
--- NOTE | 2018-08-12 09:16 | PDINTPN ---
Guidance Counselor Progress Note Assessment/Plan: Assessment/Plan: * Peritonitis- status post multiple washouts -fascia was closed at last surgery * Acute respiratory failure with hypoxia- stable on trach collar. Extubated easily last night after surgery -Will still need eventual swallow study. * Status post tracheostomy -speech working with patient on Passy Fady valve * ESHA- mostly resolved. Creatinine normal but BUN still elevated * Hypernatremia- markedly improved. -continue 1/2 NS at 75/hr. * Transaminitis- resolved * Cardiomyopathy- EF 40% on 07/24 presumably from sepsis. Should normalize * Anemia- stable -follow closely * Persistent fever- defer to ID, see above * Nutrition-she is on TPN * VT prophylaxis * Stress ulcer prophylaxis * PT/OT Subjective: Drowsy but arousable. Objective: Vital Signs Temp Pulse Resp BP Pulse Ox 37.0 C 104 H 24 H 135/80 H 100 08/12/18 08:00 08/12/18 08:00 08/12/18 08:00 08/12/18 08:00 08/12/18 08:00 Microbiology 08/05/18 16:40 Blood Culture - Final Blood 08/05/18 14:15 Blood Culture - Final Blood Laboratory Results 08/12/18 05:35 08/12/18 05:35 08/11/18 08/12/18 08/13/18 05:59 05:59 05:59 Intake Total 2250 2537 Output Total 2950 2190 Balance -700 347 PT 16.9 SEC (12.0-15.0) H 08/07/18 07:28 INR 1.36 (0.83-1.16) H 08/07/18 07:28 - Time Spent With Patient Time Spent With Patient: 35 min of time spent with patient, over 1/2 involved with coordination of care counseling. Case discussed with nursing Physical Exam - Physical Exam General Appearance: alert, no apparent distress EENT: PERRL/EOMI Neck: other (Tracheostomy tube present. Site clean and dry.) Respiratory: chest non-tender, lungs clear, normal breath sounds Cardiac/Chest: normal peripheral pulses, regular rate, rhythm Abdomen: soft, No normal bowel sounds, No non-tender Pelvic Exam: deferred Rectal: deferred Skin: normal color, warm/dry Extremities: normal range of motion, non-tender, normal inspection, normal capillary refill Neuro/Psych: alert ICD10 Worksheet Patient Problems: Problems Problem Status Onset Depression Acute
--- NOTE | 2018-08-12 10:03 | CPEKG ---
Test Reason : OPEN Blood Pressure : / mmHG Vent. Rate : 097 BPM Atrial Rate : 097 BPM P-R Int : 130 ms QRS Dur : 074 ms QT Int : 385 ms P-R-T Axes : 028 056 012 degrees QTc Int : 489 ms Sinus rhythm Nonspecific T abnormalities, anterior leads Borderline prolonged QT interval Confirmed by Chris Verma ([id number]) on 08/12/2018 10:03:15 AM Referred By: Confirmed By:Chris Verma
--- NOTE | 2018-08-12 11:50 | PCMIDPN ---
Assessment/Plan: Assessment: Peritonitis following a small bowel leak. Currently on empiric Levaquin, Flagyl and fluconazole. Extubated-now with tracheostomy. Clinically she is looking much better. Plan: 1. Continue Levaquin, metronidazole and fluconazole at present dosing. 2. Follow fever curve. 3. Follow up on results from return to the operating room and cultures that result. Subjective: Patient is awake and alert and talkative. She is in good spirits. States that her abdomen is feeling pretty good. No fevers in over 48 hr. Objective: Levaquin # 10 Metronidazole # 11 Fluconazole # antifungal day 18 Vital Signs Temp Pulse Resp BP Pulse Ox 37.0 C 96 23 H 118/63 100 08/12/18 08:00 08/12/18 10:00 08/12/18 10:00 08/12/18 10:00 08/12/18 10:00 Microbiology 08/05/18 16:40 Blood Culture - Final Blood 08/05/18 14:15 Blood Culture - Final Blood Laboratory Results 08/12/18 05:35 08/12/18 05:35 08/11/18 08/12/18 08/13/18 05:59 05:59 05:59 Intake Total 2250 2537 Output Total 2950 2190 Balance -700 347 - Physical Exam General Appearance: WD/WN, alert, no apparent distress, non-toxic EENT: other (Trach in place) Respiratory: lungs clear, normal breath sounds, No respiratory distress, No wheezing Cardiac/Chest: regular rate, rhythm, No tachycardia Skin: normal color, warm/dry, No rash Neuro/Psych: alert, normal mood/affect, oriented x 3 ICD10 Worksheet Patient Problems: Problems Problem Status Onset Depression Acute
[2018-08-12] MEDS: ALBUTEROL 60 PUFFS/8 GM MDI IH PRN (12:46)
--- NOTE | 2018-08-12 16:49 | POSTANESTH ---
Post Anesthetic Evaluation Cardiovascular Status: Similar to Pre-Op Cond Respiratory Status: Similar to Pre-op Cond., Other, See Comment Level of Consciousness/Mental Status: Other, See Comment Pain Control: Adequate, Prn Tx Ordered Nausea/Vomiting Control: Adequate, Prn Tx Ordered Complications Possibly Related to Anesthesia: None Noted (Patient on T piece. Back to baseeline mential status. Some confussion)
[2018-08-12] MEDS: MELATONIN 3 MG TAB TUBE SCH (21:20)
[2018-08-12] MEDS: PATCH REMOVAL 1 EA PATCH TD SCH (21:20)
[2018-08-12] MEDS: TPN 1 EA BAG IV SCH (21:20)
[2018-08-12] MEDS: LORazepam 1 MG TAB TUBE PRN (21:21)
[2018-08-13] MEDS: INSULIN REGULAR HUMAN 100 UNIT/ML UNIT SC SCH ×4 (02:10→17:43)
[2018-08-13] MEDS: HYDROmorphONE/DILAUDID 2 MG/ML INJ IVP PRN ×2 (04:34→06:22)
[2018-08-13] MEDS: ALTEPLASE 2 MG VIAL IVP PRN ×2 (05:15→12:34)
[2018-08-13] MEDS: ENOXAPARIN 40 MG/0.4 ML SYR SC SCH (08:02)
[2018-08-13] MEDS: PANTOPRAZOLE SODIUM 40 MG VIAL IVP SCH (08:02)
[2018-08-13] MEDS: LIDOCAINE 4%/MENTHOL 1% PATCH TD SCH (08:02)
[2018-08-13] MEDS ORDERED: morphINE 10 MG/0.5 ML UDSYR PO PRN (08:31)
[2018-08-13] MEDS: FLUCONAZOLE 40 MG/ML UDSYR TUBE SCH (09:04)
[2018-08-13] MEDS ORDERED: POLYETHYLENE GLYCOL 3350 17 GM PKT PO PRN (10:21)
[2018-08-13] MEDS ORDERED: MAGNESIUM HYDROXIDE 30 ML UDCUP PO PRN (10:21)
[2018-08-13] MEDS ORDERED: BISACODYL 10 MG SUPP PR PRN (10:21)
[2018-08-13] MEDS ORDERED: LACTULOSE 20 GM/30 ML UDCUP PO PRN (10:21)
--- NOTE | 2018-08-13 10:57 | SOAPPROG ---
SOAP Progress Note Assessment/Plan: Assessment: 53yo F s/p Lap ventral hernia repair c bowle injury s/p open abdomen and multiple washouts, now closed - VSS, HDS. Tmax 38.3 overnight, intermittently tachycardic - abdomen is soft, VAC c appropriate output. KARO is SS and non-bilious. Will advance trickle feeds. Restart bowel regimen. Also adding PO narcotics to wean IV narcs - resp failure s/p trach. Had some distress this AM, likely 2/2 plugging, R lung sounds c/w this. - Dispo: stay in ICU. Advance tube feeds, PO pain meds. Making progress Plan: 07/23/18 15:55 07/28/18 12:54 07/28/18 12:55 08/12/18 08:36 08/13/18 11:26 Subjective: more alert, denies pain Objective: Vital Signs Temp Pulse Resp BP Pulse Ox 37.4 C 101 H 21 H 117/68 98 08/13/18 08:00 08/13/18 08:00 08/13/18 08:00 08/13/18 08:00 08/13/18 08:00 Laboratory Results 08/12/18 05:35 08/13/18 06:00 08/12/18 08/13/18 08/14/18 05:59 05:59 05:59 Intake Total 2537 2388 Output Total 2190 1155 Balance 347 1233 PT 16.9 SEC (12.0-15.0) H 08/07/18 07:28 INR 1.36 (0.83-1.16) H 08/07/18 07:28 ICD10 Worksheet Patient Problems: Problems Problem Status Onset Depression Acute
--- NOTE | 2018-08-13 11:12 | PCMIDPN ---
Assessment/Plan: Assessment: Peritonitis following a small bowel leak. Currently on empiric Levaquin, Flagyl and fluconazole. Extubated-now with tracheostomy. Clinically she is looking much better. Continues to have small fevers. Her QT interval is prolonged to 487 milliseconds. Will change fluconazole to micafungin given this risk. Plan: 1. Continue Levaquin and metronidazole. 2. Follow fever curve. 3. Follow up on results from return to the operating room and cultures that result. 4. Discontinue fluconazole start micafungin IV given QT prolongation. 08/13/18 11:09 Subjective: Patient sitting up in a chair. She is having her hair brushed and graded. She has no complaints currently. She has had low-grade fevers periodically. Objective: Levaquin # 11 Flagyl # 12 Fluconazole (antifungal day # 19) Vital Signs Temp Pulse Resp BP Pulse Ox 37.4 C 108 H 21 H 119/72 99 08/13/18 08:00 08/13/18 10:00 08/13/18 10:00 08/13/18 10:00 08/13/18 10:00 Laboratory Results 08/12/18 05:35 08/13/18 06:00 08/12/18 08/13/18 08/14/18 05:59 05:59 05:59 Intake Total 2537 2388 Output Total 2190 1155 Balance 347 1233 - Physical Exam General Appearance: WD/WN, alert, no apparent distress, non-toxic Respiratory: lungs clear, normal breath sounds, No respiratory distress Cardiac/Chest: regular rate, rhythm, No tachycardia Skin: normal color, warm/dry, No rash Neuro/Psych: alert, normal mood/affect, oriented x 3 ICD10 Worksheet Patient Problems: Problems Problem Status Onset Depression Acute
[2018-08-13] MEDS ORDERED: LACTULOSE 20 GM/30 ML UDCUP TUBE PRN (13:00)
[2018-08-13] MEDS: SENNOSIDES 17.6 MG/10 ML UDL - IF LIQUID ORDERED TUBE SCH (21:01)
[2018-08-13] MEDS: MELATONIN 3 MG TAB TUBE SCH (21:01)
[2018-08-13] MEDS: morphINE 10 MG/0.5 ML UDSYR TUBE PRN (21:02)
[2018-08-13] MEDS: TPN 1 EA BAG IV SCH (21:04)
[2018-08-14] MEDS: morphINE 10 MG/0.5 ML UDSYR TUBE PRN ×3 (00:07→19:15)
[2018-08-14] MEDS: PATCH REMOVAL 1 EA PATCH TD SCH ×2 (00:08→20:20)
[2018-08-14] MEDS: ALTEPLASE 2 MG VIAL IVP PRN (05:13)
[2018-08-14] MEDS: INSULIN REGULAR HUMAN 100 UNIT/ML UNIT SC SCH ×4 (05:14→18:03)
[2018-08-14] MEDS: ENOXAPARIN 40 MG/0.4 ML SYR SC SCH (08:34)
[2018-08-14] MEDS: PANTOPRAZOLE SODIUM 40 MG VIAL IVP SCH (08:34)
[2018-08-14] MEDS: SENNOSIDES 17.6 MG/10 ML UDL - IF LIQUID ORDERED TUBE SCH ×2 (08:34→19:16)
[2018-08-14] MEDS: LIDOCAINE 4%/MENTHOL 1% PATCH TD SCH (08:35)
[2018-08-14] MEDS: MICAFUNGIN NA 100 MG in NS 100 ML IV SCH (09:15)
--- NOTE | 2018-08-14 09:18 | PCMIDPN ---
Assessment/Plan: Assessment/Plan: * Peritonitis associated with small bowel perforation status post repeated washouts with most recent on 08/11/2018 with repair of small-bowel enterotomy: Previous culture show growth of Serratia and Michell albicans. Continue levofloxacin, metronidazole and micafungin (changed to micafungin from fluconazole given presence of prolonged QT interval). Plan 7-10 days of therapy post last washout. * Fever: No fever over last 24 hr. Continue to monitor. 08/14/18 09:15 08/14/18 09:18 Subjective: Patient sitting up in chair. Complains of abdominal pain and tracheal secretions. Objective: Vital Signs Temp Pulse Resp BP Pulse Ox 36.6 C 107 H 26 H 159/97 H 100 08/14/18 06:00 08/14/18 06:00 08/14/18 06:00 08/14/18 06:00 08/14/18 06:00 Laboratory Results 08/12/18 05:35 08/13/18 06:00 08/13/18 08/14/18 08/15/18 05:59 05:59 05:59 Intake Total 2388 2669 Output Total 1155 2225 Balance 1233 444 Levofloxacin # 12 Metronidazole # 13 Micafungin # 2 (anti fungal # 20) - Physical Exam General Appearance: alert, no apparent distress EENT: NG Tube, No scleral icterus, No thrush Respiratory: coarse breath sounds Cardiac/Chest: tachycardia Extremities: No pedal edema Abdomen: non-tender, other (Wound VAC in place without surrounding erythema), No distended - Line/s RUE PICC Lines: No drainage, No erythema ICD10 Worksheet Patient Problems: Problems Problem Status Onset Depression Acute
--- NOTE | 2018-08-14 09:29 | SOAPPROG ---
SOAP Progress Note Assessment/Plan: Assessment: 53 y/o F s/p lap ventral hernia repair and subsequent repeated abdominal washouts for peritonitis. Most recent washout was on 08/11 and abdomen was rather clean. Abdomen closed at that time. Now pt has superficial wound vac. S: Nods yes when asked if she is having abdominal pain. O: Alert Afebrile RRR Abdomen soft, ttp, wound vac to suction with serosanguinous drainage, deep KARO drain with scant serous drainage Plan: Bedside vac change today. Objective: Vital Signs Temp Pulse Resp BP Pulse Ox 36.6 C 107 H 34 H 149/95 H 100 08/14/18 06:00 08/14/18 08:00 08/14/18 08:00 08/14/18 08:00 08/14/18 08:00 Laboratory Results 08/12/18 05:35 08/13/18 06:00 08/13/18 08/14/18 08/15/18 05:59 05:59 05:59 Intake Total 2388 2669 Output Total 1155 2225 Balance 1233 444 PT 16.9 SEC (12.0-15.0) H 08/07/18 07:28 INR 1.36 (0.83-1.16) H 08/07/18 07:28 ICD10 Worksheet Patient Problems: Problems Problem Status Onset Depression Acute
--- NOTE | 2018-08-14 13:32 | WOCRNPDOC ---
WOCRN Advanced Assessment Note - Skin Integrity Problem, Advanced Assess Medial Abdomen Surgical Wound/Incision Dressing Type: Black Vac Foam (x1 piece), Wound Vac Dressing Description: Clean/Dry, Intact Exudate Amount: Moderate Exudate Color: Reddish/Yellow Exudate Characteristic(s): Serosanguinous Integumentary Issue Intervention: Dressing Changed Jocelyn Wound Tissue: Swollen Jocelyn Wound Swelling: Moderate Wound Bed Color: [place], Red, Yellow Wound Bed Constitution: Granulation Tissue (35%), Red/[place] - Non Granular Tissue (40%), Subcutaneous Fat (25%) Site Measurement - Head-to-Toe Length X Width X Depth (cm): 20x4.2x3.5 Skin Integrity Problem Comment: Wound vac removed with adhesive remover. Jocelyn wound and wound bed cleaned with normal saline and patted dry. Skin prep applied to periwound, and mastisol applied around wound edge. Medium black simplace foam x2 pieces placed in wound bed, then drape applied. Wound vac set to -125mmHg with no leaks, alarms, or problems. Wound care will round again Tuesday. AMRIK Alonso and AMRIK Haji (wound care orientation) were in room for care.
--- NOTE | 2018-08-14 15:14 | PDINTPN ---
Fisheries Biologist Progress Note Assessment/Plan: Assessment ASSESSMENT AND PLAN 53 yo female s/p ventral hernia repair c/b bowel injury and infection now status post multiple washouts, now with closed fascia # Peritonitis Due to bowel injury. Status post multiple washouts. Continues on broad- spectrum antibiotics. - continue antibiotics per ID - monitor for signs and symptoms of recurrent infection # Acute hypoxemic respiratory failure Currently compensated and on trach collar. Becomes anxious with speaking valve trials - keep trach cuff down to help patient expectorates secretions - continue Passy [place] valve trials # ESHA Resolved. Avoid nephrotoxins and trend SCr. # septic cardiomyopathy Continues to improve. Repeat TTE after critical illness improves # moderate protein calorie malnutrition Continue TPN and advance tube feeds as per General surgery # Insomnia Failed melatonin -start low-dose Seroquel for delirium and sleep # Anemia Blood loss + illness - trend CBC, minimize phlebotomy # Deconditioning Continue PT/OT # Feeding - as above # Analgesia APAP, dilaudid # Sedation none # Thromboprophylaxis - SQ hep # Head of bed elevated # Ulcer prophylaxis - PPI # Glucose SSI # Skin improving # Delirium - delirium precautions, seroquel # Next on Kin - see facesheet Subjective: Patient was CAM positive overnight, not 2 L thus morning. Did not sleep most of the night. Per nursing report melatonin did not help. Patient doing well no issues this morning Objective: Vital Signs Temp Pulse Resp BP Pulse Ox 36.6 C 107 H 30 H 135/81 H 98 08/14/18 06:00 08/14/18 11:59 08/14/18 11:59 08/14/18 11:59 08/14/18 11:59 Laboratory Results 08/12/18 05:35 08/13/18 06:00 08/13/18 08/14/18 08/15/18 05:59 05:59 05:59 Intake Total 2388 2669 Output Total 1155 2225 Balance 1233 444 PT 16.9 SEC (12.0-15.0) H 08/07/18 07:28 INR 1.36 (0.83-1.16) H 08/07/18 07:28 Physical Exam - Physical Exam General Appearance: alert, no apparent distress EENT: PERRL/EOMI, pharynx normal, No anisocoria Neck: other (Trach in place, no secretions) Respiratory: lungs clear, No stridor, No wheezing Cardiac/Chest: regular rate, rhythm, No gallop Abdomen: soft, other (Abdominal is clean) Pelvic Exam: deferred Rectal: deferred Skin: normal color, warm/dry Lymphatic: no adenopathy Extremities: normal range of motion, non-tender, normal inspection, normal capillary refill Neuro/Psych: no motor/sensory deficits, alert, normal mood/affect, oriented x 3 ICD10 Worksheet Patient Problems: Problems Problem Status Onset Depression Acute
[2018-08-14] MEDS: QUEtiapine FUMARATE 50 MG TAB TUBE SCH (19:16)
--- NOTE | 2018-08-14 19:42 | GOP ---
DATE OF OPERATION: 08/04/2018 SURGEON: Raad Chamorro MD BUSHEL WORKER: Meche Gallardo NP. ANESTHESIOLOGIST: Dr. Kahn. PREOPERATIVE DIAGNOSIS: Peritonitis. POSTOPERATIVE DIAGNOSIS: Peritonitis. PROCEDURE PERFORMED: Laparotomy with peritoneal lavage and partial abdominal wall closure. FINDINGS: Patient was found to have an abscess collection in the right side of the abdomen and the s ubphrenic area. The remainder of the abdomen was clear and clean. There was some slight bile stainin g to the surface of the omentum, but no fistula opening or leak could be identified. The previous mahad wel repair appeared to be intact. There was some necrotic omentum which had been used to cover up th e previous bowel repair. ESTIMATED BLOOD LOSS: Negligible. DESCRIPTION OF PROCEDURE: The patient was taken to the operating room where she received satisfactor y general endotracheal anesthesia by Dr. Kahn. She was placed in the supine position where she was prepped and draped in usual sterile fashion with removal of previous ABThera. ABThera had been marino marsha. The abdomen was explored. The left side of the abdomen was clear and clean, it was irrigated f ree. On the right side, a purulent collection was encountered. This was completely drained and copi ously irrigated and freed up. The remainder of the abdomen was copiously irrigated. Small amount of bowel discoloration was seen, but no evidence of any enteric leakage. Some necrotic fatty tissue wa s debrided. The fascial edges were partially closed with interrupted #1 PDS [id number] sutures, leaving the central portion of the abdomen open. ABThera was placed subfascial and covered with a w ound VAC. She tolerated the procedure well. She was taken to recovery room in satisfactory conditio n. There were no complications. /[id number]/MODL
[2018-08-14] MEDS: TPN 1 EA BAG IV SCH (20:04)
[2018-08-15] MEDS: INSULIN REGULAR HUMAN 100 UNIT/ML UNIT SC SCH ×4 (00:49→18:17)
--- NOTE | 2018-08-15 05:07 | GOP ---
DATE OF OPERATION: 08/11/2018 SURGEON: Raad Chamorro MD BALLOON DIPPER: None. ANESTHESIOLOGIST: Pauline Chinchilla MD PREOPERATIVE DIAGNOSIS: Peritonitis. POSTOPERATIVE DIAGNOSIS: Peritonitis. PROCEDURE PERFORMED: 1. Laparoscopy with closure of small enterotomy. 2. Peritoneal lavage. 3. Abdominal closure. FINDINGS: The patient was found to have a small draining site in the midline underneath the ABThera. It did not appear to actually enter the bowel and may have been a small localized abscess underneat h the omentum. There were no major purulent collections in either gutter and no bile staining fluid. DESCRIPTION OF PROCEDURE: The patient was taken to the operating room where she received satisfactor y general endotracheal anesthesia by Dr. Chinchilla. She was placed in a supine position, prepped and dr aped in the usual sterile fashion. The previous ABThera drain was removed. The wound was copiously irrigated. Palpation of the abdomen revealed a small amount of drainage, which was suctioned clear, but could not be reproduced. The area of drainage was closed with a 3-0 Vicryl mattress suture, and no further drainage persisted. The wound was copiously irrigated. Hemostasis was assured. It was f elt that there was no further need for the ABThera. The abdominal midline fascia was then closed wit h multiple interrupted #1 PDS [id number] sutures so the abdomen could be closed. The subcutaneo us tissue was irrigated. The wound was infiltrated with 0.5% Marcaine, and a wound VAC was placed in the subcutaneous tissue. She tolerated the procedure well. She was taken to the recovery room in g ood condition. There were no complications. /[id number]/MODL
[2018-08-15] MEDS: MICAFUNGIN NA 100 MG in NS 100 ML IV SCH (09:41)
[2018-08-15] MEDS: SENNOSIDES 17.6 MG/10 ML UDL - IF LIQUID ORDERED TUBE SCH ×2 (09:41→21:40)
[2018-08-15] MEDS: PANTOPRAZOLE SODIUM 40 MG VIAL IVP SCH (09:41)
[2018-08-15] MEDS: ENOXAPARIN 40 MG/0.4 ML SYR SC SCH (09:41)
[2018-08-15] MEDS: LIDOCAINE 4%/MENTHOL 1% PATCH TD SCH (09:41)
[2018-08-15 10:16] LABS: PLATELET COUNT 282 10^3/uL (150-400)
--- NOTE | 2018-08-15 10:34 | SOAPPROG ---
SOAP Progress Note Assessment/Plan: Assessment/Plan: 53 Y F s/p repair of recurrent ventral hernia, s/p repair of enterotomy. Peritonitis, sepsis, acute respiratory failure, acute renal injury. s/p ex-laparotomy c washout and abthera vac placement 07/31, 08/02, 08/04, 08/07 , 08/09. Delayed fascial closure on 08/11. s/p tracheostomy. Making progress. Likely to SDU soon--will confirm with Dr. Chamorro. Last recorded fever on 08/13, 38.3. Afebrile since. Pain controlled. Vac changed yesterday. Vac and KARO drainage nonbilious. Per RN some ulceration of peritrach skin--using shapes trach dressing now (difficult for me to see under dressing while pt oob in chair). On flagyl, levaquin, micafungin. On TPN. Tube feeds at 25 cc/hr. Would be conservative regarding tube feeds, not bc of ileus, but more for protection of bowel. Will clarify with Dr. Chamorro. S: sitting oob comfortably in chair. awake, alert, and cooperative. O: alert no jaundice ctab anteriorly rrr abd softly distended c vac to suction, +BS 08/15/18 10:37 Objective: Vital Signs Temp Pulse Resp BP Pulse Ox 37.2 C 105 H 25 H 145/77 H 100 08/15/18 07:42 08/15/18 07:42 08/15/18 07:42 08/15/18 07:42 08/15/18 07:42 Laboratory Results 08/15/18 10:00 08/14/18 08/15/18 08/16/18 05:59 05:59 05:59 Intake Total 2669 2431 Output Total 2225 2085 Balance 444 346 PT 16.9 SEC (12.0-15.0) H 08/07/18 07:28 INR 1.36 (0.83-1.16) H 08/07/18 07:28 ICD10 Worksheet Patient Problems: Problems Problem Status Onset Depression Acute
[2018-08-15 11:15] LABS: PLATELET COUNT 277 10^3/uL (150-400)
--- NOTE | 2018-08-15 14:36 | PCMIDPN ---
Assessment/Plan: 1. Sepsis secondary to small bowel perforation with multiple washouts status post enterotomy repairs x2:: Continue levofloxacin, metronidazole, and Micafungin; will plan on 2 weeks of antibiotics after most recent washout; tentative stop date August 24. Of note, Seroquel was started last night. Will need to repeat EKG and keep an eye on her QTC in the setting of levofloxacin and Seroquel. This was ordered for today. Subjective: No significant overnight events. Doing well clinically. On "sips and chips". No bowel movement for several days. On stool softeners. Objective: Levofloxacin 750 mg IV daily day 13 Metronidazole 500 mg IV q.8 hours day 14 Micafungin 100 mg IV daily day 3 (anti fungal day 21) T-max 37.2 degrees QTC 0.489 Vital Signs Temp Pulse Resp BP Pulse Ox 36.5 C 114 H 29 H 146/95 H 99 08/15/18 12:00 08/15/18 12:00 08/15/18 12:00 08/15/18 12:00 08/15/18 12:00 Laboratory Results 08/15/18 10:30 08/15/18 10:30 08/14/18 08/15/18 08/16/18 05:59 05:59 05:59 Intake Total 2669 2431 Output Total 2225 2085 Balance 444 346 No new microbiology - Physical Exam General Appearance: no apparent distress, obese EENT: pharynx normal, No thrush Respiratory: coarse breath sounds Cardiac/Chest: tachycardia Abdomen: soft, other (Large wound VAC on abdomen, centrally. No surrounding cellulitis.) Skin: other (Ecchymosis underside of right arm) Neuro/Psych: oriented x 3 ICD10 Worksheet Patient Problems: Problems Problem Status Onset Depression Acute
[2018-08-15] MEDS: ACETAMINOPHEN 650 MG/20.3 ML UDCUP TUBE PRN (15:49)
--- NOTE | 2018-08-15 16:07 | ASMTCMCOM ---
CM Note CM Note Notes: Patient's fascia not closed, has had numerous wash outs, wound vac, trach collar-communicating, can have anxiety, has been sitting in her chair and stands with max assist/therapy. Will need an LTAC given new trach. MPOA was given a list of LTAC's to visit. Date Signed: 08/15/2018 04:06 PM Electronically Signed By:Jovita Hall LCSW
--- NOTE | 2018-08-15 16:29 | PDINTPN ---
Survey Researcher Progress Note Assessment/Plan: Assessment ASSESSMENT AND PLAN 53 yo female s/p ventral hernia repair c/b bowel injury and infection now status post multiple washouts, now with closed fascia # Peritonitis Due to bowel injury. Status post multiple washouts. Continues on broad- spectrum antibiotics. - continue antibiotics per ID - monitor for signs and symptoms of recurrent infection # Acute hypoxemic respiratory failure Currently compensated and on trach collar. Becomes anxious with speaking valve trials - keep trach cuff down to help patient expectorates secretions - continue Passy [place] valve trials versus trialing credentialer - continue skin care for tracheostomy breakdown # ESHA Resolved. Avoid nephrotoxins and trend SCr. # septic cardiomyopathy Continues to improve. Repeat TTE after critical illness improves # moderate protein calorie malnutrition Continue TPN and advance tube feeds as per General surgery # Insomnia Failed melatonin. Seroquel 50 mg p.o. At bedtime started 08/14/18 with improvement in insomnia and delirium - continue Seroquel 50 mg p.o. At bedtime for sleep and delirium # Anemia Blood loss + illness - trend CBC, minimize phlebotomy # Deconditioning Continue PT/OT # Feeding - as above # Analgesia APAP, dilaudid # Sedation none # Thromboprophylaxis - SQ hep # Head of bed elevated # Ulcer prophylaxis - PPI # Glucose SSI # Skin improving # Delirium - delirium precautions, seroquel # Next on Kin - see facesheet Subjective: Seroquel added yesterday for insomnia and mild delirium. The patient slept well overnight and is CAM negative today. Trach site still with some skin breakdown/nonunion around surgical site. Patient feels otherwise well today. Objective: Vital Signs Temp Pulse Resp BP Pulse Ox 36.6 C 115 H 32 H 150/80 H 100 08/15/18 16:00 08/15/18 16:00 08/15/18 16:00 08/15/18 16:00 08/15/18 16:00 Laboratory Results 08/15/18 10:30 08/15/18 10:30 08/14/18 08/15/18 08/16/18 05:59 05:59 05:59 Intake Total 2669 2431 Output Total 2225 2085 Balance 444 346 PT 16.9 SEC (12.0-15.0) H 08/07/18 07:28 INR 1.36 (0.83-1.16) H 08/07/18 07:28 I reviewed and interpreted patient's laboratory data Physical Exam - Physical Exam General Appearance: no apparent distress, obese EENT: PERRL/EOMI, pharynx normal, No anisocoria, No purulent nasal drainage Neck: non-tender, other (Surgical tracheostomy site clean and dry. Granulation tissue underneath trach collar moist and pink.) Respiratory: lungs clear, normal breath sounds, No respiratory distress Cardiac/Chest: regular rate, rhythm, No edema, No JVD Abdomen: non-tender, soft Pelvic Exam: deferred Rectal: deferred Skin: normal color, warm/dry Extremities: No pedal edema, No swelling Neuro/Psych: normal mood/affect, oriented x 3 ICD10 Worksheet Patient Problems: Problems Problem Status Onset Depression Acute
[2018-08-15] MEDS: morphINE 10 MG/0.5 ML UDSYR TUBE PRN ×2 (18:17→21:40)
[2018-08-15] MEDS: QUEtiapine FUMARATE 50 MG TAB TUBE SCH (21:40)
[2018-08-15] MEDS: TPN 1 EA BAG IV SCH (21:40)
[2018-08-15] MEDS: PATCH REMOVAL 1 EA PATCH TD SCH (22:18)
[2018-08-16] MEDS: INSULIN REGULAR HUMAN 100 UNIT/ML UNIT SC SCH ×4 (00:13→17:20)
[2018-08-16] MEDS: morphINE 10 MG/0.5 ML UDSYR TUBE PRN ×6 (02:25→22:06)
[2018-08-16] MEDS: ENOXAPARIN 40 MG/0.4 ML SYR SC SCH (08:45)
[2018-08-16] MEDS: LANSOPRAZOLE SUSP 30MG/10ML UDSYR (Adult) TUBE SCH (08:46)
[2018-08-16] MEDS: SENNOSIDES 17.6 MG/10 ML UDL - IF LIQUID ORDERED TUBE SCH ×2 (08:46→19:10)
[2018-08-16] MEDS: LIDOCAINE 4%/MENTHOL 1% PATCH TD SCH (08:47)
[2018-08-16] MEDS: MICAFUNGIN NA 100 MG in NS 100 ML IV SCH (08:47)
--- NOTE | 2018-08-16 09:41 | WOCRNPDOC ---
WOCRN Advanced Assessment Note - Skin Integrity Problem, Advanced Assess Medial Abdomen Surgical Wound/Incision Dressing Type: Black Vac Foam (x1), Wound Vac Exudate Amount: Minimal Exudate Characteristic(s): Serosanguinous Integumentary Issue Intervention: Dressing Changed Kat Wound Tissue: Erythema (minimal to 0.2 cm kat wound) Kat Wound Swelling: None Wound Bed Constitution: Granulation Tissue (100%) Skin Integrity Problem Comment: Vac removed with Chantal ROJAS. Flushed/ cleaned wound with ns and gauze. Skin prep and drape windowpaned kat wound. One piece of small black simplace to wound bed. Vac restarted at -125 mm Hg continuous suction without leaks. Left Lateral Coccyx Pressure Injury Dressing Type: Allevyn Life, Mepilex Border Dressing Description: Clean/Dry, Intact Exudate Amount: None Wound Bed Constitution: Healed Skin Integrity Problem Comment: There is an area of blanching dark red erythema that remains in the area measureing 1x0.5x0 However no open wounds remaining. There is also an area of blanching erythema to the right of the coccyx measuring 2x1x0. Wound care will sign off these wounds. Please reconsult prn. Anterior Neck Dressing Type: Polymem Dressing Description: Intact Exudate Amount: Scant Exudate Characteristic(s): Mucous, Stringy Integumentary Issue Intervention: Dressing Changed Kat Wound Swelling: None Wound Bed Constitution: Granulation Tissue, Smooth Tissue Site Measurement - Head-to-Toe Length X Width X Depth (cm): 1.5x3x0.2 Skin Integrity Problem Comment: It appears that wound is more surgical and not pressure. It seems that the wound was originally wide and over the last couple of weeks it has stretched downward. Wound care placed Silver Algidex trach dressing over the area. Change when saturated. Visualized with RT Lehman and Girish ROWLEY.
--- NOTE | 2018-08-16 10:30 | SOAPPROG ---
SOAP Progress Note Assessment/Plan: Assessment/Plan: 53 Y F s/p repair of recurrent ventral hernia, s/p repair of enterotomy. Peritonitis, sepsis, acute respiratory failure, acute renal injury. s/p ex-laparotomy c washout and abthera vac placement 07/31, 08/02, 08/04, 08/07 , 08/09. Delayed fascial closure on 08/11. s/p tracheostomy. Doing very well. Changed wound vac with wound care and RN today. Wound looks great--granulating and tristin very well. Tolerating tube feeds at goal. Possible swallow study with speech today. Wean/ dc TPN. KARO drain is serosanguinous, nonbilious. On flagyl, levaquin, micafungin. Possible change to smaller trach--did not tolerate capping well per RN. Cushioned shapes trach dressing. Dispo: Patient making great progress now, but pending. S: smiling, talking, making some jokes. O: alert no jaundice ctab anteriorly rrr abd softly distended, wound clean c granulation 08/16/18 10:24 Objective: Vital Signs Temp Pulse Resp BP Pulse Ox 36.8 C 108 H 27 H 112/74 100 08/16/18 08:00 08/16/18 08:00 08/16/18 08:00 08/16/18 08:00 08/16/18 08:00 Laboratory Results 08/15/18 10:30 08/16/18 06:20 08/15/18 08/16/18 08/17/18 05:59 05:59 05:59 Intake Total 2431 2911 Output Total 3631 2180 Balance 346 731 PT 16.9 SEC (12.0-15.0) H 08/07/18 07:28 INR 1.36 (0.83-1.16) H 08/07/18 07:28 ICD10 Worksheet Patient Problems: Problems Problem Status Onset Depression Acute
--- NOTE | 2018-08-16 12:14 | ASMTCMCOM ---
CM Note CM Note Notes: Per patient's progress, she may need SNF not LTAC. Her abdominal wound is healing well and will likely be closed in the next few days. She will have a swallow study soon, as well. Attempts will be made to cap her trach since these have been unsuccessful. Pending the above, SNF may be appropriate. Case Management will continue to follow. Date Signed: 08/16/2018 12:13 PM Electronically Signed By:Cathy Luque RN
--- NOTE | 2018-08-16 12:37 | PDINTPN ---
Roll Forger Progress Note Assessment/Plan: Assessment ASSESSMENT AND PLAN 53 yo female s/p ventral hernia repair c/b bowel injury and infection now status post multiple washouts, now with closed fascia and clinically improving. # intra-abdominal infection Improving. Status post multiple washouts. Continues on broad-spectrum antibiotics. - continue antibiotics per ID - monitor for signs and symptoms of recurrent infection # Acute hypoxemic respiratory failure Currently compensated and on trach collar. Tolerates prolonged Pass[place] valve but does not tolerate trach cap with cuff down. Downsizing trach may help - suggest downsizing trach after next surgery - keep trach cuff down to help patient expectorates secretions - continue Pass[place] valve trials versus trialing credit support counselor - continue skin care for tracheostomy breakdown # ESHA Resolved. Avoid nephrotoxins and trend SCr. # septic cardiomyopathy Continues to improve. Repeat TTE after critical illness improves # moderate protein calorie malnutrition Continue TPN and advance tube feeds as per General surgery # Insomnia Failed melatonin. Seroquel 50 mg p.o. At bedtime started 08/14/18 with improvement in insomnia and delirium - decreased Seroquel from 50-25 mg p.o. At bedtime # Anemia Blood loss + illness - trend CBC, minimize phlebotomy # Deconditioning Continue PT/OT # Feeding - as above # Analgesia APAP, dilaudid # Sedation none # Thromboprophylaxis - SQ hep # Head of bed elevated # Ulcer prophylaxis - PPI # Glucose SSI # Skin improving # Delirium - delirium precautions, seroquel # Next on Kin - see facesheet Subjective: Patient slept well overnight. Groggy this morning. No complaints. No headaches, no chest pain, no fevers or chills Objective: Vital Signs Temp Pulse Resp BP Pulse Ox 36.9 C 118 H 30 H 128/81 H 100 08/16/18 12:00 08/16/18 12:00 08/16/18 12:00 08/16/18 12:00 08/16/18 08:00 Laboratory Results 08/15/18 10:30 08/16/18 06:20 08/15/18 08/16/18 08/17/18 05:59 05:59 05:59 Intake Total 2431 2911 Output Total 2085 2180 Balance 346 731 PT 16.9 SEC (12.0-15.0) H 08/07/18 07:28 INR 1.36 (0.83-1.16) H 08/07/18 07:28 Physical Exam - Physical Exam EENT: PERRL/EOMI, pharynx normal, No anisocoria Neck: other (Trach in place, granulation tissue intact) Respiratory: chest non-tender, lungs clear, normal breath sounds Cardiac/Chest: normal peripheral pulses, regular rate, rhythm, No edema Abdomen: normal bowel sounds, non-tender, soft Pelvic Exam: deferred Rectal: deferred Skin: normal color, warm/dry Extremities: No pedal edema, No swelling Neuro/Psych: no motor/sensory deficits, oriented x 3 ICD10 Worksheet Patient Problems: Problems Problem Status Onset Depression Acute
[2018-08-16] MEDS: ALBUTEROL 60 PUFFS/8 GM MDI IH PRN (17:22)
--- NOTE | 2018-08-16 18:53 | PCMIDPN ---
Assessment/Plan: Assessment/Plan: * Peritonitis associated with small bowel perforation status post repeated washouts with most recent on 08/11/2018 with repair of small-bowel enterotomy: Patient with continued clinical improvement. Continue levofloxacin, metronidazole and micafungin. Will plan to complete 2 weeks of therapy post last washout with anticipated stop date of 08/24/2018. * Fever: Last fever 08/13/2018. Continue to monitor temperature over time. 08/16/18 18:50 08/16/18 18:51 Subjective: Patient sitting up in chair. Notes that recovery process is hard. Wound VAC changed earlier today-clinical staff rn notes that wound appearance may allow for wound closure over the next few days. Objective: Vital Signs Temp Pulse Resp BP Pulse Ox 37.7 C 105 H 26 H 111/68 100 08/16/18 16:00 08/16/18 16:00 08/16/18 16:00 08/16/18 16:00 08/16/18 16:00 Laboratory Results 08/15/18 10:30 08/16/18 06:20 08/15/18 08/16/18 08/17/18 05:59 05:59 05:59 Intake Total 2431 2911 1360 Output Total 2085 2180 1000 Balance 346 731 360 Levofloxacin # 14 Metronidazole # 15 Micafungin # 4 (anti fungal # 22) T-max 37.7 degrees - Physical Exam General Appearance: alert, no apparent distress, other (Sitting up in chair) EENT: NG Tube, No scleral icterus, No thrush, No conjunctival petechiae Respiratory: lungs clear, No respiratory distress Cardiac/Chest: tachycardia Abdomen: non-tender, other (No erythema around wound VAC site), No distended ICD10 Worksheet Patient Problems: Problems Problem Status Onset Depression Acute
[2018-08-16] MEDS: POLYETHYLENE GLYCOL 3350 17 GM PKT TUBE PRN (19:10)
[2018-08-16] MEDS: PATCH REMOVAL 1 EA PATCH TD SCH (21:43)
[2018-08-17] MEDS: INSULIN REGULAR HUMAN 100 UNIT/ML UNIT SC SCH ×5 (00:44→22:17)
[2018-08-17] MEDS: morphINE 10 MG/0.5 ML UDSYR TUBE PRN ×6 (01:56→22:04)
[2018-08-17] MEDS: ALBUTEROL 60 PUFFS/8 GM MDI IH PRN ×3 (02:07→10:01)
[2018-08-17] MEDS: ENOXAPARIN 40 MG/0.4 ML SYR SC SCH (08:44)
[2018-08-17] MEDS: SENNOSIDES 17.6 MG/10 ML UDL - IF LIQUID ORDERED TUBE SCH ×2 (08:44→20:20)
[2018-08-17] MEDS: LIDOCAINE 4%/MENTHOL 1% PATCH TD SCH (08:52)
[2018-08-17] MEDS: MICAFUNGIN NA 100 MG in NS 100 ML IV SCH (08:53)
[2018-08-17] MEDS: LANSOPRAZOLE SUSP 30MG/10ML UDSYR (Adult) TUBE SCH (08:53)
--- NOTE | 2018-08-17 10:44 | PCMIDPN ---
Assessment/Plan: 1. Sepsis secondary to small bowel perforation with multiple washouts status post enterotomy repairs x2: No new recommendations. KARO drain output is diminishing. Continue levofloxacin , metronidazole, and Micafungin; as per my prior note, will plan on 2 weeks of antibiotics after most recent washout; tentative stop date August 24. Recent safety labs are fine. Subjective: Patient tells me"I am upset but I do not want to talk about it."No new issues per nursing staff. Objective: Levofloxacin 750 mg IV daily day 15 Metronidazole 500 mg q.8 hours day 16 Micafungin 100 mg IV daily day 5 (anti fungal day ) T-max 37.7 degrees Vital Signs Temp Pulse Resp BP Pulse Ox 36.9 C 98 27 H 144/85 H 100 08/17/18 08:00 08/17/18 08:00 08/17/18 08:00 08/17/18 08:00 08/17/18 08:00 Laboratory Results 08/15/18 10:30 08/16/18 06:20 08/16/18 08/17/18 08/18/18 05:59 05:59 05:59 Intake Total 2911 2640 Output Total 2180 2200 Balance 731 440 No new microbiology or concerning laboratory work - Physical Exam General Appearance: alert, no apparent distress EENT: pharynx normal, No thrush Respiratory: wheezing, coarse breath sounds Cardiac/Chest: tachycardia Abdomen: non-tender, soft, other (Large wound VAC in place centrally, with no surrounding erythema.) Skin: No rash ICD10 Worksheet Patient Problems: Problems Problem Status Onset Depression Acute
[2018-08-17] MEDS: INSULIN GLARGINE 100 UNITS/ML UNIT SC SCH (11:44)
--- NOTE | 2018-08-17 13:02 | PDINTPN ---
Customs Compliance Specialist Progress Note Assessment/Plan: ASSESSMENT AND PLAN 53 yo female s/p ventral hernia repair c/b bowel injury and infection now status post multiple washouts, now with closed fascia and clinically improving. # intra-abdominal infection Improving. Status post multiple washouts. Continues on broad-spectrum antibiotics. - continue antibiotics per ID - monitor for signs and symptoms of recurrent infection # Acute hypoxemic respiratory failure Currently compensated and on trach collar. Tolerates prolonged Passy [place] valve but does not tolerate trach cap with cuff down. Downsizing trach may help - downsize tracheostomy tube today 8 to 6 cuffed Portex - keep trach cuff down to help patient expectorates secretions - continue Passy [place] valve trials versus trialing credit administration specialist - continue skin care for tracheostomy breakdown # EHSA Resolved. Avoid nephrotoxins and trend SCr. # septic cardiomyopathy Resolved # moderate protein calorie malnutrition Continue TPN and advance tube feeds as per General surgery # Insomnia Failed melatonin. Seroquel 50 mg p.o. At bedtime started 08/14/18 with improvement in insomnia and delirium - decreased Seroquel from 50 to 25 mg p.o. At bedtime # Anemia Blood loss + illness - trend CBC, minimize phlebotomy # Deconditioning Continue PT/OT # Feeding - as above # Analgesia APAP, dilaudid # Sedation none # Thromboprophylaxis - SQ hep # Head of bed elevated # Ulcer prophylaxis - PPI # Glucose SSI # Skin improving # Delirium - delirium precautions, seroquel # Next on Kin - see facesheet 08/17/18 13:00 Subjective: Slept well throughout the night. Has had increased anxiety and requesting albuterol more frequently. However no wheezes or significant change in respiratory status. Denies headaches complains of mild abdominal pain no new swelling no chest pain Objective: Vital Signs Temp Pulse Resp BP Pulse Ox 37.1 C 103 H 27 H 131/82 H 99 08/17/18 12:00 08/17/18 12:00 08/17/18 12:00 08/17/18 12:00 08/17/18 12:00 Laboratory Results 08/15/18 10:30 08/16/18 06:20 08/16/18 08/17/18 08/18/18 05:59 05:59 05:59 Intake Total 2911 2640 Output Total 2180 2200 Balance 731 440 PT 16.9 SEC (12.0-15.0) H 08/07/18 07:28 INR 1.36 (0.83-1.16) H 08/07/18 07:28 Physical Exam - Physical Exam EENT: PERRL/EOMI, normal ENT inspection Neck: other (Percutaneous trace with Passy [place] valve in place) Respiratory: lungs clear, normal breath sounds Cardiac/Chest: normal peripheral pulses, regular rate, rhythm, No edema, No gallop Abdomen: normal bowel sounds, soft Skin: normal color, warm/dry Extremities: normal range of motion, non-tender Neuro/Psych: no motor/sensory deficits, alert, normal mood/affect, oriented x 3 ICD10 Worksheet Patient Problems: Problems Problem Status Onset Depression Acute
[2018-08-17] MEDS: LORazepam 1 MG TAB TUBE PRN (14:47)
[2018-08-17] MEDS ORDERED: LORazepam 0.5 MG TAB PO PRN (15:55)
[2018-08-17] MEDS: FLUoxetine 20 MG CAP TUBE SCH (17:41)
[2018-08-17] MEDS: ACETAMINOPHEN 650 MG/20.3 ML UDCUP TUBE PRN (19:15)
[2018-08-17] MEDS: POLYETHYLENE GLYCOL 3350 17 GM PKT TUBE PRN (20:20)
[2018-08-17] MEDS: MAGNESIUM HYDROXIDE 30 ML UDCUP TUBE PRN (20:20)
[2018-08-17] MEDS: QUEtiapine FUMARATE 25 MG TAB TUBE SCH (20:20)
[2018-08-17] MEDS: PATCH REMOVAL 1 EA PATCH TD SCH (20:21)
[2018-08-18] MEDS: ACETAMINOPHEN 650 MG/20.3 ML UDCUP TUBE PRN (02:59)
[2018-08-18] MEDS: LORazepam 0.5 MG TAB TUBE PRN ×2 (03:00→23:15)
[2018-08-18] MEDS: morphINE 10 MG/0.5 ML UDSYR TUBE PRN ×6 (03:00→23:20)
[2018-08-18] MEDS: ALBUTEROL 60 PUFFS/8 GM MDI IH PRN (03:43)
[2018-08-18] MEDS: INSULIN REGULAR HUMAN 100 UNIT/ML UNIT SC SCH ×5 (05:41→23:19)
--- NOTE | 2018-08-18 08:59 | WOCRNPDOC ---
WOCRN Advanced Assessment Note - Skin Integrity Problem, Advanced Assess Medial Abdomen Surgical Wound/Incision Dressing Type: Wound Vac Dressing Description: Clean/Dry, Intact Exudate Amount: Scant Exudate Color: Yellow Exudate Characteristic(s): Serous Integumentary Issue Intervention: Dressing Changed Jocelyn Wound Swelling: Mild Wound Bed Color: Red Wound Bed Constitution: Granulation Tissue (100%) Wound Edges: Attached, Well Defined Site Odor: None Site Measurement - Head-to-Toe Length X Width X Depth (cm): 15x3x2 Skin Integrity Problem Comment: Patient given pain medications by Beatris Spear RN prior to dressing change. Drape removed with spray adhesive remover. Wound bed appears clean, moist, red, with 100% granulation tissue noted. No sting skin barrier spray and drape applied periwound. Small simplace black foam placed in wound bed and draped and track pad applied. -125mmHg suction applied with no leaks. Student RN in room to assist. Patient tolerated dressing change well. Wound care will round again on Tuesday.
[2018-08-18] MEDS: LIDOCAINE 4%/MENTHOL 1% PATCH TD SCH (09:34)
[2018-08-18] MEDS: LANSOPRAZOLE SUSP 30MG/10ML UDSYR (Adult) TUBE SCH (09:34)
[2018-08-18] MEDS: FLUoxetine 20 MG CAP TUBE SCH (09:35)
[2018-08-18] MEDS: SENNOSIDES 17.6 MG/10 ML UDL - IF LIQUID ORDERED TUBE SCH ×2 (09:35→20:09)
[2018-08-18] MEDS: MICAFUNGIN NA 100 MG in NS 100 ML IV SCH (09:35)
[2018-08-18] MEDS: INSULIN GLARGINE 100 UNITS/ML UNIT SC SCH (09:35)
[2018-08-18] MEDS: ENOXAPARIN 40 MG/0.4 ML SYR SC SCH (09:35)
[2018-08-18] MEDS: HYDROmorphONE/DILAUDID 2 MG/ML INJ IVP PRN ×2 (09:37→15:07)
[2018-08-18 10:13] LABS: PLATELET COUNT 326 10^3/uL (150-400)
--- NOTE | 2018-08-18 10:57 | PCMIDPN ---
Assessment/Plan: 1. Sepsis secondary to small bowel perforation with multiple washouts status post enterotomy repairs x2: Mild leukocytosis noted today, as well as low-grade fevers. That being said, the patient is clinically stable. Continue same antibiotics; tentative stop date August 24. (2 weeks after last washout) Repeat CBC tomorrow. 2. Ulceration/open wound around tracheostomy: Wound Care following. This does not appear secondarily infected. Subjective: Tolerating tube feeds. However, she remains constipated. Patient without complaints. In a better mood compared with yesterday. Reviewed wound care notes--large abdominal wound appears to be clean and granulating nicely. Objective: T-max 37.5 degrees Levofloxacin 750 mg daily day 16 Metronidazole 500 mg IV q.8 hours day 17 Micafungin 100 mg IV daily day 6 (anti fungal day 24) Vital Signs Temp Pulse Resp BP Pulse Ox 37.2 C 112 H 19 133/90 H 97 08/18/18 08:00 08/18/18 08:00 08/18/18 08:00 08/18/18 08:00 08/18/18 08:00 Laboratory Results 08/18/18 10:10 08/18/18 04:50 08/17/18 08/18/18 08/19/18 05:59 05:59 05:59 Intake Total 2640 2285 Output Total 2200 2250 Balance 440 35 No new microbiology - Physical Exam General Appearance: other (Sitting in chair, alert no apparent distress. Nasogastric tube right nostril) EENT: pharynx normal, No thrush Respiratory: wheezing (Faint end expiratory wheezes heard throughout. Poor inspiratory effort.), coarse breath sounds Neck: other (Tracheostomy in place. There is a ulceration inferiorly with some surrounding pinkish discoloration. No foul odor. The wound is covered.) Cardiac/Chest: tachycardia, No systolic murmur Extremities: other (PICC line right upper extremity looks okay) Abdomen: other (Large wound VAC in place. Hypoactive bowel sounds. Soft.) Skin: other (Ecchymoses left forearm markedly better.), No rash Neuro/Psych: oriented x 3 ICD10 Worksheet Patient Problems: Problems Problem Status Onset Depression Acute
--- NOTE | 2018-08-18 12:40 | ASMTCMCOM ---
CM Note CM Note Notes: Patient is continuing to have difficulty tolerating the trach cap. Tracheostomy tube to be downsized today from 8 to 6. Patient started on Seroquel for sleep which has also helped reduce delirium. Patient's anxiety has increased and she is asking for albuterol more frequently. Mathur left in for now due to reinfection risk of abdominal wound. Patient may qualify for SNF rehab vs. LTAC. CM will follow. Date Signed: 08/18/2018 12:39 PM Electronically Signed By:Cara Robles LCSW
--- NOTE | 2018-08-18 12:40 | PDINTPN ---
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 # intra-abdominal infection Improving. Status post multiple washouts. Continues on broad-spectrum antibiotics. - continue antibiotics per ID, anticipated stop date 08/24/2018 - appreciate wound care assistance - monitor for signs and symptoms of recurrent infection # Acute hypoxemic respiratory failure Currently compensated and on trach colla.r. Downsized from 8 to 6 portex cuffed 08/17/2018 Tolerates prolonged Passy [place] valve but does not tolerate trach cap with cuff down. - keep trach cuff down to help patient expectorates secretions - continue Passy Fady valve trials versus trialing credit reporter - continue skin care for tracheostomy breakdown # ESHA Resolved. Avoid nephrotoxins and trend SCr. # moderate protein calorie malnutrition - continue tube feeds # Insomnia Failed melatonin. Seroquel 50 mg p.o. At bedtime started 08/14/18 with improvement in insomnia and delirium - decreased Seroquel from 50 to 25 mg p.o. At bedtime # anxiety, PTSD Restarted fluoxetine 08/17/2018, continues on seroquel 25 qhs # Anemia Blood loss + illness - trend CBC, minimize phlebotomy # septic cardiomyopathy Resolved # Deconditioning Continue PT/OT # Feeding - as above # Analgesia APAP, dilaudid # Sedation none # Thromboprophylaxis - SQ hep # Head of bed elevated # Ulcer prophylaxis - PPI # Glucose SSI # Skin improving # Delirium - delirium precautions, seroquel # Next on Kin - see facesheet Subjective: Slept well overnight, mildly CAM positive but this morning is not. Still complaining mild anxiety but slightly improved. Wound care changed dressing today Patient denies headaches chest pain new leg swelling Objective: Vital Signs Temp Pulse Resp BP Pulse Ox 37.2 C 112 H 19 133/90 H 97 08/18/18 08:00 08/18/18 08:00 08/18/18 08:00 08/18/18 08:00 08/18/18 08:00 Laboratory Results 08/18/18 10:10 08/18/18 04:50 08/17/18 08/18/18 08/19/18 05:59 05:59 05:59 Intake Total 2640 2285 Output Total 2200 2250 Balance 440 35 PT 16.9 SEC (12.0-15.0) H 08/07/18 07:28 INR 1.36 (0.83-1.16) H 08/07/18 07:28 Physical Exam - Physical Exam General Appearance: alert EENT: PERRL/EOMI Neck: full range of motion, supple, other (Trach in place) Respiratory: chest non-tender, lungs clear Cardiac/Chest: normal peripheral pulses, regular rate, rhythm, edema Abdomen: normal bowel sounds, non-tender, other (Wound VAC in place) Pelvic Exam: deferred Rectal: deferred Skin: normal color, warm/dry Extremities: non-tender, swelling Neuro/Psych: no motor/sensory deficits, alert ICD10 Worksheet Patient Problems: Problems Problem Status Onset Depression Acute
[2018-08-18] MEDS: MAGNESIUM OXIDE 400 MG TAB PO SCH ×2 (13:00→20:09)
[2018-08-18] MEDS: QUEtiapine FUMARATE 25 MG TAB TUBE SCH (20:09)
[2018-08-18] MEDS: PATCH REMOVAL 1 EA PATCH TD SCH (20:16)
[2018-08-19] MEDS: morphINE 10 MG/0.5 ML UDSYR TUBE PRN ×5 (02:50→15:13)
[2018-08-19] MEDS: HYDROmorphONE/DILAUDID 2 MG/ML INJ IVP PRN ×3 (03:45→19:43)
[2018-08-19] MEDS: INSULIN REGULAR HUMAN 100 UNIT/ML UNIT SC SCH ×3 (05:18→18:36)
[2018-08-19] MEDS: FLUoxetine 20 MG CAP TUBE SCH (10:00)
[2018-08-19] MEDS: INSULIN GLARGINE 100 UNITS/ML UNIT SC SCH (10:00)
[2018-08-19] MEDS: SENNOSIDES 17.6 MG/10 ML UDL - IF LIQUID ORDERED TUBE SCH ×2 (10:02→22:13)
[2018-08-19] MEDS: ENOXAPARIN 40 MG/0.4 ML SYR SC SCH (10:03)
[2018-08-19] MEDS: MAGNESIUM OXIDE 400 MG TAB PO SCH ×2 (10:03→22:13)
[2018-08-19] MEDS: LANSOPRAZOLE SUSP 30MG/10ML UDSYR (Adult) TUBE SCH (10:03)
[2018-08-19] MEDS: MICAFUNGIN NA 100 MG in NS 100 ML IV SCH (10:04)
[2018-08-19] MEDS: LIDOCAINE 4%/MENTHOL 1% PATCH TD SCH (10:04)
--- NOTE | 2018-08-19 11:44 | PCMIDPN ---
Assessment/Plan: #Sepsis secondary to SB perf and peritonitis. Sepsis now resolved s/p multiple washouts and 2 enterotomies and prolonged abx therapy. Fascia now closed and over she is doing much better: Afebrile. White count slightly elevated yesterday, not repeated today. Tolerating max TF well. --planning antibiotics through Dec adjusted --ID to follow every couple days meds, Antifungal #25 levoflox 750mg IV daily #17 Micafungin 100mg IV daily #6 metronidazole #18 Microbiology 07/24 blood cultures (2) Neg 07/27 blood cx (1) NGTD 07/31 peritoneal swab: +PMNs no org; cx Serratia susceptible to Zosyn, carbapenems, fluoroquinolones; tucker albicans (peña-S) 08/01 blood cx (2) : NGTD 08/03 BAL gram stain neg for organisms; Cx tucker Subjective: patient c/o abdominal pain and feeling like she is slipping out of tosha Objective: Vital Signs Temp Pulse Resp BP Pulse Ox 36.9 C 107 H 25 H 146/86 H 93 08/19/18 11:10 08/19/18 11:10 08/19/18 11:10 08/19/18 11:10 08/19/18 11:10 Laboratory Results 08/18/18 10:10 08/18/18 04:50 08/18/18 08/19/18 08/20/18 05:59 05:59 04:59 Intake Total 2285 2575 Output Total 2250 1750 Balance 35 825 - Physical Exam General Appearance: alert, no apparent distress, obese EENT: other (Trach in place; capped, able to speak) Respiratory: No accessory muscle use, No crackles, No wheezing Cardiac/Chest: regular rate, rhythm Extremities: pedal edema Abdomen: soft, distended (mild), other (refuses to have me raise gown) Skin: No rash Neuro/Psych: alert, normal mood/affect - Line/s RUE PICC Lines: No drainage, No erythema - Time Spent With Patient Time Spent with Patient: greater than 25 minutes Time Spent with Patient: Greater than 25 minutes spent on this patients care, greater than 50% of time spent counseling, educating, and coordinating care regarding the above mentioned plan. 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
--- NOTE | 2018-08-19 13:11 | SOAPPROG ---
SOAP Progress Note Assessment/Plan: Assessment: 53 year old with recurrent ventral hernia most recently with iatrogenic bowel perforation s/p multiple washouts Much improved since I last saw her fascia closed. Has superficial wound vac Last set of cultures NGTD S: Sititng in chair Trach site clean Course bilaterally no increased work of breathing Regular rate BS present Wound vac to suction, minimal fluid in canister Plan: 07/29/18 12:51 07/30/18 10:43 07/30/18 10:45 08/19/18 13:09 Objective: Vital Signs Temp Pulse Resp BP Pulse Ox 36.9 C 107 H 25 H 146/86 H 93 08/19/18 12:00 08/19/18 12:00 08/19/18 12:00 08/19/18 12:00 08/19/18 12:00 Laboratory Results 08/18/18 10:10 08/18/18 04:50 08/18/18 08/19/18 08/20/18 05:59 05:59 04:59 Intake Total 2285 2575 Output Total 2250 1750 Balance 35 825 PT 16.9 SEC (12.0-15.0) H 08/07/18 07:28 INR 1.36 (0.83-1.16) H 08/07/18 07:28 ICD10 Worksheet Patient Problems: Problems Problem Status Onset Depression Acute
--- NOTE | 2018-08-19 13:55 | PDINTPN ---
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 # intra-abdominal infection Improving. Status post multiple washouts. Continues on broad-spectrum antibiotics. - continue antibiotics per ID, anticipated stop date 08/24/2018 - appreciate wound care assistance - monitor for signs and symptoms of recurrent infection # Acute hypoxemic respiratory failure Currently compensated and on trach collar. Downsized from 8 to 6 portex cuffed 08/17/2018 Tolerates prolonged Passy Fady valve in out intermittently tolerating brownfield redevelopment site manager - keep trach cuff down to help patient expectorates secretions - continue Passy [place] valve trials versus trialing brownfield redevelopment site manager - speech performed video swallow study - continue skin care for tracheostomy breakdown # ESHA Resolved. Avoid nephrotoxins and trend SCr. # moderate protein calorie malnutrition - continue tube feeds # Insomnia Failed melatonin. Seroquel 50 mg p.o. At bedtime started 08/14/18 with improvement in insomnia and delirium - decreased Seroquel from 50 to 25 mg p.o. At bedtime # anxiety, PTSD Restarted fluoxetine 08/17/2018, continues on seroquel 25 qhs # Anemia Blood loss + illness - trend CBC, minimize phlebotomy # septic cardiomyopathy Resolved # Deconditioning Continue PT/OT # Feeding - as above # Analgesia APAP, dilaudid # Sedation none # Thromboprophylaxis - SQ hep # Head of bed elevated # Ulcer prophylaxis - PPI # Glucose SSI # Skin improving # Delirium - delirium precautions, seroquel # Next on Kin - see facesheet # dispo- PCU Subjective: Slept well overnight. Still with some anxiety. Tolerating and trach with brownfield redevelopment site manager on. Still deconditioned working with PT OT. Speech is to perform a video swallow today to determine if patient can take p.o. Patient denies headaches, new chills, chest pain, new abdominal pain Objective: Vital Signs Temp Pulse Resp BP Pulse Ox 36.9 C 107 H 25 H 146/86 H 93 08/19/18 12:00 08/19/18 12:00 08/19/18 12:00 08/19/18 12:00 08/19/18 12:00 Laboratory Results 08/18/18 10:10 08/18/18 04:50 08/18/18 08/19/18 08/20/18 05:59 05:59 04:59 Intake Total 2285 2385 Output Total 2250 1750 Balance 35 825 PT 16.9 SEC (12.0-15.0) H 08/07/18 07:28 INR 1.36 (0.83-1.16) H 08/07/18 07:28 Physical Exam - Physical Exam General Appearance: alert EENT: other (Trach in place, scant secretions. Patient able to cough and breathe talk around the trach.) Neck: full range of motion, supple, other (. Trach wound clean dry intact, healing) Respiratory: lungs clear, normal breath sounds Abdomen: normal bowel sounds, non-tender, soft, other Skin: normal color, warm/dry Extremities: normal range of motion, non-tender Neuro/Psych: normal mood/affect, oriented x 3, abnormal assistant professor surgical technology II-XII (Cam negative ) ICD10 Worksheet Patient Problems: Problems Problem Status Onset Depression Acute
--- NOTE | 2018-08-19 14:23 | SOAPPROG ---
SOAP Progress Note Assessment/Plan: Assessment: CALLED INTO SEE PT COMPLAINING OF UNRELENTING ABD PAIN SINCE SURGERY CT SCAN UNREVEALING BUT NO IV CONTRAST WBC 7K BUT LEFT SHIFT VS STABLE AFEBRILE ABD SOFT WITH DISTENTION AND DECREASED BS BUT NO DEFINITE PERITONEAL SIGNS CHEST CLEAR COR RR HEENT NONICTERIC NO BM OR FLATUS FOR 3 DAYS IMP: DIFFICULT PT WHO ALWAYS CO PAIN BUT SEEMS WORSE/ MAY NEED SURGERY IF NOT IMPROVING TO RO BOWELL INJURY RISKS AND OPTIONS FULLY DISCUSSED WITH PT Plan:CHECK CBC, LACTATE, 2-WAY/ CONSIDER LAPAROSCOPY IF NOT IMPROVED WITH ENEMA 07/23/18 19:58 07/23/18 20:04 07/24/18 01:55 lactate elevated/ wbc 2.1k/ still in pain/ 2-way constipation will proceed with laparoscopy, probable laparotomy risks and options fully discussed 07/27/18 23:35 Patient remains febrile up to 103 steadily/CT scan today revealed no intra- abdominal problems with some atelectasis and/or pneumonia in the lower lobe/ She remains sedated on the ventilator Urine output improving, creatinine 2.5 WBC 9000 but persistent 3 TMs Abdomen soft but silent/abdominal pressure is less than 15 Does move all extremities and follows some commands with sedation vacation Wound VAC change in wound appears to be clean with no CP each but no real granulation tissue yet/fascial edges probed but no evidence of purulence Because of persistent temp have chosen to do exploratory lap to rule out any missed abdominal abscess 07/28/18 07:17 Seems more comfortable/temperature coming down/minimal wound VAC drainage/urine output good/WBC 9 K/tolerating ventilator better with lower pressure Seems improved after abdominal washout and open ABThera ABThera change on Tuesday08/02/18 09:46 will proceed with trach and abd washout today/ risks and options discussed with poa yesterday vs stable/ low grade temp/ wound ok/ mental status off but some response to verbal stimuli chest clear/ cxr pending/ cor rr/ abd soft 08/02/18 20:59 POSTOP STABLE/ WOUND VAC MINIMAL DRAINAGE/ TRACH SITE OK/ AFEBRILE 08/05/18 16:56 CONTINUES TO STEADILY SLOWLY IMPROVED/STILL WITH SIGNIFICANT FEVERS/LAB STABLE EXCEPT FOR SODIUM 154/URINE OUTPUT IS GOOD KARO DRAINAGE MINIMAL WOUND VAC DRAINAGE MINIMAL BUT GREEN TINGED TRACH SITE OKAY/RESPIRATORY STATUS IMPROVING/MENTAL STATUS MARKEDLY IMPROVED WITH GOOD COOPERATION/COMPLAIN OF BEING HUNGRY CHEST CLEAR/ABDOMEN SOFTER WITH FILLING SEPARATOR/VITAL SIGNS STABLE WILL CONTINUE WOUND VAC PROBABLE ABTHERA CHANGE ON TUESDAY/CONTINUE ANTIBIOTICS/ START SMALL AMOUNT OF TRICKLE FEEDS 08/06/18 09:38 CONTINUES TO DAILY IMPROVEMENT/MORE ALERT AND RESPONSIVE TO QUESTIONS/STILL ON THE VENTILATOR AND TRACH SITE OKAY ABDOMEN SOFT WITH POSITIVE BOWEL SOUNDS/ TOLERATING SMALL TRICKLE FEEDS MODERATE WOUND VAC OUTPUT WHICH IS GREEN TINGED/MINIMAL KARO OUTPUT MOST IMPORTANTLY HER TEMPERATURE HAS BEEN SIGNIFICANTLY LOWER OVER THE LAST 48 HR AND IS CURRENTLY 37.9/VITAL SIGNS STABLE WILL NEED A FURTHER WASHOUT POSSIBLY TUESDAY AND POSSIBLE COMPLETION OF HER WOUND CLOSURE 08/19/18 14:19 DOING MUCH BETTER/UP IN A CHAIR/TALKING/AFEBRILE/VITAL SIGNS STABLE HEENT NEGATIVE EXCEPT FOR IRRITATION OR TRACH SITE CHEST CLEAR COR REGULAR RHYTHM ABDOMEN SOFT WITH BOWEL SOUNDS, WOUND VAC IN PLACE WITH GOOD GRANULATING WOUND HOPEFULLY WILL BE ABLE TO START EATING SOON/MINIMAL KARO DRAINAGE 08/19/18 14:21 ALERT, UP IN A CHAIR/WANTS TO EAT/AFEBRILE/MILDLY TACHYCARDIA ABDOMEN SOFT WITH NO CHANGE IN THE WOUND VAC AND MINIMAL KARO DRAINAGE/SWALLOW EVAL TODAY OVERALL DRAMATICALLY IMPROVED Objective: Vital Signs Temp Pulse Resp BP Pulse Ox 36.9 C 107 H 25 H 146/86 H 93 08/19/18 12:00 08/19/18 12:00 08/19/18 12:00 08/19/18 12:00 08/19/18 12:00 Laboratory Results 08/18/18 10:10 08/18/18 04:50 08/18/18 08/19/18 08/20/18 05:59 05:59 04:59 Intake Total 2285 2575 Output Total 2250 1750 Balance 35 825 PT 16.9 SEC (12.0-15.0) H 08/07/18 07:28 INR 1.36 (0.83-1.16) H 08/07/18 07:28 ICD10 Worksheet Patient Problems: Problems Problem Status Onset Depression Acute
[2018-08-19] MEDS: QUEtiapine FUMARATE 25 MG TAB TUBE SCH (22:12)
[2018-08-19] MEDS: ACETAMINOPHEN 650 MG/20.3 ML UDCUP TUBE PRN (22:13)
[2018-08-19] MEDS: LORazepam 0.5 MG TAB TUBE PRN (22:13)
[2018-08-20] MEDS: INSULIN REGULAR HUMAN 100 UNIT/ML UNIT SC SCH ×4 (00:07→19:50)
[2018-08-20] MEDS: HYDROmorphONE/DILAUDID 2 MG/ML INJ IVP PRN ×7 (01:05→22:32)
[2018-08-20] MEDS: PATCH REMOVAL 1 EA PATCH TD SCH ×2 (06:13→22:49)
--- NOTE | 2018-08-20 06:22 | SOAPPROG ---
SOAP Progress Note Assessment/Plan: Assessment: 53 year old with recurrent ventral hernia most recently with iatrogenic bowel perforation s/p multiple washouts fascia closed. Has superficial wound vac Last set of cultures NGTD Continue changing wound vac 2-3x per week SNF vs LTAC S: Seems more depressed today Trach site clean Course bilaterally no increased work of breathing Regular rate BS present Wound vac to suction, minimal fluid in canister Plan: 07/29/18 12:51 07/30/18 10:43 07/30/18 10:45 08/19/18 13:09 08/20/18 06:21 08/20/18 10:08 Objective: Vital Signs Temp Pulse Resp BP Pulse Ox 36.8 C 112 H 22 H 161/97 H 100 08/20/18 02:55 08/20/18 02:55 08/20/18 02:55 08/20/18 02:55 08/20/18 02:55 Laboratory Results 08/18/18 10:10 08/18/18 04:50 08/19/18 08/20/18 08/21/18 06:59 05:59 05:59 Intake Total Output Total Balance PT 16.9 SEC (12.0-15.0) H 08/07/18 07:28 INR 1.36 (0.83-1.16) H 08/07/18 07:28 ICD10 Worksheet Patient Problems: Problems Problem Status Onset Depression Acute
[2018-08-20] MEDS: FLUoxetine 20 MG CAP TUBE SCH (08:20)
[2018-08-20] MEDS: MAGNESIUM OXIDE 400 MG TAB PO SCH (08:20)
[2018-08-20] MEDS: ENOXAPARIN 40 MG/0.4 ML SYR SC SCH (08:20)
[2018-08-20] MEDS: SENNOSIDES 17.6 MG/10 ML UDL - IF LIQUID ORDERED TUBE SCH ×2 (08:21→22:33)
[2018-08-20] MEDS: LIDOCAINE 4%/MENTHOL 1% PATCH TD SCH (08:22)
[2018-08-20] MEDS: INSULIN GLARGINE 100 UNITS/ML UNIT SC SCH (09:13)
[2018-08-20] MEDS: LANSOPRAZOLE SUSP 30MG/10ML UDSYR (Adult) TUBE SCH (09:13)
[2018-08-20] MEDS: MICAFUNGIN NA 100 MG in NS 100 ML IV SCH (09:13)
[2018-08-20] MEDS: ALBUTEROL 60 PUFFS/8 GM MDI IH PRN (10:33)
[2018-08-20] MEDS: LORazepam 0.5 MG TAB TUBE PRN ×2 (11:31→17:58)
--- NOTE | 2018-08-20 14:50 | CPEKG ---
Test Reason : OPEN Blood Pressure : / mmHG Vent. Rate : 112 BPM Atrial Rate : 113 BPM P-R Int : 128 ms QRS Dur : 069 ms QT Int : 321 ms P-R-T Axes : 037 067 000 degrees QTc Int : 438 ms Sinus tachycardia Borderline T abnormalities, diffuse leads Confirmed by Tavo Gallegos ([id number]) on 08/20/2018 2:50:01 PM Referred By: Confirmed By:Tavo Gallegos
--- NOTE | 2018-08-20 14:52 | CPEKG ---
Test Reason : OPEN Blood Pressure : / mmHG Vent. Rate : 106 BPM Atrial Rate : 107 BPM P-R Int : 125 ms QRS Dur : 070 ms QT Int : 344 ms P-R-T Axes : 029 043 019 degrees QTc Int : 457 ms Sinus tachycardia Multiple premature complexes, vent & supraven Borderline abnrm T, anterolateral leads Confirmed by Tavo Gallegos ([id number]) on 08/20/2018 2:51:25 PM Referred By: Confirmed By:Tavo Gallegos
--- NOTE | 2018-08-20 14:53 | CPEKG ---
Test Reason : OPEN Blood Pressure : / mmHG Vent. Rate : 106 BPM Atrial Rate : 107 BPM P-R Int : 125 ms QRS Dur : 070 ms QT Int : 344 ms P-R-T Axes : 029 043 019 degrees QTc Int : 457 ms Sinus tachycardia Multiple premature complexes, vent & supraven Borderline abnrm T, anterolateral leads Confirmed by Tavo Gallegos ([id number]) on 08/20/2018 2:52:13 PM Referred By: Confirmed By:Tavo Gallegos
--- NOTE | 2018-08-20 16:30 | ASMTCMCOM ---
CM Note CM Note Notes: Chart reviewed. Per therapies, LTAC is recommended. patient off floor for testing. Will attempt to see in am to establish preference/need for LTAC. She has had an ICU stay, has wound vac and trach. CM to follow. Plan: To LTAC when medically cleared for discharge. Date Signed: 08/20/2018 04:29 PM Electronically Signed By:Yamini Mata RN
[2018-08-20] MEDS: ALTEPLASE 2 MG VIAL IVP PRN (17:54)
[2018-08-20] MEDS: MAGNESIUM OXIDE 400 MG TAB TUBE SCH (22:33)
[2018-08-20] MEDS: QUEtiapine FUMARATE 25 MG TAB TUBE SCH (22:33)
[2018-08-21] MEDS: ALTEPLASE 2 MG VIAL IVP PRN (00:28)
[2018-08-21] MEDS: LORazepam 0.5 MG TAB TUBE PRN ×3 (00:29→20:04)
[2018-08-21] MEDS: HYDROmorphONE/DILAUDID 2 MG/ML INJ IVP PRN ×6 (00:33→20:30)
[2018-08-21] MEDS: INSULIN REGULAR HUMAN 100 UNIT/ML UNIT SC SCH ×4 (00:37→18:31)
[2018-08-21 05:45] LABS: PLATELET COUNT 286 10^3/uL (150-400)
[2018-08-21 06:10] LABS: INR 1.42 (0.83-1.16); PROTIME(PATIENT) 17.5 SEC (12.0-15.0)
--- NOTE | 2018-08-21 09:26 | WOCRNPDOC ---
WOCRN Advanced Assessment Note - Skin Integrity Problem, Advanced Assess Medial Abdomen Surgical Wound/Incision Dressing Type: Wound Vac Dressing Description: Clean/Dry, Intact Exudate Amount: Scant Exudate Characteristic(s): Serous Integumentary Issue Intervention: Dressing Changed Jocelyn Wound Swelling: None Wound Bed Color: Red Wound Bed Constitution: Granulation Tissue (100%) Site Odor: None Site Measurement - Head-to-Toe Length X Width X Depth (cm): 17.5x3x2 Skin Integrity Problem Comment: Dressing removed with spray adhesive remover. Dr. Haji and Meche Gallardo MILLINERY BLOCKER in room to assess wound. Wound cleansed with NS and gauze. No sting skin barrier spray and vac drape applied periwound. One piece of small black simplace foam placed in wound bed, draped, and track pad applied. -125mmHg NPWT achieved with no leaks detected. Tejal ROWLEY in room to assist. Wound care will round again on Tuesday. Anterior Neck Dressing Type: Polymem Dressing Description: Clean/Dry, Intact Exudate Amount: Scant Exudate Characteristic(s): Stringy Integumentary Issue Intervention: Visualized Under Dressing Jocelyn Wound Swelling: None Wound Bed Color: [place], Red Wound Bed Constitution: Granulation Tissue, Smooth Tissue Skin Integrity Problem Comment: Continue to change polymem dressing when saturated.
[2018-08-21] MEDS: MICAFUNGIN NA 100 MG in NS 100 ML IV SCH (09:28)
[2018-08-21] MEDS: LIDOCAINE 4%/MENTHOL 1% PATCH TD SCH (09:33)
[2018-08-21] MEDS: SENNOSIDES 17.6 MG/10 ML UDL - IF LIQUID ORDERED TUBE SCH ×2 (09:33→22:47)
[2018-08-21] MEDS: LANSOPRAZOLE SUSP 30MG/10ML UDSYR (Adult) TUBE SCH (09:33)
[2018-08-21] MEDS: MAGNESIUM OXIDE 400 MG TAB TUBE SCH ×2 (09:34→22:46)
[2018-08-21] MEDS: FLUoxetine 20 MG CAP TUBE SCH (09:34)
[2018-08-21] MEDS: INSULIN GLARGINE 100 UNITS/ML UNIT SC SCH (09:34)
--- NOTE | 2018-08-21 09:46 | SOAPPROG ---
SOAP Progress Note Assessment/Plan: Assessment: 53 y/o F s/p lap ventral hernia repair and subsequent repeated abdominal washouts for peritonitis. Most recent washout was on 08/11 and abdomen was rather clean. Abdomen closed at that time. Now pt has superficial wound vac. S/p trach placement Failed swallow study yesterday. S: Endorses mild abdominal pain. Also has not had BM in several days. O: Appears somewhat confused, but oriented to person, place, and situation. Afebrile Hct down to 24.9 this am, repeat Hct 25.3. RRR Abdomen soft, wound vac removed to reveal clean and granulating wound, deep KARO drain with scant serous drainage Plan: Pt seen with Dr. Haji. Will add Milk of Magnesia for constipation. Continue tube feedings for now. Will hold off on giving blood. 08/21/18 09:37 Objective: Vital Signs Temp Pulse Resp BP Pulse Ox 36.9 C 83 20 116/69 99 08/21/18 08:00 08/21/18 08:00 08/21/18 08:00 08/21/18 08:00 08/21/18 08:00 Laboratory Results 08/21/18 09:00 08/21/18 05:20 08/20/18 08/21/18 08/22/18 05:59 05:59 05:59 Intake Total 2895 Output Total 1453.5 250 Balance 1441.5 -250 PT 17.5 SEC (12.0-15.0) H 08/21/18 05:20 INR 1.42 (0.83-1.16) H 08/21/18 05:20 ICD10 Worksheet Patient Problems: Problems Problem Status Onset Depression Acute
[2018-08-21] MEDS: ENOXAPARIN 40 MG/0.4 ML SYR SC SCH (09:50)
[2018-08-21] MEDS: morphINE 10 MG/0.5 ML UDSYR TUBE PRN ×3 (12:27→20:04)
--- NOTE | 2018-08-21 13:02 | ASMTCMCOM ---
CM Note CM Note Notes: 08/21/2018 Case Management Note Met w/pt to discuss LTAC recommendation from Physical Therapy. Pt was tearful, espressing frustration with lengthy complicated hospital stay, but agreeable to referrals. Requested referrals in [facility]. Discussed placement will depend on where there is availabilty. Faxed limited referrals to LTACs from [place] [address]. D/C date is unclear. Case Management d/c poc: LTAC pending acceptance. Case Management to follow. Date Signed: 08/21/2018 12:48 PM Electronically Signed By:Janice Chinchilla RN
--- NOTE | 2018-08-21 13:43 | PCMIDPN ---
Assessment/Plan: Assessment: Peritonitis following a small bowel leak. Currently on empiric Levaquin, Flagyl and Micafungin. Extubated-now with tracheostomy in continuing to make clinical improvements. Continues to have small fevers. Plan: 1. Continue Levaquin and metronidazole. 2. Follow fever curve. 3. continue IV micafungin. Subjective: Patient is resting comfortably in her chair in her hospital room. She is enjoying watching [employer] movie on television. She became tearful after focusing on her swallow restrictions. She is set to me with speech language pathology later today for re-evaluation. No fevers or chills. Objective: Levaquin # 19 metronidazole # 20 micafungin # 8 Vital Signs Temp Pulse Resp BP Pulse Ox 36.7 C 103 H 16 111/72 99 08/21/18 11:36 08/21/18 11:36 08/21/18 11:36 08/21/18 11:36 08/21/18 11:36 Laboratory Results 08/21/18 09:00 08/21/18 05:20 08/20/18 08/21/18 08/22/18 05:59 05:59 05:59 Intake Total 2895 Output Total 1453.5 600 Balance 1441.5 -600 - Physical Exam General Appearance: WD/WN, alert, no apparent distress, non-toxic Respiratory: lungs clear, normal breath sounds, No respiratory distress Cardiac/Chest: regular rate, rhythm, No tachycardia Skin: normal color, warm/dry, No rash Neuro/Psych: alert, normal mood/affect, oriented x 3 ICD10 Worksheet Patient Problems: Problems Problem Status Onset Depression Acute
[2018-08-21] MEDS ORDERED: MAGNESIUM HYDROXIDE 30 ML UDCUP TUBE PRN (16:50)
[2018-08-21] MEDS: MAGNESIUM HYDROXIDE 30 ML UDCUP TUBE PRN (20:04)
[2018-08-21] MEDS: PATCH REMOVAL 1 EA PATCH TD SCH (22:46)
[2018-08-21] MEDS: QUEtiapine FUMARATE 25 MG TAB TUBE SCH (22:46)
[2018-08-22] MEDS: D5W 1/2 NS W/ 20 KCl/L 1,000 ML IV SCH ×2 (00:12→18:21)
[2018-08-22] MEDS: INSULIN REGULAR HUMAN 100 UNIT/ML UNIT SC SCH ×4 (00:12→17:49)
[2018-08-22] MEDS: HYDROmorphONE/DILAUDID 2 MG/ML INJ IVP PRN ×2 (02:27→13:30)
[2018-08-22] MEDS: LORazepam 2 MG/ML INJ IVP PRN ×2 (02:28→09:46)
[2018-08-22] MEDS: MICAFUNGIN NA 100 MG in NS 100 ML IV SCH (08:27)
[2018-08-22] MEDS: ENOXAPARIN 40 MG/0.4 ML SYR SC SCH (08:27)
[2018-08-22] MEDS: LIDOCAINE 4%/MENTHOL 1% PATCH TD SCH (08:31)
[2018-08-22] MEDS: SENNOSIDES 17.6 MG/10 ML UDL - IF LIQUID ORDERED TUBE SCH ×2 (09:37→22:45)
[2018-08-22] MEDS: LANSOPRAZOLE SUSP 30MG/10ML UDSYR (Adult) TUBE SCH (09:38)
[2018-08-22] MEDS: MAGNESIUM OXIDE 400 MG TAB TUBE SCH ×2 (09:38→21:45)
[2018-08-22] MEDS: FLUoxetine 20 MG CAP TUBE SCH (09:38)
--- NOTE | 2018-08-22 10:38 | SOAPPROG ---
SOAP Progress Note Assessment/Plan: Assessment/Plan: 53 Y F s/p repair of recurrent ventral hernia, s/p repair of enterotomy. Peritonitis, sepsis, acute respiratory failure, acute renal injury. s/p ex-laparotomy c washout and abthera vac placement 07/31, 08/02, 08/04, 08/07 , 08/09. Delayed fascial closure on 08/11. s/p tracheostomy. Seen and examined with Dr. Chamorro. Afebrile. WBCs normal yesterday. H&H stable. Labs in am. D/c KARO drain. D/c gutierrez soon--once more mobile. Repeat swallow study today (?). Pulled feeding tube. Not replaced--will await eval. Wound vac change tomorrow--wound granulating and tirstin nicely. PT/OT. Appreciate other teams input. Dispo: pending. Maybe soon if can eat. S: still sometimes feels a choking sensation with trach. body feels heavy-- deconditioned. Passing gas. No BM recently. O: alert, nad ncat, trach capped and in place. no wob, some coughing abd soft, vac to suction. drain serosanguinous 08/22/18 10:32 Objective: Vital Signs Temp Pulse Resp BP Pulse Ox 36.8 C 99 16 168/108 H 94 08/22/18 07:50 08/22/18 09:47 08/22/18 07:50 08/22/18 09:47 08/22/18 07:50 Laboratory Results 08/21/18 09:00 08/21/18 05:20 08/21/18 08/22/18 08/23/18 05:59 05:59 05:59 Intake Total 2895 1994 Output Total 1453.5 1827.5 Balance 1441.5 167.5 PT 17.5 SEC (12.0-15.0) H 08/21/18 05:20 INR 1.42 (0.83-1.16) H 08/21/18 05:20 ICD10 Worksheet Patient Problems: Problems Problem Status Onset Depression Acute
[2018-08-22] MEDS: INSULIN GLARGINE 100 UNITS/ML UNIT SC SCH (13:12)
--- NOTE | 2018-08-22 15:40 | ASMTCMCOM ---
CM Note CM Note Notes: 08/22/2018 Case Management Note Pt assessed by Michael Gordon from [facility]. Michael accepted pt and can take her tomorrow. Case Management d/c poc: [facility] Case Management to follow. Date Signed: 08/22/2018 03:39 PM Electronically Signed By:Janice Chinchilla RN
--- NOTE | 2018-08-22 16:28 | PCMIDPN ---
Assessment/Plan: Assessment/Plan: * Peritonitis associated with small bowel perforation status post repeated washouts with most recent on 08/11/2018 with repair of small-bowel enterotomy: Continued clinical improvement nearing completion of antibiotic therapy with anticipated stop date of 08/24/2018. No inflammatory findings on abdominal exam in temperature has normalized. Stop date has been placed on antibiotic therapy for 08/24/2018. Will follow peripherally in interim. Please call with any questions. 08/22/18 16:25 Subjective: Patient complains of fatigue. No significant abdominal pain. Objective: Vital Signs Temp Pulse Resp BP Pulse Ox 36.9 C 108 H 20 129/90 H 99 08/22/18 15:22 08/22/18 15:38 08/22/18 15:38 08/22/18 15:22 08/22/18 15:38 Laboratory Results 08/21/18 09:00 08/21/18 05:20 08/21/18 08/22/18 08/23/18 05:59 05:59 05:59 Intake Total 2895 1994 Output Total 1453.5 1827.5 Balance 1441.5 167.5 Levofloxacin # 20 Metronidazole # 21 Micafungin # 10 (antifungals # 28) - Physical Exam General Appearance: alert, no apparent distress EENT: No scleral icterus, No thrush, No conjunctival petechiae Respiratory: lungs clear, No respiratory distress Cardiac/Chest: regular rate, rhythm Extremities: No inflammation Abdomen: non-tender, other (Wound VAC in place without surrounding erythema), No distended - Line/s RUE PICC Lines: No drainage, No erythema ICD10 Worksheet Patient Problems: Problems Problem Status Onset Depression Acute
[2018-08-22] MEDS: morphINE 10 MG/0.5 ML UDSYR TUBE PRN ×2 (17:14→21:32)
[2018-08-22] MEDS: ACETAMINOPHEN 650 MG/20.3 ML UDCUP TUBE PRN (18:25)
[2018-08-22] MEDS: LORazepam 0.5 MG TAB TUBE PRN (19:17)
[2018-08-22] MEDS: QUEtiapine FUMARATE 25 MG TAB TUBE SCH (21:46)
[2018-08-22] MEDS: PATCH REMOVAL 1 EA PATCH TD SCH (22:44)
[2018-08-23] MEDS: INSULIN REGULAR HUMAN 100 UNIT/ML UNIT SC SCH ×2 (01:33→04:43)
[2018-08-23] MEDS: LORazepam 0.5 MG TAB TUBE PRN (02:47)
[2018-08-23] MEDS: morphINE 10 MG/0.5 ML UDSYR TUBE PRN ×2 (02:49→04:58)
[2018-08-23] MEDS: D5W 1/2 NS W/ 20 KCl/L 1,000 ML IV SCH ×2 (06:31→19:49)
[2018-08-23] MEDS ORDERED: LACTULOSE 20 GM/30 ML UDCUP PO PRN (07:30)
[2018-08-23] MEDS ORDERED: ACETAMINOPHEN 325 MG TAB PO PRN (07:30)
[2018-08-23] MEDS: FLUoxetine 20 MG CAP PO SCH (08:00)
[2018-08-23] MEDS ORDERED: MAGNESIUM HYDROXIDE 30 ML UDCUP PO PRN (08:00)
[2018-08-23] MEDS: ENOXAPARIN 40 MG/0.4 ML SYR SC SCH (08:00)
[2018-08-23] MEDS: MAGNESIUM OXIDE 400 MG TAB PO SCH ×2 (08:00→19:49)
[2018-08-23] MEDS: PANTOPRAZOLE SODIUM 40 MG TAB PO SCH (08:00)
[2018-08-23] MEDS: MICAFUNGIN NA 100 MG in NS 100 ML IV SCH (08:06)
[2018-08-23] MEDS: INSULIN GLARGINE 100 UNITS/ML UNIT SC SCH (08:12)
[2018-08-23] MEDS: LIDOCAINE 4%/MENTHOL 1% PATCH TD SCH (08:13)
[2018-08-23] MEDS: SENNOSIDES 17.6 MG/10 ML UDL - IF LIQUID ORDERED PO SCH ×2 (08:18→21:25)
[2018-08-23] MEDS: ALBUTEROL 60 PUFFS/8 GM MDI IH PRN (08:19)
[2018-08-23] MEDS: LORazepam 0.5 MG TAB PO PRN ×3 (08:28→23:26)
[2018-08-23] MEDS: HYDROmorphONE/DILAUDID 2 MG/ML INJ IVP PRN ×6 (08:28→23:26)
--- NOTE | 2018-08-23 08:42 | SOAPPROG ---
SOAP Progress Note Assessment/Plan: Assessment: 53 y/o F s/p lap ventral hernia repair and subsequent repeated abdominal washouts for peritonitis. Most recent washout was on 08/11 and abdomen was rather clean. Abdomen closed at that time. Now pt has superficial wound vac. S/p trach placement Repeat swallow study- ok to have dysphagia 1 diet. S: Endorses mild abdominal pain. Tolerating oral intake. O: Appears somewhat confused, but oriented to person, place, and situation. Afebrile VSS RRR Abdomen soft, wound vac removed to reveal clean and granulating wound, +BS Plan: D/c to LTAC soon. 08/23/18 08:40 Objective: Vital Signs Temp Pulse Resp BP Pulse Ox 37.1 C 108 H 24 H 147/93 H 98 08/23/18 07:18 08/23/18 07:18 08/23/18 07:18 08/23/18 07:18 08/23/18 07:18 Laboratory Results 08/21/18 09:00 08/21/18 05:20 08/22/18 08/23/18 08/24/18 05:59 05:59 05:59 Intake Total 1994 2584 Output Total 1827.5 1725 Balance 167.5 859 PT 17.5 SEC (12.0-15.0) H 08/21/18 05:20 INR 1.42 (0.83-1.16) H 08/21/18 05:20 ICD10 Worksheet Patient Problems: Problems Problem Status Onset Depression Acute
--- NOTE | 2018-08-23 09:28 | WOCRNPDOC ---
WOCRN Advanced Assessment Note - Skin Integrity Problem, Advanced Assess Medial Abdomen Surgical Wound/Incision Dressing Type: Black Vac Foam (x1), Wound Vac Dressing Description: Clean/Dry, Intact Exudate Amount: Scant Exudate Characteristic(s): Serous Integumentary Issue Intervention: Dressing Changed Kat Wound Tissue: Erythema (at superior wound margins to 0.5 cm kat wound) Wound Bed Constitution: Granulation Tissue (100%) Skin Integrity Problem Comment: Flushed with ns and gauze. Skin prep and drape kat wound. x1 piece of small black foam to wound bed. Suction restarted at - 125 mm Hg continuous with no leaks. Mariya Aponte in room and assisted. Next change due Tuesday.
[2018-08-23] MEDS ORDERED: D50W 25 GM/50 ML SYR IVP PRN (10:49)
[2018-08-23] MEDS: INSULIN LISPRO 100 UNIT/ML SC SCH ×2 (11:48→17:15)
[2018-08-23] MEDS: morphINE 10 MG/0.5 ML UDSYR PO PRN ×3 (13:21→21:25)
--- NOTE | 2018-08-23 14:31 | ASMTCMCOM ---
CM Note CM Note Notes: 08/23/2018 Case Mangaement Note [facility] Alma to present to her team tomorrow and will call case management in the morning after team discussion. Michael Gordon [phone] is planning for pt to d/c to [place] [facility] tomorrow and is holding a bed. Case Management d/c poc: [facility] (accepted and expecting pt on ) vs [facility] (pending acceptance) Case Management to follow. Date Signed: 08/23/2018 02:30 PM Electronically Signed By:Janice Chinchilla RN
[2018-08-23] MEDS: POLYETHYLENE GLYCOL 3350 17 GM PKT PO PRN (15:14)
[2018-08-23] MEDS ORDERED: QUEtiapine FUMARATE 25 MG TAB PO SCH (21:00)
[2018-08-23] MEDS: PATCH REMOVAL 1 EA PATCH TD SCH (21:26)
[2018-08-24] MEDS: morphINE 10 MG/0.5 ML UDSYR PO PRN ×2 (01:20→11:35)
[2018-08-24] MEDS: HYDROmorphONE/DILAUDID 2 MG/ML INJ IVP PRN ×5 (02:53→12:42)
[2018-08-24 07:12] VITALS: BP 133/51
[2018-08-24] MEDS: LORazepam 0.5 MG TAB PO PRN ×2 (07:49→12:43)
--- NOTE | 2018-08-24 08:40 | SOAPPROG ---
SOAP Progress Note Assessment/Plan: Assessment: 53 y/o F s/p lap ventral hernia repair and subsequent repeated abdominal washouts for peritonitis. Most recent washout was on 08/11 and abdomen was rather clean. Abdomen closed at that time. Now pt has superficial wound vac. S/p trach placement Repeat swallow study- ok to have dysphagia 1 diet. S: Denies pain. Tolerating oral intake. O: Alert and oriented. Afebrile VSS RRR Abdomen soft, wound vac to suction, +BS Plan: D/c to LTAC today. 08/24/18 08:39 Objective: Vital Signs Temp Pulse Resp BP Pulse Ox 36.7 C 100 20 133/51 H 92 08/24/18 07:11 08/24/18 07:11 08/24/18 07:11 08/24/18 07:11 08/24/18 07:11 Laboratory Results 08/21/18 09:00 08/21/18 05:20 08/23/18 08/24/18 08/25/18 05:59 05:59 05:59 Intake Total 2588 2596 Output Total 1787 5911 Balance 859 -29 PT 17.5 SEC (12.0-15.0) H 08/21/18 05:20 INR 1.42 (0.83-1.16) H 08/21/18 05:20 ICD10 Worksheet Patient Problems: Problems Problem Status Onset Depression Acute
[2018-08-24] MEDS: INSULIN LISPRO 100 UNIT/ML SC SCH (09:03)
[2018-08-24] MEDS: LIDOCAINE 4%/MENTHOL 1% PATCH TD SCH (09:12)
[2018-08-24] MEDS: PANTOPRAZOLE SODIUM 40 MG TAB PO SCH (09:12)
[2018-08-24] MEDS: FLUoxetine 20 MG CAP PO SCH (09:12)
[2018-08-24] MEDS: ENOXAPARIN 40 MG/0.4 ML SYR SC SCH (09:12)
[2018-08-24] MEDS: D5W 1/2 NS W/ 20 KCl/L 1,000 ML IV SCH (09:12)
[2018-08-24] MEDS: MAGNESIUM OXIDE 400 MG TAB PO SCH (09:12)
[2018-08-24] MEDS: INSULIN GLARGINE 100 UNITS/ML UNIT SC SCH (09:18)
[2018-08-24] MEDS: SENNOSIDES 17.6 MG/10 ML UDL - IF LIQUID ORDERED PO SCH (09:21)
--- NOTE | 2018-08-24 09:57 | PDIAF ---
- Diagnosis Code Status: Full Code - Medication Management Discharge Medications: electronically signed and located in the Home Medication List. - Orders Services needed: Registered Nurse, Physical Therapy, Occupational Therapy, Speech Language Pathologist Isolation Type: None Diet Recommendation: no restrictions on diet Diet Texture: Dysphagia 1 - Pureed, Thin Liquids, Ice Chips Additional Instructions: For abdominal wound: Change wound vac sponge 3x/week. Do not get wound wet. Avoid heavy lifting. wound care orders: Change dressings to coccyx and right ishium every 3 days and prn. 1. Clean with ns and gauze 2. Skin prep kat wound 3. Wound gel to wound bed 4. Cover with a bordered foam dressing Please follow up within 3- 4 weeks of discharge with outpatient [facility] if you continue to have issues with your wounds: You may reach them at [phone] for an appointment and continued management of your wounds. Please call them desmond to schedule your appointment as they fill up quickly. If before that time you have any issues, please follow up with your PCP. Wound care: Bedsore (Pressure injury) care: You have a stage 2 pressure injury (also known as a bedsore) on your tailbone ( coccyx) and sit bone (ischium). To help heal this wound and avoid further injury please do the followin. Reposition yourself frequently, at least every 15 minutes when sitting. Try to stand for at least 3 min every hour so that the tissues fully reperfuse with blood. We recommend sitting on an air cushion. Please never use a doughnut. 2. When youre in bed, try to rest on your side as much as possible, and change position every two hours (for example, turn or tilt from your right side toward your left).~ If you sleep on a sleep number or medical bed, keep the head of the bed below 30 degrees and keep all pressure off your low back for at least 5 minutes at least every two hours.~ 3. As needed, you may use Calazime, dimethicone moisture barrier cream, or any ffax-[id number] diaper rash cream to help prevent or treat a moisture- related rash to your bottom area and buttocks. 4. Please contact [facility] outpatient [facility] for an appointment, at , If your wounds re/open or dont improve, or if you have any further questions or concerns. Jillian BALDERRAMACN - Follow Up Care Current Providers and Referrals: Celia Barry MD [Primary Care Provider] - Raad Chamorro MD [Medical Doctor] - follow up in 1 week
[2018-08-24] MEDS: POLYETHYLENE GLYCOL 3350 17 GM PKT PO PRN (10:01)
--- NOTE | 2018-08-24 10:36 | ASMTDCNOTE ---
Case Management Discharge Discharge Order Complete? Answers: Yes Patient to Obtain Answers: Other Notes: [facility] Transportation Arranged Answers: [facility] will Pick (Date 08/24/2018 01:00 PM & Time) EMTALA Complete Answers: No Case Management Transport Answers: Yes Form Complete Faxed Final Orders Answers: Yes Agency/Facility Transfer Answers: Yes Report Printed & Faxed to Receiving Agency Family Notified Answers: Yes Discharge Comments Notes: CM spoke to Cecelia RN and Meche Gallardo NP regarding d/c POC. Pt is being discharged today. CM spoke to Hattie Charlton and Chayito regarding dispo planning. Chayito and Zoltan both want pt to be at [facility]. CM spoke to Alma at [facility] and is able to accept pt for today. CM arranged for [facility] stret[facility] for transport. PCS form completed. A copy of the PCS form is in pts chart. DC orders sent. CM provided Meche redd/ the phone number to complete the doc to doc. CM provided Cecelia w/ phone number to give report. CM available for changes. Plan: [facility] Date Signed: 08/24/2018 10:35 AM Electronically Signed By:AIDAN Agudelo
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
[2018-08-24] MEDS: MICAFUNGIN NA 100 MG in NS 100 ML IV SCH (11:36)
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
--- NOTE | 2018-09-03 19:33 | GOP ---
DATE OF OPERATION: 07/31/2018 SURGEON: Raad Chamorro MD PREOPERATIVE DIAGNOSIS: Abdominal abscess and peritonitis. POSTOPERATIVE DIAGNOSIS: Abdominal abscess and peritonitis. PROCEDURE PERFORMED: Laparotomy with drainage of abscess and ABThera placement and peritoneal lavage . FINDINGS: Patient was found to have abscess collections in both lateral gutters, right and left. DESCRIPTION OF PROCEDURE: The patient was taken to the operating room where she received a satisfact ory general endotracheal anesthesia. She was placed in supine position and prepped and draped in the usual sterile fashion. The ABThera dressing was removed. The abdomen was then explored. Abscess c ollections were identified on both lateral gutters right and left. These were drained and evacuated. No other major abscess pockets could be identified. The wound was thoroughly lavaged with 6 L of s katerina and then redressed with an ABThera dressing subfascially, covered with a wound VAC. She tolera napoleon the procedure well. There were no complications. Taken to recovery room in good condition. /[id number]/MODL
--- NOTE | 2018-09-03 19:38 | GOP ---
DATE OF OPERATION: 07/24/2018 SURGEON: Raad Chamorro MD PREOPERATIVE DIAGNOSIS: Peritonitis. POSTOPERATIVE DIAGNOSIS: Peritonitis with small bowel perforation. PROCEDURE PERFORMED: Laparotomy, repair of small bowel perforation, abscess drainage, removal of her shirley mesh, and omental pedicle flap. FINDINGS: Patient was found to have localized but significant peritonitis underneath the previous ve ntral hernia mesh placement. There appeared to be a small bowel perforation related to the mesh. DESCRIPTION OF PROCEDURE: The patient was taken to the operating room where she received a satisfact ory general endotracheal anesthesia. She was placed in supine position, prepped and draped in the [facility] sterile fashion. A midline incision was made. Dissection extended down through subcutaneous tis angélica and down to the previous mesh hernia repair. There did appear to be purulent material around the mesh. This was removed. The abdomen was entered and explored. The incision was somewhat extended. There appeared to be some leakage from a very tiny opening in a loop of small bowel which had been dissected off the mesh. This was repaired with a single 3-0 Vicryl mattress suture. The wound was t hen copiously irrigated. An omental flap was created with the Harmonic Scalpel and then rotated over to cover up the bowel repair. This was anchored in place with 3-0 Vicryl sutures. The wound was le ft open and dressed with an ABThera dressing and a wound VAC placed over it. This was after extensive peritoneal lavage of over 4 L of fluid. She tolerated the procedure well. She was quite sick on en tering the operating room but was quite steady throughout the surgery and was taken to recovery room in good condition. There were no complications. /[id number]/MODL
== END 2018-08-24 13:20 | DRG 3 ==
LOC: F3E 06:07 → OBSVTOIN 07-22 15:17 → F2N 07-24 02:26 → F2W 08-19 15:34
PROVIDERS: ADMIT Surgery; ATTEND Surgery
PROC: 0WUF4JZ Supplement Abdominal Wall with Synthetic Substitute, Percutaneous Endoscopic Approach (ICD-10-PCS; principal; 2018-07-21 07:15)
PROC: 0DN84ZZ Release Small Intestine, Percutaneous Endoscopic Approach (ICD-10-PCS; principal; 2018-07-21 07:15)
PROC: 0DQ80ZZ Repair Small Intestine, Open Approach (ICD-10-PCS; 2018-07-24)
PROC: 0DB80ZX Excision of Small Intestine, Open Approach, Diagnostic (ICD-10-PCS; 2018-07-24)
PROC: 0DN84ZZ Release Small Intestine, Percutaneous Endoscopic Approach (ICD-10-PCS; 2018-07-24)
PROC: 0WJG4ZZ Inspection of Peritoneal Cavity, Percutaneous Endoscopic Approach (ICD-10-PCS; 2018-07-24)
PROC: 5A1955Z Respiratory Ventilation, Greater than 96 Consecutive Hours (ICD-10-PCS; 2018-07-25)
PROC: 0D9W0ZZ Drainage of Peritoneum, Open Approach (ICD-10-PCS; 2018-07-28)
PROC: 2W13X6Z Compression of Abdominal Wall using Pressure Dressing (ICD-10-PCS; 2018-07-28)
PROC: 30233N1 Transfusion of Nonautologous Red Blood Cells into Peripheral Vein, Percutaneous Approach (ICD-10-PCS; 2018-07-30)
PROC: 0D9W0ZZ Drainage of Peritoneum, Open Approach (ICD-10-PCS; 2018-07-31)
PROC: 02HV33Z Insertion of Infusion Device into Superior Vena Cava, Percutaneous Approach (ICD-10-PCS; 2018-08-01)
PROC: 0B968ZX Drainage of Right Lower Lobe Bronchus, Via Natural or Artificial Opening Endoscopic, Diagnostic (ICD-10-PCS; 2018-08-02)
PROC: 0B9B8ZX Drainage of Left Lower Lobe Bronchus, Via Natural or Artificial Opening Endoscopic, Diagnostic (ICD-10-PCS; 2018-08-02)
PROC: 0D9W0ZZ Drainage of Peritoneum, Open Approach (ICD-10-PCS; 2018-08-02)
PROC: 0D9W0ZZ Drainage of Peritoneum, Open Approach (ICD-10-PCS; 2018-08-02)
PROC: 0B110F4 Bypass Trachea to Cutaneous with Tracheostomy Device, Open Approach (ICD-10-PCS; 2018-08-02 15:00)
PROC: 0D9W0ZZ Drainage of Peritoneum, Open Approach (ICD-10-PCS; 2018-08-04)
PROC: 2W13X6Z Compression of Abdominal Wall using Pressure Dressing (ICD-10-PCS; 2018-08-07)
PROC: 0D9W0ZZ Drainage of Peritoneum, Open Approach (ICD-10-PCS; 2018-08-07)
PROC: 02HV33Z Insertion of Infusion Device into Superior Vena Cava, Percutaneous Approach (ICD-10-PCS; 2018-08-08)
PROC: 0D9W0ZZ Drainage of Peritoneum, Open Approach (ICD-10-PCS; 2018-08-09)
PROC: 02HV33Z Insertion of Infusion Device into Superior Vena Cava, Percutaneous Approach (ICD-10-PCS; 2018-08-14)
DX: K91.71 Accidental puncture and laceration of a digestive system organ or structure during a digestive system procedure (principal); K65.9 Peritonitis, unspecified; G89.18 Other acute postprocedural pain; K43.2 Incisional hernia without obstruction or gangrene; K66.0 Peritoneal adhesions (postprocedural) (postinfection); T81.44XA Sepsis following a procedure, initial encounter; R65.21 Severe sepsis with septic shock; J96.21 Acute and chronic respiratory failure with hypoxia; D62 Acute posthemorrhagic anemia; E44.0 Moderate protein-calorie malnutrition; Z53.31 Laparoscopic surgical procedure converted to open procedure; L89.152 Pressure ulcer of sacral region, stage 2; E87.0 Hyperosmolality and hypernatremia; E87.6 Hypokalemia; I42.8 Other cardiomyopathies; E11.9 Type 2 diabetes mellitus without complications; G89.29 Other chronic pain; F43.10 Post-traumatic stress disorder, unspecified; Z79.4 Long term (current) use of insulin; F17.210 Nicotine dependence, cigarettes, uncomplicated
CPT/HCPCS: 82784-90; 87186-90; 92507-GN; 92523-GN; 92526-GN; 92610-GN; 92611-GN; 97110-GP; 97112-GP; 97116-GP; 97162-GP; 97166-GO; 97530-GO; 97530-GP; 97535-GO; C1751; C1781; G8978-GP-CM; G8979-GP-CJ; G8979-GP-CK; G8987-GO-CJ; G8988-GO-CI; G8996-GN-CI; G8996-GN-CL; G8997-GN-CI; G8997-GN-CL; G8998-GN-CI; G8998-GN-CL; G9171-GN-CK; G9172-GN-CI; J0330; J0610; J0690; J1100; J1170; J1200; J1250; J1335; J1450; J1650; J1720; J1815; J1885; J1940; J1956; J2001; J2060; J2248; J2250; J2270; J2370; J2405; J2543; J2704; J2710; J2997; J3010; J3411; J3475; J3480; P9016; P9040; P9041; P9047; Q9967

== ENCOUNTER 2018-08-25 10:43 | Inpatient (IN) | payer OTHER, MEDICAID ==
[2018-08-25] MEDS ORDERED: LORazepam 2 MG/ML INJ IVP ONE ×2 (11:13→11:14)
[2018-08-25] MEDS ORDERED: NS 1,000 ML IV ONE (11:14)
--- NOTE | 2018-08-25 11:16 | EDPHY ---
H & P Time Seen by Provider: 08/25/18 10:47 HPI/ROS: Chief complaint. Multiple complaints HPI. Patient is a 53-year-old female with fairly complicated past medical history. In early July she was admitted for a abdominal hernia repair. Apparently bowel was nicked in the patient became septic. She ended up with a tracheostomy. She was transferred yesterday to rehab facility. Overnight the patient was somewhat confused and yelling and uncooperative and the rehab facility felt they could not care for the patient. She return to the emergency department. She tells me she was scared inferior full and felt humiliated at the rehab facility last night. She tells me she is not suicidal. She complains of some abdominal pain but no fever vomiting or diarrhea. ROS 10 systems were reviewed and negative with the exception of the elements mentioned in the history of present illness Past Medical/Surgical History: Bipolar illness, recent sepsis and abdominal hernia repair. Insulin-dependent diabetes Social History: Single, daily smoker, no alcohol Smoking Status: Current every day smoker Physical Exam: General Appearance: Alert well-developed female mild distress vital signs are stable Eyes: Pupils equal and round no pallor or injection. ENT, Mouth: Mucous membranes are moist. Respiratory: There are no retractions, lungs are clear to auscultation. Cardiovascular: Regular rate and rhythm. Gastrointestinal: Abdomen is soft and minimally tender but diffusely tender. Normal bowel sounds. No mass Neurological: Awake and alert, sensory and motor exams grossly normal. Skin: Warm and dry, no rashes. Musculoskeletal: Neck is supple nontender. Extremities symmetrical, full range of motion. Psychiatric: Patient is oriented X 3, there is no agitation. Constitutional: Initial Vital Signs Temperature (C) 36.4 C 08/25/18 11:06 Heart Rate 100 08/25/18 11:06 Respiratory Rate 14 08/25/18 11:06 Blood Pressure 152/90 H 08/25/18 11:06 O2 Sat (%) 99 08/25/18 11:06 O2 Delivery Mode Nasal Cannula O2 (L/minute) 2 Allergies/Adverse Reactions: bupropion HCl [From Wellbutrin] Allergy (Verified 07/20/18 13:00) Hives haloperidol [From Haldol] Allergy (Verified 07/20/18 13:00) dystonic reaction haloperidol lactate [From Haldol] Allergy (Verified 07/20/18 13:00) dystonic reaction iopamidol [From Isovue-M] Allergy (Verified 06/27/13 08:27) Vomiting risperidone [From Risperdal] Allergy (Verified 07/20/18 13:00) Hives CT CONTRAST Allergy (Uncoded 06/27/13 08:28) Vomiting Home Medications: Medication Instructions Recorded FLUoxetine [Prozac 20 MG (*)] 60 mg PO DAILY 01/20/18 Gemfibrozil [Lopid 600 MG (*)] 600 mg PO BIDAC 01/20/18 Insulin Glargine [Lantus 100 34 units SC HS 01/20/18 UNITS/ML] Lisinopril [Zestril 5 mg (*)] 5 mg PO DAILY 01/20/18 Albuterol [Proventil Inhaler HFA 1 puffs IH DAILY PRN 04/21/18 (*)] Dextroamphetamine/Amphetamine 10 mg PO DAILY 04/21/18 [Adderall Xr 10 mg Capsule] Herbals/Supplements -Info Only 1 each PO DAILY 04/21/18 Omeprazole 20 mg PO DAILY 04/21/18 metFORMIN HCL [Glucophage 1000 mg] 1,000 mg PO BID 04/21/18 ARIPiprazole [Abilify 10 mg (*)] 5 mg PO DAILY #0 07/20/18 Dicyclomine [Bentyl 20 MG (*)] 20 mg PO QID PRN #0 07/20/18 Ondansetron Odt [Zofran Odt 4 mg 8 mg PO TID PRN #0 07/20/18 (*)] Acetaminophen [Tylenol 325mg (*)] 650 mg PO Q4HRS PRN tab 08/24/18 Acetaminophen [Tylenol Rectal] 650 mg DC Q4 PRN supp 08/24/18 Albuterol [Proventil Inhaler HFA 2 puffs IH Q6 PRN mdi 08/24/18 (*)] Alteplase [Cathflo Activase 2 mg 2 mg IVP PRN PRN vial 08/24/18 (*)] Enoxaparin [Lovenox 40 MG (*)] 40 mg SC DAILY syr 08/24/18 Insulin Glargine [Lantus Syringe] 15 units SC DAILY unit 08/24/18 Insulin Lispro [HumaLOG LISPRO] 0 unit SC TIDMEAL unit 08/24/18 LORazepam [Ativan (*)] 0.5 mg PO Q6HRS PRN tab 08/24/18 Lidocaine 4%/Menthol 1% [Icy Hot 1 patch TD DAILY patch 08/24/18 Lidocaine/Menthol 4%/1% Patch (*)] Magnesium Oxide [Magnesium Oxide 400 mg PO BID tab 08/24/18 400 mg (*)] Ondansetron Odt [Zofran Odt 4 mg 4 mg PO Q4HRS PRN tab 08/24/18 (*)] Pantoprazole Sodium [Protonix 40mg 40 mg PO DAILY tab 08/24/18 (*)] Patch Removal 1 ea TD DAILY21 patch 08/24/18 Polyethylene Glycol 3350 [Miralax 17 gm PO DAILY PRN pkt 08/24/18 17 gm (*)] QUEtiapine FUMARATE [Seroquel 25 25 mg PO HS tab 08/24/18 mg (*)] Simethicone [Mylicon] 80 mg PO PCHS PRN tab.chew 08/24/18 Medical Decision Making - Diagnostics Imaging Results: Imaging Impressions Abdomen/Pelvis CT 08/25/18 11:14 Impression: 1. No acute intra-abdominal process. 2. Trace fluid along the posterior surface and inferior tip of the liver are unchanged. 3. Minimal bibasilar atelectasis and trace bilateral pleural effusions. 4. Healing anterior abdominal wall wound. No abdominal wall fluid collection. 5. Left nephrolithiasis and left renal atrophy are unchanged. No hydronephrosis or ureteral ureteral calculi. Findings discussed with Emergency Department physician, Dr. Jack Patterson on August 25, 2018 at 1244 hours. Attention: This CT examination is specifically designed to evaluate patients who are clinically suspected of having acute obstructive uropathy. This examination does not use radiographic contrast, and as such, provides only a limited evaluation of the abdomen, pelvis and retroperitoneum. If there is further clinical suspicion for pathological conditions other than obstructive uropathy, a complete CT evaluation of the abdomen and pelvis utilizing intravenous, oral, and rectal contrast should be considered. Chest X-Ray 08/25/18 11:15 Impression: Slight increase in bibasilar consolidation, which could be related to atelectasis and/or pneumonia. CT abdomen reviewed by me and discussed with Radiology shows no acute findings Procedures: IV normal saline, monitor ED Course/Re-evaluation: strategic account manager is involved. The patient possibly can be transferred to another rehab facility. I have consulted and discussed case with Dr. Dubose, hospitalist who agrees to the admission. Care is transferred to Dr. Romo at 3:15 p.m. Differential Diagnosis: This seems to be more of a behavioral issue. I do not find any acute medical problem. - Data Points Laboratory Results: Laboratory Results 08/25/18 11:50 08/25/18 11:50 08/25/18 08/25/18 08/25/18 12:26 11:50 11:50 WBC 7.10 10^3/uL 10^3/uL (3.80-9.50) RBC 2.92 10^6/uL L 10^6/uL (4.18-5.33) Hgb 8.4 g/dL L g/dL (12.6-16.3) Hct 26.9 % L % (38.0-47.0) MCV 92.1 fL fL (81.5-99.8) MCH 28.8 pg pg (27.9-34.1) MCHC 31.2 g/dL L g/dL (32.4-36.7) RDW 17.0 % H % (11.5-15.2) Plt Count 319 10^3/uL 10^3/uL (150-400) MPV 8.8 fL fL (8.7-11.7) Neut % (Auto) 80.3 % H % (39.3-74.2) Lymph % (Auto) 11.7 % L % (15.0-45.0) [place] % (Auto) 7.0 % % (4.5-13.0) Eos % (Auto) 0.3 % L % (0.6-7.6) Baso % (Auto) 0.1 % L % (0.3-1.7) Nucleat RBC Rel Count 0.0 % % (0.0-0.2) Absolute Neuts (auto) 5.70 10^3/uL 10^3/uL (1.70-6.50) Absolute Lymphs (auto) 0.83 10^3/uL L 10^3/uL (1.00-3.00) Absolute Monos (auto) 0.50 10^3/uL 10^3/uL (0.30-0.80) Absolute Eos (auto) 0.02 10^3/uL L 10^3/uL (0.03-0.40) Absolute Basos (auto) 0.01 10^3/uL L 10^3/uL (0.02-0.10) Absolute Nucleated RBC 0.00 10^3/uL 10^3/uL (0-0.01) Immature Gran % 0.6 % % (0.0-1.1) Immature Gran # 0.04 10^3/uL 10^3/uL (0.00-0.10) Sodium 137 mEq/L mEq/L (135-145) Potassium 4.5 mEq/L mEq/L (3.3-5.0) Chloride 100 mEq/L mEq/L (97-110) Carbon Dioxide 32 mEq/l H mEq/l (22-31) Anion Gap 5 mEq/L L mEq/L (6-14) BUN 8 mg/dL mg/dL (7-23) Creatinine 0.6 mg/dL mg/dL (0.6-1.0) Estimated GFR > 60 Glucose 90 mg/dL mg/dL (70-100) Calcium 8.1 mg/dL L mg/dL (8.5-10.4) Lipase 85 IU/L IU/L (23-300) Urine Opiates Screen NON-NEGATIVE H (NEGATIVE) Urine Barbiturates NEGATIVE (NEGATIVE) Ur Phencyclidine Scrn NEGATIVE (NEGATIVE) Ur Amphetamine Screen NEGATIVE (NEGATIVE) U Benzodiazepines Scrn NEGATIVE (NEGATIVE) Urine Cocaine Screen NEGATIVE (NEGATIVE) U Marijuana (THC) Screen NON-NEGATIVE H (NEGATIVE) Ethyl Alcohol < 10 mg/dL mg/dL (0-10) Medications Given: Discontinued Medications Sodium Chloride (Ns) 1,000 mls @ 0 mls/hr IV EDNOW ONE; Wide Open PRN Reason: Protocol Stop: 08/25/18 11:15 Last Admin: 08/25/18 11:52 Dose: 1,000 mls Lorazepam (Ativan Injection) 1 mg IVP EDNOW ONE Stop: 08/25/18 11:14 Last Admin: 08/25/18 11:19 Dose: Not Given Lorazepam (Ativan Injection) 1 mg IVP EDNOW ONE Stop: 08/25/18 11:15 Last Admin: 08/25/18 11:53 Dose: 1 mg Morphine Sulfate (Morphine) 6 mg IVP EDNOW ONE Stop: 08/25/18 11:16 Last Admin: 08/25/18 11:53 Dose: 6 mg Morphine Sulfate (Morphine) 6 mg IVP EDNOW ONE Stop: 08/25/18 11:15 Last Admin: 08/25/18 11:19 Dose: Not Given Departure - Departure Clinical Impression: Abdominal pain Qualifiers: Abdominal location: generalized Qualified Code(s): R10.84 - Generalized abdominal pain Condition: Fair
[2018-08-25 12:07] LABS: PLATELET COUNT 319 10^3/uL (150-400)
--- NOTE | 2018-08-25 12:53 | ASMTCMCOM ---
CM Note CM Note Notes: PT in FED from [facility]. Pt was discharged from [facility] on 08/24. The CW spoke with Carisa ([phone]) from [facility]. Carisa reported that the pt was uncooperative and refused meds and treatment. Pt has been uncooperative and she refused to have her trach tube removed. Pt has psych history with inpatient treatment on and [facility]. She has a DX HX of PTSD, Bipolar disorder and possible TBI. Pt. has not taken he psychiatric medications and expresses paranoia about her care. Dr. Gonsales ordered a psych eval. for possible placement however the trach will need to be addressed and pt. will be admitted. Date Signed: 08/25/2018 12:52 PM Electronically Signed By:Laisha Reese LCSW
[2018-08-25] MEDS ORDERED: ONDANSETRON DISINTEGRATING 4 MG TAB PO PRN (14:23)
[2018-08-25] MEDS ORDERED: POLYETHYLENE GLYCOL 3350 17 GM PKT PO PRN (15:01)
[2018-08-25] MEDS ORDERED: DICYCLOMINE 20 MG TAB PO PRN (15:01)
[2018-08-25] MEDS ORDERED: ALTEPLASE 2 MG VIAL IVP PRN (15:01)
[2018-08-25] MEDS ORDERED: ALBUTEROL 60 PUFFS/8 GM MDI IH PRN (15:01)
[2018-08-25] MEDS ORDERED: D50W 25 GM/50 ML SYR IVP PRN (15:07)
--- NOTE | 2018-08-25 15:39 | GHP ---
DATE OF ADMISSION: 08/25/2018 CHIEF COMPLAINT: Behavioral issues. HISTORY OF PRESENT ILLNESS: A 53-year-old female with multiple medical problems , including chronic pain, depression, type 2 diabetes, anxiety/PTSD, who was discharged from [facility] yesterday after a [facility] hospitalization. She underwent laparoscopic ventral hernia repair with mesh on 07/[address] Chamorro. She subsequently developed peritonitis with a small-bowel perforation. She underwent several washouts, last being 08/11, with small-bowel enterotomy. She was followed by Infectious Disease and completed antibiotics on 08/24/2018. She was transferred to [facility] but sent here due to behavioral issues. I spoke with Carisa, the case finishing machine adjuster over there, who states the patient was refusing all meds, except for Dilaudid and Ativan. Loader Unloader wanted to decannulate her trach, but she refused. When I spoke to her here in the ED, she said it took too much time to have that removed. She did not want to take the medications because she did not know what it was. She denies any fevers, chills, or sweats. No nausea, vomiting, or diarrhea. No abdominal pain. REVIEW OF SYSTEMS: I completed a 10-point review of systems, negative, except as noted in the HPI. PAST MEDICAL HISTORY: 1. Recurrent incisional ventral hernia complicated by peritonitis, small bowel perforation, just discharged yesterday. 2. Chronic pain. 3. Depression. 4. Type 2 diabetes. 5. Anxiety. 6. PTSD. 7. Anemia. 8. Rectal prolapse. 9. Cardiomyopathy secondary to acute illness. Echo, 07/24, shows an EF of 40% , grade 1 diastolic heart failure. PAST SURGICAL HISTORY: Multiple ventral hernia repairs, rectal prolapse repair. FAMILY HISTORY: Noncontributory. SOCIAL HISTORY: Was transferred to [facility]. She was smoking up until recent admission. Occasional alcohol. No drugs. ALLERGIES: Wellbutrin, Haldol, risperidone, Isovue. CURRENT MEDICATIONS: Metformin 1000 mg b.i.d.; simethicone; Seroquel 25 mg q.h.s.; MiraLAX; Protonix 40 mg daily; Zofran; omeprazole 20 mg daily; lisinopril 5 mg daily; lispro; Ativan; glargine 34 units q.h.s., 15 daily; Lopid 600 mg daily; Prozac 60 mg daily; Lovenox; albuterol 2 puffs q.6 hours p.r.n.; Tylenol as needed; Abilify 5 daily. PHYSICAL EXAMINATION: VITAL SIGNS: Temperature 36.6, blood pressure 148/78, heart rate in the 80s, respirations 14, 100% on 2 L. GENERAL: She is obese, somnolent, but opens eyes and answers some questions. HEENT: PERRLA. Moist mucous membranes. Trach in place. CV: Regular rate and rhythm. LUNGS: Clear anteriorly. ABDOMEN: Obese. Wound VAC in place, healing well. No surrounding erythema, redness. No pain with palpation. Positive bowel sounds. : Mathur in place. NEURO: 2 through 12 intact. PSYCH: She is alert and oriented, somnolent, not answering a lot of questions, but does answer appropriately. She is alert and oriented x3. LABS: WBC 7, hemoglobin 8.4, hematocrit 26 (this is baseline from discharge). Sodium 137, potassium 4.5, chloride 100, carbon dioxide 32, creatinine 0.6, glucose 90. Calcium is 8.1. Lipase is 85. Chest x-ray was personally reviewed by me: Small pleural effusion. CT abdomen and pelvis: No acute intraabdominal process. Trace fluid along the posterior surface and inferior tip of the liver, unchanged. Minimal bibasilar atelectasis. Trace pleural effusions. Healing abdominal wall wound. No abdominal wound fluid collection. Left nephrolithiasis and left renal atrophy are unchanged. ASSESSMENT AND PLAN: 1. Behavioral issues: She was transferred from her LTAC given she refused decannulation and medications. I spoke with Carisa, who is the case finishing machine adjuster there, and they have already placed an urgent referral [facility] in [facility] which has an inpatient psychiatric unit. Case Management is working on this now. 2. Recent peritonitis with small-bowel perforation: No evidence of an acute infection. She is afebrile. CT is stable. She completed a course of antibiotics. 3. Chronic pain: Caution with opioids. 4. Depression: Resume home medications. Psychiatry consulted 5. Anxiety/posttraumatic stress disorder: Resume home medications. 6. Normocytic anemia: Hemoglobin and hematocrit are stable from discharge. 7. Type 2 diabetes: Resume glargine and sliding scale. 8. Cardiomyopathy: This was secondary to critical illness. Echo showed ejection fraction of 40%, grade 1 diastolic heart failure. She has trace effusions, but no lower extremity edema. 9. Diet: Regular. 10. Deep venous thrombosis prophylaxis: Lovenox. 11. Disposition: inpatient admission for psychiatric [employer]ERV[employer] powers assistance /[id number]/MODL MTDD
--- NOTE | 2018-08-25 17:20 | ASMTCMCOM ---
CM Note CM Note Notes: Message received from Alma at [facility] ([phone]) regarding re-admission. This SW returned the call and left a VM. Full psych consult requested including possible competency eval. CM to follow up with Alma. Additional DC needs TBD CM to follow. Date Signed: 08/25/2018 04:49 PM Electronically Signed By:Laisha Reese LCSW
--- NOTE | 2018-08-25 17:34 | ASMTCMCOM ---
CM Note CM Note Notes: Alma from [facility] called regarding admission. At this time the facility will not accept the pt.for readmission. Alma indicated that the pt is still in their system and a lateral transfer to another LTAC facility may be possible. Date Signed: 08/25/2018 05:08 PM Electronically Signed By:Laisha Reese LCSW
[2018-08-25] MEDS: GEMFIBROZIL 600 MG TAB PO SCH (18:44)
[2018-08-25] MEDS: metFORMIN HCL 500 MG TAB PO SCH (18:45)
[2018-08-25] MEDS: INSULIN LISPRO 100 UNIT/ML SC SCH (18:45)
[2018-08-25] MEDS: ACETAMINOPHEN 325 MG TAB PO PRN ×2 (19:03→23:48)
[2018-08-25] MEDS: LORazepam 0.5 MG TAB PO PRN (21:17)
[2018-08-25] MEDS: QUEtiapine FUMARATE 25 MG TAB PO SCH (21:17)
[2018-08-25] MEDS: MAGNESIUM OXIDE 400 MG TAB PO SCH (21:17)
[2018-08-25] MEDS: INSULIN GLARGINE 100 UNITS/ML UNIT SC SCH (21:17)
[2018-08-25] MEDS: PATCH REMOVAL 1 EA PATCH TD SCH (21:18)
[2018-08-26] MEDS: LORazepam 0.5 MG TAB PO PRN ×2 (05:46→18:03)
[2018-08-26] MEDS: ACETAMINOPHEN 325 MG TAB PO PRN ×2 (05:46→10:23)
--- NOTE | 2018-08-26 07:40 | HOSPPROG ---
Hospitalist Progress Note Assessment/Plan: 53 F with MMP including chronic pain, depression, T2DM, anxiety/PTSD discharged 08/24 after prolonged hospitalization for lap ventral hernia repair with mesh c/ b peritonitis and small bowel perforation requiring several washouts with last being 08/11. Followed by ID and completed abx 08/24. Transferred to [facility] but sent back due to behavioral issues. Refusing meds except Dilaudid and Ativan. Overlay Operator wanted to decannulate her trach but she refused. #. behavioral issues: refusing meds at LTAC called placed to [facility] in [place] which has inpt psych call also placed with [facility] for inpatient psych evaluation #. recent peritonitis with small bowel perf: no e/o acute infection with stable CT and no F has completed abx has ongoing abdominal pain still has wound vac in place #. chronic pain: caution with opioids will trial Tramadol #. depression: resume home meds psych consulted #. anxiety/PTSD: home meds #. normocytic anemia: H/H are stable #. T2DM: Glargine reduced to once daily due to some low BS #. htn: BP moderately elevated will titrate Lisinopril and consider adding BB #. CM: EF 40% with Gd 1 DD no overt e/o CHF and CXR with trace effusions consider adding BB if HR and BP can tolerate #. tracheostomy: likely this can be decannulated but unsure why patient was refusing #. inpatient status: pt requires ongoing inpatient care due to need for ongoing acute care and psych consult. Subjective: Severe abd pain. Objective: Vital Signs Temp Pulse Resp BP Pulse Ox 98.6 F 104 H 15 149/100 H 92 08/26/18 05:00 08/26/18 05:00 08/26/18 06:10 08/26/18 05:00 08/26/18 06:10 08/25/18 08/26/18 08/27/18 05:59 05:59 05:59 Intake Total 1240 Output Total 1475 Balance -235 - Time Spent With Patient Time Spent with Patient: greater than 25 minutes Time Spent with Patient: Greater than 25 minutes spent on this patients care, greater than 50% of time spent counseling, educating, and coordinating care regarding the above mentioned plan. - Physical Exam Constitutional: no apparent distress, appears nourished, uncomfortable Eyes: anicteric sclera Ears, Nose, Mouth, Throat: moist mucous membranes, hearing normal Cardiovascular: regular rate and rhythym, no murmur, rub, or gallop Respiratory: no respiratory distress, no rales or rhonchi Gastrointestinal: soft, non-tender abdomen Skin: warm, normal color Neurologic: AAOx3 Psychiatric: anxious ICD10 Worksheet Patient Problems: Problems Problem Status Onset Abdominal pain Acute Depression Acute
[2018-08-26] MEDS ORDERED: Herbals/Supplements -Info Only PO SCH (09:00)
[2018-08-26] MEDS ORDERED: NON-FORMULARY NEW DRUG (Omeprazole [Omeprazole] 20 MG) PO SCH (09:00)
[2018-08-26] MEDS ORDERED: LISINOPRIL 5 MG TAB PO SCH ×2 (09:00→21:00)
[2018-08-26] MEDS ORDERED: INSULIN GLARGINE 100 UNITS/ML UNIT SC SCH (09:00)
[2018-08-26] MEDS ORDERED: ARIPiprazole 10 MG TAB PO SCH (09:00)
[2018-08-26] MEDS: LIDOCAINE 4%/MENTHOL 1% PATCH TD SCH (09:00)
[2018-08-26] MEDS ORDERED: Dextroamphetamine/Amphetamine [Adderall Xr 10 Mg Capsule] PO SCH (09:00)
[2018-08-26] MEDS: ENOXAPARIN 40 MG/0.4 ML SYR SC SCH (09:49)
[2018-08-26] MEDS: FLUoxetine 20 MG CAP PO SCH (09:51)
[2018-08-26] MEDS: ARIPiprazole 5 MG TAB PO SCH (09:56)
[2018-08-26] MEDS: MAGNESIUM OXIDE 400 MG TAB PO SCH ×2 (09:56→20:06)
[2018-08-26] MEDS: PANTOPRAZOLE SODIUM 40 MG TAB PO SCH (09:56)
[2018-08-26] MEDS: ALBUTEROL 60 PUFFS/8 GM MDI IH PRN ×2 (10:27→20:57)
[2018-08-26] MEDS: INSULIN LISPRO 100 UNIT/ML SC SCH ×3 (12:31→17:15)
[2018-08-26] MEDS: GEMFIBROZIL 600 MG TAB PO SCH ×2 (12:31→17:30)
[2018-08-26] MEDS: SIMETHICONE 80 MG TAB CHEW PO PRN ×3 (12:37→18:46)
[2018-08-26] MEDS ORDERED: ADDERALL 10 MG TAB PO SCH (14:45)
[2018-08-26] MEDS: metFORMIN HCL 500 MG TAB PO SCH ×2 (15:11→17:29)
[2018-08-26] MEDS: ADDERALL 10 MG TAB PO SCH (15:21)
[2018-08-26] MEDS: traMADol 50 MG TAB PO PRN (15:41)
--- NOTE | 2018-08-26 16:55 | PDMN ---
Medical Necessity Medical necessity: [facility] [id number] IP behavioral health level of care, adult: 53 yo presents w/ behavioral issues, awaiting psych eval and CM intervention. Pt was transferred to LTAC yesterday after undergoing lap ventral hernia repair w/ mesh 07/21 but subsequently developed peritonitis w/ small bowel perf and underwent several washouts, last being 08/11 w/ small bowel endarterotomy. Now refusing medications except dilaudid and ativan, has trach which clerical aide wanted to decanulate but she refused, per LTAC facility pt was acting confused and uncooperative overnight. Wound vac still in place. Hx chronic pain, depression DM, anxiety, PTSD, anemia, rectal prolapse and cardiomyopathy secondary acute illness w/ EF 40%. Given multiple medical and behavioral issues , pt requires ongoing IP care due to need for ongoing acute care and psych consult.
[2018-08-26] MEDS: ONDANSETRON 4 MG/2 ML VIAL IVP PRN (18:02)
[2018-08-26] MEDS: PATCH REMOVAL 1 EA PATCH TD SCH (19:59)
[2018-08-26] MEDS: QUEtiapine FUMARATE 25 MG TAB PO SCH (20:06)
[2018-08-26] MEDS: INSULIN GLARGINE 100 UNITS/ML UNIT SC SCH (21:55)
[2018-08-27] MEDS: GEMFIBROZIL 600 MG TAB PO SCH ×2 (06:31→17:13)
[2018-08-27] MEDS: INSULIN LISPRO 100 UNIT/ML SC SCH ×3 (07:43→18:43)
[2018-08-27] MEDS: ENOXAPARIN 40 MG/0.4 ML SYR SC SCH (09:31)
[2018-08-27] MEDS: LISINOPRIL 5 MG TAB PO SCH (09:32)
[2018-08-27] MEDS: CARVEDILOL 3.125 MG TAB PO SCH ×2 (09:33→18:46)
[2018-08-27] MEDS: FLUoxetine 20 MG CAP PO SCH (09:34)
[2018-08-27] MEDS: PANTOPRAZOLE SODIUM 40 MG TAB PO SCH (09:34)
[2018-08-27] MEDS: ARIPiprazole 5 MG TAB PO SCH (09:35)
[2018-08-27] MEDS: MAGNESIUM OXIDE 400 MG TAB PO SCH ×2 (10:43→21:55)
[2018-08-27] MEDS: metFORMIN HCL 500 MG TAB PO SCH (10:43)
[2018-08-27] MEDS: LIDOCAINE 4%/MENTHOL 1% PATCH TD SCH (10:43)
[2018-08-27] MEDS ORDERED: INSULIN GLARGINE 100 UNITS/ML UNIT SC SCH (11:15)
--- NOTE | 2018-08-27 11:15 | HOSPPROG ---
Hospitalist Progress Note Assessment/Plan: 53 F with MMP including chronic pain, depression, T2DM, anxiety/PTSD discharged 08/24 after prolonged hospitalization for lap ventral hernia repair with mesh c/ b peritonitis and small bowel perforation requiring several washouts with last being 08/11. Followed by ID and completed abx 08/24. Transferred to [facility] but sent back due to behavioral issues. Refusing meds except Dilaudid and Ativan. Tin Recovery Worker wanted to decannulate her trach but she refused. #. behavioral issues: refusing meds at LTAC called placed to [facility] in [place] which has inpt psych call also placed for inpatient psych evaluation/ spoke with [facility] who states that this likely will not occur until Tuesday #. recent peritonitis with small bowel perf: no e/o acute infection with stable CT and no F has completed abx abd pain not present currently still has wound vac in place #. urinary issues: still has gutierrez in place #. chronic pain: caution with opioids added Tramadol yesterday #. depression: resume home meds psych consulted #. anxiety/PTSD: home meds #. normocytic anemia: H/H are stable #. T2DM: Glargine reduced to once daily due to some low BS yesterday AM BS 55/ will decrease evening Glargine further #. htn: BP moderately elevated will titrate Lisinopril and add Carvedilol #. CM: EF 40% with Gd 1 DD no overt e/o CHF and CXR with trace effusions added Carvedilol today #. tracheostomy: likely this can be decannulated but patient was refusing at LTAC #. DVT ppx: on Lovenox #. inpatient status: pt requires ongoing inpatient care due to need for ongoing acute care and psych consult. Subjective: "I want to go home." No abd pain. Objective: Vital Signs Temp Pulse Resp BP Pulse Ox 97.7 F 110 H 18 161/105 H 97 08/27/18 07:32 08/27/18 07:32 08/27/18 07:32 08/27/18 07:32 08/27/18 07:32 08/26/18 08/27/18 08/28/18 05:59 05:59 05:59 Intake Total 1240 1310 Output Total 1475 2925 Balance -235 -1615 - Physical Exam Constitutional: chronically ill appearing, uncomfortable Ears, Nose, Mouth, Throat: moist mucous membranes, hearing normal Cardiovascular: regular rate and rhythym, no murmur, rub, or gallop Respiratory: no respiratory distress Gastrointestinal: normoactive bowel sounds, soft, non-tender abdomen Psychiatric: interacting appropriately, anxious ICD10 Worksheet Patient Problems: Problems Problem Status Onset Depression Acute Abdominal pain Acute
--- NOTE | 2018-08-27 12:06 | SOAPPROG ---
SOAP Progress Note Assessment/Plan: Assessment: 53-year-old status post ventral hernia repair. During the ventral hernia repair she had a small bowel perforation and became septic. She is status post numerous washouts. Her fascia was ultimately closed and was discharged to a rehab facility. However at the rehab facility she became very frightened and was complaining of abdominal pain. She was sent to the emergency room. Her CT scan did not show any intra-abdominal process. Regular diet Reassurance provided Explained she is not strong enough to go home yet. Rehab is best option Subjective: wants to go home. She complains that her abdomen feels heavy and that this is scary O: Sitting in bed at an angle and does not have strength to move herself. Her voice quality is much improved from when I last saw her Her abdomen is soft and nontender. The wound VAC is to suction. Plan: 08/27/18 12:04 Objective: Vital Signs Temp Pulse Resp BP Pulse Ox 36.5 C 110 H 18 161/105 H 97 08/27/18 07:32 08/27/18 07:32 08/27/18 07:32 08/27/18 07:32 08/27/18 07:32 08/26/18 08/27/18 08/28/18 05:59 05:59 05:59 Intake Total 1240 1310 Output Total 4789 5621 Balance -235 -8870 ICD10 Worksheet Patient Problems: Problems Problem Status Onset Abdominal pain Acute Depression Acute
[2018-08-27] MEDS: traMADol 50 MG TAB PO PRN (12:26)
[2018-08-27] MEDS: LORazepam 0.5 MG TAB PO PRN (12:26)
[2018-08-27] MEDS: ADDERALL 10 MG TAB PO SCH (14:51)
[2018-08-27] MEDS: ALBUTEROL 60 PUFFS/8 GM MDI IH PRN (16:34)
[2018-08-27] MEDS: LORazepam 1 MG TAB PO PRN (17:13)
[2018-08-27] MEDS: QUEtiapine FUMARATE 25 MG TAB PO SCH (21:55)
[2018-08-27] MEDS: PATCH REMOVAL 1 EA PATCH TD SCH (22:20)
[2018-08-28] MEDS: LORazepam 1 MG TAB PO PRN ×3 (05:18→16:16)
[2018-08-28] MEDS: GEMFIBROZIL 600 MG TAB PO SCH ×2 (08:27→16:16)
[2018-08-28] MEDS: ENOXAPARIN 40 MG/0.4 ML SYR SC SCH (08:27)
[2018-08-28] MEDS: CARVEDILOL 3.125 MG TAB PO SCH ×2 (08:27→17:54)
[2018-08-28] MEDS: MAGNESIUM OXIDE 400 MG TAB PO SCH ×2 (08:27→20:48)
[2018-08-28] MEDS: PANTOPRAZOLE SODIUM 40 MG TAB PO SCH (08:27)
[2018-08-28] MEDS: ARIPiprazole 5 MG TAB PO SCH (08:27)
[2018-08-28] MEDS: FLUoxetine 20 MG CAP PO SCH (08:27)
[2018-08-28] MEDS: LISINOPRIL 5 MG TAB PO SCH (08:27)
[2018-08-28] MEDS: LIDOCAINE 4%/MENTHOL 1% PATCH TD SCH (08:28)
[2018-08-28] MEDS: ADDERALL 10 MG TAB PO SCH (09:31)
[2018-08-28] MEDS: ALBUTEROL 60 PUFFS/8 GM MDI IH PRN (09:32)
[2018-08-28] MEDS: ONDANSETRON 4 MG/2 ML VIAL IVP PRN (09:35)
[2018-08-28] MEDS: traMADol 50 MG TAB PO PRN (10:07)
--- NOTE | 2018-08-28 10:38 | WOCRNPDOC ---
WOCRN Advanced Assessment Note - Skin Integrity Problem, Advanced Assess Medial Abdomen Dressing Type: Black Vac Foam (x1), Wound Vac Dressing Description: Clean/Dry, Intact Wound Bed Constitution: Granulation Tissue (100%) Wound Edges: Epithelizing, Attached Site Measurement - Head-to-Toe Length X Width X Depth (cm): 18.4x2.6x1.3 Skin Integrity Problem Comment: Cleaned with ns and gauze. Patient was screaming in pain when RN first entered room and begged to be relieved of abdominal pain then promptly fell asleep for entire vac change. Wound is clean and healing well. No sign of infection. Anticipate vac may be D/C'd in next week or two. One piece of small black simplace was placed in wound bed after skin prep and drape applied kat wound. Patient slept through vac change. Next change due Wed. Vac restarted at -125 mm Hg continuous suction. No leaks noted.
--- NOTE | 2018-08-28 11:50 | ASMTCMCOM ---
CM Note CM Note Notes: CM spoke to AMRIK Arshad regarding d/c POC. CM spoke to Letty w/ [facility]. Letty reports that she will need to speak w/ her administer before making a decision. Letty suggested that a new referral be sent to [facility] in [place]. Letty reports that when pt was discharged from the hospital she lost her 3 ICU midnight's which will qualify pt for a lower reimbursement rate. New referral sent to [facility]. CM to follow. Plan: TBD Date Signed: 08/28/2018 11:49 AM Electronically Signed By:AIDAN Agudelo
--- NOTE | 2018-08-28 12:18 | HOSPPROG ---
Hospitalist Progress Note Assessment/Plan: Delphine is a 53 F with MMP including chronic pain, depression, T2DM, anxiety/ PTSD discharged 08/24 after prolonged hospitalization for lap ventral hernia repair with mesh c/b peritonitis and small bowel perforation requiring several washouts with last being 08/11. Followed by ID and completed abx 08/24. Transferred to [facility] but sent back due to behavioral issues. Refusing meds except Dilaudid and Ativan. Water Pumping Station Engineer wanted to decannulate her trach but she refused. Reviewed her care w Dr Neal who was on swing yesterday and notified about her low glucoses. First encounter, chart reviewed. * behavioral issues: refusing meds at LTAC -called IP psych for evaluation (message left), previous provider told it would be today -spoke to her MPOA who said she has hx of bipolar issues * recent peritonitis with small bowel perf: no e/o acute infection with stable CT and no F -completed abx -has asked for pain meds/ told her we should try a kpad, she was agreeable -wound vac in place * urinary issues: still has gutierrez in place -will dc if ok w Dr Chamorro *. chronic pain: caution with opioids -Tramadol added * depression: resume home meds -psych consulted * anxiety/PTSD: home meds -prn ativan has been ordered, will decrease the dose * normocytic anemia: H/H are stable * T2DM: hold all meds, she has had low glucoses consistently #. htn: BP moderately elevated -will titrate Lisinopril, Coreg added #. CM: EF 40% with Gd 1 DD -no s/sx of CHF -Coreg and Lisinopril #. tracheostomy - likely this can be decannulated but patient was refusing at LTAC #. DVT ppx: on Lovenox #. inpatient status: pt requires ongoing inpatient care due to need for ongoing acute care and psych consult. *plan: left message for request of psych consult today, check w Dr Chamorro about gutierrez removal, decrease Ativan dosing. Subjective: Delphine said she is tired, very weak Objective: Vital Signs Temp Pulse Resp BP Pulse Ox 37.0 C 110 H 20 162/109 H 98 08/28/18 08:00 18 08:27 08/28/18 08:00 08/28/18 08:27 08/28/18 08:00 08/27/18 08/28/18 08/29/18 05:59 05:59 05:59 Intake Total 1310 2100 Output Total 6082 8555 Balance -1615 -8891 - Physical Exam Constitutional: chronically ill appearing, uncomfortable, other (drowsy) Eyes: PERRL Ears, Nose, Mouth, Throat: hearing normal Cardiovascular: regular rate and rhythym Respiratory: no respiratory distress Gastrointestinal: normoactive bowel sounds, other (wound vac in place on abdomen ) Genitourinary: gutierrez in urethra Skin: warm, No normal color (pale) Musculoskeletal: other (extremely weak) Neurologic: other (answers questions, but sleepy) Psychiatric: interacting appropriately ICD10 Worksheet Patient Problems: Problems Problem Status Onset Abdominal pain Acute Depression Acute
--- NOTE | 2018-08-28 13:35 | SOAPPROG ---
SOAP Progress Note Assessment/Plan: Assessment: EMOTIONAL BUT VS STABLE/ AFEBRILE/ WOUND LOOKS GREAT ABD SOFT, NONTENDER WITH BS EATING WELL WITH BMS Plan:WOUND CARE/ DC TRACH SOON 08/28/18 13:33 Objective: Vital Signs Temp Pulse Resp BP Pulse Ox 36.8 C 102 H 20 145/95 H 95 08/28/18 12:00 08/28/18 12:00 08/28/18 12:00 08/28/18 12:00 08/28/18 12:00 08/27/18 08/28/18 08/29/18 05:59 05:59 05:59 Intake Total 1310 2100 Output Total 0854 6738 Balance -1796 -2150 ICD10 Worksheet Patient Problems: Problems Problem Status Onset Abdominal pain Acute Depression Acute
[2018-08-28] MEDS: SIMETHICONE 80 MG TAB CHEW PO PRN (19:42)
[2018-08-28] MEDS: QUEtiapine FUMARATE 25 MG TAB PO SCH (20:48)
[2018-08-28] MEDS: PATCH REMOVAL 1 EA PATCH TD SCH (20:49)
[2018-08-29] MEDS: GEMFIBROZIL 600 MG TAB PO SCH ×2 (06:30→17:07)
[2018-08-29] MEDS: ARIPiprazole 5 MG TAB PO SCH (08:39)
[2018-08-29] MEDS: LISINOPRIL 5 MG TAB PO SCH (08:39)
[2018-08-29] MEDS: FLUoxetine 20 MG CAP PO SCH (08:39)
[2018-08-29] MEDS: ADDERALL 10 MG TAB PO SCH (08:39)
[2018-08-29] MEDS: CARVEDILOL 3.125 MG TAB PO SCH ×2 (08:39→17:06)
[2018-08-29] MEDS: PANTOPRAZOLE SODIUM 40 MG TAB PO SCH (08:40)
[2018-08-29] MEDS: ENOXAPARIN 40 MG/0.4 ML SYR SC SCH (08:40)
[2018-08-29] MEDS: MAGNESIUM OXIDE 400 MG TAB PO SCH ×2 (08:41→20:35)
[2018-08-29] MEDS: LIDOCAINE 4%/MENTHOL 1% PATCH TD SCH (08:41)
--- NOTE | 2018-08-29 08:44 | HOSPPROG ---
Hospitalist Progress Note Assessment/Plan: Delphine is a 53 F with MMP including chronic pain, depression, T2DM, anxiety/ PTSD discharged 08/24 after prolonged hospitalization for lap ventral hernia repair with mesh c/b peritonitis and small bowel perforation requiring several washouts with last being 08/11. Followed by ID and completed abx 08/24. Transferred to [facility] but sent back due to behavioral issues. Refusing meds except Dilaudid and Ativan. Satellite Installation Technician wanted to decannulate her trach but she refused. * behavioral issues: refusing meds at LTAC -Dr Colunga to see -patient said she is aware she has mental health problems and is very willing to talk with our psychiatrist -spoke to her MPOA who said she has hx of bipolar issues * recent peritonitis with small bowel perf: no e/o acute infection with stable CT and no F -completed abx -has asked for pain meds/ told her we should try a kpad, she was agreeable -wound vac in place * urinary issues: still has gutierrez in place -reviewed w Dr Chamorro and once more mobile, can remove gutierrez *. chronic pain: caution with opioids -Tramadol added * depression: resume home meds -psych consulted * anxiety/PTSD: home meds -prn ativan has been ordered, will decrease the dose * normocytic anemia: H/H are stable * T2DM: hold all meds, she has had low glucoses consistently -glucoses are better today #. htn: BP moderately elevated this morning -bp better in general #. CM: EF 40% with Gd 1 DD -no s/sx of CHF -Coreg and Lisinopril #. tracheostomy - removed #. DVT ppx: on Lovenox #. inpatient status: pt requires ongoing inpatient care due to need for ongoing acute care and psych consult. *plan: Dr Colunga to see today, spoke w [facility] to confirm, reviewed her care w Dr Chamorro. Patient wants to go home to be with her cat, but is unable to get oob without quite a bit of assistance. Subjective: Delphine said she is willing to talk w psychiatry, knows she has mental health issues,says she is motivated to get stronger to get home but is realistic she needs a SNF. Objective: Vital Signs Temp Pulse Resp BP Pulse Ox 36.6 C 99 18 158/102 H 95 08/29/18 08:00 08/29/18 08:00 08/29/18 08:00 08/29/18 08:00 08/29/18 08:00 08/28/18 08/29/18 08/30/18 05:59 05:59 05:59 Intake Total 2100 800 Output Total 4550 3400 Balance -2450 -2600 - Physical Exam Constitutional: appears nourished, not in pain, chronically ill appearing Eyes: PERRL Ears, Nose, Mouth, Throat: hearing normal Cardiovascular: regular rate and rhythym Respiratory: no respiratory distress, reduced air movement Gastrointestinal: normoactive bowel sounds Genitourinary: gutierrez in urethra Skin: warm, other (wound vac in place on the abdomen) Musculoskeletal: generalized weakness Neurologic: AAOx3 Psychiatric: interacting appropriately, poor insight ICD10 Worksheet Patient Problems: Problems Problem Status Onset Abdominal pain Acute Depression Acute
--- NOTE | 2018-08-29 10:20 | SOAPPROG ---
SOAP Progress Note Assessment/Plan: Assessment: 53yo female s/p lap for peritonitis after ventral hernia repair Trach has been removed Tolerating regular diet, crying small amount as wants to go home PE awake, alert Abd wound VAC in place,soft nontender Plan: D/C likely to SNF soon, pending psych eval saw pt with Dr Chamorro continue wound VAC 08/29/18 10:17 Objective: Vital Signs Temp Pulse Resp BP Pulse Ox 36.6 C 102 H 18 158/102 H 95 08/29/18 08:00 08/29/18 08:39 08/29/18 08:00 08/29/18 08:39 08/29/18 08:00 08/28/18 08/29/18 08/30/18 05:59 05:59 05:59 Intake Total 2100 800 Output Total 3845 2194 Balance -2450 -2600 ICD10 Worksheet Patient Problems: Problems Problem Status Onset Abdominal pain Acute Depression Acute
[2018-08-29] MEDS: traMADol 50 MG TAB PO PRN (12:11)
[2018-08-29] MEDS: LORazepam 1 MG TAB PO PRN (14:28)
[2018-08-29] MEDS: ACETAMINOPHEN 325 MG TAB PO PRN (14:31)
--- NOTE | 2018-08-29 15:26 | ASMTCMCOM ---
CM Note CM Note Notes: This is a complicated situation as patient was sent back to our ED from [facility] d/t patient's 'behavioral issues.' I have spoken again to Alma LopezDilcia at [facility] #[phone] and explained that we are now having a difficult time placing patient at another LTAC d/t the fact they discharged her back to us (patient doesn't meet the LTAC level of care now). I asked Alma LopezDilcia to speak with her administrative team to see what they can do to make this right. If patient has really not been 'discharged' from their services and is only on a 'leave of absence' then they need to provide this proof to [facility] and [facility] (both were willing to accept this patient at one point). Michael mackay [facility] #[phone] looking into this case again. [facility] willing to accept if [facility] can prove patient has not officially been discharged. Awaiting a c/b from both Michael mackay [facility]ULL[facility] as well as Alma mackay [facility]. CM will continue to follow. Date Signed: 08/29/2018 03:25 PM Electronically Signed By:Dorothy Salas RN
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
[2018-08-29] MEDS ORDERED: LORazepam 1 MG TAB PO SCH (21:00)
[2018-08-29] MEDS: PATCH REMOVAL 1 EA PATCH TD SCH (22:07)
[2018-08-30] MEDS: FLUoxetine 20 MG CAP PO SCH (08:07)
[2018-08-30] MEDS: LISINOPRIL 20 MG TAB PO SCH (08:07)
[2018-08-30] MEDS: ADDERALL 10 MG TAB PO SCH (08:07)
[2018-08-30] MEDS: ARIPiprazole 5 MG TAB PO SCH (08:07)
[2018-08-30] MEDS: GEMFIBROZIL 600 MG TAB PO SCH ×2 (08:07→17:35)
[2018-08-30] MEDS: MAGNESIUM OXIDE 400 MG TAB PO SCH ×2 (08:07→19:47)
[2018-08-30] MEDS: LIDOCAINE 4%/MENTHOL 1% PATCH TD SCH (08:08)
[2018-08-30] MEDS: CARVEDILOL 3.125 MG TAB PO SCH ×2 (08:08→17:35)
[2018-08-30] MEDS: ENOXAPARIN 40 MG/0.4 ML SYR SC SCH (08:08)
[2018-08-30] MEDS: PANTOPRAZOLE SODIUM 40 MG TAB PO SCH (08:08)
[2018-08-30] MEDS ORDERED: QUEtiapine FUMARATE 25 MG TAB PO PRN ×2 (10:53→13:17)
--- NOTE | 2018-08-30 11:03 | WOCRNPDOC ---
WOCRN Advanced Assessment Note - Skin Integrity Problem, Advanced Assess Medial Abdomen Dressing Type: Black Vac Foam (x1), Wound Vac Dressing Description: Clean/Dry, Intact Exudate Amount: None Integumentary Issue Intervention: Dressing Changed Kat Wound Swelling: None Wound Bed Color: Billingsley Wound Bed Constitution: Granulation Tissue (100%) Wound Edges: Epithelizing, Attached Skin Integrity Problem Comment: Cleaned with ns and gauze. skin prep and drape to kat wound skin. One piece of black simplace foam to wound bed. Vac restarted at -125 mm Hg continuous suction no leaks. Elda ROWLEY in room and assisted with care.
--- NOTE | 2018-08-30 11:38 | SOAPPROG ---
SOAP Progress Note Assessment/Plan: Assessment: 53 y/o F s/p recent hospitalization for lap ventral hernia repair, small bowel injury, peritonitis and multiple washouts. Readmitted for refusal of care at LTAC. S: Sitting up in chair. Doing well. Ready to be discharged to SNF. Eager to get home to her pets, but understands her need to get stronger first. O: Alert Afebrile No increased WOB Abdomen: soft, nontender, wound vac to suction. +BS. Plan: Can be d/c'ed to SNF from surgery standpoint. Follow up late next week. 08/30/18 11:36 Objective: Vital Signs Temp Pulse Resp BP Pulse Ox 36.8 C 107 H 18 169/106 H 94 08/30/18 08:00 08/30/18 08:00 08/30/18 08:00 08/30/18 08:00 08/30/18 08:00 Laboratory Results 08/30/18 06:00 08/29/18 08/30/18 08/31/18 05:59 05:59 05:59 Intake Total 800 1550 Output Total 3400 1200 1800 Balance -2600 350 -1800 ICD10 Worksheet Patient Problems: Problems Problem Status Onset Abdominal pain Acute Depression Acute
--- NOTE | 2018-08-30 12:26 | SOAPPROG ---
SOAP Progress Note Assessment/Plan: Assessment: 08/30/18 12:31 PSYCHIATRY FOLLOW-UP RECOMMENDATIONS: -Pt agreeable to D/C Ativan 1mg qhs, in part to ensure not taking any controlled substances at discharge and to avoid risk of substance use relapse. Agrees to resume Seroquel 25mg qhs, with 25mg qhs prn for insomnia/thoughts/ mood and Seroquel 12.5mg bid prn anxiety. Educated on risks of Seroquel including metabolic risks and effect on diabetes. Patient agreed to taking this medication, and also educated that it's use for sleep/anxiety is off-label. May help with sleep, depression (higher dose indicated for BMD depr), PTSD symptoms. Has tolerated 25mg qhs without problem previously. -Discontinue Abilify 5mg QD. Not clear that her restlessness to leave room is akathisia, but this is a possible side effect. Also no clinical indication to now be on 2 antipsychotics if plan for resuming Seroquel. -ST consult for cognitive assessment, evaluate current baseline, and determine if additional support needed after discharge -discussed with hospitalist her c/o feeling abdominal tightness, discomfort, and difficulty taking full breath, is not requesting pain meds for this. -[place]patient MH f/u [place]: [facility]. software release manager Delphine Aguilar [phone], Psychiatrist Dr. Feldman [phone] for RN line. Left message. (need MAC if not already done) -has normal B12. anemia improving with Hct 29 today. could check Fe studies. -has not been engaging in any substance-seeking behavior during current hospitalization, and has been compliant with prescribed medication. -States she feels some self-soothing activities would help with her prolonged hospital course- likes to draw, color, paint, listen to music and enjoys company , also light reading materials. Thinks she would not mind having a roommate to help her not feel lonely. -recommendations discussed with case management, hospitalist and RN DIAGNOSIS: Adjustment disorder, with depressed mood and anxiety PTSD, chronic Depressive disorder, unspecified rule out Neurocognitive disorder, unspecified (due to possible hypoxic-ischemic injury intra-and post-operatively) ADHD by history Mild Autism by self-reported history Opiate use disorder, unspecified Alcohol use disorder, remote r/o THC use disorder, unspecified r/o unspecified personality disorder SUBJECTIVE: Per staff, pt yelled from her room today, feeling lonely. Met with patient today for follow-up. Reports not feeling depressed, not anxious presently, but admits she did yell out for staff b/c felt lonely, and that her thoughts start racing when she is alone. Feels "stir crazy" about being in the hospital this long. Able to discuss reason for rehospitalization after 24hr at LTAC- recalls not cooperating with staff and refusing meds except her opiates and ativan, "I didn' t know the anesthesia would affect me so much, I was thinking 'Either I can trust them or they could kill me,'...I was a beast." States she only took Dilaudid and Ativan "I think because of the human nature of it, self- soothing...I had to be humbled." Adds, "I was freaking out, thinking insane sh* t like they were trying to kill me." Feels she needs to get out of her room, feels her mind "runs like a freight train" when not otherwise distracted, thinks of wanting to be out of hospital and back home, but also states she knows the plan is to transition through rehab to regain strength lost with prolonged hospitalization/in-bed. Did talk with her mother today, hopes she will visit. Complains she feels lonely when left alone in her room for prolonged periods. Thinks music, writing/drawing and reading materials could be helpful for her. Also someone to talk to. Would not mind a roommate. Not interested in oil extractor consult. Medically feels overall better, states she does feel abdominal tightness, feels this makes her feel mildly short of breath. MSE: calm, cooperative, engaging, nml speech rate, vol. good eye contact. Normal psychomotor activity. Mood "fine, ready to leave the hospital", affect appropriate to conversation. Thoughts linear, reality-based, no AH/VH, no paranoia/delusions. mildly disinhibited, good sense of humor. expressing good insight into problematic behaviors at LTAC leading to rehospitalization. judgment seems intact. Objective: Vital Signs Temp Pulse Resp BP Pulse Ox 36.8 C 97 17 169/106 H 98 08/30/18 08:00 08/30/18 11:40 08/30/18 11:40 08/30/18 08:00 08/30/18 11:40 Laboratory Results 08/30/18 06:00 08/29/18 08/30/18 08/31/18 05:59 05:59 05:59 Intake Total 800 1550 Output Total 3400 1200 1800 Balance -2600 350 -1800 - Time Spent With Patient Time Spent With Patient: 60min - Pending Discharge Pending Discharge Within 24 Hours: No Pending Discharge Within 48 Hours: No ICD10 Worksheet Patient Problems: Problems Problem Status Onset Abdominal pain Acute Depression Acute
--- NOTE | 2018-08-30 16:03 | HOSPPROG ---
Hospitalist Progress Note Assessment/Plan: Delphine is a 53 F with MMP including chronic pain, depression, T2DM, anxiety/ PTSD discharged 08/24 after prolonged hospitalization for lap ventral hernia repair with mesh c/b peritonitis and small bowel perforation requiring several washouts with last being 08/11. Followed by ID and completed abx 08/24. Transferred to [facility] but sent back due to behavioral issues. * behavioral issues: refusing meds at LTAC -appreciate Dr Colunga -dc Ativan, Seroquel at night and prn if needed -patient mainly needs assurance frequently and suspect she gets lonely and acts out -she has been calm and cooperative for the past 3 days I've taken care of her * recent peritonitis with small bowel perf: no e/o acute infection with stable CT and no F -completed abx -has asked for pain meds/ told her we should try a kpad, she was agreeable -wound vac in place -dc PICC today, increase risk of clot formation * urinary issues: still has gutierrez in place -dc in the morning *tachycardia -been ongoing since July -had a CTA at that time that was negative for a PE -tachycardia is less today, will get an EKG to evaluate *. chronic pain: caution with opioids -Tramadol added -would avoid opioids at all times * depression: resume home meds -psych consulted * anxiety/PTSD: home meds -much improved, has prn Seroquel if needed * normocytic anemia: H/H are stable * T2DM: hold all meds, she has had low glucoses consistently -glucoses are better today #. htn: Increased her Lisinopril dose -bp better in general #. CM: EF 40% with Gd 1 DD -no s/sx of CHF -Coreg and Lisinopril #. tracheostomy - removed #. DVT ppx: on Lovenox #. inpatient status: pt requires ongoing inpatient care due to need for ongoing acute care and psych consult. *plan: remove PICC today and ugtierrez tomorrow, reviewed her care w Dr Colunga and Meche Gallardo LOAN TELLER with Dr Chamorro, will get a 12 lead to evaluate her tachycardia. Subjective: Delphine wants to go home badly but realizes she is too weak to care for herself. Objective: Vital Signs Temp Pulse Resp BP Pulse Ox 36.8 C 97 17 169/106 H 98 11/14/18 08:00 08/30/18 11:40 08/30/18 11:40 08/30/18 08:00 08/30/18 11:40 Laboratory Results 08/30/18 06:00 08/29/18 08/30/18 08/31/18 05:59 05:59 05:59 Intake Total 800 1550 Output Total 3400 1200 2450 Balance -2600 350 -2450 - Physical Exam Constitutional: not in pain, chronically ill appearing Eyes: PERRL Ears, Nose, Mouth, Throat: hearing normal Cardiovascular: regular rate and rhythym, tachycardia Respiratory: no respiratory distress, reduced air movement Skin: warm, other (wound vac in place on her abdomen) Musculoskeletal: generalized weakness Neurologic: AAOx3 Psychiatric: interacting appropriately, poor insight, poor judgement, poor memory ICD10 Worksheet Patient Problems: Problems Problem Status Onset Abdominal pain Acute Depression Acute
[2018-08-30] MEDS: SIMETHICONE 80 MG TAB CHEW PO PRN ×2 (17:49→20:06)
[2018-08-30] MEDS: PATCH REMOVAL 1 EA PATCH TD SCH (19:48)
[2018-08-30] MEDS ORDERED: traMADol 50 MG TAB ONE (19:52)
[2018-08-30] MEDS: traMADol 50 MG TAB PO PRN (19:52)
[2018-08-30] MEDS ORDERED: QUEtiapine FUMARATE 50 MG TAB PO SCH (21:00)
[2018-08-31] MEDS: CARVEDILOL 3.125 MG TAB PO SCH ×2 (07:50→17:26)
[2018-08-31] MEDS: FLUoxetine 20 MG CAP PO SCH (07:50)
[2018-08-31] MEDS: LIDOCAINE 4%/MENTHOL 1% PATCH TD SCH (09:22)
[2018-08-31] MEDS: INSULIN GLARGINE 100 UNITS/ML UNIT SC SCH (09:22)
[2018-08-31] MEDS: MAGNESIUM OXIDE 400 MG TAB PO SCH ×2 (09:23→19:59)
[2018-08-31] MEDS: ADDERALL 10 MG TAB PO SCH (09:23)
[2018-08-31] MEDS: GEMFIBROZIL 600 MG TAB PO SCH ×2 (09:24→17:26)
[2018-08-31] MEDS: LISINOPRIL 20 MG TAB PO SCH (09:24)
[2018-08-31] MEDS: PANTOPRAZOLE SODIUM 40 MG TAB PO SCH (09:24)
[2018-08-31] MEDS: ENOXAPARIN 40 MG/0.4 ML SYR SC SCH (09:28)
[2018-08-31] MEDS ORDERED: LORazepam 1 MG TAB PO PRN (11:35)
--- NOTE | 2018-08-31 11:44 | ASMTCMCOM ---
CM Note CM Note Notes: Spoke with Alma Gordon again from [facility]. She stated, "I spoke with my MOBILE HOME SERVICER and PAIRER INSPECTOR and we can go ahead and erase patient's admission from our system. This way, patient will again meet the qualifications for LTAC." I spoke with both Letty at [facility] and Michael at [facility] regarding the statement above, neither one of them have ever heard of that. They both checked with their administrative team - this is not a possibility. The reality at this point is that patent will likely not qualify for a LTAC again. Referrals have been sent to SNFs - awaiting responses/on-site evals. PASRR did trigger and was sent to our OBRA coordinator for review. I spoke with Deann, patient's proxy (# in previous notes). She is not very happy with the one day discharge but understood that the plan will likely need to be SNF at this time. Deann would prefer for patient to be placed in either [place] or [place]. Case has been discussed with Jina Alan. She feels SNF is an appropriate plaement option. [facility] will continue to work on placement. Plan: SNF Date Signed: 08/31/2018 11:43 AM Electronically Signed By:Dorothy Salas RN
--- NOTE | 2018-08-31 13:03 | SOAPPROG ---
SOAP Progress Note Assessment/Plan: Assessment: 53 y/o F s/p recent hospitalization for lap ventral hernia repair, small bowel injury, peritonitis and multiple washouts. Readmitted for refusal of care at LTAC. S: Sitting up in chair. Doing well. Ready to be discharged to SNF. Eager to get home to her pets, but understands her need to get stronger first. O: Alert Afebrile No increased WOB Abdomen: soft, nontender, wound vac to suction. +BS. Plan: Can be d/c'ed to SNF from surgery standpoint. Follow up late next week. 08/30/18 11:36 08/31/18 12:57 Very anxious today. Wants to know why she can't have anything for anxiety. Pt was seen by Dr. Colunga yesterday who advised against starting pt on any benzos or narcotics due to addiction history. She ordered prn Seroquel. Pt reports Seroquel not helping. Pt is very agitated and upset. Discussed case with medicine and Dr. Chamorro- will restart Ativan q12 hrs prn. Dr. Colunga has been asked to see the pt again. Abdomen soft, nontender, wound vac to suction. Pt seen with Dr. Chamorro. Objective: Vital Signs Temp Pulse Resp BP Pulse Ox 36.8 C 100 20 168/87 H 95 08/31/18 07:44 08/31/18 07:50 08/31/18 07:44 08/31/18 09:24 08/31/18 07:44 Laboratory Results 08/30/18 06:00 08/30/18 08/31/18 09/01/18 05:59 05:59 05:59 Intake Total 1550 Output Total 1200 3300 Balance 350 -3300 ICD10 Worksheet Patient Problems: Problems Problem Status Onset Abdominal pain Acute Depression Acute
[2018-08-31] MEDS: LORazepam 1 MG TAB PO PRN (13:18)
[2018-08-31] MEDS: SIMETHICONE 80 MG TAB CHEW PO PRN ×2 (13:18→19:35)
--- NOTE | 2018-08-31 14:29 | SOAPPROG ---
SOAP Progress Note Assessment/Plan: Assessment: PSYCHIATRY F/U: 08/31/2018 15:00 PHONE CALL Received msg from hospitalist. Patient reporting increased anxiety and wanting Ativan restarted. Reporting current low dose Seroquel unhelpful. Per RN, did not sleep well last night with Seroquel 50mg, pt would like increase. Does have history of severe PTSD. Also substance use d/o, and possible BMD. PLAN: Will increase Seroquel from 12.5mg bid prn to 25-50mg TID prn and increase HS from 50mg to 100mg. 08/30/2018 12:31 PSYCHIATRY FOLLOW-UP RECOMMENDATIONS: -Pt agreeable to D/C Ativan 1mg qhs, in part to ensure not taking any controlled substances at discharge and to avoid risk of substance use relapse. Agrees to resume Seroquel 25mg qhs, with 25mg qhs prn for insomnia/thoughts/ mood and Seroquel 12.5mg bid prn anxiety. Educated on risks of Seroquel including metabolic risks and effect on diabetes. Patient agreed to taking this medication, and also educated that it's use for sleep/anxiety is off-label. May help with sleep, depression (higher dose indicated for BMD depr), PTSD symptoms. Has tolerated 25mg qhs without problem previously. -Discontinue Abilify 5mg QD. Not clear that her restlessness to leave room is akathisia, but this is a possible side effect. Also no clinical indication to now be on 2 antipsychotics if plan for resuming Seroquel. -ST consult for cognitive assessment, evaluate current baseline, and determine if additional support needed after discharge -discussed with hospitalist her c/o feeling abdominal tightness, discomfort, and difficulty taking full breath, is not requesting pain meds for this. -Outpatient MH f/u with [facility] office: [facility]. consulting sales manager Delphine Aguilar [phone] [id number], Psychiatrist Dr. Feldman [phone] for RN line. Left message. (need MAC if not already done) -has normal B12. anemia improving with Hct 29 today. could check Fe studies. -has not been engaging in any substance-seeking behavior during current hospitalization, and has been compliant with prescribed medication. -States she feels some self-soothing activities would help with her prolonged hospital course- likes to draw, color, paint, listen to music and enjoys company , also light reading materials. Thinks she would not mind having a roommate to help her not feel lonely. -recommendations discussed with case management, hospitalist and RN DIAGNOSIS: Adjustment disorder, with depressed mood and anxiety PTSD, chronic Depressive disorder, unspecified rule out Neurocognitive disorder, unspecified (due to possible hypoxic-ischemic injury intra-and post-operatively) ADHD by history Mild Autism by self-reported history Opiate use disorder, unspecified Alcohol use disorder, remote r/o THC use disorder, unspecified r/o unspecified personality disorder SUBJECTIVE: Per staff, pt yelled from her room today, feeling lonely. Met with patient today for follow-up. Reports not feeling depressed, not anxious presently, but admits she did yell out for staff b/c felt lonely, and that her thoughts start racing when she is alone. Feels "stir crazy" about being in the hospital this long. Able to discuss reason for rehospitalization after 24hr at LTAC- recalls not cooperating with staff and refusing meds except her opiates and ativan, "I didn' t know the anesthesia would affect me so much, I was thinking 'Either I can trust them or they could kill me,'...I was a beast." States she only took Dilaudid and Ativan "I think because of the human nature of it, self- soothing...I had to be humbled." Adds, "I was freaking out, thinking insane sh* t like they were trying to kill me." Feels she needs to get out of her room, feels her mind "runs like a freight train" when not otherwise distracted, thinks of wanting to be out of hospital and back home, but also states she knows the plan is to transition through rehab to regain strength lost with prolonged hospitalization/in-bed. Did talk with her mother today, hopes she will visit. Complains she feels lonely when left alone in her room for prolonged periods. Thinks music, writing/drawing and reading materials could be helpful for her. Also someone to talk to. Would not mind a roommate. Not interested in internal investigator consult. Medically feels overall better, states she does feel abdominal tightness, feels this makes her feel mildly short of breath. MSE: calm, cooperative, engaging, nml speech rate, vol. good eye contact. Normal psychomotor activity. Mood "fine, ready to leave the hospital", affect appropriate to conversation. Thoughts linear, reality-based, no AH/VH, no paranoia/delusions. mildly disinhibited, good sense of humor. expressing good insight into problematic behaviors at LTAC leading to rehospitalization. judgment seems intact. cognition intact. Objective: Vital Signs Temp Pulse Resp BP Pulse Ox 36.8 C 100 20 168/87 H 95 08/31/18 07:44 08/31/18 07:50 08/31/18 07:44 08/31/18 09:24 08/31/18 07:44 Laboratory Results 08/30/18 06:00 08/30/18 08/31/18 09/01/18 05:59 05:59 05:59 Intake Total 1550 Output Total 1200 3300 Balance 350 -3300 - Pending Discharge Pending Discharge Within 24 Hours: No Pending Discharge Within 48 Hours: No ICD10 Worksheet Patient Problems: Problems Problem Status Onset Abdominal pain Acute Depression Acute
[2018-08-31] MEDS: INSULIN LISPRO 100 UNIT/ML SC SCH ×2 (14:54→17:23)
--- NOTE | 2018-08-31 16:30 | HOSPPROG ---
Hospitalist Progress Note Assessment/Plan: Delphine is a 53 F with MMP including chronic pain, depression, T2DM, anxiety/ PTSD discharged 08/24 after prolonged hospitalization for lap ventral hernia repair with mesh c/b peritonitis and small bowel perforation requiring several washouts with last being 08/11. Followed by ID and completed abx 08/24. Transferred to [facility] but sent back due to behavioral issues. * behavioral issues: -reviewed her care with Dr Colunga, Seroquel dose increase -patient mainly needs assurance frequently and suspect she gets lonely and acts out -she has been calm and cooperative for the past 4 days I've taken care of her- she gets afraid -she called Dr Chamorro office today and was upset, Ativan restarted, patient says she will use this sparingly and only while hospitalized (hopefully, the increase dose of Seroquel will help) * recent peritonitis with small bowel perf: no e/o acute infection with stable CT -completed abx -has asked for pain meds/ told her we should try a kpad, she was agreeable -wound vac in place -dc PICC * urinary issues -gutierrez out today *tachycardia -been ongoing since July -had a CTA at that time that was negative for a PE -reviewed her 12 lead EKG which showed nothing acute *. chronic pain: caution with opioids -Tramadol added -would avoid opioids at all times * depression: resume home meds -appreciate psychiatry * anxiety/PTSD: home meds -much improved, has prn Seroquel if needed * normocytic anemia: H/H are stable * T2DM: she had significant hypoglycemia and meds were held-glucoses up today -resumed Lantus and sliding scale today #. htn: Increased her Lisinopril dose -bp better in general #. CM: EF 40% with Gd 1 DD -no s/sx of CHF -Coreg and Lisinopril #. tracheostomy - removed #. DVT ppx: on Lovenox #. inpatient status: pt requires ongoing inpatient care due to need for ongoing acute care and psych consult. *plan:PICC out, trach out, gutierrez out- [facility] came to see Delphine today and she is motivated to get stronger to get home to be with her cats. She needs frequent encouragement and she can yell because she gets afraid. Reviewed her care with Dr Chamorro and Meche SLAG MOTOR OPERATOR. Subjective: Delphine said she suffers from anxiety and being in the hospital makes it worse. She feels bad that she can act out. Objective: Vital Signs Temp Pulse Resp BP Pulse Ox 36.8 C 106 H 18 149/103 H 95 08/31/18 15:14 08/31/18 15:14 08/31/18 15:14 08/31/18 15:14 08/31/18 15:14 Laboratory Results 08/30/18 06:00 08/30/18 08/31/18 09/01/18 05:59 05:59 05:59 Intake Total 1550 Output Total 1200 3300 1000 Balance 350 -3300 -1000 - Physical Exam Constitutional: appears nourished, chronically ill appearing Eyes: PERRL Ears, Nose, Mouth, Throat: hearing normal Cardiovascular: regular rate and rhythym Respiratory: no respiratory distress Gastrointestinal: normoactive bowel sounds, other (wound vac in place) Genitourinary: gutierrez in urethra Skin: warm Musculoskeletal: generalized weakness Neurologic: AAOx3 Psychiatric: interacting appropriately, not anxious, not encephalopathic ICD10 Worksheet Patient Problems: Problems Problem Status Onset Abdominal pain Acute Depression Acute
--- NOTE | 2018-08-31 16:50 | CPEKG ---
Test Reason : OPEN Blood Pressure : / mmHG Vent. Rate : 103 BPM Atrial Rate : 103 BPM P-R Int : 128 ms QRS Dur : 073 ms QT Int : 363 ms P-R-T Axes : 041 018 001 degrees QTc Int : 475 ms Sinus tachycardia Consider left ventricular hypertrophy Borderline T abnormalities, inferior leads Confirmed by Lenny Willson ([id number]) on 08/31/2018 4:50:12 PM Referred By: Confirmed By:Lenny Willson
--- NOTE | 2018-08-31 17:27 | ASMTCMCOM ---
CM Note CM Note Notes: Received more denials from SNFs today d/t patient's 'behaviors.' Charley from [facility] on site and was able to eval patient. She will discuss case with her DON and follow-up with CM on Tuesday. Plan: SNF Date Signed: 08/31/2018 05:26 PM Electronically Signed By:Dorothy Salas RN
[2018-08-31] MEDS: traMADol 50 MG TAB PO PRN (19:35)
[2018-08-31] MEDS: QUEtiapine FUMARATE 100 MG TAB PO SCH (19:59)
[2018-08-31] MEDS: PATCH REMOVAL 1 EA PATCH TD SCH (20:05)
--- NOTE | 2018-09-01 08:26 | WOCRNPDOC ---
WOCRN Advanced Assessment Note - Skin Integrity Problem, Advanced Assess Medial Abdomen Dressing Type: Wound Vac Dressing Description: Clean/Dry, Intact Exudate Amount: Scant Exudate Characteristic(s): Serous Integumentary Issue Intervention: Dressing Changed Jocelyn Wound Swelling: Mild Wound Bed Color: Red Wound Bed Constitution: Granulation Tissue (100%) Wound Edges: Epithelizing Site Odor: None Site Measurement - Head-to-Toe Length X Width X Depth (cm): 17.2x2.3x0.5 Skin Integrity Problem Comment: Wound vac dressing changed. Drape removed with adhesive remover. Wound cleansed with NS and gauze. Skin prepped periwound and draped in windowpain fashion. One piece of small simplace placed in wound bed with a second piece for track pad placement. Draped and seal achieved at - 125mmHg with no leaks detected. Patient tolerated dressing change well. Meche Gallardo NP updated. Wound care will round again on Tuesday.
[2018-09-01] MEDS: CARVEDILOL 3.125 MG TAB PO SCH ×2 (08:44→18:21)
[2018-09-01] MEDS: PANTOPRAZOLE SODIUM 40 MG TAB PO SCH (08:44)
[2018-09-01] MEDS: LISINOPRIL 20 MG TAB PO SCH (08:44)
[2018-09-01] MEDS: GEMFIBROZIL 600 MG TAB PO SCH ×2 (08:44→18:21)
[2018-09-01] MEDS: ENOXAPARIN 40 MG/0.4 ML SYR SC SCH (08:45)
[2018-09-01] MEDS: ADDERALL 10 MG TAB PO SCH (08:45)
[2018-09-01] MEDS: FLUoxetine 20 MG CAP PO SCH (08:45)
[2018-09-01] MEDS: MAGNESIUM OXIDE 400 MG TAB PO SCH ×2 (08:45→21:05)
[2018-09-01] MEDS: LORazepam 1 MG TAB PO PRN ×2 (08:45→21:04)
[2018-09-01] MEDS: INSULIN LISPRO 100 UNIT/ML SC SCH ×3 (08:45→18:13)
[2018-09-01] MEDS: INSULIN GLARGINE 100 UNITS/ML UNIT SC SCH (08:46)
[2018-09-01] MEDS: LIDOCAINE 4%/MENTHOL 1% PATCH TD SCH (08:46)
--- NOTE | 2018-09-01 10:50 | SOAPPROG ---
SOAP Progress Note Assessment/Plan: Assessment: 53 y/o F s/p recent hospitalization for lap ventral hernia repair, small bowel injury, peritonitis and multiple washouts. Readmitted for refusal of care at LTAC. S: Sitting up in chair. Doing well. Ready to be discharged to SNF. Eager to get home to her pets, but understands her need to get stronger first. O: Alert Afebrile No increased WOB Abdomen: soft, nontender, wound vac to suction. +BS. Plan: Can be d/c'ed to SNF from surgery standpoint. Follow up late next week. 08/30/18 11:36 08/31/18 12:57 Very anxious today. Wants to know why she can't have anything for anxiety. Pt was seen by Dr. Colunga yesterday who advised against starting pt on any benzos or narcotics due to addiction history. She ordered prn Seroquel. Pt reports Seroquel not helping. Pt is very agitated and upset. Discussed case with medicine and Dr. Chamorro- will restart Ativan q12 hrs prn. Dr. Colunga has been asked to see the pt again. Abdomen soft, nontender, wound vac to suction. Pt seen with Dr. Chamorro. 09/01/18 10:49 Much more calm today. Increased dose of Seroquel helped her sleep well all night. Did take ativan last night and this am. Ready to be discharged to SNF. Objective: Vital Signs Temp Pulse Resp BP Pulse Ox 36.8 C 106 H 12 151/102 H 98 09/01/18 07:49 09/01/18 08:44 09/01/18 07:49 09/01/18 08:44 09/01/18 07:49 Laboratory Results 08/30/18 06:00 08/31/18 09/01/18 09/02/18 05:59 05:59 05:59 Intake Total 250 Output Total 3300 1000 Balance -3300 -1000 250 ICD10 Worksheet Patient Problems: Problems Problem Status Onset Abdominal pain Acute Depression Acute
--- NOTE | 2018-09-01 12:14 | HOSPPROG ---
Hospitalist Progress Note Assessment/Plan: Delphine is a 53 F with MMP including chronic pain, depression, T2DM, anxiety/ PTSD discharged 08/24 after prolonged hospitalization for lap ventral hernia repair with mesh c/b peritonitis and small bowel perforation requiring several washouts with last being 08/11. Followed by ID and completed abx 08/24. Transferred to [facility] but sent back due to behavioral issues. First encounter, chart reviewed. * behavioral issues: -appreciate Dr Colunga, Seroquel dose increased, seems helpful -patient mainly needs assurance frequently and suspect she gets lonely and acts out -she has been calm and cooperative for the past 5 days - Ativan PRN patient says she will use this sparingly and only while hospitalized * recent peritonitis with small bowel perf: -no e/o acute infection with stable CT -completed abx -wound vac in place -dc PICC * urinary issues -gutierrez out *tachycardia -been ongoing since July -had a CTA at that time that was negative for a PE -reviewed her 12 lead EKG which showed nothing acute *. chronic pain: -caution with opioids -Tramadol -would avoid opioids at all times * depression: -resume home meds -appreciate psychiatry * anxiety/PTSD: -home meds -much improved, has prn Seroquel if needed * normocytic anemia: -H/H are stable * T2DM: -she had significant hypoglycemia and meds were held-glucoses up today -Lantus and sliding scale #. htn: -Increased her Lisinopril dose -bp better in general #. CM: -EF 40% with Gd 1 DD -no s/sx of CHF -Coreg and Lisinopril #. tracheostomy - removed #. DVT ppx: -on Lovenox #. inpatient status: -pt requires ongoing inpatient care due to need for ongoing acute care *plan: - she is motivated to get stronger to get home to be with her cats. -She needs frequent encouragement and she can yell because she gets afraid. D/W CM, looking for SNF Subjective: Feels ok. Sad about being in the hospital. Wants to go to rehab. Objective: Vital Signs Temp Pulse Resp BP Pulse Ox 36.8 C 106 H 12 151/102 H 98 09/01/18 07:49 09/01/18 08:44 09/01/18 07:49 09/01/18 08:44 09/01/18 07:49 Laboratory Results 08/30/18 06:00 08/31/18 09/01/18 09/02/18 05:59 05:59 05:59 Intake Total 250 Output Total 3300 1000 Balance -3300 -1000 250 - Physical Exam Constitutional: appears nourished, not in pain, chronically ill appearing Eyes: PERRL, anicteric sclera, EOMI Ears, Nose, Mouth, Throat: moist mucous membranes, hearing normal, ears appear normal Cardiovascular: No JVD, No tachycardia, No bradycardia Respiratory: no respiratory distress, no rales or rhonchi, reduced air movement Gastrointestinal: normoactive bowel sounds, No tenderness, No ascites Skin: warm, normal color, other (vac), No mottled Musculoskeletal: normal joint ROM, no joint effusions, generalized weakness Neurologic: AAOx3 Psychiatric: not encephalopathic, anxious, poor insight, poor judgement ICD10 Worksheet Patient Problems: Problems Problem Status Onset Depression Acute Abdominal pain Acute
[2018-09-01] MEDS: QUEtiapine FUMARATE 25 MG TAB PO PRN (16:18)
--- NOTE | 2018-09-01 16:53 | ASMTCMCOM ---
CM Note CM Note Notes: Inna from [facility] on site today to re-evaluate for possible acceptance. Updated info sent to [facility] per Inna's request. Inna needs to review this case with her administrative team and will then follow-up with CM. Discussed with NURSE RESEARCHER today - we feel SNF is still the best option at this time. LVM for Nelly at [facility] to see if they have made a decision on acceptance or not. E-mail sent to [facility] re: PASRR approval. CM will continue to follow. Plan: SNF Date Signed: 09/01/2018 04:52 PM Electronically Signed By:Dorothy Salas RN
[2018-09-01] MEDS: QUEtiapine FUMARATE 100 MG TAB PO SCH (21:04)
[2018-09-01] MEDS: traMADol 50 MG TAB PO PRN (21:04)
[2018-09-01] MEDS: PATCH REMOVAL 1 EA PATCH TD SCH (21:06)
--- NOTE | 2018-09-02 08:23 | SOAPPROG ---
SOAP Progress Note Assessment/Plan: Assessment: 53 y/o F s/p recent hospitalization for lap ventral hernia repair, small bowel injury, peritonitis and multiple washouts. Readmitted for refusal of care at LTAC. S: Resting in bed. No complaints. Slept well. Increased dose of Seroquel helping with anxiety. O: Alert Afebrile No increased WOB Abdomen: soft, nontender, wound vac to suction. +BS. Plan: Continue inpt status until strong enough to go home with home care. Likely Tuesday. 09/02/18 08:21 Objective: Vital Signs Temp Pulse Resp BP Pulse Ox 36.9 C 109 H 14 149/103 H 89 L 09/02/18 04:00 09/02/18 04:00 09/02/18 04:00 09/02/18 04:00 09/02/18 04:00 Laboratory Results 08/30/18 06:00 09/01/18 09/02/18 09/03/18 05:59 05:59 05:59 Intake Total 1190 Output Total 1000 Balance -1000 1190 ICD10 Worksheet Patient Problems: Problems Problem Status Onset Abdominal pain Acute Depression Acute
[2018-09-02] MEDS: INSULIN LISPRO 100 UNIT/ML SC SCH ×3 (09:49→17:28)
[2018-09-02] MEDS: INSULIN GLARGINE 100 UNITS/ML UNIT SC SCH (09:49)
[2018-09-02] MEDS: ENOXAPARIN 40 MG/0.4 ML SYR SC SCH (09:50)
[2018-09-02] MEDS: LIDOCAINE 4%/MENTHOL 1% PATCH TD SCH ×2 (09:50→10:00)
[2018-09-02] MEDS: ADDERALL 10 MG TAB PO SCH (09:51)
[2018-09-02] MEDS: MAGNESIUM OXIDE 400 MG TAB PO SCH ×2 (09:51→21:41)
[2018-09-02] MEDS: FLUoxetine 20 MG CAP PO SCH (09:51)
[2018-09-02] MEDS: CARVEDILOL 3.125 MG TAB PO SCH (09:52)
[2018-09-02] MEDS: PANTOPRAZOLE SODIUM 40 MG TAB PO SCH (09:52)
[2018-09-02] MEDS: LISINOPRIL 20 MG TAB PO SCH (09:53)
[2018-09-02] MEDS: LORazepam 1 MG TAB PO PRN ×2 (09:55→21:41)
[2018-09-02] MEDS: GEMFIBROZIL 600 MG TAB PO SCH ×2 (10:06→17:12)
--- NOTE | 2018-09-02 10:40 | HOSPPROG ---
Hospitalist Progress Note Assessment/Plan: Delphine is a 53 F with MMP including chronic pain, depression, T2DM, anxiety/ PTSD discharged 08/24 after prolonged hospitalization for lap ventral hernia repair with mesh c/b peritonitis and small bowel perforation requiring several washouts with last being 08/11. Followed by ID and completed abx 08/24. Transferred to [facility] but sent back due to behavioral issues. * behavioral issues: -appreciate Dr Colunga, Seroquel dose increased, seems helpful -patient mainly needs assurance frequently and suspect she gets lonely and acts out -she has been calm and cooperative for the past 5 days -Ativan PRN patient says she will use this sparingly and only while hospitalized -tears up frequently * recent peritonitis with small bowel perf: -no e/o acute infection with stable CT -completed abx -wound vac in place -dc PICC * urinary issues -gutierrez out *tachycardia -been ongoing since July -had a CTA at that time that was negative for a PE -reviewed her 12 lead EKG which showed nothing acute -start lopressor *chronic pain: -caution with opioids -Tramadol -would avoid opioids at all times * depression: -resume home meds -appreciate psychiatry * anxiety/PTSD: -home meds -much improved, has prn Seroquel if needed * normocytic anemia: -H/H are stable * T2DM: -she had significant hypoglycemia and meds were held-glucoses up today -Lantus and sliding scale #. htn: -Increased her Lisinopril dose -coreg -bp better in general #. CM: -EF 40% with Gd 1 DD -no s/sx of CHF -Coreg and Lisinopril #. tracheostomy - removed #. DVT ppx: -on Lovenox #. inpatient status: -pt requires ongoing inpatient care due to need for ongoing acute care *plan: - she is motivated to get stronger to get home to be with her cats. -She needs frequent encouragement and she can yell because she gets afraid. D/W CM, looking for SNF Subjective: Up in chair. Wants to go home. Feeling better. Objective: Vital Signs Temp Pulse Resp BP Pulse Ox 36.7 C 113 H 18 143/102 H 95 09/02/18 08:00 09/02/18 09:52 09/02/18 08:00 09/02/18 09:53 09/02/18 08:00 Laboratory Results 08/30/18 06:00 09/01/18 09/02/18 09/03/18 05:59 05:59 05:59 Intake Total 1190 Output Total 1000 Balance -1000 1190 - Physical Exam Constitutional: appears nourished, not in pain, chronically ill appearing Eyes: PERRL, anicteric sclera, EOMI Ears, Nose, Mouth, Throat: moist mucous membranes, hearing normal, ears appear normal Cardiovascular: tachycardia, No JVD, No edema Respiratory: no respiratory distress, no rales or rhonchi, reduced air movement Gastrointestinal: tenderness, distension, No ascites Skin: warm, normal color, No mottled Musculoskeletal: normal joint ROM, no joint effusions, generalized weakness Neurologic: AAOx3 Psychiatric: not encephalopathic, anxious, poor insight, poor judgement ICD10 Worksheet Patient Problems: Problems Problem Status Onset Depression Acute Abdominal pain Acute
[2018-09-02] MEDS: SIMETHICONE 80 MG TAB CHEW PO PRN ×2 (11:01→17:13)
--- NOTE | 2018-09-02 15:58 | ASMTCMCOM ---
CM Note CM Note Notes: Reviewed chart, spoke with Jennifer Hooks NP regarding pt's progress. Per Jennifer, pt to likely discharge Tuesday09/05/18. Jennifer reports "pt was returned to us following one night at an LTAC. Pt goal is to go home with HHC." Explained to Patience Rodriguez is considering pt for SNF rehab, level 2 PASRR in progress. Jennifer reports pt is open with [facility] services and with [facility]HC will have adequate services. CM will continue to follow regarding needs. Discharge Plan: To be determined Date Signed: 09/02/2018 03:57 PM Electronically Signed By:Linda Silveira RN
[2018-09-02] MEDS: traMADol 50 MG TAB PO PRN (17:12)
[2018-09-02] MEDS: PATCH REMOVAL 1 EA PATCH TD SCH (19:46)
[2018-09-02] MEDS: METOPROLOL TARTRATE 25 MG TAB PO SCH (21:41)
[2018-09-02] MEDS: QUEtiapine FUMARATE 100 MG TAB PO SCH (21:41)
[2018-09-03] MEDS: QUEtiapine FUMARATE 25 MG TAB PO PRN ×2 (06:33→17:07)
[2018-09-03] MEDS: INSULIN LISPRO 100 UNIT/ML SC SCH ×3 (09:07→17:07)
[2018-09-03] MEDS: ENOXAPARIN 40 MG/0.4 ML SYR SC SCH (09:07)
[2018-09-03] MEDS: MAGNESIUM OXIDE 400 MG TAB PO SCH ×2 (09:08→20:28)
[2018-09-03] MEDS: INSULIN GLARGINE 100 UNITS/ML UNIT SC SCH (09:08)
[2018-09-03] MEDS: METOPROLOL TARTRATE 25 MG TAB PO SCH ×2 (09:08→20:28)
[2018-09-03] MEDS: LISINOPRIL 20 MG TAB PO SCH (09:08)
[2018-09-03] MEDS: PANTOPRAZOLE SODIUM 40 MG TAB PO SCH (09:09)
[2018-09-03] MEDS: ADDERALL 10 MG TAB PO SCH (09:09)
[2018-09-03] MEDS: GEMFIBROZIL 600 MG TAB PO SCH ×2 (09:09→17:06)
[2018-09-03] MEDS: FLUoxetine 20 MG CAP PO SCH (09:09)
[2018-09-03] MEDS: LIDOCAINE 4%/MENTHOL 1% PATCH TD SCH (09:10)
[2018-09-03] MEDS: SIMETHICONE 80 MG TAB CHEW PO PRN ×2 (09:19→14:01)
--- NOTE | 2018-09-03 09:35 | SOAPPROG ---
SOAP Progress Note Assessment/Plan: Assessment: 53 y/o F s/p recent hospitalization for lap ventral hernia repair, small bowel injury, peritonitis and multiple washouts. Readmitted for refusal of care at LTAC. S: Resting in bed. No complaints. Slept well. Increased dose of Seroquel helping with anxiety. O: Alert Afebrile No increased WOB Abdomen: soft, nontender, wound vac to suction. +BS. Plan: Continue inpt status until strong enough to go home with home care. Likely Tuesday. 09/02/18 08:21 09/03/18 09:34 Doing well this morning. Happy she will be able to go home soon. Objective: Vital Signs Temp Pulse Resp BP Pulse Ox 36.3 C 106 H 18 119/88 H 94 09/03/18 08:00 09/03/18 09:08 09/03/18 08:00 09/03/18 09:08 09/03/18 08:00 Laboratory Results 08/30/18 06:00 09/02/18 09/03/18 09/04/18 05:59 05:59 05:59 Intake Total 1190 240 Output Total 1090 Balance 1190 -850 ICD10 Worksheet Patient Problems: Problems Problem Status Onset Abdominal pain Acute Depression Acute
--- NOTE | 2018-09-03 10:00 | HOSPPROG ---
Hospitalist Progress Note Assessment/Plan: Delphine is a 53 F with MMP including chronic pain, depression, T2DM, anxiety/ PTSD discharged 08/24 after prolonged hospitalization for lap ventral hernia repair with mesh c/b peritonitis and small bowel perforation requiring several washouts with last being 08/11. Followed by ID and completed abx 08/24. Transferred to [facility] but sent back due to behavioral issues. * behavioral issues: -much better today -appreciate Dr Colunga, Seroquel dose increased, seems helpful -patient mainly needs assurance frequently and suspect she gets lonely and acts out -she has been calm and cooperative for the past 7 days -Ativan PRN patient says she will use this sparingly and only while hospitalized -tears up frequently * recent peritonitis with small bowel perf: -no e/o acute infection with stable CT -completed abx -wound vac in place -dc PICC * urinary issues -gutierrez out *tachycardia -been ongoing since July -had a CTA at that time that was negative for a PE -reviewed her 12 lead EKG which showed nothing acute -started lopressor, dc coreg -seems to be responding -follow *chronic pain: -caution with opioids -Tramadol -would avoid opioids at all times * depression: -resume home meds -appreciate psychiatry * anxiety/PTSD: -home meds -much improved, has prn Seroquel if needed * normocytic anemia: -H/H are stable * T2DM: -she had significant hypoglycemia and meds were held-glucoses up today -Lantus and sliding scale #. htn: -Increased her Lisinopril dose -coreg dc -lopressor -bp better in general #. CM: -EF 40% with Gd 1 DD -no s/sx of CHF -lopressor and Lisinopril #. tracheostomy - removed #. DVT ppx: -on Lovenox #. inpatient status: -pt requires ongoing inpatient care due to need for ongoing acute care *plan: - she is motivated to get stronger to get home to be with her cats. -She needs frequent encouragement and she can yell because she gets afraid. D/W CM, looking for SNF vs home with extra care Subjective: Up in the chair. Feels well. Stronger. No specific issues. Objective: Vital Signs Temp Pulse Resp BP Pulse Ox 36.3 C 106 H 18 119/88 H 94 09/03/18 08:00 09/03/18 09:08 09/03/18 08:00 09/03/18 09:08 09/03/18 08:00 Laboratory Results 08/30/18 06:00 09/02/18 09/03/18 09/04/18 05:59 05:59 05:59 Intake Total 1190 240 Output Total 1090 Balance 1190 -850 - Physical Exam Constitutional: appears nourished, not in pain, chronically ill appearing Eyes: PERRL, anicteric sclera, EOMI Ears, Nose, Mouth, Throat: moist mucous membranes, hearing normal, ears appear normal Cardiovascular: tachycardia, No JVD, No edema Respiratory: no respiratory distress, no rales or rhonchi, clear to auscultation Gastrointestinal: tenderness, distension, No ascites Skin: warm, normal color, No mottled Musculoskeletal: normal joint ROM, no joint effusions, generalized weakness Neurologic: AAOx3 Psychiatric: not encephalopathic, anxious, poor insight, poor judgement ICD10 Worksheet Patient Problems: Problems Problem Status Onset Depression Acute Abdominal pain Acute
[2018-09-03] MEDS: LORazepam 1 MG TAB PO PRN (12:18)
[2018-09-03] MEDS: traMADol 50 MG TAB PO PRN (14:06)
--- NOTE | 2018-09-03 17:31 | ASMTCMCOM ---
CM Note CM Note Notes: Reviewed chart, spoke with Jennifer Hooks, STATUARY PAINTER, AMRIK Garcia and Dorothy, House Servant of CM. Jennifer continues to advocate for a discharge home with [facility] and [facility] services. Update provided to Dorothy. Per Dorothy, CM should follow up with Deann , pt's proxy. HERVE asked Jennifer to call Deann with an update. Call placed to Deann. Per Deann, she "spoke with Jennifer and does not necessarily agree with the decision to send the pt home with [facility]." Deann would "prefer for the pt to go to SNF rehab." Deann to come into hospital on Tuesday09/04/18 to speak with pt about SNF placement. Deann to also follow up with Dorothy. Deann understands SNF "placement may be difficult due to pt's history of acting out." Call placed to Inna at [facility] with an update. Inna to follow up with Case Management on Tuesday for possible on-site. HERVE will continue to follow. DIscharge Plan: To be determined Date Signed: 09/03/2018 05:30 PM Electronically Signed By:Linda Silveira RN
[2018-09-03] MEDS: PATCH REMOVAL 1 EA PATCH TD SCH (19:26)
[2018-09-03] MEDS: QUEtiapine FUMARATE 100 MG TAB PO SCH (20:28)
[2018-09-04] MEDS: SIMETHICONE 80 MG TAB CHEW PO PRN ×2 (06:20→15:34)
--- NOTE | 2018-09-04 08:27 | WOCRNPDOC ---
WOCRN Advanced Assessment Note - Skin Integrity Problem, Advanced Assess Medial Abdomen Dressing Type: Black Vac Foam (x1), Wound Vac Dressing Description: Clean/Dry, Intact Exudate Amount: None Integumentary Issue Intervention: Dressing Changed, Dressing Initialed & Dated Jocelyn Wound Tissue: Scarred Wound Bed Constitution: Granulation Tissue (100%) Wound Edges: Epithelizing, Attached Site Measurement - Head-to-Toe Length X Width X Depth (cm): 16x2.3x0.5 Skin Integrity Problem Comment: Vac d/c'd. Cleaned wound bed with ns and gauze. Multidex powder to wound bed covered with wound gel. Secured with aquacel ag+ surgical dressing. Next change of dressing due 09/08. Wound care will follow. Report to Chantal ROJAS and Charlotte ROWLEY.
--- NOTE | 2018-09-04 10:14 | SOAPPROG ---
SOAP Progress Note Assessment/Plan: Assessment: 53 y/o F s/p recent hospitalization for lap ventral hernia repair, small bowel injury, peritonitis and multiple washouts. Readmitted for refusal of care at LTAC. S: Sitting up in chair. Upset that her friend Deann yelled at her over the phone about her behavior. Anxiety improved after increased dose of Seroquel. O: Alert Afebrile No increased WOB Abdomen: soft, nontender, wound with dressing over it. Wound vac removed this am. Plan: Home with home care soon. Follow up in 7-[address] Chamorro. 09/04/18 10:10 Objective: Vital Signs Temp Pulse Resp BP Pulse Ox 36.9 C 96 14 129/98 H 91 L 09/04/18 07:23 09/04/18 07:23 09/04/18 07:23 09/04/18 07:23 09/04/18 07:23 Laboratory Results 08/30/18 06:00 09/03/18 09/04/18 09/05/18 05:59 05:59 05:59 Intake Total 240 Output Total 1090 870 Balance -850 -870 ICD10 Worksheet Patient Problems: Problems Problem Status Onset Abdominal pain Acute Depression Acute
[2018-09-04] MEDS: INSULIN LISPRO 100 UNIT/ML SC SCH ×3 (10:26→17:36)
[2018-09-04] MEDS: MAGNESIUM OXIDE 400 MG TAB PO SCH ×2 (10:37→20:26)
[2018-09-04] MEDS: METOPROLOL TARTRATE 25 MG TAB PO SCH ×2 (10:37→20:27)
[2018-09-04] MEDS: FLUoxetine 20 MG CAP PO SCH (10:37)
[2018-09-04] MEDS: LORazepam 1 MG TAB PO PRN (10:38)
[2018-09-04] MEDS: LISINOPRIL 20 MG TAB PO SCH (10:38)
[2018-09-04] MEDS: GEMFIBROZIL 600 MG TAB PO SCH ×2 (10:38→17:36)
[2018-09-04] MEDS: LIDOCAINE 4%/MENTHOL 1% PATCH TD SCH (10:39)
[2018-09-04] MEDS: ADDERALL 10 MG TAB PO SCH (10:39)
[2018-09-04] MEDS: ENOXAPARIN 40 MG/0.4 ML SYR SC SCH (10:39)
[2018-09-04] MEDS: PANTOPRAZOLE SODIUM 40 MG TAB PO SCH (10:39)
[2018-09-04] MEDS: INSULIN GLARGINE 100 UNITS/ML UNIT SC SCH (10:42)
[2018-09-04] MEDS: traMADol 50 MG TAB PO PRN (11:02)
--- NOTE | 2018-09-04 13:08 | HOSPPROG ---
Hospitalist Progress Note Assessment/Plan: Delphine is a 53 F with MMP including chronic pain, depression, T2DM, anxiety/ PTSD discharged 08/24 after prolonged hospitalization for lap ventral hernia repair with mesh c/b peritonitis and small bowel perforation requiring several washouts with last being 08/11. Followed by ID and completed abx 08/24. Transferred to [facility] but sent back due to behavioral issues. * behavioral issues: -difficult today -appreciate Dr Colunga, Seroquel continued -patient mainly needs assurance frequently and suspect she gets lonely and acts out -she has been calm and cooperative for the past 7 days -Ativan PRN patient says she will use this sparingly and only while hospitalized -tears up frequently * recent peritonitis with small bowel perf: -no e/o acute infection with stable CT -completed abx -wound vac in place -dc PICC * urinary issues -gutierrez out *tachycardia -better on lopressor -been ongoing since July -had a CTA at that time that was negative for a PE -reviewed her 12 lead EKG which showed nothing acute -started lopressor, dc coreg -seems to be responding -follow *chronic pain: -caution with opioids -Tramadol -would avoid opioids at all times * depression: -resume home meds -appreciate psychiatry * anxiety/PTSD: -home meds -much improved, has prn Seroquel if needed * normocytic anemia: -H/H are stable * T2DM: -she had significant hypoglycemia and meds were held-glucoses up today -Lantus and sliding scale #. htn: -Increased her Lisinopril dose -coreg dc -lopressor -bp better in general #. CM: -EF 40% with Gd 1 DD -no s/sx of CHF -lopressor and Lisinopril #. tracheostomy - removed #. DVT ppx: -on Lovenox #. inpatient status: -pt requires ongoing inpatient care due to need for ongoing acute care *plan: - she is motivated to get stronger to get home to be with her cats. -She needs frequent encouragement and she can yell because she gets afraid. D/W CM, looking for SNF vs home with extra care -D/W POA, Deann, difficult DC plan Subjective: Having some abd pain today with walking. Anxious. Objective: Vital Signs Temp Pulse Resp BP Pulse Ox 36.7 C 89 16 129/86 H 93 09/04/18 12:20 09/04/18 12:20 09/04/18 12:20 09/04/18 12:20 09/04/18 12:20 Laboratory Results 08/30/18 06:00 09/03/18 09/04/18 09/05/18 05:59 05:59 05:59 Intake Total 240 Output Total 1090 870 Balance -850 -870 - Physical Exam Constitutional: chronically ill appearing, obese, uncomfortable Eyes: PERRL, anicteric sclera, EOMI Ears, Nose, Mouth, Throat: moist mucous membranes, hearing normal, ears appear normal Cardiovascular: No JVD, No tachycardia, No edema Respiratory: no respiratory distress, no rales or rhonchi, reduced air movement Gastrointestinal: tenderness, distension, No ascites, No guarding Skin: warm, normal color, No mottled Musculoskeletal: muscular tenderness, abnormal gait, generalized weakness Neurologic: AAOx3 Psychiatric: anxious, poor insight, poor judgement ICD10 Worksheet Patient Problems: Problems Problem Status Onset Depression Acute Abdominal pain Acute
--- NOTE | 2018-09-04 15:47 | SOAPPROG ---
SOAP Progress Note Assessment/Plan: Assessment: PSYCHIATRY F/U: 09/04/2018 12:30 Met with patient today. Asking for one time dose of a narcotic to help her " jump start" and power through the pain so she can get up and walk. Discussed risks associated with narcotics, and "slippery slope". "I don't want to have ANY narcotics or Ativan when I go home" (after rehab). Noted patient has not even been requesting Tramadol more than once daily and has 50mg available q6hr prn. Reviewed risk of Serotonin Syndrome with patient, with Tramadol + Prozac. Pt expressed understanding. Would consider TID dosing or taking pain meds scheduled to avoid having to "catch up" with pain control when engaging with physical therapy. Reports up briefly, and sometimes feels vertigo. States Seroquel 25mg prn (used 2x yesterday) makes her tired. Would like to try decrease b/c feels it helps some with anxiety. Sleeping well with 100mg at HS. MSE: Engaging, good eye contact, nml speech rate/vol. mood "good, but I have pain" (abdominal site, states she recently had drain pulled). Occasionally winces briefly with discomfort and holds hands over her belly. Affect full range , appropriate to interview, making occasional jokes. Denied any depression, no racing thoughts, no psychotic symptoms, no SI. I/j seem intact. REC: discuss pain management with hospitalist. Consider scheduling Tramadol TID but will need to monitor for serotonin syndrome. using Ativan 1mg once daily prn, although has available q12hr prn. Continue prozac 60mg daily, Adderall 5mg (outpt dose is ER 10mg), and seroquel 100mg hs. Decr prn to 12.5mg tid prn. 08/31/2018 15:00 PHONE CALL Received msg from hospitalist. Patient reporting increased anxiety and wanting Ativan restarted. Reporting current low dose Seroquel unhelpful. Per RN, did not sleep well last night with Seroquel 50mg, pt would like increase. Does have history of severe PTSD. Also substance use d/o, and possible BMD. PLAN: Will increase Seroquel from 12.5mg bid prn to 25-50mg TID prn and increase HS from 50mg to 100mg. 08/30/2018 12:31 PSYCHIATRY FOLLOW-UP RECOMMENDATIONS: -Pt agreeable to D/C Ativan 1mg qhs, in part to ensure not taking any controlled substances at discharge and to avoid risk of substance use relapse. Agrees to resume Seroquel 25mg qhs, with 25mg qhs prn for insomnia/thoughts/ mood and Seroquel 12.5mg bid prn anxiety. Educated on risks of Seroquel including metabolic risks and effect on diabetes. Patient agreed to taking this medication, and also educated that it's use for sleep/anxiety is off-label. May help with sleep, depression (higher dose indicated for BMD depr), PTSD symptoms. Has tolerated 25mg qhs without problem previously. -Discontinue Abilify 5mg QD. Not clear that her restlessness to leave room is akathisia, but this is a possible side effect. Also no clinical indication to now be on 2 antipsychotics if plan for resuming Seroquel. -ST consult for cognitive assessment, evaluate current baseline, and determine if additional support needed after discharge -discussed with hospitalist her c/o feeling abdominal tightness, discomfort, and difficulty taking full breath, is not requesting pain meds for this. -[facility]. manager physical Delphine Aguilar [phone], Psychiatrist Dr. Feldman [phone] for RN line. Left message. (need MAC if not already done) -has normal B12. anemia improving with Hct 29 today. could check Fe studies. -has not been engaging in any substance-seeking behavior during current hospitalization, and has been compliant with prescribed medication. -States she feels some self-soothing activities would help with her prolonged hospital course- likes to draw, color, paint, listen to music and enjoys company , also light reading materials. Thinks she would not mind having a roommate to help her not feel lonely. -recommendations discussed with case management, hospitalist and RN DIAGNOSIS: Adjustment disorder, with depressed mood and anxiety PTSD, chronic Depressive disorder, unspecified rule out Neurocognitive disorder, unspecified (due to possible hypoxic-ischemic injury intra-and post-operatively) ADHD by history Mild Autism by self-reported history Opiate use disorder, unspecified Alcohol use disorder, remote r/o THC use disorder, unspecified r/o unspecified personality disorder SUBJECTIVE: Per staff, pt yelled from her room today, feeling lonely. Met with patient today for follow-up. Reports not feeling depressed, not anxious presently, but admits she did yell out for staff b/c felt lonely, and that her thoughts start racing when she is alone. Feels "stir crazy" about being in the hospital this long. Able to discuss reason for rehospitalization after 24hr at LTAC- recalls not cooperating with staff and refusing meds except her opiates and ativan, "I didn' t know the anesthesia would affect me so much, I was thinking 'Either I can trust them or they could kill me,'...I was a beast." States she only took Dilaudid and Ativan "I think because of the human nature of it, self- soothing...I had to be humbled." Adds, "I was freaking out, thinking insane sh* t like they were trying to kill me." Feels she needs to get out of her room, feels her mind "runs like a freight train" when not otherwise distracted, thinks of wanting to be out of hospital and back home, but also states she knows the plan is to transition through rehab to regain strength lost with prolonged hospitalization/in-bed. Did talk with her mother today, hopes she will visit. Complains she feels lonely when left alone in her room for prolonged periods. Thinks music, writing/drawing and reading materials could be helpful for her. Also someone to talk to. Would not mind a roommate. Not interested in pens and pencils dipper consult. Medically feels overall better, states she does feel abdominal tightness, feels this makes her feel mildly short of breath. MSE: calm, cooperative, engaging, nml speech rate, vol. good eye contact. Normal psychomotor activity. Mood "fine, ready to leave the hospital", affect appropriate to conversation. Thoughts linear, reality-based, no AH/VH, no paranoia/delusions. mildly disinhibited, good sense of humor. expressing good insight into problematic behaviors at LTAC leading to rehospitalization. judgment seems intact. cognition intact. Objective: Vital Signs Temp Pulse Resp BP Pulse Ox 36.8 C 92 16 128/82 H 93 09/04/18 12:15 09/04/18 12:15 09/04/18 12:15 09/04/18 12:15 09/04/18 12:15 Laboratory Results 08/30/18 06:00 09/03/18 09/04/18 09/05/18 05:59 05:59 05:59 Intake Total 240 Output Total 1090 870 Balance -850 -870 - Time Spent With Patient Time Spent With Patient: 45min - Pending Discharge Pending Discharge Within 24 Hours: No ICD10 Worksheet Patient Problems: Problems Problem Status Onset Abdominal pain Acute Depression Acute
--- NOTE | 2018-09-04 15:50 | ASMTCMCOM ---
CM Note CM Note Notes: Jenny from [facility] came and met w/ pt today. Jenny has approved for me to d/c to [place] for tomorrow. CM spoke to Harrison OBRA coordinator. Harrison is able to approve level 2 pasrr and plans on sending it directly to [place]. Tentative d/c schedule for tomorrow. CM notified Deann, MDPOA and pt. Pt is agreeable to going to [place]. CM to follow. Plan: [place] Date Signed: 09/04/2018 03:49 PM Electronically Signed By:AIDAN Agudelo
[2018-09-04] MEDS ORDERED: oxyCODONE IR 5 MG TAB PO ONE (16:00)
[2018-09-04] MEDS: QUEtiapine FUMARATE 25 MG TAB PO PRN (19:29)
[2018-09-04] MEDS: QUEtiapine FUMARATE 100 MG TAB PO SCH (20:27)
[2018-09-04] MEDS: PATCH REMOVAL 1 EA PATCH TD SCH (21:27)
[2018-09-05] MEDS: QUEtiapine FUMARATE 25 MG TAB PO PRN (02:38)
[2018-09-05] MEDS: MAGNESIUM OXIDE 400 MG TAB PO SCH (08:19)
[2018-09-05] MEDS: ENOXAPARIN 40 MG/0.4 ML SYR SC SCH (08:19)
[2018-09-05] MEDS: ADDERALL 10 MG TAB PO SCH (08:19)
[2018-09-05] MEDS: FLUoxetine 20 MG CAP PO SCH (08:20)
[2018-09-05] MEDS: GEMFIBROZIL 600 MG TAB PO SCH (08:20)
[2018-09-05] MEDS: PANTOPRAZOLE SODIUM 40 MG TAB PO SCH (08:20)
[2018-09-05] MEDS: INSULIN GLARGINE 100 UNITS/ML UNIT SC SCH (08:21)
[2018-09-05] MEDS: INSULIN LISPRO 100 UNIT/ML SC SCH ×2 (08:27→12:18)
[2018-09-05] MEDS: LIDOCAINE 4%/MENTHOL 1% PATCH TD SCH (08:52)
[2018-09-05] MEDS: LORazepam 1 MG TAB PO PRN (09:09)
--- NOTE | 2018-09-05 09:13 | HOSPPROG ---
Hospitalist Progress Note Assessment/Plan: Delphine is a 53 F with MMP including chronic pain, depression, T2DM, anxiety/ PTSD discharged 08/24 after prolonged hospitalization for lap ventral hernia repair with mesh c/b peritonitis and small bowel perforation requiring several washouts with last being 08/11. Followed by ID and completed abx 08/24. Transferred to [facility] but sent back due to behavioral issues. * behavioral issues -patient mainly needs assurance frequently and suspect she gets lonely and acts out -she has been calm and cooperative for me * recent peritonitis with small bowel perf: no e/o acute infection with stable CT -completed abx -has asked for pain meds/ told her we should try a kpad, she was agreeable -wound vac removed -dc PICC * urinary issues -gutierrez out today *tachycardia -been ongoing since July -had a CTA at that time that was negative for a PE -reviewed her 12 lead EKG which showed nothing acute *. chronic pain: caution with opioids -Tramadol added -would avoid opioids at all times * depression: resume home meds -appreciate psychiatry * anxiety/PTSD: home meds -much improved, has prn Seroquel if needed * normocytic anemia: H/H are stable * T2DM: she had significant hypoglycemia and meds were held-glucoses up today -resumed Lantus and sliding scale today #. htn:bp low this morning #. CM: EF 40% with Gd 1 DD -no s/sx of CHFl #. tracheostomy - removed #. DVT ppx: on Lovenox #. inpatient status: pt requires ongoing inpatient care due to need for ongoing acute care and psych consult. *plan:dc to [place] Delphine is looking forward to this Subjective: Delphine is looking forward to being dc today. Objective: Vital Signs Temp Pulse Resp BP Pulse Ox 36.9 C 101 H 16 98/86 H 98 09/05/18 08:00 09/05/18 08:00 09/05/18 08:00 09/05/18 08:00 09/05/18 08:00 Laboratory Results 08/30/18 06:00 09/04/18 09/05/18 09/06/18 05:59 05:59 05:59 Intake Total 720 Output Total 870 Balance -870 720 - Physical Exam Constitutional: no apparent distress, appears nourished, not in pain Eyes: PERRL Ears, Nose, Mouth, Throat: hearing normal Respiratory: no respiratory distress Gastrointestinal: normoactive bowel sounds Skin: warm Musculoskeletal: generalized weakness Neurologic: AAOx3 Psychiatric: interacting appropriately ICD10 Worksheet Patient Problems: Problems Problem Status Onset Abdominal pain Acute Depression Acute
--- NOTE | 2018-09-05 09:46 | PDIAF ---
- Diagnosis Diagnosis: behavioral issues, recent peritonitis Code Status: Full Code - Medication Management Discharge Medications: electronically signed and located in the Home Medication List. - Orders Services needed: Physical Therapy, Occupational Therapy Isolation Type: None Diet Texture: Regular Texture Diet, Thin Liquids Additional Instructions: Change dressings to midline abdominal wound every 4 days and prn. Do not swim/ submerge until wound is healed. May shower with dressing on. 1. Clean with ns and gauze 2. Skin prep kat wound then sprinkle multidex powder to cover wound bed. (this step can be discontinued on Sep 16). 3. Then apply Wound gel to wound bed 4. Cover with Allevyn Life or Mepilex border or other foam border dressing. Clementina Cisneros CWON. Please note her home medications have been changed Abilify discontinued, Adderall dose decreased to 5 mg (had been on 10 mg) Seroquel dose has been increased to 100 mg and had been on 25 mg, also prn doses added long acting insulin has been decreased daily due to low blood sugars metformin just resumed She calms easily and can get anxious when she wants someone close by, loves to talk about her cats check glucose q ac and q hs, get a copy of the sliding scale for insulin as used by the hospital - Labs/Radiology BMP Date: 09/10/18 CBC w/diff Date: 09/10/18 - Follow Up Care Current Providers and Referrals: Raad Chamorro MD [Medical Doctor] - follow up in 1 week (Follow up in 7-10 days.) Patient,NotPresent [Unknown] - As per Instructions
[2018-09-05 10:29] VITALS: BP 111/81
--- NOTE | 2018-09-05 11:05 | ASMTDCNOTE ---
Case Management Discharge Discharge Order Complete? Answers: Yes Patient to Obtain Answers: Other Notes: [facility] Medications Transportation Arranged Answers: Other Notes: [facility] w/c Transport will Pick (Date 09/05/2018 04:30 PM & Time) EMTALA Complete Answers: No Case Management Transport Answers: No Form Complete Faxed Final Orders Answers: Yes Agency/Facility Transfer Answers: Yes Report Printed & Faxed to Receiving Agency Family Notified Answers: Yes Discharge Comments Notes: Pts case discussed w/ Jina Thompson NP and AMRIK Porter. Pt is being discharged today to [facility]. DC orders sent. CM provided Charlotte w/ phone number to give report. CM notified CARYN Zacarias of the d/c time. CM available for changes. Plan: [facility] Date Signed: 09/05/2018 11:04 AM Electronically Signed By:AIDAN Agudelo
[2018-09-05] MEDS: LISINOPRIL 20 MG TAB PO SCH (11:11)
[2018-09-05] MEDS: METOPROLOL TARTRATE 25 MG TAB PO SCH (11:24)
--- NOTE | 2018-09-05 11:29 | GDS ---
DISCHARGE DIAGNOSES: 1. Behavioral issues noted at the long-term care facility. 2. Recent peritonitis with small bowel perforations without any etiology of an acute infection. She completed intravenous antibiotics. 3. Urinary issues. 4. Tachycardia. 5. Chronic pain. 6. Depression. 7. Anxiety, post-traumatic stress disorder. 8. Normocytic anemia. 9. Type 2 diabetes. 10. Hypertension. 11. Cardiomyopathy. 12. Tracheostomy. CONSULTATION: Dr. Janette Colunga. HISTORY OF PRESENT ILLNESS: Briefly, the patient was admitted on August 25, 2018, due to behavioral issues. She was recently at [facility] but sent here due to this. Prior to this, she h as multiple medical problems including chronic pain, depression, type 2 diabetes, anxiety, PTSD. She has a history of a laparoscopic ventral hernia repair with mesh on July 21 and developed periton itis with small-bowel perforation. She underwent several washouts. She had a wound VAC in place whe n she was transferred here to [facility]. This since has been removed. She is doing m arkedly better. In regard to her behavioral issues, she was seen by Dr. Colunga with psychiatry. Her home medications have been rearranged, including stopping her Abilify and decreasing her Adderall dose. She has been calm and cooperative. She will be discharged today to [place]. HOSPITAL COURSE: 1. Behavioral issues, resolving. 2. Recent peritonitis with small-bowel perforation. She had a CT scan that was noted to be stable. Her wound VAC and her PICC line have been removed. 3. Urinary issues, resolved. Her catheter was just removed last week. 4. Tachycardia. This has been ongoing in July and at that time, she had a CTA that was performed . It was negative for a PE. She is on beta micki. 5. Chronic pain. Have avoided opioids. She has tramadol p.r.n. 6. Depression. Resumed her home medications. 7. Anxiety, PTSD. She has been on increased dose of Seroquel. This has helped. 8. Normocytic anemia. Her most recent H and H are stable. 9. Type 2 diabetes. She has had some issues with hyperglycemia and hypoglycemia. Will just start h er only on Lantus daily. She has been on this b.i.d. Continued a sliding scale. Resumed her metfor min. 10. Hypertension. Her blood pressure is low this morning. She has been hypertensive. 11. Cardiomyopathy. She has an EF of 40%. 12. Tracheostomy assistance, removed. DISCHARGE CONDITION: Stable. VITAL SIGNS: Blood pressure is 111/81, heart rate 93, respiratory rat e of 16, O2 saturation on room air 98%. Temperature is 36.9 Celsius. MEDICATIONS AT DISCHARGE: Please see the EMR. DISCHARGE INSTRUCTIONS: 1. I have asked Case Management to send our sliding scale to the rehab facility to continue this. 2. Dressing changes have been written out in detail. 3. To note all her medications changes. This has been written out also on the interagency form. Greater than 30 minutes discharging and coordinating the patient's care. /[id number]/MODL
[2018-09-05] MEDS: traMADol 50 MG TAB PO PRN (12:20)
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
== END 2018-09-05 16:29 | DRG 886 ==
LOC: EDUNIT# → F2W 17:05 → F3E 08-26 16:55
PROVIDERS: ADMIT Internal Medicine; ATTEND Internal Medicine
DX: F91.9 Conduct disorder, unspecified (principal); I42.9 Cardiomyopathy, unspecified; E86.9 Volume depletion, unspecified; G89.29 Other chronic pain; F32.9 Major depressive disorder, single episode, unspecified; E11.9 Type 2 diabetes mellitus without complications; F41.9 Anxiety disorder, unspecified; F43.10 Post-traumatic stress disorder, unspecified; D64.9 Anemia, unspecified; I10 Essential (primary) hypertension; G47.00 Insomnia, unspecified; Z93.0 Tracheostomy status
CPT/HCPCS: 80305; 82607-90; 92523-GN; 92526-GN; 92610-GN; 96374; 97110-GP; 97116-GP; 97162-GP; 97167-GO; 97530-GO; 97530-GP; 97535-GO; G0480; G8978-GP-CN; G8979-GP-CL; G8987-GO-CK; G8988-GO-CI; G8996-GN-CJ; G8997-GN-CI; G8998-GN-CH; G9165-GN-CH; G9166-GN-CH; G9167-GN-CH; J1650; J1815; J2060; J2270; J2405

== ENCOUNTER → 2019-01-11 | Outpatient (CLI) | payer OTHER, MEDICAID | LOC: CIMAGING 16:33 | PROVIDERS: ATTEND Family Medicine | DX: M79.674 Pain in right toe(s) (principal) | CPT/HCPCS: 73630-PO ==

== ENCOUNTER 2019-04-12 08:11 | Day surgery (SDC) | payer OTHER, MEDICAID | END 2019-04-12 12:57 | disposition home or self-care (01) | LOC: FSGY 08:11 ==